=== PATIENT | female | born 1950 | race Caucasian/White ===

== ENCOUNTER 2017-08-11 14:00 | Outpatient (RCR) | payer MEDICARE, SELFPAY ==
--- NOTE | 2017-07-03 14:02 | HP.SP.AD_ITS ---
History - History Date of Eval: 07/03/17 Medical Diagnosis (from RX): memory Previous speech therapy: No Other Relevant Medical History/Diagnoses/Surgery: Pt is a 67 year old female who was referred d/t memory and cognitive changes. 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 Pt gets assistance with food and utilities as well as medical care. Pt is changing doctors from Dr. Rawls to Dr. Martell as she will come to the pt rather than the pt having to get transportation to an appt. Pt likes sewing, crafts, and find and seek with numbers. Pt has a brother who visits quite frequently and goes to [employer] at least 2x/wk for additional socialization. Pt has had previous hospital stays for hysterectomy, gall bladder, and 12th rib resection along with right shoulder surgery. Pt was seen by PT Rufino for back pain previously. Pt states having difficulty with remembering anything and can forget even during a conversation. 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 Patients Living Arrangements: Alone Patient Allergies - Allergies Allergies ciprofloxacin Allergy (Verified 06/26/13 16:32) Unknown codeine Allergy (Verified 12/13/13 13:37) Unknown hydroxyzine HCl [From Vistaril] Allergy (Verified 12/13/13 13:37) Unknown hydroxyzine pamoate [From Vistaril] Allergy (Verified 12/13/13 13:37) Unknown niacin Allergy (Verified 12/13/13 13:37) Unknown ofloxacin [From Floxin] Allergy (Verified 12/13/13 13:37) Unknown tetracycline [Tetracycline] Allergy (Verified 12/13/13 13:37) Unknown Tetracyclines Allergy (Verified 12/13/13 13:37) Unknown CLQT - CLQT CLQT Administered: Yes CLQT: Cognitive Linguistic Quick Test (CLQT) is a criterion - referenced assessment designed for adults between the ages of 18 and 89 with known or suspected neurological dysfuntions. The CLQT is to assess strength and weaknesses in five cognitive domains. Severity ratings are within normal limits , mild, moderate, severe deficits. The subtests are as follows: Date: 07/03/17 - Attention Attention: Mild - Memory Memory: WNL - Executive Functions Executive Functions: Severe - Language Language: Moderate - Visuospatial Skills Visuospatial Skills: Mild - Composite Severity Rating Composite Severity Rating: Mild - Clock Drawing Severity Rating Clock Drawing Severity Rating: Mild - CLQT Comments Description Pt was administered CLQT and demonstrated difficulty with symbol trails, generative naming, and design generation as those scores fell below the criterion scores. Pt had strengths of personal facts, symbol cancellation, confrontation naming, story retelling, and design memory as those scores were at or above the criterion. Pt would often need to be told to wait until all of the directions had been said prior to starting. During the symbol trails, pt had the most difficulty on the scored trail as pt was unable to alternate by shape and size. Memory was WNL, however, pt complains of memory issues and being unable to recall information. Memory will be a focus in order to assist with executive function skills as those skills fell within the severe range. Plan - Plan Plan: ST warranted due to executive function skills, memory, and attention. - Frequency Frequency: 1x/Week Duration: 6 Weeks - Prognosis Prognosis: Good - Goal #1-5 Goal #1: Pt will utilize compensatory strategies (internal vs external) to recall important information. Prompts: Min Accuracy: 80% # Sessions: 3/4 Goal #2: Pt will use strategies to guide executive function skills for attention , scheduling/planning/time management, and recalling details for completing functional daily activities. Prompts: Min Accuracy: 80% # Sessions: 3/4 G Codes - Type of Therapy Type of Therapy: Speech-Language Pathology - Memory Memory Current: CJ - 20-39% Memory Goal: CI - 1-19% Education - Patient has Indicated that the Following Identified Educational Needs: None The Patient has indicated that they have no educational or learning abilities that may effect their care.: Yes - Patient Instruction Patient Education: Treatment Plan, Goals Person Taught: Patient Teaching Method: Discussion Response to teaching: Verbalize understanding
--- NOTE | 2018-03-05 14:35 | HP.SP.DC ---
ST Discharge Summary - Discharged: Discharge: Juanita Winters is discharged from outpatient speech-language therapy at this time. The patient attended five sessions following her initial evaluation targeting functional memory strategies, demonstrating generalization of skills to home environment (remembering new names, remembering to bring items to therapy, etc...). Juanita did not schedule any additional sessions and therefore is discharged. Please reconsult as necessary.
== END 2017-08-11 19:00 | disposition home or self-care (01) ==
LOC: SP 14:00
PROVIDERS: Family Provider Internal Medicine; PCP Internal Medicine; Visit Provider Nurse Practitioner Adult Health
DX: R41.841 Cognitive communication deficit (principal); R41.3 Other amnesia; E11.65 Type 2 diabetes mellitus with hyperglycemia; Z71.3 Dietary counseling and surveillance
CPT/HCPCS: 92507 ×2; 92523; 97802; G9168; G9169

== ENCOUNTER 2017-10-27 10:28 | Outpatient (RCR) | payer MEDICARE, SELFPAY | END 2017-10-27 19:00 | LOC: DC 10:28 | PROVIDERS: Family Provider Nurse Practitioner Adult Health; PCP Nurse Practitioner Adult Health; Visit Provider Nurse Practitioner Adult Health | DX: E11.65 Type 2 diabetes mellitus with hyperglycemia (principal); Z71.3 Dietary counseling and surveillance | CPT/HCPCS: 97803 ==

== ENCOUNTER → 2018-03-08 12:47 | Outpatient (CLI) | payer MEDICARE, SELFPAY ==
[2018-03-08 13:41] LABS: Amphetamine Urine VISTA NEGATIVE (<1000 ng/mL); Barbiturate Urine VISTA NEGATIVE (< 200 ng/mL); Benzodiazepine Urine VISTA NEGATIVE (< 200 ng/mL); Cocaine Urine VISTA NEGATIVE (< 300 ng/mL); Ecstacy Urine VISTA NEGATIVE (< 500 ng/mL); Methadone Urine VISTA NEGATIVE (< 300 ng/mL); PCP Urine VISTA NEGATIVE (< 25 ng/mL); THC Urine VISTA NEGATIVE (< 50 ng/mL); Vista UDS pH Range 7
== END ==
PROVIDERS: Family Provider Nurse Practitioner Adult Health; PCP Nurse Practitioner Adult Health; Visit Provider Anesthesiology Pain Medicine
DX: F11.20 Opioid dependence, uncomplicated (principal)
CPT/HCPCS: 80307

== ENCOUNTER 2018-04-28 13:36 | Emergency (ER) | payer MEDICARE, SELFPAY ==
[2018-04-28 13:37] VITALS: BP 183/99; PULSE 91; RESP 18; TEMP 36.6; O2SAT 95; BMI 33.3
[2018-04-28 13:41] VITALS: O2SAT 95
--- NOTE | 2018-04-28 14:59 | RAD_ITS ---
STUDY: X-RAY - THORACIC SPINE REASON FOR EXAM: Female, 67 years old. Status post fall TECHNIQUE: 2 view(s) of the thoracic spine were obtained. COMPARISON: None. FINDINGS: Normal kyphosis of the thoracic spine. There is no substantial scoliosis. Normal thoracic vertebrae and endplates. Normal disc space heights. The soft tissue structures are unremarkable. RAD/Thoracic Spine 3 Views IMPRESSION: Normal x-ray examination of the thoracic spine. Electronically Signed: Marielena Boston MD at 16:03 EDT Tel , Service support ,
[2018-04-28] MEDS: Ondansetron ODT 4 MG Tablet PO (15:46)
[2018-04-28] MEDS: fentaNYL 100 MCG/2 ML Ampul 50 MCG IM (15:46)
--- NOTE | 2018-04-28 16:17 | ED.DCSUM_ITS ---
- ER Visit Summary Date of Service: 04/28/18 Chief Complaint: Fall History of Present Illness: The patient is a 67 F who sees Dolores Martell. She reports that 2 days ago she lost her balance and fell onto her buttocks. She then fell backwards and hit her head. She has a headache is 510 severity. She did not have a loss of consciousness. She is not on blood thinners. She reports that she has low back pain is 0 out of 10 at rest and 10 out of 10 with movement. Is not radiate into her legs. She denies any numbness, tingling, or weakness in her legs. No problem with her bowels or her bladder. No groin numbness. She also complains of bilateral hip pain. States that is 0 out of 10 at rest and 10 out of 10 with movement as well. Physical Examination: Vitals: Stable. Afebrile. Neck: No vertebral tenderness. Full ROM without difficulty. Cleared by NEXUS criteria. Back: Mild diffuse tenderness palpation over lumbar spine the paraspinous muscle chair and lumbar region bilaterally. She has a negative straight leg raise bilaterally. She has 5 out of 5 dorsiflexion, plantarflexion, extensor hallucis longus bilaterally. She has normal sensation to light touch throughout. General: A&O x 3. NAD. Cardiovascular exam: Regular rate and rhythm, no murmur, rub or gallop. Respiratory exam: Chest nontender. No crepitus. Clear to auscultation bilaterally. No wheezes or stridor. Abdominal exam: Soft, nontender, nondistended, normal bowel sounds. No pain in RUQ or LUQ specifically. No peritoneal signs. Extremity: Mild tenderness palpation over her greater trochanters bilaterally. No pain with range of motion. Test Results: LS spine x-ray show a 20-30% compression fracture of L1. Thoracic spine x-ray show degenerative changes. X-ray of her pelvis is read by the radiology is a questionable lucency in the left femoral neck. Because of the CT of the left hip was obtained and is negative. Emergency Department Course and Treatment: Patient was treated fentanyl IM and [place] p.o. She is resting comfortably and would like to go home. Treatment Plan: Patient will be discharged on [place] and Colace. Instructed follow-up her primary care physician 1 week if not improving. Return to the emergency department for any worsening symptoms. Disposition: To home in improved and stable condition. Impression: 1. L1 compression fracture. This note was generated with [employer] dictation software. It may contain incorrect words, spelling, and punctuation that were not noted in review of the chart prior to signing ED Disposition - Plan for ED Patient: Disposition: Home or Assisted Living Chief Complaint: Fall Instructions: ED Fx Comp Vertebral Prescriptions: Docusate Sodium [Colace] 100 mg PO DAILY #20 capsule Hydrocodone/Acetaminophen [[place] 5-325 Tablet] 1 - 2 each PO 4X/DAY PRN PRN 5 Days #20 tablet PRN Reason: Pain Referrals: Shelley Martell, FOOD [employer]AGE ANALYST-C [Primary Care Provider] - 1 Week if not improving
[2018-04-28 17:10] VITALS: BP 183/81; PULSE 78; O2SAT 94
--- NOTE | 2018-04-28 17:47 | ED.RN ---
CALLED REPORT TO [facility] SPOKE WITH NETTIE. REVIEWED TESTING AND NEW MEDICATIONS. DENIES QUESTIONS.
[2018-04-28 18:00] VITALS: BP 174/71; PULSE 91; RESP 18; O2SAT 96
[2018-04-28] MEDS: HYDROcodone Bitartrate/Apap 5/325 Tablet PO (18:16)
== END 2018-04-28 18:26 | disposition home or self-care (01) ==
LOC: ED 15:50
PROVIDERS: Emergency Provider Emergency Medicine; Family Provider Nurse Practitioner Adult Health; PCP Nurse Practitioner Adult Health
DX: S32.019A Unspecified fracture of first lumbar vertebra, initial encounter for closed fracture (principal); W19.XXXA Unspecified fall, initial encounter; Y93.89 Activity, other specified; Y92.89 Other specified places as the place of occurrence of the external cause; Y99.8 Other external cause status
CPT/HCPCS: 72072; 72100; 72170; 73700; 96372; 99284

== ENCOUNTER 2018-05-14 17:52 | Observation (INO) | payer MEDICARE, SELFPAY ==
[2018-05-14] VITALS (10 sets, daily range): BP systolic 150–172; BP diastolic 64–83; PULSE 93–109; RESP 18; TEMP 35.8–37.1; O2SAT 93–97; BMI 32.1
[2018-05-14] MEDS: Cefazolin 2 GM in 0.9% Normal Saline 100 ML IV (15:35)
--- NOTE | 2018-05-14 15:43 | RAD_ITS ---
Fluoroscopic guidance for kyphoplasty INDICATION: Kyphoplasty of L1 vertebral body TECHNIQUE: 6 fluoroscopic images. 116.2 seconds of fluoroscopy time. FINDINGS: Multiple fluoroscopic images demonstrate placement of bipedicular trochars with placement of vertebral augmentation balloons. Subsequent injection of radiopaque cement into the targeted vertebral body. Mild bulging anteriorly still felt to be within the anterior vertebral body. No significant extravasation. RAD/Spine 1 View Any Level IMPRESSION: Fluoroscopic guidance for kyphoplasty by referring service. Please see procedure report. Electronically Signed: Mohamud Escamilla MD at 7:57 EDT , Service support ,
[2018-05-14] MEDS: Bupivacaine Mpf 0.5% 30 ML VIAL (16:23)
[2018-05-14 18:06] LABS: Bedside Glucose 133 mg/dL (70-110)
--- NOTE | 2018-05-14 19:36 | HP.PCM_ITS ---
Problem List (1) Compression fracture of L1 lumbar vertebra Status: Chronic (2) Status post kyphoplasty Status: Acute (3) Hypothyroidism Status: Chronic (4) History of schizophrenia Status: Chronic (5) Type 2 diabetes mellitus Status: Chronic History of Present Illness Date of Admission: 05/14/18 Chief Complaint: Perioperative management of kyphoplasty The patient is a 68 year old F with history of redness mellitus type II and routine kyphoplasty of L1 compression fracture by Dr. Gupta and he asked me to admit the patient for perioperative management. Prior to that she came to ER on 04/28/2018 after she lost her balance and fell on her buttocks 2 days prior to that. I saw patient in the recovery room and she still has pain on perioperative region. She is feeling nauseated. She did not urinate but she feels urged to urinate. Denies chest pain, shortness of breath. [] Past Medical History Past Medical History (Chronic Problems): Chronic Problems Compression fracture of L1 lumbar vertebra (Chronic) Hypothyroidism (Chronic) History of schizophrenia (Chronic) Type 2 diabetes mellitus (Chronic) Allergies ciprofloxacin Allergy (Verified 05/11/18 13:58) Unknown codeine Allergy (Verified 05/11/18 13:58) Unknown hydroxyzine HCl [From Vistaril] Allergy (Verified 05/11/18 13:58) Unknown hydroxyzine pamoate [From Vistaril] Allergy (Verified 05/11/18 13:58) Unknown niacin Allergy (Verified 05/11/18 13:58) Unknown ofloxacin [From Floxin] Allergy (Verified 05/11/18 13:58) Unknown tetracycline [Tetracycline] Allergy (Verified 05/11/18 13:58) Unknown Tetracyclines Allergy (Verified 05/11/18 13:58) Unknown Home Medications: Ambulatory Orders Medication Instructions Recorded Cyanocobalamin [Vitamin B12] 1,000 mcg IM Q30D 06/26/13 Fluoxetine [Prozac] 40 mg PO DAILY 06/26/13 Levothyroxine [Synthroid] 25 mcg PO DAILY 06/26/13 Omeprazole [Prilosec] 40 mg PO DAILY 06/26/13 Paliperidone [Invega] 6 mg PO QHS 06/26/13 Trazodone HCl [Oleptro ER] 300 mg PO QHS 06/26/13 Aspirin 325 mg PO DAILY@0800 03/13/17 Dicyclomine HCl 20 mg PO 4X/DAY 03/13/17 Docusate Sodium [Colace] 100 mg PO BID 03/13/17 Wells-3 Fatty Acids/Fish Oil [Fish 1 each PO DAILY 03/13/17 Oil 1,000 mg Capsule] Pravastatin [Pravachol] 80 mg PO QHS 03/13/17 Pregabalin [Lyrica] 50 mg PO BID 03/13/17 busPIRone [Buspar] 15 mg PO TID 03/13/17 Cholecalciferol (Vitamin D3) 8,000 unit PO DAILY 05/11/18 [Vitamin D3] Fenofibrate [Tricor] 145 mg PO DAILY 05/11/18 Polyethylene Glycol 3350 [Miralax] 17 gm PO DAILY 05/11/18 traMADol [Ultram (G)] 50 mg PO BID 05/11/18 Smoking Status: Never smoker - *Family History Paternal History Items: No pertinent history Review of Systems Constitutional: Denies: Chills, Fever, Weight Change HEENT: Denies: Head Aches, Sinus Congestion, Sinus Drainage Cardiovascular: Denies: Chest Pain, Palpitations Respiratory: Denies: Cough, Shortness of breath at rest, Sputum production Gastrointestinal: Denies: Abdominal Pain, Nausea, Vomiting Genitourinary: Denies: Dysuria Musculoskeletal: Reports: Back Pain, Joint Pain, Joint stiffness, Joint swelling Skin: Denies: Rash, Wounds Neurological: Reports: Balance problems, Incoordination. Denies: Focal weakness , Numbness, Tingling Psychiatric: Denies: Anxiety, Depression, Homicidal Ideations, Suicidal Ideations Hematologic/ Lymphatic: Denies: Easy Bruising, Easy Bleeding VTE Information - Inpt Only VTE Present on Admission: No VTE Mechan Device Prophylaxis: SCD's VTE Pharm Prophylaxis ordered?: No Reason prophylaxis not ordered:: Medical Contraindication - Kyphoplasty surgery Patient Problems: Active and Suspected Problems Status post kyphoplasty (Acute) - Physical Exam General: Alert, Oriented x3, Cooperative HEENT: Atraumatic, PERRLA, EOMI, Normocephalic Neck: Supple, No JVD, Negative Carotid Bruits Lungs: Clear to auscultation, No rhonchi, No wheeze, Diminished Cardiovascular: Regular rate, Regular Rhythm, Normal S1, Normal S2, No murmurs Abdomen: Bowel Sounds Present, Soft, Non Tender, Non-Distended Extremities: No edema, Capillary Refill Less than 3 Seconds Skin: No rashes, No breakdown, Incision - Surgical dressing or back. Dressing is dry., - Musculoskeletal: No Tenderness to Palpation of Joints or Extremities, Arthritic Changes Neurological: Cranial nerves II-XII grossly intact Psych/Mental Status: Normal Affect, Appropriate Vital Signs Temp Pulse Resp BP Pulse Ox 97.7 F L 96 18 172/77 H 97 05/14/18 18:03 05/14/18 19:00 05/14/18 19:00 05/14/18 19:00 05/14/18 19:00 Oxygen Flow Rate (L/min) 3 Oxygen Delivery Method Nasal Cannula Weight: 164 lb 10.965 oz Body Mass Index (BMI) 32.1 Finger Stick Blood Glucose 133 Intake and Output for Last 24 Hours 05/12/18 05/13/18 05/14/18 23:59 23:59 23:59 Intake Total 800 / 800 Balance 800 / 800 POC Glucose 05/14/18 18:03 POC Glucose 133 H Assessment/Plan All Active Problems Status post kyphoplasty (Acute) The patient is a 68 year old F with history of redness mellitus type II and routine kyphoplasty of L1 compression fracture by Dr. Gupta and he asked me to admit the patient for perioperative management. Prior to that she came to ER on 04/28/2018 after she lost her balance and fell on her buttocks 2 days prior to that. I saw patient in the recovery room and she still has pain on perioperative region. She is feeling nauseated. She did not urinate but she feels urged to urinate. Denies chest pain, shortness of breath. 1. Recent L1 compression fracture status post kyphoplasty; with underlying osteoporosis with history of sciatica pain and neuropathy: Patient is being admitted on regular MedSurg floor. Pain control. IV fluid. She had propofol and fentanyl as an anesthetic agent. On tramadol. Symptomatic management for nausea or vomiting. Straight cath as needed for bladder emptying and bladder scan every 4 hourly for PVR. On stool softener. CBC BMP tomorrow morning 2. Type 2 diabetes mellitus: Accu-Chek before meals and at bedtime and cover with NovoLog sliding scale. 3. Chronic diastolic heart failure: Patient had 2D echo in April 2015 which shows EF 65% with stage I diastolic dysfunction. 4. Dyslipidemia, hypothyroidism and schizophrenia: Home medication reconciliation done. 5. DVT prophylaxis: On bilateral SCDs. Will hold pharmacological prophylaxis for at least 24 hours and patient might be discharged tomorrow morning. This note was generated with [employer] dictation software. Every effort was made to ensure accuracy, however computerized flight line service attendant mistakes may persist. Code Visit OBSV E&M: 10918 Initial observation care L3
[2018-05-14] MEDS: Ondansetron 4 MG/2 ML Vial IV (20:14)
[2018-05-14] MEDS: 0.9% Normal Saline 1,000 ML 75 ML IV (20:18)
[2018-05-14 21:30] LABS: Bedside Glucose 152 mg/dL (70-110)
[2018-05-14] MEDS: Pravastatin 80 MG Tablet PO (21:30)
[2018-05-14] MEDS: traMADol 50 MG Tablet PO (21:30)
[2018-05-14] MEDS: Dicyclomine 10 MG Capsule 20 MG PO (21:30)
[2018-05-14] MEDS: Pregabalin 50 MG Capsule PO (21:30)
[2018-05-14] MEDS: busPIRone 15 MG TABLET PO (21:30)
[2018-05-14] MEDS: Docusate Sodium 100 MG Capsule PO (21:30)
[2018-05-14] MEDS: proMETHazine 25 MG/ML Syringe 12.5 MG IV (21:38)
[2018-05-15 00:08] VITALS: BP 168/88; PULSE 89; RESP 17; TEMP 37.4; O2SAT 96
[2018-05-15] MEDS: Acetaminophen 325 MG Tablet 650 MG PO ×2 (02:39→08:40)
[2018-05-15 02:41] VITALS: BP 114/54; PULSE 88; RESP 18; TEMP 37.3; O2SAT 94
[2018-05-15] MEDS: busPIRone 15 MG TABLET PO ×3 (04:45→22:22)
[2018-05-15] MEDS: Levothyroxine 25 MCG TABLET PO (04:46)
[2018-05-15 06:51] LABS: Bedside Glucose 118 mg/dL (70-110)
[2018-05-15 07:32] LABS: Absolute Lymphocyte Count 1.36 X10^3/ul (0.83-4.51); Absolute Neutrophil Count 6.1 X10^3/uL (2.0-7.7); Basophil# 0.01 X10^3/uL; Basophil% 0.1 % (0-1); Eosinophil# 0.02 X10^3/uL; Eosinophils% 0.2 % (0-5); Hematocrit 32.9 % (37-47); Hemoglobin 10.8 g/dl (12.0-15.0); Lymphocyte # 1.36 X10^3/ul (4.0); Lymphocyte % 16.7 % (19-41); Mean Corp Hgb Conc 32.8 g/gl (32-36); Mean Corpuscular Hgb 30.3 pg (27.0-32.0); Mean Corpuscular Volume 92.2 fL (81-99); Mean Platelet Vol. 8.9 fl (6.2-12.0); Monocyte# 0.58 X10^3/uL; Monocyte% 7.1 % (0-10); Neutrophil # 6.14 X10^3/uL (2.7-7.7); Neutrophil % 75.8 % (47-70); Platelet Count 409 K/mm3 (150-450); RBC Distribution Width CV 12.9 % (11.6-14.6); RBC Distribution Width SD 42.1 fl (35.1-43.9); Red Blood Count 3.57 M/mm3 (4.2-5.4); White Blood Count 8.1 K/mm3 (4.4-11.0)
[2018-05-15 07:36] LABS: POSITIVE COUNT NO; POSITIVE DIFFERENTIAL NO; POSITIVE MORPHOLOGY NO
[2018-05-15 07:57] LABS: Anion Gap 9 (5-15); BUN 8 mg/dL (7-18); BUN/Creat Ratio 8.9 RATIO (10-20); Calcium,Total 8.3 mg/dL (8.5-10.1); Chloride 104 mmol/L (98-107); EST Glomerular Filtration Rate 66 mL/min (>60); Est Glom Filt Rate - Afr Amer 80 mL/min (>60); Estimated Creatinine Clearance 41.78 ml/min; Glucose 108 mg/dL (74-106); Potassium 3.9 mmol/L (3.5-5.1); Sodium Level 139 mmol/L (136-145)
[2018-05-15 08:00] VITALS: O2SAT 95
[2018-05-15 08:29] VITALS: BP 147/75; PULSE 80; RESP 18; TEMP 37.8; O2SAT 95
[2018-05-15] MEDS: Dicyclomine 10 MG Capsule 20 MG PO ×4 (08:32→22:19)
[2018-05-15] MEDS: Fenofibrate 145 MG Tablet PO (08:32)
[2018-05-15] MEDS: Polyethylene Glycol 3350 17 GM PACKET PO (08:33)
[2018-05-15] MEDS: Omega-3 Acid Ethyl Esters 1 GM Capsule PO (08:33)
[2018-05-15] MEDS: Pantoprazole Sodium 40 MG Tablet PO (08:33)
[2018-05-15] MEDS: FLUoxetine 20 MG Capsule 40 MG PO (08:33)
[2018-05-15] MEDS: Aspirin 325 MG Tablet PO (08:34)
[2018-05-15] MEDS: Docusate Sodium 100 MG Capsule PO ×2 (08:34→22:22)
[2018-05-15] MEDS: Pregabalin 50 MG Capsule PO ×2 (08:38→22:29)
[2018-05-15] MEDS: traMADol 50 MG Tablet PO ×2 (08:38→22:29)
[2018-05-15] MEDS: proMETHazine 25 MG/ML Syringe 12.5 MG IV (09:35)
[2018-05-15] MEDS: 0.9% Normal Saline 1,000 ML 75 ML IV ×2 (11:03→22:16)
[2018-05-15 11:51] LABS: Bedside Glucose 136 mg/dL (70-110)
--- NOTE | 2018-05-15 12:04 | PCM.PN.HOSP ---
Patient Problems: Active and Suspected Problems Status post kyphoplasty (Acute) Migraine (Acute) Abdominal bloating (Acute) Subjective: Headache. Back pain is worse s/p kyphoplasty. Abdominal bloating. Vitals/I&O's: Vital Signs Temp Pulse Resp BP Pulse Ox 37.8 C H 80 18 147/75 H 95 05/15/18 08:29 05/15/18 08:29 05/15/18 08:29 05/15/18 08:29 05/15/18 08:29 Oxygen Flow Rate (L/min) 3 Oxygen Delivery Method Room Air Weight: 74.7 kg Body Mass Index (BMI) 32.1 Finger Stick Blood Glucose 133 Intake and Output for Last 24 Hours 05/13/18 05/14/18 05/15/18 23:59 23:59 23:59 Intake Total 920 / 920 1346 / 1346 Output Total 350 / 350 2250 / 2250 Balance 570 / 570 -904 / -904 General: Alert, - - appears older than stated age. afebrile. HEENT: Atraumatic, Normocephalic Oral: Moist Mucosa, No Gingival or Mucosal Lesions/ Ulcerations Neck: No Nodes, Thyroid Normal Size and Texture Lungs: Clear to auscultation, Normal air movement, No rhonchi, No wheeze Cardiovascular: Regular rate, Regular Rhythm, Normal S1, Normal S2, No murmurs Abdomen: Bowel Sounds Present, Soft, Non Tender, Distended Extremities: No edema, No Calf Tenderness Skin: No rashes, No breakdown Psych/Mental Status: Normal Affect, Appropriate Laboratory Results 05/14/18 18:03: POC Glucose 133 H 05/14/18 21:25: POC Glucose 152 H 05/15/18 06:42: POC Glucose 118 H 05/15/18 07:07: WBC 8.1, RBC 3.57 L, Hgb 10.8 L, Hct 32.9 L, MCV 92.2, MCH 30.3, MCHC 32.8, RDW 12.9, RDW Differential 42.1, Plt Count 409, MPV 8.9, Immature Gran % (Auto) 0.100, Neut % (Auto) 75.8 H, Lymph % (Auto) 16.7 L, [place] % (Auto) 7.1, Eos % (Auto) 0.2, Baso % (Auto) 0.1, Absolute Neuts (auto) 6.1, Absolute Lymphs (auto) 1.36, Total Counted Not Reportable 05/15/18 07:07: Sodium 139, Potassium 3.9, Chloride 104, Carbon Dioxide 26.0, Anion Gap 9, BUN 8, Creatinine 0.90, Estim Creat Clear Calc 41.78, Est GFR (MDRD) Af Amer 80, Est GFR (MDRD) Non-Af 66, BUN/Creatinine Ratio 8.9 L, Glucose 108 H, Calcium 8.3 L 05/15/18 11:00: POC Glucose 136 H Current Medications Acetaminophen (Tylenol) 650 mg PO Q6H PRN PRN PRN Reason: Mild Pain (scale 0-3)/T>100.7 Last Admin: 05/15/18 08:40 Dose: 650 mg Al Hydroxide/Mg Hydroxide (Mylanta Ii) 30 ml PO Q6H PRN PRN PRN Reason: Gastric Burning Aspirin (Aspirin) 325 mg PO DAILY@0800 [facility] Last Admin: 05/15/18 08:34 Dose: 325 mg Bisacodyl (Dulcolax) 10 mg RECTAL DAILY PRN PRN PRN Reason: Constipation Buspirone HCl (Buspar) 15 mg PO TID [facility] Last Admin: 05/15/18 04:45 Dose: 15 mg Cholecalciferol (Vitamin D) 8,000 unit PO DAILY [facility] Last Admin: 05/15/18 08:32 Dose: 8,000 unit Cyanocobalamin (Vitamin B12) 1,000 mcg IM Q30D [facility] Dextrose (D50w Syringe) 0 gm IV X1 PRN; Protocol PRN Reason: Hypoglycemia Dicyclomine HCl (Bentyl) 20 mg PO 4X/DAY [facility] Last Admin: 05/15/18 08:32 Dose: 20 mg Docusate Sodium (Colace) 100 mg PO BID [facility] Last Admin: 05/15/18 08:34 Dose: 100 mg Fenofibrate (Tricor) 145 mg PO DAILY [facility] Last Admin: 05/15/18 08:32 Dose: 145 mg Fluoxetine HCl (Prozac) 40 mg PO DAILY [facility] Last Admin: 05/15/18 08:33 Dose: 40 mg Glucagon () 1 mg IM .X1 PRN PRN Reason: Hypoglycemia Sodium Chloride () 1,000 mls @ 75 mls/hr IV .[id number] [facility] Last Admin: 05/15/18 11:03 Dose: 75 mls/hr Insulin Human Lispro (Humalog Getpen (Bkc)) 0 unit SQ ACHS [facility] PRN Reason: Protocol Last Admin: 05/15/18 11:03 Dose: Not Given Levothyroxine Sodium (Synthroid) 25 mcg PO DAILY@0600 [facility] Last Admin: 05/15/18 04:46 Dose: 25 mcg Kpizt-0-Bjfx Ethyl Esters (Lovaza) 1 gm PO DAILY [facility] Last Admin: 05/15/18 08:33 Dose: 1 gm Ondansetron HCl (Zofran) 4 mg IV Q6H PRN PRN PRN Reason: Nausea Last Admin: 05/14/18 20:14 Dose: 4 mg Paliperidone (Invega) 6 mg PO QHS [facility] Pantoprazole Sodium (Protonix) 40 mg PO DAILY [facility] Last Admin: 05/15/18 08:33 Dose: 40 mg Polyethylene Glycol (Miralax) 17 gm PO DAILY [facility] Last Admin: 05/15/18 08:33 Dose: 17 gm Pravastatin Sodium (Pravachol) 80 mg PO QHS [facility] Last Admin: 05/14/18 21:30 Dose: 80 mg Pregabalin (Lyrica) 50 mg PO BID [facility] Last Admin: 05/15/18 08:38 Dose: 50 mg Promethazine HCl (Phenergan) 12.5 mg IV Q4H PRN PRN PRN Reason: NAUSEA/VOMITING Last Admin: 05/15/18 09:35 Dose: 12.5 mg Tramadol HCl (Ultram) 50 mg PO BID [facility] Last Admin: 05/15/18 08:38 Dose: 50 mg Trazodone HCl (Desyrel) 200 mg PO QHS [facility] Zolpidem Tartrate (Ambien (Generic)) 5 mg PO QHS PRN PRN PRN Reason: INSOMNIA Medical Necessity - Tobacco Use Smoking Status: Never smoker Assessment/Plan All Active Problems Status post kyphoplasty (Acute) Migraine (Acute) Abdominal bloating (Acute) 1. Migraine start ibuprofen and see if it helps 2. abdominal distention check KUB to eval for ileus/SBO 3. debility pt lives by herself have PT OT eval may need SNF 4. S/P Kyphoplasty states she feels worse than before procedure mgmt per Dr. Gupta 5. DVT proph: LMWH. Code Visit Inpatient E&M: 07882 Subs Hosp L2
--- NOTE | 2018-05-15 12:09 | PN_ITS ---
Patient Problems: Active and Suspected Problems Status post kyphoplasty (Acute) Migraine (Acute) Abdominal bloating (Acute) Subjective: Headache. Back pain is worse s/p kyphoplasty. Abdominal bloating. Vitals/I&O's: Vital Signs Temp Pulse Resp BP Pulse Ox 37.8 C H 80 18 147/75 H 95 05/15/18 08:29 05/15/18 08:29 05/15/18 08:29 05/15/18 08:29 05/15/18 08:29 Oxygen Flow Rate (L/min) 3 Oxygen Delivery Method Room Air Weight: 74.7 kg Body Mass Index (BMI) 32.1 Finger Stick Blood Glucose 133 Intake and Output for Last 24 Hours 05/13/18 05/14/18 05/15/18 23:59 23:59 23:59 Intake Total 920 / 920 1346 / 1346 Output Total 350 / 350 2250 / 2250 Balance 570 / 570 -904 / -904 General: Alert, - - appears older than stated age. afebrile. HEENT: Atraumatic, Normocephalic Oral: Moist Mucosa, No Gingival or Mucosal Lesions/ Ulcerations Neck: No Nodes, Thyroid Normal Size and Texture Lungs: Clear to auscultation, Normal air movement, No rhonchi, No wheeze Cardiovascular: Regular rate, Regular Rhythm, Normal S1, Normal S2, No murmurs Abdomen: Bowel Sounds Present, Soft, Non Tender, Distended Extremities: No edema, No Calf Tenderness Skin: No rashes, No breakdown Psych/Mental Status: Normal Affect, Appropriate Laboratory Results 05/14/18 18:03: POC Glucose 133 H 05/14/18 21:25: POC Glucose 152 H 05/15/18 06:42: POC Glucose 118 H 05/15/18 07:07: WBC 8.1, RBC 3.57 L, Hgb 10.8 L, Hct 32.9 L, MCV 92.2, MCH 30.3 , MCHC 32.8, RDW 12.9, RDW Differential 42.1, Plt Count 409, MPV 8.9, Immature Gran % (Auto) 0.100, Neut % (Auto) 75.8 H, Lymph % (Auto) 16.7 L, [place] % (Auto) 7.1, Eos % (Auto) 0.2, Baso % (Auto) 0.1, Absolute Neuts (auto) 6.1, Absolute Lymphs (auto) 1.36, Total Counted Not Reportable 05/15/18 07:07: Sodium 139, Potassium 3.9, Chloride 104, Carbon Dioxide 26.0, Anion Gap 9, BUN 8, Creatinine 0.90, Estim Creat Clear Calc 41.78, Est GFR (MDRD ) Af Amer 80, Est GFR (MDRD) Non-Af 66, BUN/Creatinine Ratio 8.9 L, Glucose 108 H, Calcium 8.3 L 05/15/18 11:00: POC Glucose 136 H Current Medications Acetaminophen (Tylenol) 650 mg PO Q6H PRN PRN PRN Reason: Mild Pain (scale 0-3)/T>100.7 Last Admin: 05/15/18 08:40 Dose: 650 mg Al Hydroxide/Mg Hydroxide (Mylanta Ii) 30 ml PO Q6H PRN PRN PRN Reason: Gastric Burning Aspirin (Aspirin) 325 mg PO DAILY@0800 [facility] Last Admin: 05/15/18 08:34 Dose: 325 mg Bisacodyl (Dulcolax) 10 mg RECTAL DAILY PRN PRN PRN Reason: Constipation Buspirone HCl (Buspar) 15 mg PO TID [facility] Last Admin: 05/15/18 04:45 Dose: 15 mg Cholecalciferol (Vitamin D) 8,000 unit PO DAILY [facility] Last Admin: 05/15/18 08:32 Dose: 8,000 unit Cyanocobalamin (Vitamin B12) 1,000 mcg IM Q30D [facility] Dextrose (D50w Syringe) 0 gm IV X1 PRN; Protocol PRN Reason: Hypoglycemia Dicyclomine HCl (Bentyl) 20 mg PO 4X/DAY [facility] Last Admin: 05/15/18 08:32 Dose: 20 mg Docusate Sodium (Colace) 100 mg PO BID [facility] Last Admin: 05/15/18 08:34 Dose: 100 mg Fenofibrate (Tricor) 145 mg PO DAILY [facility] Last Admin: 05/15/18 08:32 Dose: 145 mg Fluoxetine HCl (Prozac) 40 mg PO DAILY [facility] Last Admin: 05/15/18 08:33 Dose: 40 mg Glucagon () 1 mg IM .X1 PRN PRN Reason: Hypoglycemia Sodium Chloride () 1,000 mls @ 75 mls/hr IV .[id number] [facility] Last Admin: 05/15/18 11:03 Dose: 75 mls/hr Insulin Human Lispro (Humalog Getpen (Bkc)) 0 unit SQ ACHS [facility] PRN Reason: Protocol Last Admin: 05/15/18 11:03 Dose: Not Given Levothyroxine Sodium (Synthroid) 25 mcg PO DAILY@0600 [facility] Last Admin: 05/15/18 04:46 Dose: 25 mcg [id number] Ethyl Esters (Lovaza) 1 gm PO DAILY [facility] Last Admin: 05/15/18 08:33 Dose: 1 gm Ondansetron HCl (Zofran) 4 mg IV Q6H PRN PRN PRN Reason: Nausea Last Admin: 05/14/18 20:14 Dose: 4 mg Paliperidone (Invega) 6 mg PO QHS [facility] Pantoprazole Sodium (Protonix) 40 mg PO DAILY [facility] Last Admin: 05/15/18 08:33 Dose: 40 mg Polyethylene Glycol (Miralax) 17 gm PO DAILY [facility] Last Admin: 05/15/18 08:33 Dose: 17 gm Pravastatin Sodium (Pravachol) 80 mg PO QHS [facility] Last Admin: 05/14/18 21:30 Dose: 80 mg Pregabalin (Lyrica) 50 mg PO BID [facility] Last Admin: 05/15/18 08:38 Dose: 50 mg Promethazine HCl (Phenergan) 12.5 mg IV Q4H PRN PRN PRN Reason: NAUSEA/VOMITING Last Admin: 05/15/18 09:35 Dose: 12.5 mg Tramadol HCl (Ultram) 50 mg PO BID [facility] Last Admin: 05/15/18 08:38 Dose: 50 mg Trazodone HCl (Desyrel) 200 mg PO QHS [facility] Zolpidem Tartrate (Ambien (Generic)) 5 mg PO QHS PRN PRN PRN Reason: INSOMNIA Medical Necessity - Tobacco Use Smoking Status: Never smoker Assessment/Plan All Active Problems Status post kyphoplasty (Acute) Migraine (Acute) Abdominal bloating (Acute) 1. Migraine * start ibuprofen and see if it helps 2. abdominal distention * check KUB to eval for ileus/SBO 3. debility * pt lives by herself * have PT OT eval * may need SNF 4. S/P Kyphoplasty * states she feels worse than before procedure * mgmt per Dr. Gupta 5. DVT proph: LMWH. Code Visit Inpatient E&M: 02636 Subs Hosp L2
--- NOTE | 2018-05-15 12:20 | CASEMGMT ---
MP RODRIGUEZ Face to Face with patient for initial transition planning/care coordination assessment. MP RODRIGUEZ introduced self and role at [facility]. Patient lying in bed, alert and oriented. Patient willing to participate in assessment and is able to answer all questions appropriately. Care providers, pharmacy, and demographics verified. Patient lives at assisted living at [facility]. Patient wishes to discharge to SNF for additional rehab. Patient states her first choice is [facility]. MP RODRIGUEZ explained to patient that MARY will follow-up with patient regarding placement. Patient states she has no further needs or concerns at this time. MARY Castillo notified of patient's request for SNF at discharge. Disposition Plan: Patient to discharge to SNF Cecilia BROUSSARD, RN, CM
[2018-05-15] MEDS: Ibuprofen 600 MG Tablet PO ×2 (13:23→22:18)
--- NOTE | 2018-05-15 13:40 | RAD_ITS ---
STUDY: X-RAY - ABDOMEN/PELVIS REASON FOR EXAM: Female, 68 years old. Abdominal pain. TECHNIQUE: AP supine and upright views of the abdomen and pelvis on 4 films. COMPARISON: CT abdomen and pelvis January 20, 2016 FINDINGS: There is curvilinear scarring in the left lung base. Numerous fluid levels are seen within nondistended segments of gas and fluid-filled small bowel and colon. Small volume of gas and fecal material noted in the rectal vault. The pattern is nonspecific, but may reflect a mild generalized ileus. There is no demonstrated free abdominal air. The visualized liver, spleen and kidneys are grossly normal in size and morphology. Normal soft tissue structures. There are stable degenerative changes of the visualized spine as well as mild degenerative arthroses of the bilateral sacroiliac joint. The patient has undergone cement augmentation of an L1 vertebral compression fracture since lumbar spine films of April 28, 2018 RAD/Abd Decub and/or Erect(Portabl IMPRESSION: 1. Probable mild ileus without distention. No free gas. 2. Patient has undergone cement augmentation of an L1 vertebral fracture since April 28, 2018. Electronically Signed: Herbert Cárdenas MD at 14:12 EDT , Service support ,
[2018-05-15 14:09] VITALS: BP 160/72; PULSE 75; RESP 18; TEMP 37.5; O2SAT 95
[2018-05-15 15:11] LABS: Bedside Glucose 152 mg/dL (70-110)
[2018-05-15 16:45] LABS: Bedside Glucose 100 mg/dL (70-110)
--- NOTE | 2018-05-15 18:28 | CASEMGMT ---
Social Work Note SW received referral for SNF placement at discharge. SW to discuss SNF placement with pt tomorrow as admissions at SNF have left for the day. Plan: SNF pending acceptance and pre-cert Cecilia Castillo MSW, AUTOMOTIVE UPHOLSTERER
[2018-05-15 20:10] VITALS: BP 141/61; PULSE 70; RESP 16; TEMP 36.8; O2SAT 95
[2018-05-15] MEDS: Ondansetron 4 MG/2 ML Vial IV (22:16)
[2018-05-15] MEDS: traZODone 100 MG Tablet 200 MG PO (22:29)
[2018-05-15] MEDS: Pravastatin 80 MG Tablet PO (22:29)
[2018-05-15 22:45] LABS: Bedside Glucose 131 mg/dL (70-110)
[2018-05-16 02:00] VITALS: BP 135/67; PULSE 62; RESP 16; TEMP 36.4; O2SAT 94
[2018-05-16] MEDS: Ibuprofen 600 MG Tablet PO (05:59)
[2018-05-16] MEDS: busPIRone 15 MG TABLET PO ×3 (06:00→22:34)
[2018-05-16] MEDS: Levothyroxine 25 MCG TABLET PO (06:00)
[2018-05-16 06:51] LABS: Bedside Glucose 130 mg/dL (70-110)
[2018-05-16 08:00] VITALS: BP 157/70; PULSE 72; RESP 16; TEMP 36.6; O2SAT 94
[2018-05-16] MEDS: Aspirin 325 MG Tablet PO (08:30)
[2018-05-16] MEDS: 0.9% Normal Saline 1,000 ML 75 ML IV ×2 (08:31→22:32)
--- NOTE | 2018-05-16 08:45 | CASEMGMT ---
Social Work Note SW met with pt to confirm discharge plans. Per previous notes, pt [facility] choice for SNF [facility]. [facility] is not in network with pt's insurance. SW updated pt of this and informed her that the SNF in network with her insurance are [facility] and [facility]. Pt states that she julisa like a referral sent to [facility]. SW placed a call to Kalani Abdullahi, quality management, who will fax referral to [facility]. Plan: Discharge to [facility] pending acceptance and pre-cert Cecilia Castillo BOOT TURNER, PRIVATE DETECTIVE
--- NOTE | 2018-05-16 10:10 | CASEMGMT ---
Per MARY Brooks, referral needs sent to [facility]. Called and spoke with Nati in admissions, informed Nati that if she can accept patient to go ahead and start pre-cert. Referral faxed, confirmation received. Kalani Abdullahi LPN Clinical Support
[2018-05-16] MEDS: Dicyclomine 10 MG Capsule 20 MG PO ×4 (10:11→22:33)
[2018-05-16] MEDS: Docusate Sodium 100 MG Capsule PO ×2 (10:12→22:33)
[2018-05-16] MEDS: Omega-3 Acid Ethyl Esters 1 GM Capsule PO (10:12)
[2018-05-16] MEDS: Polyethylene Glycol 3350 17 GM PACKET PO (10:15)
[2018-05-16] MEDS: FLUoxetine 20 MG Capsule 40 MG PO (10:16)
[2018-05-16] MEDS: Fenofibrate 145 MG Tablet PO (10:16)
[2018-05-16] MEDS: Pantoprazole Sodium 40 MG Tablet PO (10:16)
[2018-05-16] MEDS: traMADol 50 MG Tablet PO ×2 (10:24→22:32)
[2018-05-16] MEDS: Pregabalin 50 MG Capsule PO ×2 (10:24→22:33)
[2018-05-16] MEDS: Insulin Lispro 100 UNIT/ML INSULN.PEN SQ ×2 (11:48→16:16)
[2018-05-16 11:56] LABS: Bedside Glucose 150 mg/dL (70-110)
[2018-05-16] MEDS: Ondansetron 4 MG/2 ML Vial IV (12:09)
--- NOTE | 2018-05-16 12:10 | PCM.PN.HOSP ---
Patient Problems: Active and Suspected Problems Ileus (Acute) Migraine (Acute) Status post kyphoplasty (Acute) Subjective: Still with abdominal pain. Still with back pain. Vitals/I&O's: Vital Signs Temp Pulse Resp BP Pulse Ox 36.6 C 72 16 157/70 H 94 05/16/18 08:00 05/16/18 08:00 05/16/18 08:00 05/16/18 08:00 05/16/18 08:00 Oxygen Flow Rate (L/min) 1 Oxygen Delivery Method Nasal Cannula Weight: 74.7 kg Body Mass Index (BMI) 32.1 Finger Stick Blood Glucose 133 Intake and Output for Last 24 Hours 05/14/18 05/15/18 05/16/18 23:59 23:59 23:59 Intake Total 920 / 920 1946 / 1946 974 / 974 Output Total 350 / 350 2950 / 2950 Balance 570 / 570 -1004 / -1004 974 / 974 General: Alert, Cooperative, No apparent distress HEENT: Atraumatic, Normocephalic Oral: Moist Mucosa, No Gingival or Mucosal Lesions/ Ulcerations Neck: No Nodes, Thyroid Normal Size and Texture Lungs: Clear to auscultation, Normal air movement, No rhonchi, No wheeze Cardiovascular: Regular rate, Regular Rhythm, Normal S1, Normal S2, No murmurs Abdomen: Bowel Sounds Present, Soft, Non Tender, Hypoactive Bowel Sounds, Distended Extremities: No edema, No Calf Tenderness Skin: No rashes, No breakdown Musculoskeletal: No Tenderness to Palpation of Joints or Extremities, No Muscle Wasting Psych/Mental Status: Appropriate, Flat Affect Laboratory Results 05/14/18 13:59: POC Glucose 152 H 05/15/18 16:23: POC Glucose 100 05/15/18 22:32: POC Glucose 131 H 05/16/18 06:45: POC Glucose 130 H 05/16/18 11:35: POC Glucose 150 H Current Medications Acetaminophen (Tylenol) 650 mg PO Q6H PRN PRN PRN Reason: Mild Pain (scale 0-3)/T>100.7 Last Admin: 05/15/18 08:40 Dose: 650 mg Al Hydroxide/Mg Hydroxide (Mylanta Ii) 30 ml PO Q6H PRN PRN PRN Reason: Gastric Burning Aspirin (Aspirin) 325 mg PO DAILY@0800 [facility] Last Admin: 05/16/18 08:30 Dose: 325 mg Bisacodyl (Dulcolax) 10 mg RECTAL DAILY PRN PRN PRN Reason: Constipation Buspirone HCl (Buspar) 15 mg PO TID [facility] Last Admin: 05/16/18 06:00 Dose: 15 mg Cholecalciferol (Vitamin D) 8,000 unit PO DAILY [facility] Last Admin: 05/16/18 10:16 Dose: 8,000 unit Cyanocobalamin (Vitamin B12) 1,000 mcg IM Q30D [facility] Dextrose (D50w Syringe) 0 gm IV X1 PRN; Protocol PRN Reason: Hypoglycemia Dicyclomine HCl (Bentyl) 20 mg PO 4X/DAY [facility] Last Admin: 05/16/18 10:11 Dose: 20 mg Docusate Sodium (Colace) 100 mg PO BID [facility] Last Admin: 05/16/18 10:12 Dose: 100 mg Fenofibrate (Tricor) 145 mg PO DAILY [facility] Last Admin: 05/16/18 10:16 Dose: 145 mg Fluoxetine HCl (Prozac) 40 mg PO DAILY [facility] Last Admin: 05/16/18 10:16 Dose: 40 mg Glucagon () 1 mg IM .X1 PRN PRN Reason: Hypoglycemia Sodium Chloride () 1,000 mls @ 75 mls/hr IV .[id number] [facility] Last Admin: 05/16/18 08:31 Dose: 75 mls/hr Ibuprofen (Motrin) 600 mg PO Q6H PRN PRN PRN Reason: MILD PAIN (1-3/10) Last Admin: 05/16/18 05:59 Dose: 600 mg Insulin Human Lispro (Humalog Kwikpen (Bkc)) 0 unit SQ ACHS [facility] PRN Reason: Protocol Last Admin: 05/16/18 11:48 Dose: 2 u Levothyroxine Sodium (Synthroid) 25 mcg PO DAILY@0600 [facility] Last Admin: 05/16/18 06:00 Dose: 25 mcg [id number] Ethyl Esters (Lovaza) 1 gm PO DAILY [facility] Last Admin: 05/16/18 10:12 Dose: 1 gm Ondansetron HCl (Zofran) 4 mg IV Q6H PRN PRN PRN Reason: Nausea Last Admin: 05/16/18 12:09 Dose: 4 mg Paliperidone (Invega) 6 mg PO QHS [facility] Pantoprazole Sodium (Protonix) 40 mg PO DAILY [facility] Last Admin: 05/16/18 10:16 Dose: 40 mg Polyethylene Glycol (Miralax) 17 gm PO DAILY [facility] Last Admin: 05/16/18 10:15 Dose: 17 gm Pravastatin Sodium (Pravachol) 80 mg PO QHS [facility] Last Admin: 05/15/18 22:29 Dose: 80 mg Pregabalin (Lyrica) 50 mg PO BID [facility] Last Admin: 05/16/18 10:24 Dose: 50 mg Promethazine HCl (Phenergan) 12.5 mg IV Q4H PRN PRN PRN Reason: NAUSEA/VOMITING Last Admin: 05/15/18 09:35 Dose: 12.5 mg Tramadol HCl (Ultram) 50 mg PO BID [facility] Last Admin: 05/16/18 10:24 Dose: 50 mg Trazodone HCl (Desyrel) 200 mg PO QHS [facility] Last Admin: 05/15/18 22:29 Dose: 200 mg Zolpidem Tartrate (Ambien (Generic)) 5 mg PO QHS PRN PRN PRN Reason: INSOMNIA Medical Necessity - Tobacco Use Smoking Status: Never smoker Assessment/Plan All Active Problems Ileus (Acute) Abdominal bloating (Acute) Migraine (Acute) Status post kyphoplasty (Acute) 1. Migraine improved start ibuprofen and see if it helps 2. ileus encouraged activity continue clear diet for now 3. debility pt lives by herself have PT OT eval SNF upon discharge. precert started. 4. S/P Kyphoplasty states she feels worse than before procedure DW Dr. Gupta on 05/15, and states that is common. Follow up as outpt. 5. DVT proph: LMWH. Code Visit Inpatient E&M: 87593 Subs Hosp L2
--- NOTE | 2018-05-16 12:13 | PN_ITS ---
Patient Problems: Active and Suspected Problems Ileus (Acute) Migraine (Acute) Status post kyphoplasty (Acute) Subjective: Still with abdominal pain. Still with back pain. Vitals/I&O's: Vital Signs Temp Pulse Resp BP Pulse Ox 36.6 C 72 16 157/70 H 94 05/16/18 08:00 05/16/18 08:00 05/16/18 08:00 05/16/18 08:00 05/16/18 08:00 Oxygen Flow Rate (L/min) 1 Oxygen Delivery Method Nasal Cannula Weight: 74.7 kg Body Mass Index (BMI) 32.1 Finger Stick Blood Glucose 133 Intake and Output for Last 24 Hours 05/14/18 05/15/18 05/16/18 23:59 23:59 23:59 Intake Total 920 / 920 1946 / 1946 974 / 974 Output Total 350 / 350 2950 / 2950 Balance 570 / 570 -1004 / -1004 974 / 974 General: Alert, Cooperative, No apparent distress HEENT: Atraumatic, Normocephalic Oral: Moist Mucosa, No Gingival or Mucosal Lesions/ Ulcerations Neck: No Nodes, Thyroid Normal Size and Texture Lungs: Clear to auscultation, Normal air movement, No rhonchi, No wheeze Cardiovascular: Regular rate, Regular Rhythm, Normal S1, Normal S2, No murmurs Abdomen: Bowel Sounds Present, Soft, Non Tender, Hypoactive Bowel Sounds, Distended Extremities: No edema, No Calf Tenderness Skin: No rashes, No breakdown Musculoskeletal: No Tenderness to Palpation of Joints or Extremities, No Muscle Wasting Psych/Mental Status: Appropriate, Flat Affect Laboratory Results 05/14/18 13:59: POC Glucose 152 H 05/15/18 16:23: POC Glucose 100 05/15/18 22:32: POC Glucose 131 H 05/16/18 06:45: POC Glucose 130 H 05/16/18 11:35: POC Glucose 150 H Current Medications Acetaminophen (Tylenol) 650 mg PO Q6H PRN PRN PRN Reason: Mild Pain (scale 0-3)/T>100.7 Last Admin: 05/15/18 08:40 Dose: 650 mg Al Hydroxide/Mg Hydroxide (Mylanta Ii) 30 ml PO Q6H PRN PRN PRN Reason: Gastric Burning Aspirin (Aspirin) 325 mg PO DAILY@0800 [facility] Last Admin: 05/16/18 08:30 Dose: 325 mg Bisacodyl (Dulcolax) 10 mg RECTAL DAILY PRN PRN PRN Reason: Constipation Buspirone HCl (Buspar) 15 mg PO TID [facility] Last Admin: 05/16/18 06:00 Dose: 15 mg Cholecalciferol (Vitamin D) 8,000 unit PO DAILY [facility] Last Admin: 05/16/18 10:16 Dose: 8,000 unit Cyanocobalamin (Vitamin B12) 1,000 mcg IM Q30D [facility] Dextrose (D50w Syringe) 0 gm IV X1 PRN; Protocol PRN Reason: Hypoglycemia Dicyclomine HCl (Bentyl) 20 mg PO 4X/DAY [facility] Last Admin: 05/16/18 10:11 Dose: 20 mg Docusate Sodium (Colace) 100 mg PO BID [facility] Last Admin: 05/16/18 10:12 Dose: 100 mg Fenofibrate (Tricor) 145 mg PO DAILY [facility] Last Admin: 05/16/18 10:16 Dose: 145 mg Fluoxetine HCl (Prozac) 40 mg PO DAILY [facility] Last Admin: 05/16/18 10:16 Dose: 40 mg Glucagon () 1 mg IM .X1 PRN PRN Reason: Hypoglycemia Sodium Chloride () 1,000 mls @ 75 mls/hr IV .[id number] [facility] Last Admin: 05/16/18 08:31 Dose: 75 mls/hr Ibuprofen (Motrin) 600 mg PO Q6H PRN PRN PRN Reason: MILD PAIN (1-3/10) Last Admin: 05/16/18 05:59 Dose: 600 mg Insulin Human Lispro (Humalog Kwikpen (Bkc)) 0 unit SQ ACHS [facility] PRN Reason: Protocol Last Admin: 05/16/18 11:48 Dose: 2 u Levothyroxine Sodium (Synthroid) 25 mcg PO DAILY@0600 [facility] Last Admin: 05/16/18 06:00 Dose: 25 mcg [id number] Ethyl Esters (Lovaza) 1 gm PO DAILY [facility] Last Admin: 05/16/18 10:12 Dose: 1 gm Ondansetron HCl (Zofran) 4 mg IV Q6H PRN PRN PRN Reason: Nausea Last Admin: 05/16/18 12:09 Dose: 4 mg Paliperidone (Invega) 6 mg PO QHS [facility] Pantoprazole Sodium (Protonix) 40 mg PO DAILY [facility] Last Admin: 05/16/18 10:16 Dose: 40 mg Polyethylene Glycol (Miralax) 17 gm PO DAILY [facility] Last Admin: 05/16/18 10:15 Dose: 17 gm Pravastatin Sodium (Pravachol) 80 mg PO QHS [facility] Last Admin: 05/15/18 22:29 Dose: 80 mg Pregabalin (Lyrica) 50 mg PO BID [facility] Last Admin: 05/16/18 10:24 Dose: 50 mg Promethazine HCl (Phenergan) 12.5 mg IV Q4H PRN PRN PRN Reason: NAUSEA/VOMITING Last Admin: 05/15/18 09:35 Dose: 12.5 mg Tramadol HCl (Ultram) 50 mg PO BID [facility] Last Admin: 05/16/18 10:24 Dose: 50 mg Trazodone HCl (Desyrel) 200 mg PO QHS [facility] Last Admin: 05/15/18 22:29 Dose: 200 mg Zolpidem Tartrate (Ambien (Generic)) 5 mg PO QHS PRN PRN PRN Reason: INSOMNIA Medical Necessity - Tobacco Use Smoking Status: Never smoker Assessment/Plan All Active Problems Ileus (Acute) Abdominal bloating (Acute) Migraine (Acute) Status post kyphoplasty (Acute) 1. Migraine * improved * start ibuprofen and see if it helps 2. ileus * encouraged activity * continue clear diet for now 3. debility * pt lives by herself * have PT OT eval * SNF upon discharge. * precert started. 4. S/P Kyphoplasty * states she feels worse than before procedure * DW Dr. Gupta on 05/15, and states that is common. Follow up as outpt. 5. DVT proph: LMWH. Code Visit Inpatient E&M: 18027 Subs Hosp L2
[2018-05-16 13:41] VITALS: BP 133/59; PULSE 64; RESP 16; TEMP 37.1; O2SAT 96
[2018-05-16] MEDS: Metoclopramide 10 MG/2 ML Vial 5 MG IV ×2 (13:47→22:34)
--- NOTE | 2018-05-16 15:20 | CASEMGMT ---
Social Work Note SW received message from Nati at [facility] stating they accepted pt and submitted for pre-cert. Plan: [facility] pending pre-cert Cecilia Castillo MSW, CHOCOLATE DIPPER
[2018-05-16 16:15] LABS: Bedside Glucose 178 mg/dL (70-110)
[2018-05-16 22:15] VITALS: BP 142/66; PULSE 69; RESP 16; TEMP 37.1; O2SAT 96
[2018-05-16] MEDS: traZODone 100 MG Tablet 200 MG PO (22:33)
[2018-05-16] MEDS: Pravastatin 80 MG Tablet PO (22:33)
[2018-05-16 23:05] LABS: Bedside Glucose 132 mg/dL (70-110)
[2018-05-17] MEDS: Ibuprofen 600 MG Tablet PO ×2 (02:19→15:07)
[2018-05-17 04:25] VITALS: BP 144/70; PULSE 67; RESP 16; TEMP 36.6; O2SAT 95
[2018-05-17] MEDS: busPIRone 15 MG TABLET PO ×2 (05:55→15:07)
[2018-05-17] MEDS: Levothyroxine 25 MCG TABLET PO (05:55)
[2018-05-17 06:56] LABS: Bedside Glucose 103 mg/dL (70-110)
[2018-05-17] MEDS: Pantoprazole Sodium 40 MG Tablet PO (08:58)
[2018-05-17] MEDS: Polyethylene Glycol 3350 17 GM PACKET PO (08:58)
[2018-05-17] MEDS: Acetaminophen 325 MG Tablet 650 MG PO (08:58)
[2018-05-17] MEDS: Pregabalin 50 MG Capsule PO (08:58)
[2018-05-17] MEDS: FLUoxetine 20 MG Capsule 40 MG PO (08:58)
[2018-05-17] MEDS: traMADol 50 MG Tablet PO (08:58)
[2018-05-17] MEDS: Dicyclomine 10 MG Capsule 20 MG PO ×2 (08:59→15:07)
[2018-05-17] MEDS: Fenofibrate 145 MG Tablet PO (08:59)
[2018-05-17] MEDS: Docusate Sodium 100 MG Capsule PO (09:00)
[2018-05-17] MEDS: Aspirin 325 MG Tablet PO (09:00)
[2018-05-17] MEDS: Omega-3 Acid Ethyl Esters 1 GM Capsule PO (09:00)
--- NOTE | 2018-05-17 09:24 | CASEMGMT ---
Addendum entered by Cecilia Castillo 05/17/18 12:38: SW updated pt on acceptance to [facility] and still need pre-cert from insurance. Pt states understanding. Original Note: Social Work Note MARY faxed updated clinicals to Nati at [facility]. Plan: Discharge to [facility] pending pre-cert Cecilia Castillo AN EMPLOYEE SPONSOR OR ADVOCATE AND, PHYSICAL TRAINER
[2018-05-17 10:20] VITALS: BP 131/62; PULSE 65; RESP 18; TEMP 37.4; O2SAT 96
--- NOTE | 2018-05-17 11:38 | PCM.PN.HOSP ---
Patient Problems: Active and Suspected Problems Ileus (Acute) Migraine (Acute) Status post kyphoplasty (Acute) Subjective: Tolerated clears. Decreased abdominal pain. Still with back pain. + Flatus. Vitals/I&O's: Vital Signs Temp Pulse Resp BP Pulse Ox 37.4 C H 65 18 131/62 H 96 05/17/18 10:20 05/17/18 10:20 05/17/18 10:20 05/17/18 10:20 05/17/18 10:20 Oxygen Flow Rate (L/min) 1 Oxygen Delivery Method Room Air Weight: 74.7 kg Body Mass Index (BMI) 32.1 Finger Stick Blood Glucose 133 Intake and Output for Last 24 Hours 05/15/18 05/16/18 05/17/18 23:59 23:59 23:59 Intake Total 1946 / 1946 974 / 974 2715 / 2715 Output Total 2950 / 2950 Balance -1004 / -1004 974 / 974 2715 / 2715 General: Alert, No apparent distress HEENT: Atraumatic, Normocephalic Oral: Moist Mucosa, No Gingival or Mucosal Lesions/ Ulcerations Neck: No Nodes, Thyroid Normal Size and Texture Lungs: Clear to auscultation, Normal air movement, No rhonchi, No wheeze Cardiovascular: Regular rate, Regular Rhythm, Normal S1, Normal S2, No murmurs Abdomen: Bowel Sounds Present, Soft, Non Tender, Non-Distended, No Hepato-splenomegaly Extremities: No edema, No Calf Tenderness Skin: No rashes, No breakdown Musculoskeletal: No Tenderness to Palpation of Joints or Extremities, No Muscle Wasting Neurological: Cranial nerves II-XII grossly intact, Deep Tendon Reflexes 2+/4 and Symmetrical Psych/Mental Status: Normal Affect, Appropriate Laboratory Results 05/16/18 11:35: POC Glucose 150 H 05/16/18 15:53: POC Glucose 178 H 05/16/18 22:28: POC Glucose 132 H 05/17/18 06:46: POC Glucose 103 Current Medications Acetaminophen (Tylenol) 650 mg PO Q6H PRN PRN PRN Reason: Mild Pain (scale 0-3)/T>100.7 Last Admin: 05/17/18 08:58 Dose: 650 mg Al Hydroxide/Mg Hydroxide (Mylanta Ii) 30 ml PO Q6H PRN PRN PRN Reason: Gastric Burning Aspirin (Aspirin) 325 mg PO DAILY@0800 [facility] Last Admin: 05/17/18 09:00 Dose: 325 mg Bisacodyl (Dulcolax) 10 mg RECTAL DAILY PRN PRN PRN Reason: Constipation Buspirone HCl (Buspar) 15 mg PO TID [facility] Last Admin: 05/17/18 05:55 Dose: 15 mg Cholecalciferol (Vitamin D) 8,000 unit PO DAILY [facility] Last Admin: 05/17/18 08:59 Dose: 8,000 unit Cyanocobalamin (Vitamin B12) 1,000 mcg IM Q30D [facility] Dextrose (D50w Syringe) 0 gm IV X1 PRN; Protocol PRN Reason: Hypoglycemia Dicyclomine HCl (Bentyl) 20 mg PO 4X/DAY [facility] Last Admin: 05/17/18 08:59 Dose: 20 mg Docusate Sodium (Colace) 100 mg PO BID [facility] Last Admin: 05/17/18 09:00 Dose: 100 mg Fenofibrate (Tricor) 145 mg PO DAILY [facility] Last Admin: 05/17/18 08:59 Dose: 145 mg Fluoxetine HCl (Prozac) 40 mg PO DAILY [facility] Last Admin: 05/17/18 08:58 Dose: 40 mg Glucagon () 1 mg IM .X1 PRN PRN Reason: Hypoglycemia Ibuprofen (Motrin) 600 mg PO Q6H PRN PRN PRN Reason: MILD PAIN (1-3/10) Last Admin: 05/17/18 02:19 Dose: 600 mg Insulin Human Lispro (Humalog Kwikpen (Bkc)) 0 unit SQ ACHS [facility] PRN Reason: Protocol Last Admin: 05/17/18 06:55 Dose: Not Given Levothyroxine Sodium (Synthroid) 25 mcg PO DAILY@0600 [facility] Last Admin: 05/17/18 05:55 Dose: 25 mcg Zohms-4-Focv Ethyl Esters (Lovaza) 1 gm PO DAILY [facility] Last Admin: 05/17/18 09:00 Dose: 1 gm Ondansetron HCl (Zofran) 4 mg IV Q6H PRN PRN PRN Reason: Nausea Last Admin: 05/16/18 12:09 Dose: 4 mg Paliperidone (Invega) 6 mg PO QHS [facility] Pantoprazole Sodium (Protonix) 40 mg PO DAILY [facility] Last Admin: 05/17/18 08:58 Dose: 40 mg Polyethylene Glycol (Miralax) 17 gm PO DAILY [facility] Last Admin: 05/17/18 08:58 Dose: 17 gm Pravastatin Sodium (Pravachol) 80 mg PO QHS [facility] Last Admin: 05/16/18 22:33 Dose: 80 mg Pregabalin (Lyrica) 50 mg PO BID [facility] Last Admin: 05/17/18 08:58 Dose: 50 mg Promethazine HCl (Phenergan) 12.5 mg IV Q4H PRN PRN PRN Reason: NAUSEA/VOMITING Last Admin: 05/15/18 09:35 Dose: 12.5 mg Sodium Chloride () 5 - 30 ml IV UD PRN PRN Reason: SALINE FLUSH Sodium Chloride () 5 - 30 ml IV UD PRN PRN Reason: SALINE FLUSH Tramadol HCl (Ultram) 50 mg PO BID [facility] Last Admin: 05/17/18 08:58 Dose: 50 mg Trazodone HCl (Desyrel) 200 mg PO QHS [facility] Last Admin: 05/16/18 22:33 Dose: 200 mg Zolpidem Tartrate (Ambien (Generic)) 5 mg PO QHS PRN PRN PRN Reason: INSOMNIA Medical Necessity - Tobacco Use Smoking Status: Never smoker Assessment/Plan All Active Problems Ileus (Acute) Abdominal bloating (Acute) Migraine (Acute) Status post kyphoplasty (Acute) 1. Migraine improved start ibuprofen and see if it helps 2. ileus encouraged activity regular diet 3. debility pt lives by herself have PT OT eval SNF upon discharge. precert started. 4. S/P Kyphoplasty states she feels worse than before procedure DW Dr. Gupta on 05/15, and states that is common. Follow up as outpt. 5. DVT proph: LMWH. Code Visit Inpatient E&M: 47767 Subs Hosp L2
--- NOTE | 2018-05-17 11:42 | PN_ITS ---
Patient Problems: Active and Suspected Problems Ileus (Acute) Migraine (Acute) Status post kyphoplasty (Acute) Subjective: Tolerated clears. Decreased abdominal pain. Still with back pain. + Flatus. Vitals/I&O's: Vital Signs Temp Pulse Resp BP Pulse Ox 37.4 C H 65 18 131/62 H 96 05/17/18 10:20 05/17/18 10:20 05/17/18 10:20 05/17/18 10:20 05/17/18 10:20 Oxygen Flow Rate (L/min) 1 Oxygen Delivery Method Room Air Weight: 74.7 kg Body Mass Index (BMI) 32.1 Finger Stick Blood Glucose 133 Intake and Output for Last 24 Hours 05/15/18 05/16/18 05/17/18 23:59 23:59 23:59 Intake Total 1946 / 1946 974 / 974 2715 / 2715 Output Total 2950 / 2950 Balance -1004 / -1004 974 / 974 2715 / 2715 General: Alert, No apparent distress HEENT: Atraumatic, Normocephalic Oral: Moist Mucosa, No Gingival or Mucosal Lesions/ Ulcerations Neck: No Nodes, Thyroid Normal Size and Texture Lungs: Clear to auscultation, Normal air movement, No rhonchi, No wheeze Cardiovascular: Regular rate, Regular Rhythm, Normal S1, Normal S2, No murmurs Abdomen: Bowel Sounds Present, Soft, Non Tender, Non-Distended, No Hepato- splenomegaly Extremities: No edema, No Calf Tenderness Skin: No rashes, No breakdown Musculoskeletal: No Tenderness to Palpation of Joints or Extremities, No Muscle Wasting Neurological: Cranial nerves II-XII grossly intact, Deep Tendon Reflexes 2+/4 and Symmetrical Psych/Mental Status: Normal Affect, Appropriate Laboratory Results 05/16/18 11:35: POC Glucose 150 H 05/16/18 15:53: POC Glucose 178 H 05/16/18 22:28: POC Glucose 132 H 05/17/18 06:46: POC Glucose 103 Current Medications Acetaminophen (Tylenol) 650 mg PO Q6H PRN PRN PRN Reason: Mild Pain (scale 0-3)/T>100.7 Last Admin: 05/17/18 08:58 Dose: 650 mg Al Hydroxide/Mg Hydroxide (Mylanta Ii) 30 ml PO Q6H PRN PRN PRN Reason: Gastric Burning Aspirin (Aspirin) 325 mg PO DAILY@0800 [facility] Last Admin: 05/17/18 09:00 Dose: 325 mg Bisacodyl (Dulcolax) 10 mg RECTAL DAILY PRN PRN PRN Reason: Constipation Buspirone HCl (Buspar) 15 mg PO TID [facility] Last Admin: 05/17/18 05:55 Dose: 15 mg Cholecalciferol (Vitamin D) 8,000 unit PO DAILY [facility] Last Admin: 05/17/18 08:59 Dose: 8,000 unit Cyanocobalamin (Vitamin B12) 1,000 mcg IM Q30D [facility] Dextrose (D50w Syringe) 0 gm IV X1 PRN; Protocol PRN Reason: Hypoglycemia Dicyclomine HCl (Bentyl) 20 mg PO 4X/DAY [facility] Last Admin: 05/17/18 08:59 Dose: 20 mg Docusate Sodium (Colace) 100 mg PO BID [facility] Last Admin: 05/17/18 09:00 Dose: 100 mg Fenofibrate (Tricor) 145 mg PO DAILY [facility] Last Admin: 05/17/18 08:59 Dose: 145 mg Fluoxetine HCl (Prozac) 40 mg PO DAILY [facility] Last Admin: 05/17/18 08:58 Dose: 40 mg Glucagon () 1 mg IM .X1 PRN PRN Reason: Hypoglycemia Ibuprofen (Motrin) 600 mg PO Q6H PRN PRN PRN Reason: MILD PAIN (1-3/10) Last Admin: 05/17/18 02:19 Dose: 600 mg Insulin Human Lispro (Humalog Kwikpen (Bkc)) 0 unit SQ ACHS [facility] PRN Reason: Protocol Last Admin: 05/17/18 06:55 Dose: Not Given Levothyroxine Sodium (Synthroid) 25 mcg PO DAILY@0600 [facility] Last Admin: 05/17/18 05:55 Dose: 25 mcg [id number] Ethyl Esters (Lovaza) 1 gm PO DAILY [facility] Last Admin: 05/17/18 09:00 Dose: 1 gm Ondansetron HCl (Zofran) 4 mg IV Q6H PRN PRN PRN Reason: Nausea Last Admin: 05/16/18 12:09 Dose: 4 mg Paliperidone (Invega) 6 mg PO QHS [facility] Pantoprazole Sodium (Protonix) 40 mg PO DAILY [facility] Last Admin: 05/17/18 08:58 Dose: 40 mg Polyethylene Glycol (Miralax) 17 gm PO DAILY [facility] Last Admin: 05/17/18 08:58 Dose: 17 gm Pravastatin Sodium (Pravachol) 80 mg PO QHS [facility] Last Admin: 05/16/18 22:33 Dose: 80 mg Pregabalin (Lyrica) 50 mg PO BID [facility] Last Admin: 05/17/18 08:58 Dose: 50 mg Promethazine HCl (Phenergan) 12.5 mg IV Q4H PRN PRN PRN Reason: NAUSEA/VOMITING Last Admin: 05/15/18 09:35 Dose: 12.5 mg Sodium Chloride () 5 - 30 ml IV UD PRN PRN Reason: SALINE FLUSH Sodium Chloride () 5 - 30 ml IV UD PRN PRN Reason: SALINE FLUSH Tramadol HCl (Ultram) 50 mg PO BID [facility] Last Admin: 05/17/18 08:58 Dose: 50 mg Trazodone HCl (Desyrel) 200 mg PO QHS [facility] Last Admin: 05/16/18 22:33 Dose: 200 mg Zolpidem Tartrate (Ambien (Generic)) 5 mg PO QHS PRN PRN PRN Reason: INSOMNIA Medical Necessity - Tobacco Use Smoking Status: Never smoker Assessment/Plan All Active Problems Ileus (Acute) Abdominal bloating (Acute) Migraine (Acute) Status post kyphoplasty (Acute) 1. Migraine * improved * start ibuprofen and see if it helps 2. ileus * encouraged activity * regular diet 3. debility * pt lives by herself * have PT OT eval * SNF upon discharge. * precert started. 4. S/P Kyphoplasty * states she feels worse than before procedure * DW Dr. Gupta on 05/15, and states that is common. Follow up as outpt. 5. DVT proph: LMWH. Code Visit Inpatient E&M: 72765 Subs Hosp L2
--- NOTE | 2018-05-17 11:48 | PCM.TXEXTCAR ---
- Diet 05/17/18 09:01 Carb [Diet: Carbohydrate Controlled] Is pt able to select menu?: Yes - Routine Orders/Code Status Routine Lab Work: CBC, BMP Code Status: Full Code - Wound(s) MID BACK Wound Type: Surgical Incision Dressing Change: OPSITE WITH TELFA - Therapies Physical Therapy: Eval and Treat Occupational Therapy: Eval and Treat - Allergies/Procedures Done in Hospital Allergies/Adverse Reactions: Allergies ciprofloxacin Allergy (Verified 05/11/18 13:58) Unknown codeine Allergy (Verified 05/11/18 13:58) Unknown hydroxyzine HCl [From Vistaril] Allergy (Verified 05/11/18 13:58) Unknown hydroxyzine pamoate [From Vistaril] Allergy (Verified 05/11/18 13:58) Unknown niacin Allergy (Verified 05/11/18 13:58) Unknown ofloxacin [From Floxin] Allergy (Verified 05/11/18 13:58) Unknown tetracycline [Tetracycline] Allergy (Verified 05/11/18 13:58) Unknown Tetracyclines Allergy (Verified 05/11/18 13:58) Unknown - Type of Care/Length of Stay Estimated LOS: Convalescent Care Less Than 30 days Type of Care Needed: Skilled Rehab Potential: Fair Prognosis: Fair - Additional Orders/Day of Discharge Day of Discharge: 05/17/18 - Follow Up Care Primary Care Physician: Shelley Martell NP-C [Primary Care Provider] - Within 2 Weeks Please Follow Up With: Jenny Gupta MD When: 1-2 weeks
--- NOTE | 2018-05-17 11:50 | PCM.DC.SUM ---
Discharge Date and Diagnosis - Problem List Patient Problems: Active and Suspected Problems Ileus (Acute) Migraine (Acute) Status post kyphoplasty (Acute) Date of Admission: 05/14/18 Date of Discharge: 05/17/18 - Primary Discharge Diagnosis Active and Suspected Problems Ileus (Acute) Migraine (Acute) Status post kyphoplasty (Acute) - Secondary Discharge Diagnosis Chronic Problems Compression fracture of L1 lumbar vertebra (Chronic) Hypothyroidism (Chronic) History of schizophrenia (Chronic) Type 2 diabetes mellitus (Chronic) Hospital Course and Treatment Imaging Results: Clinical Impression(s) from Imaging Studies Spine X-Ray 05/14/18 15:43 IMPRESSION: Fluoroscopic guidance for kyphoplasty by referring service. Please see procedure report. Electronically Signed: Mohamud Escamilla MD at 7:57 EDT , Service support , Abdomen X-Ray 05/15/18 13:40 IMPRESSION: 1. Probable mild ileus without distention. No free gas. 2. Patient has undergone cement augmentation of an L1 vertebral fracture since April 28, 2018. Electronically Signed: Herbert Cárdenas MD at 14:12 EDT , Service support , Operations: None Procedures: None Summary of Care Provided: The patient is a 68 year old F presents with nausea after kyphoplasty. 1. Migraine improved start ibuprofen and see if it helps 2. ileus improved encouraged activity regular diet cannot determine if direct correlation with kyphoplasty or not. 3. debility pt lives by herself have PT OT eval SNF upon discharge. precert started. 4. S/P Kyphoplasty states she feels worse than before procedure DW Dr. Gupta on 05/15, and states that is common. Follow up as outpt.[] Discharge Diet: No Restrictions Discharge Activity: Return to Normal Activity Home Medications: Medications to take at Discharge Cyanocobalamin [Vitamin B12] 1,000 mcg IM Q30D 06/26/13 Fluoxetine [Prozac] 40 mg PO DAILY 06/26/13 Levothyroxine [Synthroid] 25 mcg PO DAILY 06/26/13 Omeprazole [Prilosec] 40 mg PO DAILY 06/26/13 Paliperidone [Invega] 6 mg PO QHS 06/26/13 Trazodone HCl [Oleptro ER] 300 mg PO QHS 06/26/13 Aspirin 325 mg PO DAILY@0800 03/13/17 Dicyclomine HCl 20 mg PO 4X/DAY 03/13/17 Docusate Sodium [Colace] 100 mg PO BID 03/13/17 [place]-3 Fatty Acids/Fish Oil [Fish Oil 1,000 mg Capsule] 1 each PO DAILY 03/13/17 Pravastatin [Pravachol] 80 mg PO QHS 03/13/17 Pregabalin [Lyrica] 50 mg PO BID 03/13/17 busPIRone [Buspar] 15 mg PO TID 03/13/17 Cholecalciferol (Vitamin D3) [Vitamin D3] 8,000 unit PO DAILY 05/11/18 Fenofibrate [Tricor] 145 mg PO DAILY 05/11/18 Polyethylene Glycol 3350 [Miralax] 17 gm PO DAILY 05/11/18 Acetaminophen [Tylenol Tablet] 650 mg PO Q6H PRN PRN tablet 05/17/18 traMADol [Ultram] 50 mg PO BID PRN 3 Days #6 tab 05/17/18 Following Prescrptions Were Given to Patient: traMADol [Ultram] 50 mg PO BID PRN 3 Days #6 tab PRN Reason: Pain Primary Care Physician: Shelley Martell QUILL MACHINE OPERATOR-C [Primary Care Provider] - Within 2 Weeks Please Follow Up With: Jenny Gupta MD When: 1-2 weeks Disposition: Correction facility Minutes spent on discharge:: 32 Patient Condition:: Fair Medical Necessity - Tobacco Use Smoking Status: Never smoker Meaningful Use Info Meaningful Use Diagnoses (Choose all that apply): None applicable Code Visit Inpatient E&M: 90530 Disch Hosp
--- NOTE | 2018-05-17 11:53 | DS.PCM_ITS ---
Discharge Date and Diagnosis - Problem List Patient Problems: Active and Suspected Problems Ileus (Acute) Migraine (Acute) Status post kyphoplasty (Acute) Date of Admission: 05/14/18 Date of Discharge: 05/17/18 - Primary Discharge Diagnosis Active and Suspected Problems Ileus (Acute) Migraine (Acute) Status post kyphoplasty (Acute) - Secondary Discharge Diagnosis Chronic Problems Compression fracture of L1 lumbar vertebra (Chronic) Hypothyroidism (Chronic) History of schizophrenia (Chronic) Type 2 diabetes mellitus (Chronic) Hospital Course and Treatment Imaging Results: Clinical Impression(s) from Imaging Studies Spine X-Ray 05/14/18 15:43 IMPRESSION: Fluoroscopic guidance for kyphoplasty by referring service. Please see procedure report. Electronically Signed: Mohamud Escamilla MD at 7:57 EDT , Service support , Abdomen X-Ray 05/15/18 13:40 IMPRESSION: 1. Probable mild ileus without distention. No free gas. 2. Patient has undergone cement augmentation of an L1 vertebral fracture since April 28, 2018. Electronically Signed: Herbert Cárdenas MD at 14:12 EDT , Service support , Operations: None Procedures: None Summary of Care Provided: The patient is a 68 year old F presents with nausea after kyphoplasty. 1. Migraine * improved * start ibuprofen and see if it helps 2. ileus * improved * encouraged activity * regular diet * cannot determine if direct correlation with kyphoplasty or not. 3. debility * pt lives by herself * have PT OT eval * SNF upon discharge. * precert started. 4. S/P Kyphoplasty * states she feels worse than before procedure * DW Dr. Gupta on 05/15, and states that is common. Follow up as outpt.[] Discharge Diet: No Restrictions Discharge Activity: Return to Normal Activity Home Medications: Medications to take at Discharge Cyanocobalamin [Vitamin B12] 1,000 mcg IM Q30D 06/26/13 Fluoxetine [Prozac] 40 mg PO DAILY 06/26/13 Levothyroxine [Synthroid] 25 mcg PO DAILY 06/26/13 Omeprazole [Prilosec] 40 mg PO DAILY 06/26/13 Paliperidone [Invega] 6 mg PO QHS 06/26/13 Trazodone HCl [Oleptro ER] 300 mg PO QHS 06/26/13 Aspirin 325 mg PO DAILY@0800 03/13/17 Dicyclomine HCl 20 mg PO 4X/DAY 03/13/17 Docusate Sodium [Colace] 100 mg PO BID 03/13/17 [place]-3 Fatty Acids/Fish Oil [Fish Oil 1,000 mg Capsule] 1 each PO DAILY Pravastatin [Pravachol] 80 mg PO QHS 03/13/17 Pregabalin [Lyrica] 50 mg PO BID 03/13/17 busPIRone [Buspar] 15 mg PO TID 03/13/17 Cholecalciferol (Vitamin D3) [Vitamin D3] 8,000 unit PO DAILY 05/11/18 Fenofibrate [Tricor] 145 mg PO DAILY 05/11/18 Polyethylene Glycol 3350 [Miralax] 17 gm PO DAILY 05/11/18 Acetaminophen [Tylenol Tablet] 650 mg PO Q6H PRN PRN tablet 05/17/18 traMADol [Ultram] 50 mg PO BID PRN 3 Days #6 tab 05/17/18 Following Prescrptions Were Given to Patient: traMADol [Ultram] 50 mg PO BID PRN 3 Days #6 tab PRN Reason: Pain Primary Care Physician: Shelley Martell, ENGINE ROOM OPERATOR-C [Primary Care Provider] - Within 2 Weeks Please Follow Up With: Jenny Gupta MD When: 1-2 weeks Disposition: Senior Living facility Minutes spent on discharge:: 32 Patient Condition:: Fair Medical Necessity - Tobacco Use Smoking Status: Never smoker Meaningful Use Info Meaningful Use Diagnoses (Choose all that apply): None applicable Code Visit Inpatient E&M: 25235 Disch Hosp
[2018-05-17 12:01] LABS: Bedside Glucose 106 mg/dL (70-110)
[2018-05-17 14:55] VITALS: BP 153/69; PULSE 76; RESP 18; TEMP 37.6; O2SAT 99
--- NOTE | 2018-05-17 15:00 | CASEMGMT ---
Social Work Note SW received call from Padmaja at [facility] stating pre-cert has been obtained and pt is able to discharge to SNF today. SW updated pt of this. Pt states that she would like transportation set up via cot. MARY faxed completed discharge paperwork to Padmaja at [facility] including transfer to extended care facility, signed medication list and any scripts. Originals in SNF folder and copy on pt's chart. MARY set up transportation through [facility] via cot for 4:30pm. Transportation form on SNF folder and copy on pt's chart. MARY updated RN Maria C, pt and Padmaja at [facility] on transportation time. Pt states that she would like this worker to call her daughter Mary Jo to update her on discharge. SW placed a call to pt's daughter Mary Jo and updated her on discharge. Mary Jo states understanding. SW completed PAS/RR in HENS. Original in SNF folder and copy on pt's chart. Plan: Pt to discharge to [facility] via cot with [facility] transporting at 4:30pm Cecilia Castillo MSW, PROGRAMMING SPECIALIST
== END 2018-05-17 17:19 | disposition skilled nursing facility (03) ==
LOC: MS3 18:48
PROVIDERS: Internal Medicine; Admitting Provider Anesthesiology Pain Medicine; Family Provider Nurse Practitioner Adult Health; PCP Nurse Practitioner Adult Health; Referring Provider Anesthesiology Pain Medicine
PROC: (CPT 22514; principal; 2018-05-14 14:45)
DX: M80.08XA Age-related osteoporosis with current pathological fracture, vertebra(e), initial encounter for fracture (principal); K56.7 Ileus, unspecified; G43.909 Migraine, unspecified, not intractable, without status migrainosus; E03.9 Hypothyroidism, unspecified; E11.9 Type 2 diabetes mellitus without complications; Z79.899 Other long term (current) drug therapy; Z79.82 Long term (current) use of aspirin; F20.9 Schizophrenia, unspecified; I50.32 Chronic diastolic (congestive) heart failure; E78.5 Hyperlipidemia, unspecified; Z91.81 History of falling
CPT/HCPCS: 22514; 36415; 72020; 74019; 76000; 80048; 82962; 85025; 96361; 96374; 96375; 96376; 97116; 97162; 97166; 97530; 97535; 99218; J7030; J7120; G0378; G0379; J2405; J3490

== ENCOUNTER → 2018-05-18 04:00 | Outpatient (REF) | payer MEDICARE, SELFPAY ==
[2018-05-18 08:46] LABS: Hematocrit 36.2 % (37-47); Hemoglobin 11.8 g/dl (12.0-15.0); Mean Corp Hgb Conc 32.6 g/gl (32-36); Mean Corpuscular Hgb 29.9 pg (27.0-32.0); Mean Corpuscular Volume 91.9 fL (81-99); Mean Platelet Vol. 9.5 fl (6.2-12.0); Platelet Count 483 K/mm3 (150-450); RBC Distribution Width CV 12.7 % (11.6-14.6); RBC Distribution Width SD 41.9 fl (35.1-43.9); Red Blood Count 3.94 M/mm3 (4.2-5.4); White Blood Count 7.1 K/mm3 (4.4-11.0)
[2018-05-18 08:48] LABS: Scan Indicated on CBC? Y/N NO
[2018-05-18 09:02] LABS: Anion Gap 9 (5-15); BUN 11 mg/dL (7-18); BUN/Creat Ratio 11.7 RATIO (10-20); Calcium,Total 9.4 mg/dL (8.5-10.1); Chloride 105 mmol/L (98-107); Creatinine, Serum 0.94 mg/dL (0.55-1.02); EST Glomerular Filtration Rate 63 mL/min (>60); Est Glom Filt Rate - Afr Amer 76 mL/min (>60); Glucose 117 mg/dL (74-106); Potassium 3.8 mmol/L (3.5-5.1); Sodium Level 142 mmol/L (136-145)
== END ==
LOC: OLS.AVEB 04:00
PROVIDERS: Visit Provider Family Medicine
DX: I10 Essential (primary) hypertension (principal)
CPT/HCPCS: 36415; 80048; 85027

== ENCOUNTER → 2018-06-04 04:00 | Outpatient (REF) | payer MEDICARE, SELFPAY ==
[2018-06-04 06:25] LABS: Absolute Lymphocyte Count 1.97 X10^3/ul (0.83-4.51); Absolute Neutrophil Count 3.9 X10^3/uL (2.0-7.7); Basophil# 0.04 X10^3/uL; Basophil% 0.6 % (0-1); Eosinophil# 0.13 X10^3/uL; Hematocrit 34.5 % (37-47); Hemoglobin 11.2 g/dl (12.0-15.0); Lymphocyte # 1.97 X10^3/ul (4.0); Lymphocyte % 29.8 % (19-41); Mean Corp Hgb Conc 32.5 g/gl (32-36); Mean Corpuscular Hgb 30.4 pg (27.0-32.0); Mean Corpuscular Volume 93.8 fL (81-99); Mean Platelet Vol. 9.9 fl (6.2-12.0); Monocyte# 0.55 X10^3/uL; Monocyte% 8.3 % (0-10); Platelet Count 390 K/mm3 (150-450); RBC Distribution Width CV 13.1 % (11.6-14.6); RBC Distribution Width SD 43.6 fl (35.1-43.9); Red Blood Count 3.68 M/mm3 (4.2-5.4); White Blood Count 6.6 K/mm3 (4.4-11.0)
[2018-06-04 06:39] LABS: POSITIVE COUNT NO; POSITIVE DIFFERENTIAL NO; POSITIVE MORPHOLOGY NO
== END ==
LOC: OLS.AVEC 04:00
PROVIDERS: Visit Provider Family Medicine
DX: I50.9 Heart failure, unspecified (principal); E11.9 Type 2 diabetes mellitus without complications
CPT/HCPCS: 36415; 85025

== ENCOUNTER → 2018-06-11 04:00 | Outpatient (REF) | payer MEDICARE, SELFPAY ==
[2018-06-11 09:09] LABS: Anion Gap 7 (5-15); BUN 9 mg/dL (7-18); BUN/Creat Ratio 8.7 RATIO (10-20); Calcium,Total 9.2 mg/dL (8.5-10.1); Chloride 107 mmol/L (98-107); Creatinine, Serum 1.04 mg/dL (0.55-1.02); EST Glomerular Filtration Rate 56 mL/min (>60); Est Glom Filt Rate - Afr Amer 67 mL/min (>60); Glucose 132 mg/dL (74-106); Sodium Level 143 mmol/L (136-145)
== END ==
LOC: OLS.AVEC 04:00
PROVIDERS: Visit Provider Family Medicine
DX: E11.9 Type 2 diabetes mellitus without complications (principal)
CPT/HCPCS: 36415; 80048

== ENCOUNTER → 2018-06-18 05:00 | Outpatient (REF) | payer MEDICARE, SELFPAY ==
[2018-06-18 07:48] LABS: Hematocrit 36.5 % (37-47); Hemoglobin 11.7 g/dl (12.0-15.0); Mean Corp Hgb Conc 32.1 g/gl (32-36); Mean Corpuscular Hgb 30.5 pg (27.0-32.0); Mean Corpuscular Volume 95.3 fL (81-99); Mean Platelet Vol. 10.4 fl (6.2-12.0); Platelet Count 358 K/mm3 (150-450); RBC Distribution Width SD 43.6 fl (35.1-43.9); Red Blood Count 3.83 M/mm3 (4.2-5.4); White Blood Count 6.8 K/mm3 (4.4-11.0)
[2018-06-18 08:06] LABS: Scan Indicated on CBC? Y/N NO
== END ==
LOC: OLS.AVEC 05:00
PROVIDERS: Visit Provider Family Medicine
DX: E78.5 Hyperlipidemia, unspecified (principal)
CPT/HCPCS: 36415; 85027

== ENCOUNTER → 2018-07-02 04:00 | Outpatient (REF) | payer MEDICARE, SELFPAY ==
[2018-07-02 08:05] LABS: Hematocrit 36.2 % (37-47); Hemoglobin 11.6 g/dl (12.0-15.0); Mean Corpuscular Hgb 30.2 pg (27.0-32.0); Mean Corpuscular Volume 94.3 fL (81-99); Mean Platelet Vol. 10.1 fl (6.2-12.0); Platelet Count 400 K/mm3 (150-450); RBC Distribution Width CV 12.8 % (11.6-14.6); Red Blood Count 3.84 M/mm3 (4.2-5.4)
[2018-07-02 08:08] LABS: Scan Indicated on CBC? Y/N NO
[2018-07-02 08:29] LABS: Anion Gap 7 (5-15); BUN 8 mg/dL (7-18); Calcium,Total 8.8 mg/dL (8.5-10.1); Chloride 106 mmol/L (98-107); Creatinine, Serum 0.89 mg/dL (0.55-1.02); EST Glomerular Filtration Rate 66 mL/min (>60); Est Glom Filt Rate - Afr Amer 80 mL/min (>60); Glucose 138 mg/dL (74-106); Potassium 4.2 mmol/L (3.5-5.1); Sodium Level 141 mmol/L (136-145); Thyroid Stim Hormone (TSH) 3.19 uIU/mL (0.358-3.74)
[2018-07-02 10:17] LABS: Hemoglobin A1c 6.5 % (4.2-6.3)
== END ==
LOC: OLS.AVEC 04:00
PROVIDERS: Visit Provider Family Medicine
DX: E11.9 Type 2 diabetes mellitus without complications (principal); E78.5 Hyperlipidemia, unspecified
CPT/HCPCS: 36415; 80048; 83036; 84443; 85027

== ENCOUNTER → 2018-11-07 16:17 | Outpatient (CLI) | payer MEDICARE, SELFPAY ==
[2018-05-14 19:54] VITALS: BMI 32.1
[2018-11-07 18:23] LABS: Amphetamine Urine VISTA NEGATIVE (<1000 ng/mL); Barbiturate Urine VISTA NEGATIVE (< 200 ng/mL); Benzodiazepine Urine VISTA NEGATIVE (< 200 ng/mL); Cocaine Urine VISTA NEGATIVE (< 300 ng/mL); Ecstacy Urine VISTA NEGATIVE (< 500 ng/mL); Methadone Urine VISTA NEGATIVE (< 300 ng/mL); PCP Urine VISTA NEGATIVE (< 25 ng/mL); THC Urine VISTA NEGATIVE (< 50 ng/mL); Vista UDS pH Range 6
== END ==
PROVIDERS: Family Provider Nurse Practitioner Adult Health; PCP Nurse Practitioner Adult Health; Referring Provider Anesthesiology Pain Medicine; Visit Provider Anesthesiology Pain Medicine
DX: F11.20 Opioid dependence, uncomplicated (principal)
CPT/HCPCS: 80307

== ENCOUNTER → 2019-01-09 | Outpatient (CLI) | payer MEDICARE, SELFPAY ==
--- NOTE | 2019-01-09 14:10 | RAD_ITS ---
STUDY: X-RAY - PELVIS AND BILATERAL HIPS REASON FOR EXAM: Female, 68 years old. Pain. TECHNIQUE: AP view of the pelvis.? 2 views of the right hip, and 2 views of the left hip were obtained. COMPARISON: April 28, 2018 FINDINGS: There is a non-specific bowel gas pattern. Normal visualized soft tissue structures. There are degenerative changes of the sacroiliac joints. Normal bilateral superior and inferior pubic rami. Normal pubic symphysis. Normal bilateral ischial tuberosities. There are degenerative changes of the hips characterized by joint space narrowing and subchondral sclerosis. RAD/Hips B/L min 2 views w/ Pelvis IMPRESSION: Degenerative changes. Electronically Signed: Alayna Teran MD at 16:49 EDT Tel , Service support ,
== END | disposition home or self-care (01) ==
PROVIDERS: Family Provider Nurse Practitioner Adult Health; PCP Nurse Practitioner Adult Health; Referring Provider Anesthesiology Pain Medicine; Visit Provider Anesthesiology Pain Medicine
DX: M25.551 Pain in right hip (principal); M25.552 Pain in left hip
CPT/HCPCS: 73521

== ENCOUNTER 2019-04-05 22:42 | Emergency (ER) | payer MEDICARE, SELFPAY ==
[2019-04-05 22:43] VITALS: BP 160/78; PULSE 78; RESP 19; TEMP 37.1; O2SAT 98; BMI 32.5
[2019-04-05 23:21] VITALS: O2SAT 98
--- NOTE | 2019-04-05 23:21 | EKG12_ITS ---
Test Reason : CP Blood Pressure : / mmHG Vent. Rate : 073 BPM Atrial Rate : 073 BPM P-R Int : 180 ms QRS Dur : 076 ms QT Int : 420 ms P-R-T Axes : 031 001 050 degrees QTc Int : 462 ms Sinus rhythm with Premature atrial complexes Minimal voltage criteria for LVH, may be normal variant Borderline ECG Confirmed by BISI DON, BARBARA ([id number]), dictionary editor VERONIQUE NEWMAN ([id number] on 04/08/2019 1:44:45 PM Referred By: BB Confirmed By:BARBARA MATHEWS MD
--- NOTE | 2019-04-05 23:25 | ED.DCSUM_ITS ---
History of Present Illness Chief Complaint: Chest Pain Informant: Patient, EMS Onset: Today Activity at onset: Rest Timing: Continuous Quality: Pain Location: Right Chest - w/ radiation into right neck Current Severity: Mild Maximum Severity: Moderate Relieved By: Nothing Associated Symptoms: Nausea, Cough. Negative for: Vomiting, Diaphoresis, Dyspnea, Fever, Lightheadedness, Palpitations Narrative: Patient has had discomfort all the evening, started after her shower. She is in assisted living. She was given a nitroglycerin from EMS and she states her pain is improved and almost completely gone. No known history of heart disease although she was diagnosed with mitral valve prolapse in the past. She takes aspirin every day, a full one in the mornings, which she did have this morning, she states she cannot chew aspirin. Prior Similar Symptoms: No CVD Risk Factors: Diabetes - Past Medical History (1) Mitral valve prolapse Status: Chronic (2) Depression Status: Chronic (3) History of schizophrenia Status: Chronic (4) Hypothyroidism Status: Chronic (5) Type 2 diabetes mellitus Status: Chronic Past Medical History - Allergies and Home Meds Allergies/Adverse Reactions: Allergies ciprofloxacin Allergy (Verified 05/11/18 13:58) Unknown codeine Allergy (Verified 05/11/18 13:58) Unknown hydroxyzine HCl [From Vistaril] Allergy (Verified 05/11/18 13:58) Unknown hydroxyzine pamoate [From Vistaril] Allergy (Verified 05/11/18 13:58) Unknown niacin Allergy (Verified 05/11/18 13:58) Unknown ofloxacin [From Floxin] Allergy (Verified 05/11/18 13:58) Unknown tetracycline [Tetracycline] Allergy (Verified 05/11/18 13:58) Unknown Tetracyclines Allergy (Verified 05/11/18 13:58) Unknown Primary Care Physician: Shelley Martell, [employer] [Primary Care Provider] - Lives: - - Assisted living Smoking Status: Never smoker - Family History Paternal Family History: Reports: No pertinent history Review of Systems General: Denies: Chills, Fever, Sweats Eyes: Denies: Visual changes - bilaterally, Diplopia ENT: Denies: Rhinorrhea, Sore throat Cardiovascular: Reports: Chest pain. Denies: Palpitations Respiratory: Reports: Cough - X3 or 4 days. Denies: Dyspnea, Sputum, Dyspnea on exertion Gastrointestinal: Reports: Nausea, Vomiting - 3 or 4 days ago states she vomited 5-6 times but not since. Denies: Abdominal pain, Diarrhea, Melena, Hematochezia Genitourinary: Denies: Dysuria, Hematuria, Frequency Musculoskeletal: Reports: Neck pain - Right neck pain with chest discomfort, better now. Denies: Back pain, Swelling, Extremity Pain Skin: Denies: Rash, Wounds Neurological: Denies: Headache, Weakness, Numbness Physical Exam Vital Signs/Narrative: Vital Signs Temp Pulse Resp BP Pulse Ox 04/05/19 22:43 98.7 F 78 19 H 160/78 H 98 Inital Vital Signs reviewed: Yes General: Well nourished, Well developed, No Acute Distress Head: Normocephalic, Atraumatic Eyes: Perrl, EOMI ENT: Moist mucous membranes, No rhinorrhea Neck: Supple, Nontender, No JVD Cardiovascular: Regular rate, Regular rhythm, No murmurs Respiratory: No distress, CTA bilaterally, Chest nontender Abdomen: Soft, Nondistended, Normal bowel sounds, Tender - Epigastrium and left upper quadrant, mild-moderate. Negative for: Guarding, Rebound tenderness, Pulsatile mass Back: Nontender, Normal Inspection Extremities: Nontender, Edema - 1+ bilateral lower extremity pretibial to mid shins, symmetric. Negative for: Calf Tenderness Skin: Normal color, No rash, No Trauma Neurological: Alert, Oriented x3, Cranial nerves II-XII grossly intact, Normal Strength, Normal Sensation Psychological: Normal affect, Normal Mood Diagnostic/Tx/Re-eval Impressions Chest X-Ray 04/05/19 23:26 IMPRESSION: No acute cardiopulmonary disease or interval change when compared to the prior study. Electronically Signed: Juan Roper DO at 23:44 EDT Tel [phone], Service support , 04/05/19 23:26 Chest 1 View (Portable) [RAD] Stat Laboratory Tests 04/06/19 04/05/19 04/05/19 Range/Units 03:15 00:15 00:15 WBC 7.0 (4.4-11.0) K/mm3 RBC 3.56 L (4.2-5.4) M/mm3 Hgb 10.9 L (12.0-15.0) g/dL Hct 32.9 L (37-47) % MCV 92.4 (81-99) fL MCH 30.6 (27.0-32.0) pg MCHC 33.1 (32-36) g/dL RDW Std Deviation 42.4 (35.1-43.9) fl RDW Coeff of Randall 12.4 (11.6-14.6) % Plt Count 334 (150-450) K/mm3 MPV 9.1 (6.2-12.0) fl Immature Gran % (Auto) 0.600 (0.0-0.9) % Neut % (Auto) 62.7 (47-70) % Lymph % (Auto) 26.2 (19-41) % Allen % (Auto) 7.7 (0-10) % Eos % (Auto) 2.1 (0-5) % Baso % (Auto) 0.7 (0-1) % Absolute Neuts (auto) 4.4 (2.0-7.7) X10^3/uL Absolute Lymphs (auto) 1.84 (0.83-4.51) X10^3/uL Nucleated RBC % 0 (0-5) % Sodium 132 L (136-145) mmol/L Potassium 3.8 (3.5-5.1) mmol/L Chloride 106 (98-107) mmol/L Carbon Dioxide 20.0 L (21.0-32.0) mmol/L Anion Gap 6 (5-15) BUN 12 (7-18) mg/dL Creatinine 0.97 (0.55-1.02) mg/dL Estim Creat Clear Calc 38.76 ml/min Est GFR (MDRD) Af Amer 73 (>60) mL/min Est GFR (MDRD) Non-Af 60 (>60) mL/min BUN/Creatinine Ratio 12.4 (10-20) RATIO Glucose 113 H (74-106) mg/dL Calcium 8.7 (8.5-10.1) mg/dL Troponin I < 0.015 < 0.015 (<0.045) ng/mL - Rhythm Strip Rhythm Strip: Sinus Rhythm Rate: 73 Ectopy: None - EKG Initial EKG Interpretation: Sinus Rhythm, No Acute Injury Pattern, - - borderline LVH; otherwise nml EKG Prior: Unchanged PRINCE Risk: Age >/= 65, ASA within 7 days Score: 2 - Medical Decision Making HEART score 0/0/2/1/0 = 3. Initial enzymes negative, 3-hour delta performed, which was also negative. The rest of her work-up is unremarkable. She had no recurrence of her chest discomfort. I do not think she has acute coronary syndrome. Discharged home and encouraged to return for recurrent/worsening symptoms. ED Disposition - Plan for ED Patient: Disposition: Home or Assisted Living Diagnosis: Chest pain, unspecified Instructions: CHEST PAIN, Uncertain Cause Referrals: Shelley Martell, [employer] [Primary Care Provider] - 3-5 Days
--- NOTE | 2019-04-05 23:26 | RAD_ITS ---
STUDY: X-RAY CHEST REASON FOR EXAM: Female, 68 years old. Chest pain beginning this afternoon. TECHNIQUE: Single AP portable view of the chest. COMPARISON: May 23, 2015. FINDINGS: L The lungs are well expanded. There is no focal mass or infiltrate. There is no demonstrated pleural abnormality. Normal size heart. Normal mediastinum and jack. Normal visualized pulmonary arteries. Normal visualized aortic arch and descending thoracic aorta. No visualized osseous changes. There is no demonstrated abnormality of the visualized soft tissue structures of the upper abdomen. RAD/Chest 1 View (Portable) IMPRESSION: No acute cardiopulmonary disease or interval change when compared to the prior study. Electronically Signed: Juan Roper DO at 23:44 EDT Tel [phone], Service support ,
[2019-04-05] MEDS: proMETHazine 25 MG/ML Syringe 6.25 MG IV (23:30)
[2019-04-05 23:34] VITALS: BP 162/69; PULSE 71
[2019-04-05] MEDS: Nitroglycerin Oint 1 INCH PACKET TRANSDERM. (23:34)
[2019-04-06] VITALS: BP 161/75; PULSE 73; RESP 14; O2SAT 98
[2019-04-06] MEDS: 0.9% Normal Saline 1,000 ML 150 ML IV (00:02)
[2019-04-06 00:30] LABS: Absolute Lymphocyte Count 1.84 X10^3/uL (0.83-4.51); Absolute Neutrophil Count 4.4 X10^3/uL (2.0-7.7); Basophil# 0.05 X10^3/uL; Basophil% 0.7 % (0-1); Eosinophil# 0.15 X10^3/uL; Eosinophils% 2.1 % (0-5); Hematocrit 32.9 % (37-47); Hemoglobin 10.9 g/dL (12.0-15.0); Lymphocyte # 1.84 X10^3/ul (4.0); Lymphocyte % 26.2 % (19-41); Mean Corp Hgb Conc 33.1 g/dL (32-36); Mean Corpuscular Hgb 30.6 pg (27.0-32.0); Mean Corpuscular Volume 92.4 fL (81-99); Mean Platelet Vol. 9.1 fl (6.2-12.0); Monocyte# 0.54 X10^3/uL; Monocyte% 7.7 % (0-10); NRBC Flagged by Analyzer 0 % (0-5); Neutrophil # 4.39 X10^3/uL (2.7-7.7); Neutrophil % 62.7 % (47-70); Platelet Count 334 K/mm3 (150-450); RBC Distribution Width CV 12.4 % (11.6-14.6); RBC Distribution Width SD 42.4 fl (35.1-43.9); Red Blood Count 3.56 M/mm3 (4.2-5.4)
[2019-04-06 00:45] LABS: Anion Gap 6 (5-15); BUN 12 mg/dL (7-18); BUN/Creat Ratio 12.4 RATIO (10-20); Calcium,Total 8.7 mg/dL (8.5-10.1); Chloride 106 mmol/L (98-107); Creatinine, Serum 0.97 mg/dL (0.55-1.02); EST Glomerular Filtration Rate 60 mL/min (>60); Est Glom Filt Rate - Afr Amer 73 mL/min (>60); Estimated Creatinine Clearance 38.76 ml/min; Glucose 113 mg/dL (74-106); Potassium 3.8 mmol/L (3.5-5.1); Sodium Level 132 mmol/L (136-145)
[2019-04-06 01:00] VITALS: BP 162/75; PULSE 66; RESP 13; O2SAT 97
[2019-04-06 02:00] VITALS: BP 125/62; PULSE 61; RESP 13; O2SAT 98
[2019-04-06 03:00] VITALS: BP 130/72; PULSE 65; RESP 14; O2SAT 97
[2019-04-06 04:00] VITALS: BP 170/87; PULSE 104; RESP 16; O2SAT 97
[2019-04-06 05:02] VITALS: BP 198/89; PULSE 92; RESP 22; O2SAT 95
== END 2019-04-06 05:04 | disposition home or self-care (01) ==
PROVIDERS: Emergency Provider Emergency Medicine; Family Provider Nurse Practitioner Adult Health; PCP Nurse Practitioner Adult Health
DX: R07.9 Chest pain, unspecified (principal); M54.2 Cervicalgia; R60.0 Localized edema; I34.1 Nonrheumatic mitral (valve) prolapse; F32.9 Major depressive disorder, single episode, unspecified; F20.9 Schizophrenia, unspecified; E03.9 Hypothyroidism, unspecified; E11.9 Type 2 diabetes mellitus without complications; Z79.82 Long term (current) use of aspirin; Z79.899 Other long term (current) drug therapy
CPT/HCPCS: 36415; 71045; 80048; 84484; 85025; 93005; 96361; 96374; 99285; J7030; A4216

== ENCOUNTER → 2019-05-08 | Outpatient (CLI) | payer MEDICARE, SELFPAY ==
[2019-05-08 11:57] LABS: Amphetamine Urine VISTA NEGATIVE (<1000 ng/mL); Barbiturate Urine VISTA NEGATIVE (< 200 ng/mL); Benzodiazepine Urine VISTA NEGATIVE (< 200 ng/mL); Cocaine Urine VISTA NEGATIVE (< 300 ng/mL); Ecstacy Urine VISTA POSITIVE (< 500 ng/mL); Methadone Urine VISTA NEGATIVE (< 300 ng/mL); PCP Urine VISTA NEGATIVE (< 25 ng/mL); THC Urine VISTA NEGATIVE (< 50 ng/mL); Vista UDS pH Range 6
== END | disposition home or self-care (01) ==
LOC: LAB 10:38
PROVIDERS: Family Provider Nurse Practitioner Adult Health; PCP Nurse Practitioner Adult Health; Referring Provider Anesthesiology Pain Medicine; Visit Provider Anesthesiology Pain Medicine
DX: F11.20 Opioid dependence, uncomplicated (principal)
CPT/HCPCS: 80307

== ENCOUNTER → 2020-05-07 11:53 | Outpatient (CLI) | payer MEDICARE, MEDICAID, SELFPAY ==
[2020-05-07 13:19] LABS: Amphetamine Urine VISTA NEGATIVE (<1000 ng/mL); Barbiturate Urine VISTA NEGATIVE (< 200 ng/mL); Benzodiazepine Urine VISTA NEGATIVE (< 200 ng/mL); Cocaine Urine VISTA NEGATIVE (< 300 ng/mL); Ecstacy Urine VISTA POSITIVE (< 500 ng/mL); Methadone Urine VISTA NEGATIVE (< 300 ng/mL); PCP Urine VISTA NEGATIVE (< 25 ng/mL); THC Urine VISTA NEGATIVE (< 50 ng/mL); Vista UDS pH Range 6
== END ==
PROVIDERS: PCP Nurse Practitioner Adult Health; Referring Provider Anesthesiology Pain Medicine; Visit Provider Anesthesiology Pain Medicine
DX: F11.20 Opioid dependence, uncomplicated (principal)
CPT/HCPCS: 80307

== ENCOUNTER → 2020-06-04 11:39 | Outpatient (CLI) | payer MEDICARE, MEDICAID, SELFPAY ==
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
== END ==
PROVIDERS: PCP Nurse Practitioner Adult Health; Referring Provider Anesthesiology Pain Medicine; Visit Provider Anesthesiology Pain Medicine
DX: M54.5 Low back pain (principal)
CPT/HCPCS: 72100

== ENCOUNTER 2020-06-05 08:53 | Observation (INO) | payer MEDICARE, MEDICAID, SELFPAY ==
[2020-06-05] VITALS (7 sets, daily range): BP systolic 113–155; BP diastolic 44–74; PULSE 60–76; RESP 16–26; TEMP 36.1–37.3; O2SAT 92–99; BMI 31.1; BMI 28.3
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
[2020-06-05] MEDS: Morphine 4 MG/ML Syringe IV ×2 (09:31→09:46)
[2020-06-05] MEDS: Ondansetron 4 MG/2 ML Vial IV (09:31)
--- NOTE | 2020-06-05 09:32 | ED.DCSUM_ITS ---
- ER Visit Summary Date of Service: 06/05/20 Chief Complaint: Back and hip pain History of Present Illness: The patient is a 70 F who sees Dolores Martell and Dr. Gupta. She reports that 5 days ago she stepped on her cat and lost her balance. She fell and injured her lower back and right hip. She reports that she has back pain is 10 on 10 severity and hip pain is 10 on 10 severity when she walks. No blow to the head or loss of consciousness. She is not on anticoagulants. She denies any neck, shoulder, wrist pain. Patient had LS-spine x-rays yesterday that showed an L4 compression fracture. Physical Examination: Vitals: Stable. Afebrile. Neck: No vertebral tenderness. Full ROM without difficulty. Cleared by NEXUS criteria. Back: Moderate tenderness palpation is diffuse over the lumbar spine. No point tenderness. General: A&O x 3. NAD. Cardiovascular exam: Regular rate and rhythm, no murmur, rub or gallop. Respiratory exam: Chest nontender. No crepitus. Clear to auscultation bilaterally. No wheezes or stridor. Abdominal exam: Soft, nontender, nondistended, normal bowel sounds. No pain in RUQ or LUQ specifically. No peritoneal signs. Extremity: Moderate tenderness palpation over the right greater trochanter. She has no pain with internal or external rotation of her hip. She is neuro vas intact distal this. Test Results: I reviewed the x-ray from yesterday. She has a mild L4 compression fracture that is not an area that would be amenable to kyphoplasty. She does have an old L1 kyphoplasty. CBC shows a hematocrit of 36.8, 7 neutrophils 71. Chem-7 shows a chloride of 108 and glucose 119. Clinical Impression(s) from Imaging Studies Hip/Pelvis X-Ray 06/05/20 09:14 IMPRESSION: Question mild degenerative changes sacroiliac joints. The pelvis appears otherwise unremarkable. Electronically Signed: Juan Roper DO at 10:13 EDT Tel [phone], Service support , Emergency Department Course and Treatment: Patient had an IV placed. She is given morphine and Zofran IV. She lives by herself. She is already on extended release oxycodone. Case management was consulted for discharge planning. Patient is unable to get out of bed to use to even attempt to ambulate. Treatment Plan: Patient was discussed with the hospitalist. She will be admitted for further evaluation and treatment. Disposition: Admitted in improved condition. Impression: 1. Fall. 2. L4 compression fracture. 3. Right hip pain. 4. Inability to ambulate. This note was generated with [employer] dictation software. It may contain incorrect words, spelling, and punctuation that were not noted in review of the chart prior to signing ED Disposition - Plan for ED Patient: Disposition: Acute Care [facility]
[2020-06-05 09:47] LABS: Absolute Lymphocyte Count 1.26 X10^3/uL (0.83-4.51); Absolute Neutrophil Count 4.7 X10^3/uL (2.0-7.7); Basophil# 0.07 X10^3/uL; Basophil% 1.1 % (0-1); Eosinophil# 0.17 X10^3/uL; Eosinophils% 2.6 % (0-5); Hematocrit 36.8 % (37-47); Lymphocyte # 1.26 X10^3/ul (4.0); Mean Corp Hgb Conc 32.6 g/dL (32-36); Mean Corpuscular Hgb 29.5 pg (27.0-32.0); Mean Corpuscular Volume 90.4 fL (81-99); Mean Platelet Vol. 9.1 fl (6.2-12.0); Monocyte# 0.39 X10^3/uL; Monocyte% 5.9 % (0-10); NRBC Flagged by Analyzer 0 % (0-5); Neutrophil # 4.72 X10^3/uL (2.7-7.7); Neutrophil % 70.9 % (47-70); Platelet Count 413 K/mm3 (150-450); RBC Distribution Width CV 12.5 % (11.6-14.6); RBC Distribution Width SD 41.8 fl (35.1-43.9); Red Blood Count 4.07 M/mm3 (4.2-5.4); White Blood Count 6.6 K/mm3 (4.4-11.0)
[2020-06-05 10:09] LABS: Anion Gap 6 (5-15); BUN 17 mg/dL (7-18); BUN/Creat Ratio 18.7 RATIO (10-20); Calcium,Total 8.9 mg/dL (8.5-10.1); Chloride 108 mmol/L (98-107); Creatinine, Serum 0.91 mg/dL (0.55-1.02); EST Glomerular Filtration Rate 65 mL/min (>60); Est Glom Filt Rate - Afr Amer 78 mL/min (>60); Estimated Creatinine Clearance 40.14 ml/min; Glucose 119 mg/dL (74-106); Potassium 4.1 mmol/L (3.5-5.1); Sodium Level 136 mmol/L (136-145)
--- NOTE | 2020-06-05 11:18 | CM.ED ---
Social Work Consult: Discharge Planning Informant: Dr. Deras Arrival Mode: EMS. Chief Complaint: Patient reports to have fallen on Monday after stepping on patient cat and to have been laying in bed for the pat three days. Marital/Social History: Living Situation: Assisted Living at [facility]. Support/Resources: Waiver for assisted living. Josselyn Nolan ([phone]) is shelter case manager. PCP: Shelley Martell NP Advanced Care Planning: Mary Jo Moralez (daughter) is Health Care Power of Lease Broker. Patient declining to have Mary Jo contacted. Patient is currently acting as own person. Advanced directives are on chart. Education/Employment: Retired. Denies any issues with comprehension or understanding. Assessment: Met with patient in room. Introduced self and social work administrator role. Patient agreeable to speak with this social work administrator. Patient admits to believe that patient is unable to continue to care for self at current level of functioning. Patient states to have not been out of bed for the past three days. Patient is interested in prison placement at the [facility] as I liked it there last time. Patient was at the [facility] in 2018 per chart review. Collaborating with Dr. Deras. Plan to admit due to debility for prison placement as a pre-cert will need to be obtained through insurance. PLAN: Admit to acute care setting. Tara KELLER, ERIKA
--- NOTE | 2020-06-05 11:27 | HP.PCM_ITS ---
Problem List (1) Compression fractures L4 lumbar vertebra Status: Acute (2) Fall Status: Acute (3) Abdominal bloating Status: Inactive (4) Ileus Status: Inactive (5) Migraine Status: Chronic (6) Status post kyphoplasty Status: Chronic (7) Compression fracture of L1 lumbar vertebra Status: Chronic (8) Depression Status: Chronic (9) History of schizophrenia Status: Chronic (10) Hypothyroidism Status: Chronic (11) Mitral valve prolapse Status: Chronic (12) Type 2 diabetes mellitus Status: Chronic History of Present Illness Date of Admission: 06/05/20 Chief Complaint: Fall about 4 days ago and then back pain The patient is a 70 year old F with history of chronic lumbar degenerative disease and L1 kyphoplasty after compression fracture came to ED from assisted living after she fell down on 06/01/2020. She tripped on on her cat and lost balance and fell down. She saw Dr. Gupta yesterday and was given oxycodone but he still did not get pain relief therefore came to ER. She had x-ray of lumbar spine by Dr. Gupta yesterday and report is in the chart. It is reported as new mild compression fracture of L4. Old L1 fracture with bone cement. Multilevel disc degenerative disease and lumbar spinal stenosis. Multiple endplate lumbar spondylosis. She also complains of pain over right hip for which x-ray was done in the ER which shows mild degenerative changes at sacroiliac joint otherwise unremarkable. She is not able to turn around or sit upright on the bed. Pain is 10/10 mainly at lumbar spine, exacerbated by any movement. She was given morphine 4 mg IV x2 doses along with Zofran. She is further admitted for pain control. Clinical Impression(s) from Imaging Studies Hip/Pelvis X-Ray 06/05/20 09:14 IMPRESSION: Question mild degenerative changes sacroiliac joints. The pelvis appears otherwise unremarkable. Past Medical History Past Medical History (Chronic Problems): Chronic Problems Mitral valve prolapse (Chronic) Depression (Chronic) Migraine (Chronic) Compression fracture of L1 lumbar vertebra (Chronic) Status post kyphoplasty (Chronic) Hypothyroidism (Chronic) History of schizophrenia (Chronic) Type 2 diabetes mellitus (Chronic) Allergies ciprofloxacin Allergy (Verified 06/05/20 09:33) Unknown codeine Allergy (Verified 06/05/20 09:33) Unknown hydroxyzine HCl [From Vistaril] Allergy (Verified 06/05/20 09:33) Unknown hydroxyzine pamoate [From Vistaril] Allergy (Verified 06/05/20 09:33) Unknown niacin Allergy (Verified 06/05/20 09:33) Unknown ofloxacin [From Floxin] Allergy (Verified 06/05/20 09:33) Unknown tetracycline [Tetracycline] Allergy (Verified 06/05/20 09:33) Unknown Tetracyclines Allergy (Verified 06/05/20 09:33) Unknown Home Medications: Ambulatory Orders Medication Instructions Recorded Cyanocobalamin [Vitamin B12] 1,000 mcg PO DAILY 06/26/13 Fluoxetine [Prozac] 40 mg PO DAILY 06/26/13 Levothyroxine [Synthroid] 25 mcg PO DAILY 06/26/13 Omeprazole [Prilosec] 40 mg PO DAILY 06/26/13 Trazodone HCl [Oleptro ER] 300 mg PO QHS 06/26/13 Aspirin 325 mg PO DAILY@0800 03/13/17 Dicyclomine HCl 20 mg PO 4X/DAY 03/13/17 Docusate Sodium [Colace] 100 mg PO BID 03/13/17 [place] [facility]-3 Fatty Acids/Fish Oil [Fish 1 each PO DAILY 03/13/17 Oil 1,000 mg Capsule] Pravastatin [Pravachol] 80 mg PO QHS 03/13/17 Pregabalin [Lyrica] 50 mg PO BID 03/13/17 busPIRone [Buspar] 15 mg PO TID 03/13/17 Cholecalciferol (Vitamin D3) 5,000 unit PO DAILY 05/11/18 [Vitamin D3] Fenofibrate [Tricor] 160 mg PO DAILY 05/11/18 Polyethylene Glycol 3350 [Miralax] 17 gm PO DAILY 05/11/18 Acetaminophen [Tylenol Tablet] 650 mg PO Q6H PRN PRN tablet 05/17/18 Cholecalciferol (VIT D3) [Vitamin 3,000 unit PO DAILY 04/06/19 D] Hydrocodone Bitart/Apap 5-325 1 tab PO Q4H PRN PRN 04/06/19 [Gardiner 5MG-325MG] Lamotrigine [Lamictal] 150 mg PO BID 06/05/20 Oxycodone Myristate [Xtampza ER] 9 mg PO DAILY 06/05/20 Paliperidone [Invega] 6 mg PO DAILY 06/05/20 Smoking Status: Never smoker Tobacco Use: Non-smoker Alcohol: None Drugs: None - *Family History Paternal History Items: No pertinent history Review of Systems Constitutional: Denies: Chills, Fever, Weight Change HEENT: Denies: Head Aches, Sinus Congestion, Sinus Drainage Cardiovascular: Denies: Chest Pain, Palpitations Respiratory: Denies: Cough, Hemoptysis, Pleuritic Pain, Shortness of Breath, Shortness of breath at rest, Sputum production Gastrointestinal: Denies: Abdominal Pain, Nausea, Vomiting Genitourinary: Denies: Dysuria, Hematuria, Incontinence Musculoskeletal: Reports: Back Pain, Joint Pain, Joint stiffness, Joint Tenderness Skin: Denies: Rash, Wounds Neurological: Reports: Balance problems. Denies: Focal weakness, Numbness, Tingling Psychiatric: Denies: Anxiety, Depression, Homicidal Ideations, Suicidal Ideations Hematologic/ Lymphatic: Denies: Easy Bruising, Easy Bleeding VTE Information - Inpt Only VTE Present on Admission: No VTE Mechan Device Prophylaxis: None VTE Pharm Prophylaxis ordered?: Yes Patient Problems: Active and Suspected Problems Compression fractures L4 lumbar vertebra (Acute) Fall (Acute) Objective: Physical exam General: Alert, Oriented x3, Cooperative HEENT: Atraumatic, PERRLA, EOMI, Normocephalic Oral: No Gingival or Mucosal Lesions/ Ulcerations Neck: Supple, No JVD, Negative Carotid Bruits Lungs: Air entry diminished in bilateral lung bases. No crepitation/rhonchi Cardiovascular: Regular rate, Regular Rhythm, Normal S1, Normal S2, No murmurs Abdomen: Bowel Sounds Present, Soft, Non Tender, Non-Distended : No renal angle tenderness. No suprapubic tenderness. Extremities: No edema, Capillary Refill Less than 3 Seconds Back: Patient could not roll over or sit up for exam. There is tenderness over L3-L4, lower lumbar spine on finger palpation Skin: No rashes, No breakdown Musculoskeletal: Tenderness over right pelvic bone. Generalized arthritis/DJD Neurological: Cranial nerves II-XII grossly intact, Deep Tendon Reflexes 2+/4 and Symmetrical, Neuro grossly intact, muscle strength 4+/5 at major joints lower extremities Psych/Mental Status: Normal Affect, Appropriate. - Physical Exam Vitals/I&O's: Vital Signs Temp Pulse Resp BP Pulse Ox 99.1 F 76 18 155/74 H 96 06/05/20 08:54 06/05/20 11:05 06/05/20 11:05 06/05/20 11:05 06/05/20 11:05 Oxygen Delivery Method Room Air Weight: 159 lb 9.835 oz Body Mass Index (BMI) 31.1 Finger Stick Blood Glucose 133 Laboratory Results 06/05/20 06:40: WBC 6.6, RBC 4.07 L, Hgb 12.0, Hct 36.8 L, MCV 90.4, MCH 29.5, MCHC 32.6, RDW Std Deviation 41.8, RDW Coeff of Randall 12.5, Plt Count 413, MPV 9.1, Immature Gran % (Auto) 0.500, Neut % (Auto) 70.9 H, Lymph % (Auto) 19.0, [place] % (Auto) 5.9, Eos % (Auto) 2.6, Baso % (Auto) 1.1 H, Absolute Neuts (auto) 4.7, Absolute Lymphs (auto) 1.26, Nucleated RBC % 0 06/05/20 06:40: Sodium 136, Potassium 4.1, Chloride 108 H, Carbon Dioxide 22.0, Anion Gap 6, BUN 17, Creatinine 0.91, Estim Creat Clear Calc 40.14, Est GFR (MDRD) Af Amer 78, Est GFR (MDRD) Non-Af 65, BUN/Creatinine Ratio 18.7, Glucose 119 H, Calcium 8.9 Assessment/Plan All Active Problems Compression fractures L4 lumbar vertebra (Acute) Fall (Acute) The patient is a 70 year old F with history of chronic lumbar degenerative disease and L1 kyphoplasty is being admitted after recent fall 4 days ago complicating into L4 compression fracture with intractable back pain. 1. Acute compression fracture of L4 with old L1 fracture status post kyphoplasty and multilevel lumbar spine degenerative changes with spinal stenosis and lumbar endplate spondylosis: Patient is being admitted on MedSurg floor. Pain control. IV fluid normal saline. PT and OT. Patient lives in assisted living center at [facility]. restaurant culinary manager consult 2. Diabetes mellitus type 2: Accu-Cheks before meals and at bedtime and cover with meal sliding scale. 3. Schizophrenia, chronic migraine headache, mild D-dimers dementia: Continue home medication 4. Hypertension, mitral valve prolapse: Blood pressure is controlled 5. History of multiple recurrent fall and diffuse degenerative joint disease of the spine and hips and knee joints: VTE prophylaxis: Lovenox 40 mg subcu daily. Discontinue if platelet count drops less than 50,000 or hemoglobin less than 8 g% Living will/advanced directive/end of life care: Patient has has advanced directive and living will. Her power of deputy prosecuting attorney for health is her daughter Mary Jo Moralez. After discussion of procedures involved with full code, DNR CC arrest and DNR CC, the patient opted for DNR-CC Arrest no intubation Patient does not want artificial life support including intubation, tube feed, ventilator and/chest compression, central venous catheter, vasopressor and DC shock if needed Total time spent in [id number] encounter in discussion of advanced directive 16 minutes. Clinical Impression(s) from Imaging Studies Hip/Pelvis X-Ray 06/05/20 09:14 IMPRESSION: Question mild degenerative changes sacroiliac joints. The pelvis appears otherwise unremarkable. OBSV E&M: 75542 Initial observation care L3 Procedures: 76639 Advncd Care Plan 30 Min
--- NOTE | 2020-06-05 11:29 | NURSING ---
MED SURG BACK/HIP PAIN, INABILITY TO AMBULATE ELI
[2020-06-05 13:17] LABS: Magnesium 2.1 mg/dL (1.6-2.6)
[2020-06-05] MEDS: 0.9% Normal Saline 1,000 ML 75 ML IV (13:25)
[2020-06-05 13:41] LABS: Bedside Glucose 101 mg/dL (70-110)
[2020-06-05] MEDS: Enoxaparin 40 MG/0.4 ML Syringe SC (14:38)
[2020-06-05] MEDS: busPIRone 15 MG TABLET PO ×2 (15:38→21:24)
[2020-06-05 16:50] LABS: Bedside Glucose 181 mg/dL (70-110)
[2020-06-05] MEDS: Insulin Lispro 100 UNIT/ML INSULN.PEN SC (16:50)
[2020-06-05] MEDS: oxyCODONE 5 MG Tablet PO (18:01)
[2020-06-05] MEDS: Acetaminophen 325 MG Tablet 650 MG PO (19:44)
[2020-06-05] MEDS: traZODone 100 MG Tablet 150 MG PO (21:26)
[2020-06-05] MEDS: lamoTRIgine 150 MG Tablet PO (21:27)
[2020-06-05] MEDS: Pravastatin 80 MG Tablet PO (21:28)
[2020-06-05] MEDS: Pregabalin 50 MG Capsule PO (21:33)
[2020-06-05] MEDS: Morphine 2 MG/ML Syringe IV (21:33)
[2020-06-05 21:41] LABS: Bedside Glucose 141 mg/dL (70-110)
[2020-06-06 02:37] VITALS: BP 129/52; PULSE 78; RESP 16; TEMP 36.8; O2SAT 95
[2020-06-06] MEDS: Morphine 2 MG/ML Syringe IV (02:53)
[2020-06-06] MEDS: busPIRone 15 MG TABLET PO ×3 (06:31→21:25)
[2020-06-06] MEDS: Levothyroxine 25 MCG TABLET PO (06:31)
[2020-06-06] MEDS: oxyCODONE 5 MG Tablet PO (06:32)
[2020-06-06 06:46] LABS: Bedside Glucose 134 mg/dL (70-110)
[2020-06-06 07:18] VITALS: O2SAT 93
[2020-06-06] MEDS: Ondansetron 4 MG/2 ML Vial IV (07:33)
[2020-06-06 08:04] LABS: T4 Free Direct 1.01 ng/dL (0.76-1.46); Thyroid Stim Hormone (TSH) 2.62 uIU/mL (0.358-3.74)
[2020-06-06] MEDS: 0.9% Saline Lock 10 ML Syringe IV (08:32)
[2020-06-06] MEDS: proCHLORPERazine 10 MG/2 ML Vial 5 MG IV (08:32)
[2020-06-06 08:45] VITALS: BP 142/65; PULSE 72; RESP 18; TEMP 36.8; O2SAT 98
[2020-06-06] MEDS: Aspirin 325 MG Tablet PO (09:34)
[2020-06-06] MEDS: Pantoprazole Sodium 40 MG Tablet PO (09:35)
[2020-06-06] MEDS: lamoTRIgine 150 MG Tablet PO ×2 (09:35→21:25)
[2020-06-06] MEDS: Polyethylene Glycol 3350 17 GM PACKET PO (09:35)
[2020-06-06] MEDS: FLUoxetine 20 MG Capsule 40 MG PO (09:35)
[2020-06-06] MEDS: Enoxaparin 40 MG/0.4 ML Syringe SC (09:36)
[2020-06-06] MEDS: Fenofibrate 145 MG Tablet PO (09:36)
[2020-06-06] MEDS: traZODone 100 MG Tablet 150 MG PO ×2 (09:36→21:24)
[2020-06-06] MEDS: Pregabalin 50 MG Capsule PO ×2 (09:40→21:25)
[2020-06-06] MEDS: oxyCODONE CR 15 MG Tablet PO (09:40)
[2020-06-06] MEDS: Senna/Docusate Sodium 1 Tablet 2 TABLET PO ×2 (09:41→21:28)
--- NOTE | 2020-06-06 10:52 | PCM.PN.HOSP ---
Patient Problems: Active and Suspected Problems Compression fractures L4 lumbar vertebra (Acute) Fall (Acute) Reason for Visit: Follow-up for severe back pain Objective: Heart rate and blood pressure are controlled. Patient is having severe back pain. She said in the past fentanyl relieved her back pain. Sitting on the KAVITHA-chair Physical exam General: Alert, Oriented x3, Cooperative HEENT: Atraumatic, PERRLA, EOMI, Normocephalic Oral: No Gingival or Mucosal Lesions/ Ulcerations Neck: Supple, No JVD, Negative Carotid Bruits Lungs: Air entry diminished in bilateral lung bases. No crepitation/rhonchi Cardiovascular: Regular rate, Regular Rhythm, Normal S1, Normal S2, No murmurs Abdomen: Bowel Sounds Present, Soft, Non Tender, Non-Distended : No renal angle tenderness. No suprapubic tenderness. Extremities: No edema, Capillary Refill Less than 3 Seconds Back: There is tenderness over L3-L4, lower lumbar spine, superficial tenderness Skin: No rashes, No breakdown Musculoskeletal: Tenderness over right pelvic bone. Generalized arthritis/DJD Neurological: Cranial nerves II-XII grossly intact, Deep Tendon Reflexes 2+/4 and Symmetrical, Neuro grossly intact, muscle strength 4+/5 at major joints lower extremities Psych/Mental Status: Normal Affect, Appropriate. Vitals/I&O's: Vital Signs Temp Pulse Resp BP Pulse Ox 98.2 F 72 18 142/65 H 98 06/06/20 08:45 06/06/20 08:45 06/06/20 08:45 06/06/20 08:45 06/06/20 08:45 Oxygen Delivery Method Room Air Weight: 145 lb Body Mass Index (BMI) 28.3 Finger Stick Blood Glucose 133 Intake and Output for Last 24 Hours 06/04/20 06/05/20 06/06/20 23:59 23:59 23:59 Intake Total 600 / 600 1999 / 1999 Output Total 925 / 925 Balance 600 / 600 1075 / 1075 Laboratory Results 06/05/20 06:40: Magnesium 2.1 06/05/20 13:23: POC Glucose 101 06/05/20 16:46: POC Glucose 181 H 06/05/20 21:30: POC Glucose 141 H 06/06/20 06:36: POC Glucose 134 H 06/06/20 06:42: TSH 2.62, Free T4 1.01 Current Medications Acetaminophen (Tylenol) 650 mg PO Q6H PRN PRN PRN Reason: Pain Score 1-10/Temp > 100.7 F Last Admin: 06/05/20 19:44 Dose: 650 mg Documented by: Al Hydroxide/Mg Hydroxide (Mylanta Ii) 30 ml PO Q6H PRN PRN PRN Reason: Gastric Burning Albuterol Sulfate (Ventolin Aerosols) 2.5 mg INHALATION Q2H PRN PRN PRN Reason: Shortness of Breath/Wheezing Aspirin (Aspirin) 325 mg PO DAILY@0800 [facility] Last Admin: 06/06/20 09:34 Dose: 325 mg Documented by: Bisacodyl (Dulcolax) 10 mg RECTAL DAILY PRN PRN Reason: severe constipation Buspirone HCl (Buspar) 15 mg PO TID [facility] Last Admin: 06/06/20 06:31 Dose: 15 mg Documented by: Cholecalciferol (Vitamin D (25mcg)) 5,000 unit PO DAILY [facility] Last Admin: 06/06/20 09:35 Dose: 5,000 unit Documented by: Dextrose (D50w Syringe) 0 gm IV X1 PRN; Protocol PRN Reason: Hypoglycemia Dicyclomine HCl (Bentyl) 20 mg PO 4X/DAY PRN PRN Reason: Spasmodic pain Enoxaparin Sodium (Lovenox) 40 mg SC DAILY [facility] Last Admin: 06/06/20 09:36 Dose: 40 mg Documented by: Fenofibrate (Tricor) 145 mg PO DAILYCM [facility] Last Admin: 06/06/20 09:36 Dose: 145 mg Documented by: Fentanyl (Duragesic Patch) 12 mcg TRANSDERM. Q3D [facility] Last Admin: 06/06/20 09:41 Dose: 12 mcg Documented by: Fluoxetine HCl (Prozac) 40 mg PO DAILY [facility] Last Admin: 06/06/20 09:35 Dose: 40 mg Documented by: Glucagon () 1 mg IM .X1 PRN PRN Reason: Hypoglycemia Sodium Chloride () 250 mls @ 15 mls/hr IV .[id number] PRN PRN Reason: Saline Flush Sodium Chloride () 250 mls @ 15 mls/hr IV .[id number] PRN PRN Reason: Additional IVPB Infusion Insulin Human Lispro (Humalog Kwikpen (Bkc)) 0 unit SC ACHS [facility]; Protocol Last Admin: 06/06/20 06:42 Dose: Not Given Documented by: Lamotrigine (Lamictal) 150 mg PO BID [facility] Last Admin: 06/06/20 09:35 Dose: 150 mg Documented by: Levothyroxine Sodium (Synthroid) 25 mcg PO DAILY@0600 [facility] Last Admin: 06/06/20 06:31 Dose: 25 mcg Documented by: Morphine Sulfate () 2 mg IV Q3H PRN PRN PRN Reason: Pain Score 6-10 Last Admin: 06/06/20 02:53 Dose: 2 mg Documented by: Nitroglycerin (Nitrostat) 0.4 mg SUBLINGUAL Q5M PRN PRN Reason: CARDIAC/CHEST PAIN Ondansetron HCl (Zofran) 4 mg IV Q8H PRN PRN PRN Reason: NAUSEA/VOMITING Last Admin: 06/06/20 07:33 Dose: 4 mg Documented by: Oxycodone HCl (Oxyir) 10 mg PO Q4H PRN PRN PRN Reason: Pain Score 4-10 Pantoprazole Sodium (Protonix) 40 mg PO DAILY [facility] Last Admin: 06/06/20 09:35 Dose: 40 mg Documented by: Polyethylene Glycol (Miralax) 17 gm PO DAILY [facility] Last Admin: 06/06/20 09:35 Dose: 17 gm Documented by: Pravastatin Sodium (Pravachol) 80 mg PO QHS [facility] Last Admin: 06/05/20 21:28 Dose: 80 mg Documented by: Pregabalin (Lyrica) 50 mg PO BID [facility] Last Admin: 06/06/20 09:40 Dose: 50 mg Documented by: Prochlorperazine Edisylate (Compazine Iv) 5 mg IV Q4H PRN PRN PRN Reason: Breakthrough nausea/vomiting Last Admin: 06/06/20 08:32 Dose: 5 mg Documented by: Psyllium Hydrophilic Mucilloid (Metamucil) 1 packet PO BID PRN PRN Reason: mild constipation Senna/Docusate Sodium (Senokot-S, Sapphire-Colace) 2 tablet PO BID [facility] Last Admin: 06/06/20 09:41 Dose: 2 tablet Documented by: Sodium Chloride () 10 - 40 ml IV UD PRN PRN Reason: SALINE FLUSH Last Admin: 06/06/20 08:32 Dose: 10 ml Documented by: Trazodone HCl (Desyrel) 150 mg PO BID [facility] Last Admin: 06/06/20 09:36 Dose: 150 mg Documented by: STROKE Vital Signs/Narrative: Vital Signs Temp Pulse Resp BP Pulse Ox 06/06/20 08:45 98.2 F 72 18 142/65 H 98 06/06/20 07:18 93 Medical Necessity - Tobacco Use Smoking Status: Never smoker Tobacco Use: Non-smoker Assessment/Plan All Active Problems Compression fractures L4 lumbar vertebra (Acute) Fall (Acute) The patient is a 70 year old F with history of chronic lumbar degenerative disease and L1 kyphoplasty is being admitted after recent fall 4 days ago complicating into L4 compression fracture with intractable back pain. 1. Acute compression fracture of L4 with old L1 fracture status post kyphoplasty and multilevel lumbar spine degenerative changes with spinal stenosis and lumbar endplate spondylosis: [facility] Pain control. IV fluid normal saline. PT and OT. Patient lives in assisted living center at [facility]. cooperative manager consult 06/06: Oxycodone dose increased to 10 mg q. 4 hourly as needed for moderate to severe pain on fentanyl 12 mcg transdermal patch. Continue PT and OT 2. Diabetes mellitus type 2: Accu-Cheks before meals and at bedtime and cover with meal sliding scale. 3. Schizophrenia, chronic migraine headache, mild D-dimers dementia: Continue home medication 4. Hypertension, mitral valve prolapse: Blood pressure is controlled 5. History of multiple recurrent fall and diffuse degenerative joint disease of the spine and hips and knee joints: VTE prophylaxis: Lovenox 40 mg subcu daily. Discontinue if platelet count drops less than 50,000 or hemoglobin less than 8 g% Living will/advanced directive/end of life care: Patient has has advanced directive and living will. Her power of employment law attorney for health is her daughter Mary Jo Moralez. After discussion of procedures involved with full code, DNR CC arrest and DNR CC, the patient opted for DNR-CC Arrest no intubation Patient does not want artificial life support including intubation, tube feed, ventilator and/chest compression, central venous catheter, vasopressor and DC shock if needed Total time spent in [id number] encounter in discussion of advanced directive 16 minutes. Clinical Impression(s) from Imaging Studies Hip/Pelvis X-Ray 06/05/20 09:14 IMPRESSION: Question mild degenerative changes sacroiliac joints. The pelvis appears otherwise unremarkable. Inpatient E&M: 33966 Subs Hosp L2
[2020-06-06] MEDS: Insulin Lispro 100 UNIT/ML INSULN.PEN SC (11:41)
[2020-06-06 11:51] LABS: Bedside Glucose 156 mg/dL (70-110)
[2020-06-06] MEDS: oxyCODONE 5 MG Tablet 10 MG PO ×2 (14:28→21:26)
[2020-06-06 14:31] VITALS: BP 136/56; PULSE 72; RESP 18; TEMP 36.5; O2SAT 93
[2020-06-06 16:31] LABS: Bedside Glucose 144 mg/dL (70-110)
[2020-06-06 21:03] VITALS: BP 144/66; PULSE 65; RESP 14; TEMP 36.8; O2SAT 92
[2020-06-06] MEDS: Acetaminophen 325 MG Tablet 650 MG PO (21:25)
[2020-06-06] MEDS: Pravastatin 80 MG Tablet PO (21:25)
[2020-06-06 21:35] LABS: Bedside Glucose 132 mg/dL (70-110)
[2020-06-07 02:58] VITALS: BP 109/68; PULSE 60; RESP 14; TEMP 36.4; O2SAT 95
[2020-06-07] MEDS: Levothyroxine 25 MCG TABLET PO (06:33)
[2020-06-07] MEDS: 0.9% Saline Lock 10 ML Syringe IV ×4 (06:33→21:40)
[2020-06-07] MEDS: busPIRone 15 MG TABLET PO ×3 (06:33→21:33)
[2020-06-07 06:50] LABS: Bedside Glucose 128 mg/dL (70-110)
[2020-06-07 07:17] VITALS: O2SAT 95
[2020-06-07 07:28] VITALS: BP 144/45; PULSE 71; RESP 16; TEMP 36.7; O2SAT 92
[2020-06-07] MEDS: oxyCODONE 5 MG Tablet 10 MG PO ×3 (07:38→18:47)
[2020-06-07] MEDS: proCHLORPERazine 10 MG/2 ML Vial 5 MG IV (08:19)
[2020-06-07] MEDS: Fenofibrate 145 MG Tablet PO (10:12)
[2020-06-07] MEDS: Aspirin 325 MG Tablet PO (10:12)
[2020-06-07] MEDS: Enoxaparin 40 MG/0.4 ML Syringe SC (10:13)
[2020-06-07] MEDS: traZODone 100 MG Tablet 150 MG PO ×2 (10:13→21:32)
[2020-06-07] MEDS: lamoTRIgine 150 MG Tablet PO ×2 (10:13→21:33)
[2020-06-07] MEDS: Pantoprazole Sodium 40 MG Tablet PO (10:14)
[2020-06-07] MEDS: Polyethylene Glycol 3350 17 GM PACKET PO (10:14)
[2020-06-07] MEDS: FLUoxetine 20 MG Capsule 40 MG PO (10:14)
[2020-06-07] MEDS: Pregabalin 50 MG Capsule PO ×2 (10:19→21:33)
[2020-06-07] MEDS: Senna/Docusate Sodium 1 Tablet 2 TABLET PO ×2 (10:19→21:33)
[2020-06-07 11:40] LABS: Bedside Glucose 186 mg/dL (70-110)
[2020-06-07] MEDS: Acetaminophen 325 MG Tablet 650 MG PO (12:34)
[2020-06-07] MEDS: Insulin Lispro 100 UNIT/ML INSULN.PEN SC (12:35)
--- NOTE | 2020-06-07 12:36 | PCM.PN.HOSP ---
Patient Problems: Active and Suspected Problems Compression fractures L4 lumbar vertebra (Acute) Fall (Acute) Reason for Visit: Follow-up for back pain. Objective: Patient states he feels 20% better. He still has severe back pain. Not able to stand up or walk. Physical exam General: Alert, Oriented x3, Cooperative HEENT: Atraumatic, PERRLA, EOMI, Normocephalic Oral: No Gingival or Mucosal Lesions/ Ulcerations Neck: Supple, No JVD, Negative Carotid Bruits Lungs: Air entry diminished in bilateral lung bases. No crepitation/rhonchi Cardiovascular: Regular rate, Regular Rhythm, Normal S1, Normal S2, No murmurs Abdomen: Bowel Sounds Present, Soft, Non Tender, Non-Distended : No renal angle tenderness. No suprapubic tenderness. Extremities: No edema, Capillary Refill Less than 3 Seconds Back: There is tenderness over L3-L4, lower lumbar spine, tenderness only with small spine rotation or movement. Skin: No rashes, No breakdown Musculoskeletal: Tenderness over right pelvic bone. Generalized arthritis/DJD Neurological: Cranial nerves II-XII grossly intact, Deep Tendon Reflexes 2+/4 and Symmetrical, Neuro grossly intact, muscle strength 4+/5 at major joints lower extremities Psych/Mental Status: Normal Affect, Appropriate. Vitals/I&O's: Vital Signs Temp Pulse Resp BP Pulse Ox 98.1 F 71 16 144/45 H 92 06/07/20 07:28 06/07/20 07:28 06/07/20 07:28 06/07/20 07:28 06/07/20 07:28 Oxygen Delivery Method Room Air Weight: 145 lb Body Mass Index (BMI) 28.3 Finger Stick Blood Glucose 133 Intake and Output for Last 24 Hours 06/05/20 06/06/20 06/07/20 23:59 23:59 23:59 Intake Total 600 / 600 3280 / 3430 150 / 150 Output Total 1925 / 2525 950 / 950 Balance 600 / 600 1355 / 905 -800 / -800 Laboratory Results 06/06/20 16:25: POC Glucose 144 H 06/06/20 21:22: POC Glucose 132 H 06/07/20 06:37: POC Glucose 128 H 06/07/20 11:34: POC Glucose 186 H Current Medications Acetaminophen (Tylenol) 650 mg PO Q6H PRN PRN PRN Reason: Pain Score 1-10/Temp > 100.7 F Last Admin: 06/07/20 12:34 Dose: 650 mg Documented by: Al Hydroxide/Mg Hydroxide (Mylanta Ii) 30 ml PO Q6H PRN PRN PRN Reason: Gastric Burning Albuterol Sulfate (Ventolin Aerosols) 2.5 mg INHALATION Q2H PRN PRN PRN Reason: Shortness of Breath/Wheezing Aspirin (Aspirin) 325 mg PO DAILY@0800 [facility] Last Admin: 06/07/20 10:12 Dose: 325 mg Documented by: Bisacodyl (Dulcolax) 10 mg RECTAL DAILY PRN PRN Reason: severe constipation Buspirone HCl (Buspar) 15 mg PO TID [facility] Last Admin: 06/07/20 06:33 Dose: 15 mg Documented by: Cholecalciferol (Vitamin D (25mcg)) 5,000 unit PO DAILY [facility] Last Admin: 06/07/20 10:15 Dose: 5,000 unit Documented by: Dextrose (D50w Syringe) 0 gm IV X1 PRN; Protocol PRN Reason: Hypoglycemia Dicyclomine HCl (Bentyl) 20 mg PO 4X/DAY PRN PRN Reason: Spasmodic pain Enoxaparin Sodium (Lovenox) 40 mg SC DAILY [facility] Last Admin: 06/07/20 10:13 Dose: 40 mg Documented by: Fenofibrate (Tricor) 145 mg PO DAILYCM [facility] Last Admin: 06/07/20 10:12 Dose: 145 mg Documented by: Fentanyl (Duragesic Patch) 12 mcg TRANSDERM. Q3D [facility] Last Admin: 06/06/20 09:41 Dose: 12 mcg Documented by: Fluoxetine HCl (Prozac) 40 mg PO DAILY [facility] Last Admin: 06/07/20 10:14 Dose: 40 mg Documented by: Glucagon () 1 mg IM .X1 PRN PRN Reason: Hypoglycemia Sodium Chloride () 250 mls @ 15 mls/hr IV .[id number] PRN PRN Reason: Saline Flush Sodium Chloride () 250 mls @ 15 mls/hr IV .[id number] PRN PRN Reason: Additional IVPB Infusion Insulin Human Lispro (Humalog Kwikpen (Bkc)) 0 unit SC ACHS [facility]; Protocol Last Admin: 06/07/20 12:35 Dose: 2 units Documented by: Lamotrigine (Lamictal) 150 mg PO BID [facility] Last Admin: 06/07/20 10:13 Dose: 150 mg Documented by: Levothyroxine Sodium (Synthroid) 25 mcg PO DAILY@0600 [facility] Last Admin: 06/07/20 06:33 Dose: 25 mcg Documented by: Morphine Sulfate () 2 mg IV Q3H PRN PRN PRN Reason: Pain Score 6-10 Last Admin: 06/06/20 02:53 Dose: 2 mg Documented by: Nitroglycerin (Nitrostat) 0.4 mg SUBLINGUAL Q5M PRN PRN Reason: CARDIAC/CHEST PAIN Ondansetron HCl (Zofran) 4 mg IV Q8H PRN PRN PRN Reason: NAUSEA/VOMITING Last Admin: 06/06/20 07:33 Dose: 4 mg Documented by: Oxycodone HCl (Oxyir) 10 mg PO Q4H PRN PRN PRN Reason: Pain Score 4-10 Last Admin: 06/07/20 12:34 Dose: 10 mg Documented by: Pantoprazole Sodium (Protonix) 40 mg PO DAILY [facility] Last Admin: 06/07/20 10:14 Dose: 40 mg Documented by: Polyethylene Glycol (Miralax) 17 gm PO DAILY [facility] Last Admin: 06/07/20 10:14 Dose: 17 gm Documented by: Pravastatin Sodium (Pravachol) 80 mg PO QHS [facility] Last Admin: 06/06/20 21:25 Dose: 80 mg Documented by: Pregabalin (Lyrica) 50 mg PO BID [facility] Last Admin: 06/07/20 10:19 Dose: 50 mg Documented by: Prochlorperazine Edisylate (Compazine Iv) 5 mg IV Q4H PRN PRN PRN Reason: Breakthrough nausea/vomiting Last Admin: 06/07/20 08:19 Dose: 5 mg Documented by: Psyllium Hydrophilic Mucilloid (Metamucil) 1 packet PO BID PRN PRN Reason: mild constipation Senna/Docusate Sodium (Senokot-S, Sapphire-Colace) 2 tablet PO BID [facility] Last Admin: 06/07/20 10:19 Dose: 2 tablet Documented by: Sodium Chloride () 10 - 40 ml IV UD PRN PRN Reason: SALINE FLUSH Last Admin: 06/07/20 08:16 Dose: 10 ml Documented by: Trazodone HCl (Desyrel) 150 mg PO BID [facility] Last Admin: 06/07/20 10:13 Dose: 150 mg Documented by: Medical Necessity - Tobacco Use Smoking Status: Never smoker Tobacco Use: Non-smoker Assessment/Plan All Active Problems Compression fractures L4 lumbar vertebra (Acute) Fall (Acute) The patient is a 70 year old F with history of chronic lumbar degenerative disease and L1 kyphoplasty is being admitted after recent fall 4 days ago complicating into L4 compression fracture with intractable back pain. 1. Acute compression fracture of L4 with old L1 fracture status post kyphoplasty and multilevel lumbar spine degenerative changes with spinal stenosis and lumbar endplate spondylosis: Patient is being admitted on [facility] floor. Pain control. IV fluid normal saline. PT and OT. Patient lives in assisted [facility]. inventory manager consult 06/06: Oxycodone dose increased to 10 mg q. 4 hourly as needed for moderate to severe pain on fentanyl 12 mcg transdermal patch. Continue PT and OT 06/07: Fentanyl dose increased to 25 mcg transdermal patch. Had little bowel movement yesterday. Stool softener dose increased along with Dulcolax suppository. Dr. Gupta will see tomorrow a.m. 2. Diabetes mellitus type 2: Accu-Cheks before meals and at bedtime and cover with meal sliding scale. 3. Schizophrenia, chronic migraine headache, mild D-dimers dementia: Continue home medication 4. Hypertension, mitral valve prolapse: Blood pressure is controlled 5. History of multiple recurrent fall and diffuse degenerative joint disease of the spine and hips and knee joints: VTE prophylaxis: Lovenox 40 mg subcu daily. Discontinue if platelet count drops less than 50,000 or hemoglobin less than 8 g% Living will/advanced directive/end of life care: Patient has has advanced directive and living will. Her power of criminal defense attorney for health is her daughter Mary Jo Moralez. After discussion of procedures involved with full code, DNR CC arrest and DNR CC, the patient opted for DNR-CC Arrest no intubation Patient does not want artificial life support including intubation, tube feed, ventilator and/chest compression, central venous catheter, vasopressor and DC shock if needed Total time spent in [id number] encounter in discussion of advanced directive 16 minutes. Clinical Impression(s) from Imaging Studies Hip/Pelvis X-Ray 06/05/20 09:14 IMPRESSION: Question mild degenerative changes sacroiliac joints. The pelvis appears otherwise unremarkable. Inpatient E&M: [id number] Subs Hosp L2
[2020-06-07] MEDS: fentaNYL 25 MCG Patch TRANSDERM. (13:25)
[2020-06-07] MEDS: Bisacodyl 10 MG Suppository RECTAL (13:25)
[2020-06-07 13:30] VITALS: BP 143/51; PULSE 61; RESP 18; TEMP 37.3; O2SAT 94
[2020-06-07] MEDS: Psyllium 1 PACKET PO (13:36)
[2020-06-07] MEDS: Morphine 2 MG/ML Syringe IV ×2 (15:58→21:40)
[2020-06-07 16:11] LABS: Bedside Glucose 131 mg/dL (70-110)
[2020-06-07 19:45] VITALS: BP 133/48; PULSE 70; RESP 16; TEMP 36.8; O2SAT 94
[2020-06-07] MEDS: Pravastatin 80 MG Tablet PO (21:33)
[2020-06-07 21:40] LABS: Bedside Glucose 133 mg/dL (70-110)
[2020-06-08 01:46] VITALS: BP 113/57; PULSE 72; RESP 16; TEMP 36.9; O2SAT 97
[2020-06-08] MEDS: busPIRone 15 MG TABLET PO ×3 (05:20→21:24)
[2020-06-08] MEDS: Levothyroxine 25 MCG TABLET PO (05:20)
[2020-06-08] MEDS: oxyCODONE 5 MG Tablet 10 MG PO ×3 (05:20→21:20)
[2020-06-08 06:10] LABS: Absolute Lymphocyte Count 1.86 X10^3/uL (0.83-4.51); Absolute Neutrophil Count 3.9 X10^3/uL (2.0-7.7); Basophil# 0.08 X10^3/uL; Basophil% 1.2 % (0-1); Eosinophil# 0.33 X10^3/uL; Eosinophils% 4.9 % (0-5); Hemoglobin 11.8 g/dL (12.0-15.0); Lymphocyte # 1.86 X10^3/ul (4.0); Lymphocyte % 27.7 % (19-41); Mean Corp Hgb Conc 31.1 g/dL (32-36); Mean Corpuscular Hgb 29.1 pg (27.0-32.0); Mean Corpuscular Volume 93.6 fL (81-99); Mean Platelet Vol. 9.3 fl (6.2-12.0); Monocyte# 0.55 X10^3/uL; Monocyte% 8.2 % (0-10); NRBC Flagged by Analyzer 0 % (0-5); Neutrophil # 3.86 X10^3/uL (2.7-7.7); Neutrophil % 57.6 % (47-70); Platelet Count 418 K/mm3 (150-450); RBC Distribution Width SD 44.7 fl (35.1-43.9); Red Blood Count 4.06 M/mm3 (4.2-5.4); White Blood Count 6.7 K/mm3 (4.4-11.0)
[2020-06-08 06:35] LABS: Anion Gap 4 (5-15); BUN 13 mg/dL (7-18); BUN/Creat Ratio 13.3 RATIO (10-20); Calcium,Total 9.1 mg/dL (8.5-10.1); Chloride 111 mmol/L (98-107); Creatinine, Serum 0.98 mg/dL (0.55-1.02); EST Glomerular Filtration Rate 59 mL/min (>60); Est Glom Filt Rate - Afr Amer 72 mL/min (>60); Estimated Creatinine Clearance 37.27 ml/min; Glucose 126 mg/dL (74-106); Potassium 4.4 mmol/L (3.5-5.1); Sodium Level 142 mmol/L (136-145)
[2020-06-08 06:36] LABS: Bedside Glucose 149 mg/dL (70-110)
[2020-06-08 08:00] VITALS: BP 130/59; PULSE 72; RESP 18; TEMP 37.1; O2SAT 95
[2020-06-08] MEDS: Aspirin 325 MG Tablet PO (10:14)
[2020-06-08] MEDS: Fenofibrate 145 MG Tablet PO (10:14)
[2020-06-08] MEDS: FLUoxetine 20 MG Capsule 40 MG PO (10:14)
[2020-06-08] MEDS: Pantoprazole Sodium 40 MG Tablet PO (10:15)
[2020-06-08] MEDS: Polyethylene Glycol 3350 17 GM PACKET PO (10:15)
[2020-06-08] MEDS: Enoxaparin 40 MG/0.4 ML Syringe SC (10:15)
[2020-06-08] MEDS: lamoTRIgine 150 MG Tablet PO ×2 (10:16→21:26)
[2020-06-08] MEDS: traZODone 100 MG Tablet 150 MG PO ×2 (10:16→21:23)
[2020-06-08] MEDS: Pregabalin 50 MG Capsule PO ×2 (10:29→21:29)
[2020-06-08] MEDS: Senna/Docusate Sodium 1 Tablet 2 TABLET PO (10:32)
--- NOTE | 2020-06-08 11:27 | CASEMGMT ---
Addendum entered by Cecilia Castillo 06/08/20 13:20: SW received message from Nati at [facility] stating they are able to accept pt and will submit for pre-cert. SW updated pt. Plan: [facility] pending pre-cert Addendum entered by Cecilia Castillo 06/08/20 11:30: SW also placed a call to pt's CM Josselyn Nolan and left message updating her on pt's admission. Original Note: Social Work Note SW reviewed notes, pt is from [facility] would like to admit to [facility] for therapy. MARY placed a call to Nati at [facility] and provided referral. SW faxed referral. Plan: [facility] pending acceptance and pre-cert Cecilia Castillo DAYTIME BABYSITTER, COUNTER HELPER
[2020-06-08 11:35] VITALS: O2SAT 95
[2020-06-08] MEDS: Insulin Lispro 100 UNIT/ML INSULN.PEN SC ×2 (11:41→21:25)
[2020-06-08 11:51] LABS: Bedside Glucose 171 mg/dL (70-110)
--- NOTE | 2020-06-08 12:20 | CASEMGMT ---
MP RODRIGUEZ in to discuss CEE form with patient. RN MICHAEL explained CEE form to patient, patient voiced understanding. Patient signed CEE form. Original filed in chart, patient provided with copy of signed CEE form. Patient had no further questions or concerns at this time.
[2020-06-08 14:00] VITALS: BP 126/58; PULSE 71; RESP 16; TEMP 36.7; O2SAT 95
[2020-06-08] MEDS: Psyllium 1 PACKET PO (14:45)
--- NOTE | 2020-06-08 16:49 | PCM.PN.HOSP ---
Patient Problems: Active and Suspected Problems Compression fractures L4 lumbar vertebra (Acute) Fall (Acute) Reason for Visit: Follow-up for back pain Objective: Patient is still on severe back pain although feels little better 8/10 intensity. Patient not able to ambulate. Plan for SNF. Physical exam General: Alert, Oriented x3, Cooperative HEENT: Atraumatic, PERRLA, EOMI, Normocephalic Oral: No Gingival or Mucosal Lesions/ Ulcerations Neck: Supple, No JVD, Negative Carotid Bruits Lungs: Air entry diminished in bilateral lung bases. No crepitation/rhonchi Cardiovascular: Regular rate, Regular Rhythm, Normal S1, Normal S2, No murmurs Abdomen: Bowel Sounds Present, Soft, Non Tender, Non-Distended : No renal angle tenderness. No suprapubic tenderness. Extremities: No edema, Capillary Refill Less than 3 Seconds Skin: No rashes, No breakdown Musculoskeletal: No Tenderness to Palpation of Joints or Extremities Spine: Tenderness present over lumbar spine. Any passive movement is tender. Neurological: Cranial nerves II-XII grossly intact, Deep Tendon Reflexes 2+/4 and Symmetrical, Neuro grossly intact Psych/Mental Status: Normal Affect, Appropriate. Vitals/I&O's: Vital Signs Temp Pulse Resp BP Pulse Ox 98.1 F 71 16 126/58 H 95 06/08/20 14:00 06/08/20 14:00 06/08/20 14:00 06/08/20 14:00 06/08/20 14:00 Oxygen Delivery Method Room Air Weight: 145 lb Body Mass Index (BMI) 28.3 Finger Stick Blood Glucose 133 Intake and Output for Last 24 Hours 06/06/20 06/07/20 06/08/20 23:59 23:59 23:59 Intake Total 3280 / 3430 1030 / 1030 Output Total 1925 / 2525 1800 / 1800 600 / 600 Balance 1355 / 905 -770 / -770 -600 / -600 Laboratory Results 06/07/20 21:31: POC Glucose 133 H 06/08/20 05:40: WBC 6.7, RBC 4.06 L, Hgb 11.8 L, Hct 38.0, MCV 93.6, MCH 29.1, MCHC 31.1 L, RDW Std Deviation 44.7 H, RDW Coeff of Randall 13.0, Plt Count 418, MPV 9.3, Immature Gran % (Auto) 0.400, Neut % (Auto) 57.6, Lymph % (Auto) 27.7, [place] % (Auto) 8.2, Eos % (Auto) 4.9, Baso % (Auto) 1.2 H, Absolute Neuts (auto) 3.9, Absolute Lymphs (auto) 1.86, Nucleated RBC % 0 06/08/20 05:40: Sodium 142, Potassium 4.4, Chloride 111 H, Carbon Dioxide 27.0, Anion Gap 4 L, BUN 13, Creatinine 0.98, Estim Creat Clear Calc 37.27, Est GFR (MDRD) Af Amer 72, Est GFR (MDRD) Non-Af 59 L, BUN/Creatinine Ratio 13.3, Glucose 126 H, Calcium 9.1 06/08/20 06:31: POC Glucose 149 H 06/08/20 11:25: COVID-19 (BOBBI) Not Detected 06/08/20 11:39: POC Glucose 171 H Current Medications Acetaminophen (Tylenol) 650 mg PO Q6H PRN PRN PRN Reason: Pain Score 1-10/Temp > 100.7 F Last Admin: 06/07/20 12:34 Dose: 650 mg Documented by: Al Hydroxide/Mg Hydroxide (Mylanta Ii) 30 ml PO Q6H PRN PRN PRN Reason: Gastric Burning Albuterol Sulfate (Ventolin Aerosols) 2.5 mg INHALATION Q2H PRN PRN PRN Reason: Shortness of Breath/Wheezing Aspirin (Aspirin) 325 mg PO DAILY@0800 [facility] Last Admin: 06/08/20 10:14 Dose: 325 mg Documented by: Bisacodyl (Dulcolax) 10 mg RECTAL DAILY [facility] Stop: 06/09/20 10:01 Last Admin: 06/08/20 10:46 Dose: Not Given Documented by: Buspirone HCl (Buspar) 15 mg PO TID [facility] Last Admin: 06/08/20 14:45 Dose: 15 mg Documented by: Cholecalciferol (Vitamin D (25mcg)) 5,000 unit PO DAILY [facility] Last Admin: 06/08/20 10:17 Dose: 5,000 unit Documented by: Dextrose (D50w Syringe) 0 gm IV X1 PRN; Protocol PRN Reason: Hypoglycemia Dicyclomine HCl (Bentyl) 20 mg PO 4X/DAY PRN PRN Reason: Spasmodic pain Enoxaparin Sodium (Lovenox) 40 mg SC DAILY [facility] Last Admin: 06/08/20 10:15 Dose: 40 mg Documented by: [facility] ([facility]) [facility] Last Admin: 06/08/20 10:14 Dose: 145 mg Documented by: Fentanyl (Duragesic Patch) 25 mcg TRANSDERM. Q72H [facility] Last Admin: 06/07/20 13:25 Dose: 25 mcg Documented by: Fluoxetine HCl (Prozac) 40 mg PO DAILY [facility] Last Admin: 06/08/20 10:14 Dose: 40 mg Documented by: Glucagon () 1 mg IM .X1 PRN PRN Reason: Hypoglycemia Sodium Chloride () 250 mls @ 15 mls/hr IV .[id number] PRN PRN Reason: Saline Flush Sodium Chloride () 250 mls @ 15 mls/hr IV .[id number] PRN PRN Reason: Additional IVPB Infusion Insulin Human Lispro (Humalog Kwikpen (Bkc)) 0 unit SC [facility]; Protocol Last Admin: 06/08/20 11:41 Dose: 2 units Documented by: Lamotrigine (Lamictal) 150 mg PO BID [facility] Last Admin: 06/08/20 10:16 Dose: 150 mg Documented by: Levothyroxine Sodium (Synthroid) 25 mcg PO DAILY@0600 [facility] Last Admin: 06/08/20 05:20 Dose: 25 mcg Documented by: Morphine Sulfate () 2 mg IV Q3H PRN PRN PRN Reason: Pain Score 6-10 Last Admin: 06/07/20 21:40 Dose: 2 mg Documented by: Nitroglycerin (Nitrostat) 0.4 mg SUBLINGUAL Q5M PRN PRN Reason: CARDIAC/CHEST PAIN Ondansetron HCl (Zofran) 4 mg IV Q8H PRN PRN PRN Reason: NAUSEA/VOMITING Last Admin: 06/06/20 07:33 Dose: 4 mg Documented by: Oxycodone HCl (Oxyir) 10 mg PO Q4H PRN PRN PRN Reason: Pain Score 4-10 Last Admin: 06/08/20 10:29 Dose: 10 mg Documented by: Pantoprazole Sodium (Protonix) 40 mg PO DAILY [facility] Last Admin: 06/08/20 10:15 Dose: 40 mg Documented by: Polyethylene Glycol (Miralax) 17 gm PO DAILY [facility] Last Admin: 06/08/20 10:15 Dose: 17 gm Documented by: Pravastatin Sodium (Pravachol) 80 mg PO QHS [facility] Last Admin: 06/07/20 21:33 Dose: 80 mg Documented by: Pregabalin (Lyrica) 50 mg PO BID [facility] Last Admin: 06/08/20 10:29 Dose: 50 mg Documented by: Prochlorperazine Edisylate (Compazine Iv) 5 mg IV Q4H PRN PRN PRN Reason: Breakthrough nausea/vomiting Last Admin: 06/07/20 08:19 Dose: 5 mg Documented by: Psyllium Hydrophilic Mucilloid (Metamucil) 1 packet PO TID [facility] Last Admin: 06/08/20 14:45 Dose: 1 packet Documented by: Senna/Docusate Sodium (Senokot-S, Sapphire-Colace) 2 tablet PO BID [facility] Last Admin: 06/08/20 10:32 Dose: 2 tablet Documented by: Sodium Chloride () 10 - 40 ml IV UD PRN PRN Reason: SALINE FLUSH Last Admin: 06/07/20 21:40 Dose: 10 ml Documented by: Trazodone HCl (Desyrel) 150 mg PO BID [facility] Last Admin: 06/08/20 10:16 Dose: 150 mg Documented by: STROKE Vital Signs/Narrative: Vital Signs Temp Pulse Resp BP Pulse Ox 06/08/20 14:00 98.1 F 71 16 126/58 H 95 Medical Necessity - Tobacco Use Smoking Status: Never smoker Tobacco Use: Non-smoker Assessment/Plan All Active Problems Compression fractures L4 lumbar vertebra (Acute) Fall (Acute) The patient is a 70 year old F with history of chronic lumbar degenerative disease and L1 kyphoplasty is being admitted after recent fall 4 days ago complicating into L4 compression fracture with intractable back pain. 1. Acute compression fracture of L4 with old L1 fracture status post kyphoplasty and multilevel lumbar spine degenerative changes with spinal stenosis and lumbar endplate spondylosis: Patient is being admitted on MedSurg floor. Pain control. IV fluid normal saline. PT and OT. Patient lives in assisted living center at [facility]. online education manager consult 06/06: Oxycodone dose increased to 10 mg q. 4 hourly as needed for moderate to severe pain on fentanyl 12 mcg transdermal patch. Continue PT and OT 06/07: Fentanyl dose increased to 25 mcg transdermal patch. Had little bowel movement yesterday. Stool softener dose increased along with Dulcolax suppository. Dr. Gupta will see tomorrow a.m. 06/08: Continue pain regimen. SNF placement. 2. Diabetes mellitus type 2: Accu-Cheks before meals and at bedtime and cover with meal sliding scale. 3. Schizophrenia, chronic migraine headache, mild D-dimers dementia: Continue home medication 4. Hypertension, mitral valve prolapse: Blood pressure is controlled 5. History of multiple recurrent fall and diffuse degenerative joint disease of the spine and hips and knee joints: VTE prophylaxis: Lovenox 40 mg subcu daily. Discontinue if platelet count drops less than 50,000 or hemoglobin less than 8 g% Living will/advanced directive/end of life care: Patient has has advanced directive and living will. Her power of environmental attorney for health is her daughter Mary Jo Moralez. After discussion of procedures involved with full code, DNR CC arrest and DNR CC, the patient opted for DNR-CC Arrest no intubation Patient does not want artificial life support including intubation, tube feed, ventilator and/chest compression, central venous catheter, vasopressor and DC shock if needed Total time spent in [id number] encounter in discussion of advanced directive 16 minutes. Clinical Impression(s) from Imaging Studies Hip/Pelvis X-Ray 06/05/20 09:14 IMPRESSION: Question mild degenerative changes sacroiliac joints. The pelvis appears otherwise unremarkable. Inpatient E&M: [id number] Subs Hosp L2
[2020-06-08 17:45] LABS: Bedside Glucose 126 mg/dL (70-110)
[2020-06-08 20:00] VITALS: BP 139/58; PULSE 65; RESP 16; TEMP 37.2; O2SAT 94
[2020-06-08] MEDS: Acetaminophen 325 MG Tablet 650 MG PO (21:20)
[2020-06-08] MEDS: Pravastatin 80 MG Tablet PO (21:25)
[2020-06-08 21:41] LABS: Bedside Glucose 231 mg/dL (70-110)
[2020-06-09] VITALS (8 sets, daily range): BP systolic 111–151; BP diastolic 47–67; PULSE 62–75; RESP 16; TEMP 36.4–37.2; O2SAT 94–97
[2020-06-09] MEDS: oxyCODONE 5 MG Tablet 10 MG PO (05:13)
--- NOTE | 2020-06-09 06:00 | EKG12_ITS ---
Test Reason : PRE-OP Blood Pressure : / mmHG Vent. Rate : 068 BPM Atrial Rate : 068 BPM P-R Int : 174 ms QRS Dur : 078 ms QT Int : 422 ms P-R-T Axes : 069 003 052 degrees QTc Int : 448 ms Normal sinus rhythm Normal ECG When compared with ECG of 05-APR-2019 22:55, Premature atrial complexes are no longer Present Confirmed by SHAUNNA DON, CARMEN ([id number]), pantry chef LINDA WATT ([id number]) on 06/15/2020 8:59:57 A M Referred By: ELI Confirmed By:BARRERA MAZA MD
[2020-06-09 07:42] LABS: Bedside Glucose 164 mg/dL (70-110)
[2020-06-09 07:53] LABS: Absolute Lymphocyte Count 1.46 X10^3/uL (0.83-4.51); Absolute Neutrophil Count 7.4 X10^3/uL (2.0-7.7); Basophil# 0.06 X10^3/uL; Basophil% 0.6 % (0-1); Eosinophils% 3.1 % (0-5); Hematocrit 39.2 % (37-47); Hemoglobin 12.6 g/dL (12.0-15.0); Lymphocyte # 1.46 X10^3/ul (4.0); Lymphocyte % 14.9 % (19-41); Mean Corp Hgb Conc 32.1 g/dL (32-36); Mean Corpuscular Hgb 29.6 pg (27.0-32.0); Mean Corpuscular Volume 92.2 fL (81-99); Mean Platelet Vol. 9.2 fl (6.2-12.0); Monocyte# 0.53 X10^3/uL; Monocyte% 5.4 % (0-10); NRBC Flagged by Analyzer 0 % (0-5); Neutrophil # 7.39 X10^3/uL (2.7-7.7); Neutrophil % 75.6 % (47-70); Platelet Count 419 K/mm3 (150-450); RBC Distribution Width CV 13.1 % (11.6-14.6); RBC Distribution Width SD 44.4 fl (35.1-43.9); Red Blood Count 4.25 M/mm3 (4.2-5.4); White Blood Count 9.8 K/mm3 (4.4-11.0)
[2020-06-09 07:55] LABS: Anion Gap 3 (5-15); BUN 13 mg/dL (7-18); BUN/Creat Ratio 13.6 RATIO (10-20); Calcium,Total 9.1 mg/dL (8.5-10.1); Chloride 110 mmol/L (98-107); Creatinine, Serum 0.96 mg/dL (0.55-1.02); EST Glomerular Filtration Rate 61 mL/min (>60); Est Glom Filt Rate - Afr Amer 74 mL/min (>60); Estimated Creatinine Clearance 38.05 ml/min; Glucose 139 mg/dL (74-106); Potassium 4.6 mmol/L (3.5-5.1); Sodium Level 133 mmol/L (136-145)
[2020-06-09 08:24] LABS: Hemoglobin A1c 6.2 % (3.8-5.6)
[2020-06-09] MEDS: 0.9% Saline Lock 10 ML Syringe IV (09:44)
[2020-06-09] MEDS: Morphine 2 MG/ML Syringe IV (09:44)
--- NOTE | 2020-06-09 09:50 | PN_ITS ---
Patient Problems: Active and Suspected Problems Compression fractures L4 lumbar vertebra (Acute) Fall (Acute) Reason for Visit: Follow-up for severe pain Objective: Patient seen by Dr. Gupta. Scheduled for lumbar spinal analgesia. Currently n.p.o. Rate and blood pressure control. Pain control is better. Physical exam General: Alert, Oriented x3, Cooperative HEENT: Atraumatic, PERRLA, EOMI, Normocephalic Oral: No Gingival or Mucosal Lesions/ Ulcerations. Dry oral mucosa Neck: Supple, No JVD, Negative Carotid Bruits Lungs: Air entry diminished in bilateral lung bases. No crepitation/rhonchi Cardiovascular: Regular rate, Regular Rhythm, Normal S1, Normal S2, No murmurs Abdomen: Bowel Sounds Present, Soft, Non Tender, Non-Distended : No renal angle tenderness. No suprapubic tenderness. Extremities: No edema, Capillary Refill Less than 3 Seconds Skin: No rashes, No breakdown Musculoskeletal: No Tenderness to Palpation of Joints or Extremities Spine: Tenderness present over lumbar spine. Sitting upright in the chair. Neurological: Cranial nerves II-XII grossly intact, Deep Tendon Reflexes 2+/4 and Symmetrical, Neuro grossly intact Psych/Mental Status: Normal Affect, Appropriate. Vitals/I&O's: Vital Signs Temp Pulse Resp BP Pulse Ox 98.5 F 75 16 149/58 H 95 06/09/20 08:00 06/09/20 08:00 06/09/20 08:00 06/09/20 08:00 06/09/20 08:00 Oxygen Delivery Method Room Air Weight: 145 lb Body Mass Index (BMI) 28.3 Finger Stick Blood Glucose 133 Intake and Output for Last 24 Hours 06/07/20 06/08/20 06/09/20 23:59 23:59 23:59 Intake Total 1030 / 1030 300 / 300 Output Total 1800 / 1800 600 / 600 200 / 200 Balance -770 / -770 -600 / -300 100 / 100 Laboratory Results 06/08/20 11:25: COVID-19 (BOBBI) Not Detected 06/08/20 11:39: POC Glucose 171 H 06/08/20 17:39: POC Glucose 126 H 06/08/20 21:19: POC Glucose 231 H 06/09/20 06:19: POC Glucose 164 H 06/09/20 06:36: Sodium 133 L, Potassium 4.6, Chloride 110 H, Carbon Dioxide 20.0 L, Anion Gap 3 L, BUN 13, Creatinine 0.96, Estim Creat Clear Calc 38.05, Est GFR (MDRD) Af Amer 74, Est GFR (MDRD) Non-Af 61, BUN/Creatinine Ratio 13.6, Glucose 139 H, Calcium 9.1 06/09/20 07:40: WBC 9.8, RBC 4.25, Hgb 12.6, Hct 39.2, MCV 92.2, MCH 29.6, MCHC 32.1, RDW Std Deviation 44.4 H, RDW Coeff of Randall 13.1, Plt Count 419, MPV 9.2, Immature Gran % (Auto) 0.400, Neut % (Auto) 75.6 H, Lymph % (Auto) 14.9 L, [place] % (Auto) 5.4, Eos % (Auto) 3.1, Baso % (Auto) 0.6, Absolute Neuts (auto) 7.4, Absolute Lymphs (auto) 1.46, Nucleated RBC % 0 06/09/20 07:40: Hemoglobin A1c 6.2 H Current Medications Acetaminophen (Tylenol) 650 mg PO Q6H PRN PRN PRN Reason: Pain Score 1-10/Temp > 100.7 F Last Admin: 06/08/20 21:20 Dose: 650 mg Documented by: Al Hydroxide/Mg Hydroxide (Mylanta Ii) 30 ml PO Q6H PRN PRN PRN Reason: Gastric Burning Albuterol Sulfate (Ventolin Aerosols) 2.5 mg INHALATION Q2H PRN PRN PRN Reason: Shortness of Breath/Wheezing Aspirin (Aspirin) 325 mg PO DAILY@0800 [facility] Last Admin: 06/08/20 10:14 Dose: 325 mg Documented by: Bisacodyl (Dulcolax) 10 mg RECTAL DAILY [facility] Stop: 06/09/20 10:01 Last Admin: 06/08/20 10:46 Dose: Not Given Documented by: Buspirone HCl (Buspar) 15 mg PO TID [facility] Last Admin: 06/09/20 06:22 Dose: Not Given Documented by: Cholecalciferol (Vitamin D (25mcg)) 5,000 unit PO DAILY [facility] Last Admin: 06/08/20 10:17 Dose: 5,000 unit Documented by: Dextrose (D50w Syringe) 0 gm IV X1 PRN; Protocol PRN Reason: Hypoglycemia Dicyclomine HCl (Bentyl) 20 mg PO 4X/DAY PRN PRN Reason: Spasmodic pain Enoxaparin Sodium (Lovenox) 40 mg SC DAILY [facility] Last Admin: 06/08/20 10:15 Dose: 40 mg Documented by: Fenofibrate (Tricor) 145 mg PO DAILYCM [facility] Last Admin: 06/08/20 10:14 Dose: 145 mg Documented by: Fentanyl (Duragesic Patch) 25 mcg TRANSDERM. Q72H [facility] Last Admin: 06/07/20 13:25 Dose: 25 mcg Documented by: Fluoxetine HCl (Prozac) 40 mg PO DAILY [facility] Last Admin: 06/08/20 10:14 Dose: 40 mg Documented by: Glucagon () 1 mg IM .X1 PRN PRN Reason: Hypoglycemia Sodium Chloride () 250 mls @ 15 mls/hr IV .[id number] PRN PRN Reason: Saline Flush Sodium Chloride () 250 mls @ 15 mls/hr IV .[id number] PRN PRN Reason: Additional IVPB Infusion Insulin Human Lispro (Humalog Kwikpen (Bkc)) 0 unit SC ACHS [facility]; Protocol Last Admin: 06/09/20 06:22 Dose: Not Given Documented by: Lamotrigine (Lamictal) 150 mg PO BID [facility] Last Admin: 06/08/20 21:26 Dose: 150 mg Documented by: Levothyroxine Sodium (Synthroid) 25 mcg PO DAILY@0600 [facility] Last Admin: 06/09/20 06:22 Dose: Not Given Documented by: Morphine Sulfate () 2 mg IV Q3H PRN PRN PRN Reason: Pain Score 6-10 Last Admin: 06/09/20 09:44 Dose: 2 mg Documented by: Nitroglycerin (Nitrostat) 0.4 mg SUBLINGUAL Q5M PRN PRN Reason: CARDIAC/CHEST PAIN Ondansetron HCl (Zofran) 4 mg IV Q8H PRN PRN PRN Reason: NAUSEA/VOMITING Last Admin: 06/06/20 07:33 Dose: 4 mg Documented by: Oxycodone HCl (Oxyir) 10 mg PO Q4H PRN PRN PRN Reason: Pain Score 4-10 Last Admin: 06/09/20 05:13 Dose: 10 mg Documented by: Pantoprazole Sodium (Protonix) 40 mg PO DAILY [facility] Last Admin: 06/08/20 10:15 Dose: 40 mg Documented by: Polyethylene Glycol (Miralax) 17 gm PO DAILY [facility] Last Admin: 06/08/20 10:15 Dose: 17 gm Documented by: Pravastatin Sodium (Pravachol) 80 mg PO QHS [facility] Last Admin: 06/08/20 21:25 Dose: 80 mg Documented by: Pregabalin (Lyrica) 50 mg PO BID [facility] Last Admin: 06/08/20 21:29 Dose: 50 mg Documented by: Prochlorperazine Edisylate (Compazine Iv) 5 mg IV Q4H PRN PRN PRN Reason: Breakthrough nausea/vomiting Last Admin: 06/07/20 08:19 Dose: 5 mg Documented by: Psyllium Hydrophilic Mucilloid (Metamucil) 1 packet PO TID [facility] Last Admin: 06/09/20 06:22 Dose: Not Given Documented by: Senna/Docusate Sodium (Senokot-S, Sapphire-Colace) 2 tablet PO BID [facility] Last Admin: 06/08/20 21:26 Dose: Not Given Documented by: Sodium Chloride () 10 - 40 ml IV UD PRN PRN Reason: SALINE FLUSH Last Admin: 06/09/20 09:44 Dose: 10 ml Documented by: Trazodone HCl (Desyrel) 150 mg PO BID [facility] Last Admin: 06/08/20 21:23 Dose: 150 mg Documented by: STROKE Vital Signs/Narrative: Vital Signs Temp Pulse Resp BP Pulse Ox 06/09/20 08:00 98.5 F 75 16 149/58 H 95 Medical Necessity - Tobacco Use Smoking Status: Never smoker Tobacco Use: Non-smoker Assessment/Plan All Active Problems Compression fractures L4 lumbar vertebra (Acute) Fall (Acute) The patient is a 70 year old F with history of chronic lumbar degenerative disease and L1 kyphoplasty is being admitted after recent fall 4 days ago compli cating into L4 compression fracture with intractable back pain. 1. Acute compression fracture of L4 with old L1 fracture status post kyphoplasty and multilevel lumbar spine degenerative changes with spinal stenosis and lumbar endplate spondylosis: Patient is being admitted on [facility] floor. Pain control. IV fluid normal saline. PT and OT. Patient lives in assisted living center at [facility]. manager ct consult 06/06: Oxycodone dose increased to 10 mg q. 4 hourly as needed for moderate to severe pain on fentanyl 12 mcg transdermal patch. Continue PT and OT 06/07: Fentanyl dose increased to 25 mcg transdermal patch. Had little bowel movement yesterday. Stool softener dose increased along with Dulcolax suppository. Dr. Gupta will see tomorrow a.m. 06/08: Continue pain regimen. 06/09: Patient is going for epidural analgesia by Dr. Gupta today. SNF placement. Labs reviewed. On IV fluid D5 half NS as patient is n.p.o. 2. Diabetes mellitus type 2: Accu-Cheks before meals and at bedtime and cover with meal sliding scale. 3. Schizophrenia, chronic migraine headache, mild D-dimers dementia: Continue home medication 4. Hypertension, mitral valve prolapse: Blood pressure is controlled 5. History of multiple recurrent fall and diffuse degenerative joint disease of the spine and hips and knee joints: VTE prophylaxis: Lovenox 40 mg subcu daily. Discontinue if platelet count drops less than 50,000 or hemoglobin less than 8 g% Signout : Pre-CERT pending. Anticipate discharge tomorrow to SNF. Living will/advanced directive/end of life care: Patient has has advanced directive and living will. Her power of criminal attorney for health is her daughter Mary Jo Moralez. After discussion of procedures involved with full code, DNR CC arrest and DNR CC, the patient opted for DNR-CC Arrest no intubation Patient does not want artificial life support including intubation, tube feed, ventilator and/chest compression, central venous catheter, vasopressor and DC shock if needed Total time spent in [id number] encounter in discussion of advanced directive 16 minutes. Clinical Impression(s) from Imaging Studies Hip/Pelvis X-Ray 06/05/20 09:14 IMPRESSION: Question mild degenerative changes sacroiliac joints. The pelvis appears otherwise unremarkable. Inpatient E&M: [id number] Subs Hosp L2
[2020-06-09 11:30] LABS: Bedside Glucose 106 mg/dL (70-110)
--- NOTE | 2020-06-09 13:12 | RAD_ITS ---
STUDY: X-RAY - LUMBAR SPINE REASON FOR EXAM: Female, 70 years old. lumbar epidural L4-5 TECHNIQUE: Single intraoperative view(s) of the lumbar spine were obtained. COMPARISON: None FINDINGS: Single limited C-arm film was performed as the patient has undergone a epidural injection at L4-5. No plain film complications noted. RAD/Spine 1 View Any Level IMPRESSION: L4-5 epidural injection. Electronically Signed: Herbert Mendez MD at 16:27 EDT , Service support ,
[2020-06-09] MEDS: Triamcinolone Acetonide 40 MG/ML Vial (13:32)
--- NOTE | 2020-06-09 13:55 | CASEMGMT ---
Addendum entered by Cecilia Castillo 06/09/20 15:51: MARY faxed updated clinicals to [facility] including negative COVID test and COVID screening tool. Original Note: Social Work Note MARY placed a call to Nati at [facility]. Nati states pre-cert is still pending. Plan: [facility] pending pre-cert Cecilia Castillo AGILE BUSINESS ANALYST, UNDERCOVER OPERATOR
[2020-06-09] MEDS: Aspirin 325 MG Tablet PO (14:51)
[2020-06-09] MEDS: lamoTRIgine 150 MG Tablet PO ×2 (14:51→21:30)
[2020-06-09] MEDS: FLUoxetine 20 MG Capsule 40 MG PO (14:53)
[2020-06-09] MEDS: busPIRone 15 MG TABLET PO ×2 (14:53→21:28)
[2020-06-09] MEDS: Pantoprazole Sodium 40 MG Tablet PO (14:53)
[2020-06-09] MEDS: Fenofibrate 145 MG Tablet PO (14:54)
[2020-06-09] MEDS: traZODone 100 MG Tablet 150 MG PO ×2 (14:55→21:28)
[2020-06-09] MEDS: Polyethylene Glycol 3350 17 GM PACKET PO (14:56)
[2020-06-09] MEDS: Psyllium 1 PACKET PO (14:56)
[2020-06-09] MEDS: Pregabalin 50 MG Capsule PO ×2 (15:03→21:28)
[2020-06-09] MEDS: Senna/Docusate Sodium 1 Tablet 2 TABLET PO (15:03)
[2020-06-09 15:21] LABS: Bedside Glucose 124 mg/dL (70-110)
[2020-06-09] MEDS: Pravastatin 80 MG Tablet PO (21:29)
[2020-06-09] MEDS: Insulin Lispro 100 UNIT/ML INSULN.PEN SC (21:36)
[2020-06-09 21:45] LABS: Bedside Glucose 261 mg/dL (70-110)
[2020-06-10 02:00] VITALS: BP 137/62; PULSE 73; RESP 16; TEMP 36.8; O2SAT 94
[2020-06-10] MEDS: busPIRone 15 MG TABLET PO ×3 (06:16→21:36)
[2020-06-10] MEDS: Levothyroxine 25 MCG TABLET PO (06:17)
[2020-06-10] MEDS: Insulin Lispro 100 UNIT/ML INSULN.PEN SC ×4 (06:27→21:37)
[2020-06-10 06:45] LABS: Bedside Glucose 181 mg/dL (70-110)
[2020-06-10] MEDS: Aspirin 325 MG Tablet PO (09:28)
[2020-06-10] MEDS: Fenofibrate 145 MG Tablet PO (09:29)
[2020-06-10] MEDS: traZODone 100 MG Tablet 150 MG PO ×2 (09:29→21:36)
[2020-06-10] MEDS: FLUoxetine 20 MG Capsule 40 MG PO (09:29)
[2020-06-10] MEDS: Enoxaparin 40 MG/0.4 ML Syringe SC (09:30)
[2020-06-10] MEDS: Polyethylene Glycol 3350 17 GM PACKET PO (09:31)
[2020-06-10] MEDS: lamoTRIgine 150 MG Tablet PO ×2 (09:31→21:35)
[2020-06-10] MEDS: Pantoprazole Sodium 40 MG Tablet PO (09:31)
[2020-06-10] MEDS: Senna/Docusate Sodium 1 Tablet 2 TABLET PO ×2 (09:34→21:42)
[2020-06-10] MEDS: Pregabalin 50 MG Capsule PO ×2 (09:34→21:35)
[2020-06-10 09:40] VITALS: BP 146/56; PULSE 69; RESP 18; TEMP 36.5; O2SAT 96
[2020-06-10] MEDS: oxyCODONE 5 MG Tablet 10 MG PO ×3 (09:45→21:42)
[2020-06-10 12:17] LABS: Bedside Glucose 221 mg/dL (70-110)
[2020-06-10] MEDS: fentaNYL 25 MCG Patch TRANSDERM. (14:14)
--- NOTE | 2020-06-10 15:14 | CASEMGMT ---
Social Work Note SW placed a call to Nati at [facility] regarding pre-cert. Nati states pre-cert is still pending. Nati states she spoke with [facility] and they are going to camelia pt's pre-cert request as urgent and will get back to Nati within 24-48 hours. Cecilia Castillo DEVULCANIZER HEAD, YEAST PUSHER
[2020-06-10 16:30] LABS: Bedside Glucose 195 mg/dL (70-110)
--- NOTE | 2020-06-10 16:30 | PN_ITS ---
Patient Problems: Active and Suspected Problems Compression fractures L4 lumbar vertebra (Acute) Fall (Acute) Subjective: Patient was seen and examined today, she is up walking with a walker at the time of my examination. We are currently awaiting insurance approval for placement for short-term skilled rehab. - Physical Exam Vitals/I&O's: Vital Signs Temp Pulse Resp BP Pulse Ox 98.1 F 72 16 125/89 H 95 06/10/20 14:15 06/10/20 14:15 06/10/20 14:15 06/10/20 14:15 06/10/20 14:15 Oxygen Delivery Method Room Air Weight: 65.771 kg Body Mass Index (BMI) 28.3 Finger Stick Blood Glucose 133 Intake and Output for Last 24 Hours 06/08/20 06/09/20 06/10/20 23:59 23:59 23:59 Intake Total 600 / 600 600 / 600 Output Total 600 / 600 600 / 600 950 / 950 Balance -600 / -300 0 / 0 -350 / -350 General: Alert, Oriented x3, Cooperative, No apparent distress, Well developed HEENT: Atraumatic, PERRLA, EOMI, Normocephalic Oral: Moist Mucosa Neck: Supple, No JVD, Negative Carotid Bruits, Trachea Midline, Thyroid Normal Size and Texture Lungs: Clear to auscultation, Normal air movement, No rhonchi, No wheeze Cardiovascular: Regular rate, Regular Rhythm, Normal S1, Normal S2, No murmurs, PMI Normal, No rub noted Abdomen: Bowel Sounds Present, Soft, Non Tender, Non-Distended, No hernias noted Extremities: No clubbing, No cyanosis, No edema, Capillary Refill Less than 3 Seconds Skin: No rashes, No breakdown Musculoskeletal: No Tenderness to Palpation of Joints or Extremities Neurological: Cranial nerves II-XII grossly intact, Neuro grossly intact, Sensory exam intact to light touch and pain Psych/Mental Status: Normal Affect, Appropriate, Alert and oriented to time, place, person, mood and affect Laboratory Results 06/09/20 21:35: POC Glucose 261 H 06/10/20 06:26: POC Glucose 181 H 06/10/20 12:08: POC Glucose 221 H 06/10/20 16:26: POC Glucose Pending Current Medications Acetaminophen (Tylenol) 650 mg PO Q6H PRN PRN PRN Reason: Pain Score 1-10/Temp > 100.7 F Last Admin: 06/08/20 21:20 Dose: 650 mg Documented by: Al Hydroxide/Mg Hydroxide (Mylanta Ii) 30 ml PO Q6H PRN PRN PRN Reason: Gastric Burning Albuterol Sulfate (Ventolin Aerosols) 2.5 mg INHALATION Q2H PRN PRN PRN Reason: Shortness of Breath/Wheezing Aspirin (Aspirin) 325 mg PO DAILY@0800 [facility] Last Admin: 06/10/20 09:28 Dose: 325 mg Documented by: Buspirone HCl (Buspar) 15 mg PO TID [facility] Last Admin: 06/10/20 14:14 Dose: 15 mg Documented by: Cholecalciferol (Vitamin D (25mcg)) 5,000 unit PO DAILY [facility] Last Admin: 06/10/20 09:29 Dose: 5,000 unit Documented by: Dextrose (D50w Syringe) 0 gm IV X1 PRN; Protocol PRN Reason: Hypoglycemia Dicyclomine HCl (Bentyl) 20 mg PO 4X/DAY PRN PRN Reason: Spasmodic pain Enoxaparin Sodium (Enoxaparin 40 Mg/0.4 Ml Syringe) 40 mg SC DAILY [facility] Last Admin: 06/10/20 09:30 Dose: 40 mg Documented by: [facility] ([facility]) [facility] Last Admin: 06/10/20 09:29 Dose: 145 mg Documented by: Fentanyl (Duragesic Patch) 25 mcg TRANSDERM. Q72H [facility] Last Admin: 06/10/20 14:14 Dose: 25 mcg Documented by: Fluoxetine HCl (Prozac) 40 mg PO DAILY [facility] Last Admin: 06/10/20 09:29 Dose: 40 mg Documented by: Glucagon () 1 mg IM .X1 PRN PRN Reason: Hypoglycemia Sodium Chloride () 250 mls @ 15 mls/hr IV .[id number] PRN PRN Reason: Saline Flush Sodium Chloride () 250 mls @ 15 mls/hr IV .[id number] PRN PRN Reason: Additional IVPB Infusion Insulin Human Lispro (Humalog Kwikpen (Bkc)) 0 unit SC ACHS [facility]; Protocol Last Admin: 06/10/20 16:27 Dose: 2 units Documented by: Lamotrigine (Lamictal) 150 mg PO BID [facility] Last Admin: 06/10/20 09:31 Dose: 150 mg Documented by: Levothyroxine Sodium (Synthroid) 25 mcg PO DAILY@0600 [facility] Last Admin: 06/10/20 06:17 Dose: 25 mcg Documented by: Morphine Sulfate () 2 mg IV Q3H PRN PRN PRN Reason: Pain Score 6-10 Last Admin: 06/09/20 09:44 Dose: 2 mg Documented by: Nitroglycerin (Nitrostat) 0.4 mg SUBLINGUAL Q5M PRN PRN Reason: CARDIAC/CHEST PAIN Ondansetron HCl (Zofran) 4 mg IV Q8H PRN PRN PRN Reason: NAUSEA/VOMITING Last Admin: 06/06/20 07:33 Dose: 4 mg Documented by: Oxycodone HCl (Oxyir) 10 mg PO Q4H PRN PRN PRN Reason: Pain Score 4-10 Last Admin: 06/10/20 14:23 Dose: 10 mg Documented by: Pantoprazole Sodium (Protonix) 40 mg PO DAILY [facility] Last Admin: 06/10/20 09:31 Dose: 40 mg Documented by: Polyethylene Glycol (Miralax) 17 gm PO DAILY [facility] Last Admin: 06/10/20 09:31 Dose: 17 gm Documented by: Pravastatin Sodium (Pravachol) 80 mg PO QHS [facility] Last Admin: 06/09/20 21:29 Dose: 80 mg Documented by: Pregabalin (Lyrica) 50 mg PO BID [facility] Last Admin: 06/10/20 09:34 Dose: 50 mg Documented by: Prochlorperazine Edisylate (Compazine Iv) 5 mg IV Q4H PRN PRN PRN Reason: Breakthrough nausea/vomiting Last Admin: 06/07/20 08:19 Dose: 5 mg Documented by: Psyllium Hydrophilic Mucilloid (Metamucil) 1 packet PO TID [facility] Last Admin: 06/10/20 14:18 Dose: Not Given Documented by: Senna/Docusate Sodium (Senokot-S, Sapphire-Colace) 2 tablet PO BID [facility] Last Admin: 06/10/20 09:34 Dose: 2 tablet Documented by: Sodium Chloride () 10 - 40 ml IV UD PRN PRN Reason: SALINE FLUSH Last Admin: 10/13/20 09:44 Dose: 10 ml Documented by: Trazodone HCl (Desyrel) 150 mg PO BID [facility] Last Admin: 06/10/20 09:29 Dose: 150 mg Documented by: Medical Necessity - Tobacco Use Smoking Status: Never smoker Tobacco Use: Non-smoker Assessment/Plan All Active Problems Compression fractures L4 lumbar vertebra (Acute) Fall (Acute) #1 acute compression fracture of L4 secondary to osteoporosis-continue pain medication, continue PT and OT, await approval for placement in a fpc facility #2 type 2 diabetes continue present medications #3 schizophrenia #4 essential hypertension #5 degenerative joint disease of the lumbar spine Inpatient E&M: 54024 Subs Hosp L2
[2020-06-10 21:15] VITALS: BP 141/66; PULSE 94; RESP 18; TEMP 37.3; O2SAT 96
[2020-06-10] MEDS: Pravastatin 80 MG Tablet PO (21:35)
[2020-06-10] MEDS: Psyllium 1 PACKET PO (21:37)
[2020-06-10 22:00] LABS: Bedside Glucose 182 mg/dL (70-110)
[2020-06-11 03:15] VITALS: BP 144/59; PULSE 64; RESP 16; TEMP 36.9; O2SAT 95
[2020-06-11] MEDS: Levothyroxine 25 MCG TABLET PO (06:41)
[2020-06-11] MEDS: busPIRone 15 MG TABLET PO ×3 (06:41→21:03)
[2020-06-11] MEDS: Insulin Lispro 100 UNIT/ML INSULN.PEN SC ×4 (06:43→21:03)
[2020-06-11 07:00] LABS: Bedside Glucose 175 mg/dL (70-110)
[2020-06-11 09:15] VITALS: BP 138/60; PULSE 66; RESP 16; TEMP 36.7; O2SAT 96
--- NOTE | 2020-06-11 09:54 | CASEMGMT ---
Addendum entered by Cecilia Castillo 06/11/20 16:53: MARY received call from Nati at [facility] stating she called [employer] and pt's case is in review. Nati states she will call [employer] first thing tomorrow morning. MARY updated pt that pre-cert is still pending. Original Note: Social Work Note MARY received call from Nati at [facility] stating she spoke with [facility] this morning and was updated that for [facility], [facility]. Nati states she will get the pre-cert submitted to [facility] this morning. MARY faxed updated clinicals to [facility]. Plan: [facility] pending pre-cert Cecilia Castillo COMMERCIAL REAL ESTATE SALES MANAGER, CRYOGENIC TRANSPORT DRIVER
[2020-06-11] MEDS: traZODone 100 MG Tablet 150 MG PO ×2 (10:37→21:03)
[2020-06-11] MEDS: Aspirin 325 MG Tablet PO (10:37)
[2020-06-11] MEDS: lamoTRIgine 150 MG Tablet PO ×2 (10:38→21:02)
[2020-06-11] MEDS: Fenofibrate 145 MG Tablet PO (10:38)
[2020-06-11] MEDS: FLUoxetine 20 MG Capsule 40 MG PO (10:38)
[2020-06-11] MEDS: Enoxaparin 40 MG/0.4 ML Syringe SC (10:40)
[2020-06-11] MEDS: Pantoprazole Sodium 40 MG Tablet PO (10:41)
[2020-06-11] MEDS: Polyethylene Glycol 3350 17 GM PACKET PO (10:41)
[2020-06-11] MEDS: Senna/Docusate Sodium 1 Tablet 2 TABLET PO ×2 (10:48→21:03)
[2020-06-11] MEDS: Pregabalin 50 MG Capsule PO ×2 (10:49→21:03)
[2020-06-11] MEDS: oxyCODONE 5 MG Tablet 10 MG PO ×2 (10:49→21:03)
[2020-06-11 11:55] LABS: Bedside Glucose 159 mg/dL (70-110)
[2020-06-11] MEDS: Psyllium 1 PACKET PO (15:00)
[2020-06-11 15:15] VITALS: BP 128/80; PULSE 74; RESP 16; TEMP 36.6; O2SAT 96
--- NOTE | 2020-06-11 17:14 | PN_ITS ---
Patient Problems: Active and Suspected Problems Compression fractures L4 lumbar vertebra (Acute) Fall (Acute) Subjective: Patient was seen and examined today, she is up walking with an assist of 1 with a walker, nursing reports the patient has been frequently voiding throughout the day, they think it may be a behavioral problem more than anything medical. Patient has no complaints of any severe back pain to this examiner today. - Physical Exam Vitals/I&O's: Vital Signs Temp Pulse Resp BP Pulse Ox 97.9 F 74 16 128/80 H 96 06/11/20 15:15 06/11/20 15:15 06/11/20 15:15 06/11/20 15:15 06/11/20 15:15 Oxygen Delivery Method Room Air Weight: 65.771 kg Body Mass Index (BMI) 28.3 Finger Stick Blood Glucose 133 Intake and Output for Last 24 Hours 06/09/20 06/10/20 06/11/20 23:59 23:59 23:59 Intake Total 600 / 600 1100 / 1100 100 / 100 Output Total 600 / 600 1350 / 2150 1999 / 1999 Balance 0 / 0 -250 / -1050 -1900 / -1900 General: Alert, Oriented x3, Cooperative, No apparent distress, Well developed HEENT: Atraumatic, PERRLA, EOMI, Normocephalic Oral: Moist Mucosa Neck: Supple, No JVD, Trachea Midline, Thyroid Normal Size and Texture Lungs: Clear to auscultation, Normal air movement, No rhonchi, No wheeze Cardiovascular: Regular rate, Regular Rhythm, Normal S1, Normal S2, No murmurs Abdomen: Bowel Sounds Present, Soft, Non Tender, Non-Distended Extremities: No edema, Capillary Refill Less than 3 Seconds Skin: No rashes, No breakdown Musculoskeletal: No Tenderness to Palpation of Joints or Extremities Neurological: Cranial nerves II-XII grossly intact, Neuro grossly intact, Sensory exam intact to light touch and pain, Coordination normal Psych/Mental Status: Normal Affect, Appropriate Laboratory Results 06/10/20 21:25: POC Glucose 182 H 06/11/20 06:43: POC Glucose 175 H 06/11/20 11:47: POC Glucose 159 H Current Medications Acetaminophen (Tylenol) 650 mg PO Q6H PRN PRN PRN Reason: Pain Score 1-10/Temp > 100.7 F Last Admin: 06/08/20 21:20 Dose: 650 mg Documented by: Al Hydroxide/Mg Hydroxide (Mylanta Ii) 30 ml PO Q6H PRN PRN PRN Reason: Gastric Burning Albuterol Sulfate (Ventolin Aerosols) 2.5 mg INHALATION Q2H PRN PRN PRN Reason: Shortness of Breath/Wheezing Aspirin (Aspirin) 325 mg PO DAILY@0800 [facility] Last Admin: 06/11/20 10:37 Dose: 325 mg Documented by: Buspirone HCl (Buspar) 15 mg PO TID [facility] Last Admin: 06/11/20 14:59 Dose: 15 mg Documented by: Cholecalciferol (Vitamin D (25mcg)) 5,000 unit PO DAILY [facility] Last Admin: 06/11/20 10:39 Dose: 5,000 unit Documented by: Dextrose (D50w Syringe) 0 gm IV X1 PRN; Protocol PRN Reason: Hypoglycemia Dicyclomine HCl (Bentyl) 20 mg PO 4X/DAY PRN PRN Reason: Spasmodic pain Enoxaparin Sodium (Enoxaparin 40 Mg/0.4 Ml Syringe) 40 mg SC DAILY [facility] Last Admin: 06/11/20 10:40 Dose: 40 mg Documented by: Fenofibrate (Tricor) 145 mg PO DAILYCM [facility] Last Admin: 06/11/20 10:38 Dose: 145 mg Documented by: Fentanyl (Duragesic Patch) 25 mcg TRANSDERM. Q72H [facility] Last Admin: 06/10/20 14:14 Dose: 25 mcg Documented by: Fluoxetine HCl (Prozac) 40 mg PO DAILY [facility] Last Admin: 06/11/20 10:38 Dose: 40 mg Documented by: Glucagon () 1 mg IM .X1 PRN PRN Reason: Hypoglycemia Sodium Chloride () 250 mls @ 15 mls/hr IV .[id number] PRN PRN Reason: Saline Flush Sodium Chloride () 250 mls @ 15 mls/hr IV .[id number] PRN PRN Reason: Additional IVPB Infusion Insulin Human Lispro (Humalog Kwikpen (Bkc)) 0 unit SC ACHS [facility]; Protocol Last Admin: 06/11/20 11:49 Dose: 2 units Documented by: Lamotrigine (Lamictal) 150 mg PO BID [facility] Last Admin: 06/11/20 10:38 Dose: 150 mg Documented by: Levothyroxine Sodium (Synthroid) 25 mcg PO DAILY@0600 [facility] Last Admin: 06/11/20 06:41 Dose: 25 mcg Documented by: Morphine Sulfate () 2 mg IV Q3H PRN PRN PRN Reason: Pain Score 6-10 Last Admin: 06/09/20 09:44 Dose: 2 mg Documented by: Nitroglycerin (Nitrostat) 0.4 mg SUBLINGUAL Q5M PRN PRN Reason: CARDIAC/CHEST PAIN Ondansetron HCl (Zofran) 4 mg IV Q8H PRN PRN PRN Reason: NAUSEA/VOMITING Last Admin: 06/06/20 07:33 Dose: 4 mg Documented by: Oxycodone HCl (Oxyir) 10 mg PO Q4H PRN PRN PRN Reason: Pain Score 4-10 Last Admin: 06/11/20 10:49 Dose: 10 mg Documented by: Pantoprazole Sodium (Protonix) 40 mg PO DAILY [facility] Last Admin: 06/11/20 10:41 Dose: 40 mg Documented by: Polyethylene Glycol (Miralax) 17 gm PO DAILY [facility] Last Admin: 06/11/20 10:41 Dose: 17 gm Documented by: Pravastatin Sodium (Pravachol) 80 mg PO QHS [facility] Last Admin: 06/10/20 21:35 Dose: 80 mg Documented by: Pregabalin (Lyrica) 50 mg PO BID [facility] Last Admin: 06/11/20 10:49 Dose: 50 mg Documented by: Prochlorperazine Edisylate (Compazine Iv) 5 mg IV Q4H PRN PRN PRN Reason: Breakthrough nausea/vomiting Last Admin: 06/07/20 08:19 Dose: 5 mg Documented by: Psyllium Hydrophilic Mucilloid (Metamucil) 1 packet PO TID [facility] Last Admin: 06/11/20 15:00 Dose: 1 packet Documented by: Senna/Docusate Sodium (Senokot-S, Sapphire-Colace) 2 tablet PO BID [facility] Last Admin: 06/11/20 10:48 Dose: 2 tablet Documented by: Sodium Chloride () 10 - 40 ml IV UD PRN PRN Reason: SALINE FLUSH Last Admin: 06/09/20 09:44 Dose: 10 ml Documented by: Trazodone HCl (Desyrel) 150 mg PO BID [facility] Last Admin: 06/11/20 10:37 Dose: 150 mg Documented by: Medical Necessity - Tobacco Use Smoking Status: Never smoker Tobacco Use: Non-smoker Assessment/Plan All Active Problems Compression fractures L4 lumbar vertebra (Acute) Fall (Acute) #1 acute compression fracture of L4 secondary to osteoporosis-continue pain medication, continue PT and OT, await approval for placement in a care home facility #2 type 2 diabetes continue present medications #3 schizophrenia #4 essential hypertension #5 degenerative joint disease of the lumbar spine #6 osteoporosis-patient will need vitamin D supplementation and calcium supplementation Inpatient E&M: 56500 Subs Hosp L2
[2020-06-11 18:05] LABS: Bedside Glucose 157 mg/dL (70-110)
[2020-06-11 20:52] VITALS: BP 145/55; PULSE 60; RESP 16; TEMP 36.7; O2SAT 97
[2020-06-11 21:00] LABS: Bedside Glucose 180 mg/dL (70-110)
[2020-06-11] MEDS: Pravastatin 80 MG Tablet PO (21:03)
[2020-06-12 03:32] VITALS: BP 149/58; PULSE 61; RESP 16; TEMP 36.6; O2SAT 93
[2020-06-12] MEDS: Levothyroxine 25 MCG TABLET PO (06:19)
[2020-06-12] MEDS: busPIRone 15 MG TABLET PO (06:19)
[2020-06-12] MEDS: oxyCODONE 5 MG Tablet 10 MG PO ×2 (06:24→10:42)
[2020-06-12] MEDS: Psyllium 1 PACKET PO (06:54)
[2020-06-12] MEDS: Insulin Lispro 100 UNIT/ML INSULN.PEN SC (06:55)
[2020-06-12 07:00] LABS: Bedside Glucose 157 mg/dL (70-110)
[2020-06-12 08:24] VITALS: BP 150/62; PULSE 68; RESP 16; TEMP 36.7; O2SAT 94
[2020-06-12] MEDS: Calcium (Elemental) 500 MG Tablet PO (08:38)
[2020-06-12] MEDS: Aspirin 325 MG Tablet PO (08:39)
[2020-06-12] MEDS: Fenofibrate 145 MG Tablet PO (08:39)
--- NOTE | 2020-06-12 09:45 | CASEMGMT ---
Social Work Note MARY received call from Nati at [facility] stating pre-cert has been obtained and pt is able to discharge today. MARY asked Nati if [facility] would be able to transport pt and Nati states she will check with their helper/driver. Physician updated. SW in to speak with pt. SW updated pt that pre-cert has been obtained and pt will be discharge today to [facility]. Pt states understanding, gave this worker permission to call daughter Mary Jo to update. MARY received call from Nati at [facility] stating their helper/driver is able to transport pt at 11:00am. MARY updated RN, PT of transportation time. MARY placed a call to pt's daughter Mary Jo and updated her on discharge and transportation time. MARY placed a call to pt's MICHAEL Arcos at [facility] and left message that pt will be discharged today. MARY placed a call to [facility] and spoke with MP Cota and updated her on pt's discharge. SW to fax discharge paperwork once completed. Plan: [facility] skilled with [facility] transporting pt at 11:00am. Cecilia Castillo PRE PRESS MANAGER, BROILER SUPERVISOR
[2020-06-12] MEDS: traZODone 100 MG Tablet 150 MG PO (10:31)
[2020-06-12] MEDS: lamoTRIgine 150 MG Tablet PO (10:32)
[2020-06-12] MEDS: Enoxaparin 40 MG/0.4 ML Syringe SC (10:33)
[2020-06-12] MEDS: Pantoprazole Sodium 40 MG Tablet PO (10:34)
[2020-06-12] MEDS: Polyethylene Glycol 3350 17 GM PACKET PO (10:34)
[2020-06-12] MEDS: FLUoxetine 20 MG Capsule 40 MG PO (10:34)
--- NOTE | 2020-06-12 10:34 | TREXTCAR_ITS ---
- Diet 06/05/20 12:46 Diet: Consistent Carb - Calorie Controlled Food consistency:: Regular Liquid Consistency:: Regular/Thin How many daily calories?: 1800 calorie - Routine Orders/Code Status Code Status: [facility] - no intubation - Wound(s) lower back Wound Type: Injection site - Therapies Weight Bearing: Full weight bearing - with walker Physical Therapy: Eval and Treat Occupational Therapy: Eval and Treat - Problem/Diagnosis (1) Depression Status: Chronic (2) Compression fractures L4 lumbar vertebra Status: Acute (3) History of schizophrenia Status: Chronic (4) Type 2 diabetes mellitus Status: Chronic Comment: diet controlled - Allergies/Procedures Done in Hospital Allergies/Adverse Reactions: Allergies ciprofloxacin Allergy (Verified 06/05/20 12:50) Unknown codeine Allergy (Verified 06/05/20 12:50) Unknown hydroxyzine HCl [From Vistaril] Allergy (Verified 06/05/20 12:50) Unknown hydroxyzine pamoate [From Vistaril] Allergy (Verified 06/05/20 12:50) Unknown niacin Allergy (Verified 06/05/20 12:50) Unknown ofloxacin [From Floxin] Allergy (Verified 06/05/20 12:50) Unknown tetracycline [Tetracycline] Allergy (Verified 06/05/20 12:50) Unknown Tetracyclines Allergy (Verified 06/05/20 12:50) Unknown Procedures: None - Type of Care/Length of Stay Estimated LOS: Convalescent Care Less Than 30 days Type of Care Needed: Skilled Rehab Potential: Good Prognosis: Good - Additional Orders/Day of Discharge H&P will serve as current which was dated: 06/05/20 Day of Discharge: 06/12/20 - Dietary and Speech Recommendations Dietitian Recommendations/Changes: Will provide cut up meats per pt request. - Follow Up Care Primary Care Physician: Shelley Martell ASSISTANT PROFESSOR OF PHILOSOPHY, ASSISTANT PROFESSOR OF PHILOSOPHY-C [Primary Care Provider] -
[2020-06-12] MEDS: Pregabalin 50 MG Capsule PO (10:42)
--- NOTE | 2020-06-12 11:29 | CASEMGMT ---
Pt HCPOA printed from pt [employer]. SW met with pt and she confirms HCPOA naming Mary Jo Moralez. Pt states she does have a living will. Pt notified LW not in pt chart and requested document be brought in when able. EMILIO Muñiz
--- NOTE | 2020-06-12 11:50 | CASEMGMT ---
Social Work Note MARY placed a call to Nati at [facility] asking about transportation. Nati states she will call her transportation and see. MARY received call back from Nati stating there was some miscommunication and her drive will be at [facility] in about 10 minutes. Cecilia Castillo PRIOR AUTHORIZATION NURSE, SHOT DROPPER
--- NOTE | 2020-06-12 16:55 | PCM.DC.SUM ---
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 #6 osteoporosis - Secondary Discharge Diagnosis Chronic Problems: Chronic Problems Mitral valve prolapse (Chronic) Depression (Chronic) Migraine (Chronic) Compression fracture of L1 lumbar vertebra (Chronic) Status post kyphoplasty (Chronic) Hypothyroidism (Chronic) History of schizophrenia (Chronic) Type 2 diabetes mellitus (Chronic) diet controlled Hospital Course and Treatment Operations: None Procedures: None Summary of Care Provided: The patient is a 70 year old F was seen in the emergency room at [facility] with a chief complaint of back and hip pain, she stated that she lost her balance approximately 5 days prior and fell at that time she injured her lower back and right hip. Patient had lumbar spine films done the day before her emergency room visit which showed an L4 compression fracture. Patient's labs were unremarkable. Patient was placed in observation status on [facility] 3, she was seen by PT and OT, it was believed that the patient would benefit from inpatient longterm care and a request for approval for inpatient longterm service was sent to her insurance carrier. On 06/12/2020, patient was seen and examined: On examination she appeared her stated age, she does not appear to be in any distress. Vital signs as documented. Skin warm and dry and without overt rashes. Neck without JVD, thyroid appears normal, trachea is midline, neck is supple. Lungs clear, normal air movement was noted. Heart exam notable for regular rhythm, normal sounds and absence of murmurs, rubs or gallops. Abdomen unremarkable and without evidence of organomegaly, masses, or abdominal aortic enlargement, bowel sounds are present in all 4 quadrants, no abdominal tenderness was noted. Extremities nonedematous, no cyanosis was noted, no clubbing was noted. Neuro: Cranial nerves II through XII are grossly intact, no focal motor deficits were noted, sensation to light touch and pinprick is intact, motor exam 5/5 throughout. Patient has evidence of mild tardive dyskinesia with lip licking present. Psych: Patient is alert and oriented x3, she does not appear anxious or depressed, she does not appear agitated. On 06/12/2020, patient was transferred to an extended care facility for inpatient rehab services. Patient Problems: Active and Suspected Problems Compression fractures L4 lumbar vertebra (Acute) Fall (Acute) - Physical Exam Vitals/I&O's: Vital Signs Temp Pulse Resp BP Pulse Ox 98.1 F 68 16 150/62 H 94 06/12/20 08:24 06/12/20 08:24 06/12/20 08:24 06/12/20 08:24 06/12/20 08:24 Oxygen Delivery Method Room Air Weight: 65.771 kg Body Mass Index (BMI) 28.3 Finger Stick Blood Glucose 133 Intake and Output for Last 24 Hours 06/10/20 06/11/20 06/12/20 23:59 23:59 23:59 Intake Total 1100 / 1100 100 / 100 Output Total 1350 / 2150 1999 Balance -250 / -1050 -1900 / -1900 Laboratory Results 06/11/20 17:58: POC Glucose 157 H 06/11/20 20:58: POC Glucose 180 H 06/12/20 06:55: POC Glucose 157 H Home Medications: Medications to take at Discharge Fluoxetine [Prozac] 40 mg PO DAILY 06/26/13 Levothyroxine [Synthroid] 25 mcg PO DAILY 06/26/13 Omeprazole [Prilosec] 40 mg PO DAILY 06/26/13 Trazodone HCl [Oleptro ER] 300 mg PO QHS 06/26/13 Aspirin 325 mg PO DAILY@0800 03/13/17 Dicyclomine HCl 20 mg PO 4X/DAY 03/13/17 Pravastatin [Pravachol] 80 mg PO QHS 03/13/17 busPIRone [Buspar] 15 mg PO TID 03/13/17 Fenofibrate [Tricor] 160 mg PO DAILY 05/11/18 Polyethylene Glycol 3350 [Miralax] 17 gm PO DAILY 05/11/18 Lamotrigine [Lamictal] 150 mg PO BID 06/05/20 Paliperidone [Invega] 6 mg PO DAILY #1 tab 06/05/20 Acetaminophen [Tylenol Tablet] 650 mg PO Q6H PRN PRN tab 06/12/20 Calcium (Elemental) [Os-Wilson 500] 500 mg PO BIDCM tab 06/12/20 Cholecalciferol (VIT D3) [Vitamin D3] 5,000 unit PO DAILY tab 06/12/20 Oxycodone [Oxyir] 10 mg PO Q4H PRN PRN 7 Days #20 tab 06/12/20 Pregabalin [Lyrica] 50 mg PO BID 7 Days #14 cap 06/12/20 Senna/Docusate Sodium [Senokot-S] 2 tab PO BID tab 06/12/20 fentaNYL patch [Duragesic patch] 25 mcg TRANSDERM. Q72H 7 Days #2 patch 06/12/20 Following Prescriptions Were Given to Patient: fentaNYL patch [Duragesic patch] 25 mcg TRANSDERM. Q72H 7 Days #2 patch Prescription Printed Paliperidone [Invega] 6 mg PO DAILY #1 tab Pregabalin [Lyrica] 50 mg PO BID 7 Days #14 cap Prescription Printed Oxycodone [Oxyir] 10 mg PO Q4H PRN PRN 7 Days #20 tab PRN Reason: Pain Score 4-10 Prescription Printed Primary Care Physician: Shelley Martell ELECTRONIC TECHNOLOGIST, ELECTRONIC TECHNOLOGIST-C [Primary Care Provider] - Disposition: Group Home facility Minutes spent on discharge:: 30 Patient Condition:: Stable Medical Necessity - Tobacco Use Smoking Status: Never smoker Tobacco Use: Non-smoker Meaningful Use Info Meaningful Use Diagnoses (Choose all that apply): None applicable OBSV E&M: 98234 Observation care discharge
== END 2020-06-12 12:15 | disposition skilled nursing facility (03) ==
LOC: ED 09:32 → MS3 12:15
PROVIDERS: Anesthesiology; Anesthesiology Pain Medicine; Admitting Provider Internal Medicine; Emergency Provider Emergency Medicine; PCP Nurse Practitioner Adult Health; Visit Provider Internal Medicine
PROC: 3E0S3BZ Introduction of Anesthetic Agent into Epidural Space, Percutaneous Approach (ICD-10-PCS; CPT 62322; principal; 2020-06-09 12:55)
DX: M80.08XA Age-related osteoporosis with current pathological fracture, vertebra(e), initial encounter for fracture (principal); E11.9 Type 2 diabetes mellitus without complications; I10 Essential (primary) hypertension; F20.9 Schizophrenia, unspecified; M47.816 Spondylosis without myelopathy or radiculopathy, lumbar region; F32.9 Major depressive disorder, single episode, unspecified; R29.6 Repeated falls; M19.90 Unspecified osteoarthritis, unspecified site; M16.0 Bilateral primary osteoarthritis of hip; M17.0 Bilateral primary osteoarthritis of knee; E03.9 Hypothyroidism, unspecified; G43.909 Migraine, unspecified, not intractable, without status migrainosus; Z79.899 Other long term (current) drug therapy; Z79.82 Long term (current) use of aspirin; Z91.81 History of falling; G25.81 Restless legs syndrome; K21.9 Gastro-esophageal reflux disease without esophagitis; E78.00 Pure hypercholesterolemia, unspecified; F41.9 Anxiety disorder, unspecified
CPT/HCPCS: 62323; 36415; 64483; 72020; 73502; 80048; 82962; 83036; 83735; 84439; 84443; 85025; 87635; 93005; 96361; 96372; 96374; 96375; 96376; 97110; 97116; 97162; 97165; 97530; 97535; 97802; 99218; 99251; 99285; J7030; A4216; G0378; G0463; J2405; U0003

== ENCOUNTER 2020-07-06 21:24 | Emergency (ER) | payer MEDICARE, MEDICAID, SELFPAY ==
[2020-06-05 12:30] VITALS: BMI 28.3
[2020-07-06 21:24] VITALS: BP 170/76; PULSE 76; RESP 16; TEMP 36.4; O2SAT 96
[2020-07-06 21:25] VITALS: BP 170/76; PULSE 78; RESP 16; TEMP 36.4; O2SAT 96; BMI 29.8
--- NOTE | 2020-07-06 21:54 | CM.ED ---
Social Work Consult: Mental Health Informant: Nursing staff Chief Complaint: Patient reports back pain. Patient reports to nursing staff to have had a suicidal thought this morning. Marital/Social History: Living Situation: [facility] living. Patient discharged from the [facility] recently (07/03/2020). Support/Resources: Medicaid Waiver. Patient ed case manager is Josselyn Nolan. Education/Employment: Retired. Denies any issues with comprehension or understanding. Mental Health Treatment/History: History of Schizophrenia. Patient reports to be doing well. Patient denies any active mental health follow up currently. Substance Abuse/use: Denies Risk to Self/Others: Patient reports to have had suicidal thought this morning when I was in so much pain. Patient denies plan or intent to complete suicide. Patient does report to have attempted to complete suicide by overdose in the past with last overdose being in 1984. Patient denies wanting to end my life. Patient states to want to live and again denies intent to complete suicide. Patient denies self harming behavior or homicidal thoughts/plans/intents. Mental Status Exam: A&Ox3 Appearance/General Behavior: Appropriate. Clean. Calm Mood/Affect: Pleasant. Engaged in conversation. Assessment: Met with patient in room. Introduced self and social media marketer role. Patient remembering this social media marketer from prior interaction in early 2019. Patient state I am not going to kill myself, I am fine. This social media marketer educating patient further on reason for social work consult and wanting to follow up on patient current mental health. This social media marketer also notes with patient that patient is back living at [facility] when patient was wanted to stay in a correction per prior interaction. Patient reports I guess I wanted to go home. This social media marketer providing active support and listening. Patient reports main concern currently is my pain. Patient states I don't have pain medication anymore. Patient forward focused. Patient counseled on lethal means. Patient nursing staff at assisted [facility] manage patient medications. Updated medical team on above. Tara KELLER, ERIKA
--- NOTE | 2020-07-06 22:43 | ED.VIS.GEN ---
History of Present Illness Chief Complaint: Back Informant: Patient Narrative: Patient presents with chronic back pain. She stated for years she has had pain in her low back. She describes a deep ache in her right low back with radiation to the right hip. She had a fall last month and suffered a L4 mild compression fracture and did have epidural shot recently which she stated does help. She stated her pain is worse in the evening. She is in assisted living at this time. She was recently mid to the hospital after her fall when they found her L4 compression fracture. She had x-ray of her hip that showed nothing acute as well. Patient denies any new injury. She is on oxycodone Tylenol for pain. She stated she continues to have pain. Today her pain was significantly worse when she woke up. She stated that she thought about OFFING herself due to the pain but stated she did not want to do that. She is not suicidal currently. She stated she does not want to hurt her self. She does have a history of schizophrenia. She is here tonight if she called the paramedics for pain control. - Past Medical History (1) Mitral valve prolapse Status: Chronic (2) Depression Status: Chronic (3) Compression fractures L4 lumbar vertebra Status: Acute (4) Fall Status: Acute (5) Ileus Status: Inactive (6) Abdominal bloating Status: Inactive (7) Migraine Status: Chronic (8) Compression fracture of L1 lumbar vertebra Status: Chronic (9) Status post kyphoplasty Status: Chronic (10) Hypothyroidism Status: Chronic (11) History of schizophrenia Status: Chronic (12) Type 2 diabetes mellitus Status: Chronic Comment: diet controlled Past Medical History - Allergies and Home Meds Allergies/Adverse Reactions: Allergies ciprofloxacin Allergy (Verified 06/05/20 12:50) Unknown codeine Allergy (Verified 06/05/20 12:50) Unknown hydroxyzine HCl [From Vistaril] Allergy (Verified 06/05/20 12:50) Unknown hydroxyzine pamoate [From Vistaril] Allergy (Verified 06/05/20 12:50) Unknown niacin Allergy (Verified 06/05/20 12:50) Unknown ofloxacin [From Floxin] Allergy (Verified 06/05/20 12:50) Unknown tetracycline [Tetracycline] Allergy (Verified 06/05/20 12:50) Unknown Tetracyclines Allergy (Verified 06/05/20 12:50) Unknown Primary Care Physician: Shelley Martell EDUCATIONAL TECHNOLOGIST, EDUCATIONAL TECHNOLOGIST-C [Primary Care Provider] - Prior records reviewed: Yes Past Medical History: - - See problem list Surgical History: - - Reviewed Lives: [facility] Smoking Status: Never smoker Alcohol: None Drugs: None - Family History Paternal Family History: Reports: No pertinent history Review of Systems General: Denies: Chills, Fever, Sweats Eyes: Denies: Visual changes - bilaterally, Diplopia ENT: Denies: Rhinorrhea, Sore throat Cardiovascular: Denies: Chest pain, Palpitations Respiratory: Denies: Dyspnea, Cough, Dyspnea on exertion Gastrointestinal: Denies: Abdominal pain, Nausea, Vomiting, Diarrhea, Melena, Hematochezia Genitourinary: Denies: Dysuria, Hematuria, Frequency Musculoskeletal: Reports: Back pain. Denies: Extremity Pain Skin: Denies: Rash, Wounds Neurological: Denies: Headache, Weakness, Numbness Physical Exam Vital Signs/Narrative: Vital Signs Temp Pulse Resp BP Pulse Ox 07/06/20 21:25 97.6 F L 78 16 170/76 H 96 07/06/20 21:24 97.6 F L 76 16 170/76 H 96 General: Well nourished, Well developed, No Acute Distress Head: Normocephalic, Atraumatic Eyes: Perrl, EOMI ENT: Moist mucous membranes, No rhinorrhea Neck: Supple, Nontender Cardiovascular: Regular rate, Regular rhythm, No murmurs Respiratory: No distress, CTA bilaterally, Chest nontender Abdomen: Soft, Nontender, Nondistended, Normal bowel sounds Back: Normal Inspection, - - Has tenderness in the right paraspinals and right lower back to palpation with mild decreased range of motion secondary to pain. Negative straight leg raise test.. Negative for: CVA tenderness Extremities: Nontender, No edema Skin: Normal color, No rash Neurological: Alert, Oriented x3, Cranial nerves II-XII grossly intact, Normal Strength, Normal Sensation Psychological: Normal affect, Normal Mood Diagnostic/Tx/Re-eval - Medical Decision Making Given injection of morphine for pain. This appears to be a chronic issue for the patient. The patient is on pain medication at assisted living at this time. There is been no new injury. She recently had imaging studies. I do not feel she needs repeat imaging at this time. Patient felt much better after symptom control. Give a second dose of morphine however for complete resolution of symptoms. Able to roll over easily in bed on her right hip that has been bothering her. Able to ambulate to the bathroom without difficulty. I feel she can be discharged to follow-up as an outpatient and will return if she worsens ED Disposition - Plan for ED Patient: Disposition: Home or Assisted Living Diagnosis: Chronic low back pain Instructions: ED Back Pain Acute or Chronic Referrals: Shelley Martell EDUCATIONAL TECHNOLOGIST, EDUCATIONAL TECHNOLOGIST-C [Primary Care Provider] -
[2020-07-06] MEDS: Morphine 4 MG/ML Syringe IM (22:51)
[2020-07-07] MEDS: Morphine 2 MG/ML Syringe IM (00:10)
[2020-07-07 01:02] VITALS: BP 133/63; PULSE 79; RESP 18; O2SAT 93
== END 2020-07-07 01:16 | disposition home or self-care (01) ==
PROVIDERS: Emergency Provider Emergency Medicine; PCP Nurse Practitioner Adult Health
DX: G89.29 Other chronic pain (principal); M54.5 Low back pain; E03.9 Hypothyroidism, unspecified; Z79.82 Long term (current) use of aspirin
CPT/HCPCS: 96372; 99284

== ENCOUNTER 2020-07-27 12:57 | Inpatient (IN) | payer MEDICARE, MEDICAID, SELFPAY ==
[2020-07-27 13:02] VITALS: BP 180/97; PULSE 98; RESP 18; TEMP 36.9; O2SAT 95; BMI 29.3
--- NOTE | 2020-07-27 13:38 | RAD_ITS ---
STUDY: X-RAY CHEST REASON FOR EXAM: Female, 70 years old. Cough, n/v, altered mental status and frequent falls. pt states she has been more confused last couple days. TECHNIQUE: Single AP portable view of the chest. COMPARISON: Comparison is made with prior examination dated 04/05/2019. FINDINGS: EKG electrodes are seen. Mild degree of increased markings at the left lung base. This is stable. This most likely represents scarring. There is no demonstrated pleural abnormality. Normal size heart. Normal mediastinum and jack. Normal visualized pulmonary arteries. There is atherosclerotic tortuosity of the aortic arch and descending thoracic aorta. There are diffuse degenerative changes of the visualized thoracic spine. Normal visualized ribs, clavicles, and shoulders. There is no demonstrated abnormality of the visualized soft tissue structures of the upper abdomen. RAD/Chest 1 View (Portable) IMPRESSION: Stable mild degree of increased markings at the left lung base suggestive of scarring. Electronically Signed: Johnnie Ortega, at 15:39 EST , Service support ,
--- NOTE | 2020-07-27 13:38 | CT_ITS ---
STUDY: CT BRAIN WITHOUT CONTRAST REASON FOR EXAM: Female, 70 years old. ALTERED MENTAL STATUS -- COUGH,N/V,INCREASED FALLING RADIATION DOSAGE (If Supplied By Facility): CTDIvol = ( 44.99 ) mGy, DLP = ( 745.49 ) mGycm TECHNIQUE: Transaxial CT imaging of the brain was performed without administration of intravenous contrast material. Individualized dose optimization techniques were used for this CT. COMPARISON: MR brain 07/27/[address] brain 04/30/2015 FINDINGS: Normal soft tissue structures. Normal calvarium. There is moderate cerebral atrophy with widening of the extra-axial spaces and ventricular dilatation. Normal white matter tracts of the cerebral hemispheres. Normal basal ganglia and thalami. Normal brainstem. Normal cerebellum. There is no intracranial hemorrhage. There are no findings of an acute ischemic infarction. Normal visualized paranasal sinuses. CT/Brain/Head without Contrast IMPRESSION: No acute disease Electronically Signed: Prateek Berman MD at 17:40 EST , Service support ,
--- NOTE | 2020-07-27 13:38 | EKG12_ITS ---
Test Reason : DYSRHYTHMIA Blood Pressure : / mmHG Vent. Rate : 091 BPM Atrial Rate : 091 BPM P-R Int : 172 ms QRS Dur : 088 ms QT Int : 376 ms P-R-T Axes : 038 -01 040 degrees QTc Int : 462 ms Normal sinus rhythm Minimal voltage criteria for LVH, may be normal variant Borderline ECG Confirmed by SCARLET DON, ARIES ([id number]), acquisition editor LINDA WATT ([id number]) on 07/29/2020 9:36:22 AM Referred By: CYNDI Confirmed By:ARIES NOVAK MD
--- NOTE | 2020-07-27 13:42 | ED.VIS.GEN ---
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 She states that she fell. When asked when she mumbles unintelligibly. When asked if she is hurt she mumbles unintelligibly. I asked her to open her eyes to look at me and to speak to me directly. I even have her take her mask down I cannot get her to answer these questions as to even why she was here. Nursing states that [facility] reported that the patient had a cough nausea vomiting. Nursing tells me that the patient told them that she has been having a large amount of diarrhea. She did eventually tell me that her ankle has water on it from a recent fall. <Mookie Caceres - Last Filed: 07/27/20 17:15> <José Manuel Deras - Last Filed: 07/27/20 17:53> Chief Complaint: Alt LOC - Past Medical History (1) Mitral valve prolapse Status: Chronic (2) Depression Status: Chronic (3) Migraine Status: Chronic (4) Hypothyroidism Status: Chronic (5) History of schizophrenia Status: Chronic (6) Type 2 diabetes mellitus Status: Chronic Comment: diet controlled <Mookie Caceres - Last Filed: 07/27/20 17:15> Past Medical History Prior records reviewed: Yes Surgical History: noncontributory, - - Reviewed Smoking Status: Never smoker Drugs: None - Family History Paternal Family History: Reports: No pertinent history <Mookie Caceres - Last Filed: 07/27/20 17:15> <José Manuel Deras - Last Filed: 07/27/20 17:53> - Allergies and Home Meds Allergies/Adverse Reactions: Allergies ciprofloxacin Allergy (Verified 07/27/20 13:07) Unknown codeine Allergy (Verified 07/27/20 13:07) Unknown hydroxyzine HCl [From Vistaril] Allergy (Verified 07/27/20 13:07) Unknown hydroxyzine pamoate [From Vistaril] Allergy (Verified 07/27/20 13:07) Unknown niacin Allergy (Verified 07/27/20 13:07) Unknown ofloxacin [From Floxin] Allergy (Verified 07/27/20 13:07) Unknown tetracycline [Tetracycline] Allergy (Verified 07/27/20 13:07) Unknown Tetracyclines Allergy (Verified 07/27/20 13:07) Unknown Primary Care Physician: Shelley Martell PHOTOGRAPHIC EQUIPMENT ASSEMBLER, PHOTOGRAPHIC EQUIPMENT ASSEMBLER-C [Primary Care Provider] - Review of Systems ROS: Unable to Obtain <Mookie Caceres - Last Filed: 07/27/20 17:15> Physical Exam Vital Signs/Narrative: Vital Signs Temp Pulse Resp BP Pulse Ox 07/27/20 13:02 98.5 F 98 18 180/97 H 95 General: Well nourished, Well developed, No Acute Distress Head: Normocephalic, Atraumatic Eyes: Perrl, EOMI ENT: No rhinorrhea, Dry mucous membranes Neck: Supple, Nontender Cardiovascular: Regular rate, Regular rhythm, No murmurs Respiratory: No distress, CTA bilaterally, Chest nontender Abdomen: Soft, Nontender, Nondistended, Normal bowel sounds Back: Nontender, Normal Inspection Extremities: No edema, Tenderness - Right ankle Skin: Normal color, No rash, Trauma - Bilateral knee abrasions there are multiple contusions on the extremities. Neurological: Lethargic, - - Patient lays in the bed with her eyes closed. When asked to open them she does not. She moves all 4 extremities. <Mookie Caceres - Last Filed: 07/27/20 17:15> Vital Signs/Narrative: Vital Signs Temp Pulse Resp BP Pulse Ox 07/27/20 16:20 99.3 F H 07/27/20 16:08 87 14 199/102 H 92 <José Manuel Deras - Last Filed: 07/27/20 17:53> Diagnostic/Tx/Re-eval Clinical Impression(s) from Imaging Studies Chest X-Ray 07/27/20 13:38 IMPRESSION: Stable mild degree of increased markings at the left lung base suggestive of scarring. Electronically Signed: Johnnie Ortega, at 15:39 EST , Service support , Ankle X-Ray 07/27/20 14:45 IMPRESSION: Calcaneal spurs. Findings suggesting old avulsion fracture of the medial talus. Electronically Signed: Johnnie Ortega, at 15:43 EST , Service support , - EKG Initial EKG Interpretation: Sinus Rhythm - EKG demonstrates a normal sinus rhythm at a rate of 91. There is no ectopy or concerning features of ACS. - Medical Decision Making My interpretation of the plain films of the chest are negative for infiltrate. Plain films of the ankle are negative for acute fracture. Patient is Covid positive. T The patient requires significant assistance getting up from the bed. Nursing is having difficulty obtaining blood. We have however been able to get an IV and have been hydrating her. Plan will be to obtain the labs and review but I am anticipating an admission. Basic labs show a calcium of 14.3. She received additional fluids. Ionized calcium was ordered. <Mookie Caceres - Last Filed: 07/27/20 17:15> - Medical Decision Making This patient was checked out to me with CT and labs pending. CT head shows no acute disease. CBC has a normal white count and hemoglobin. Lactic acid is negative. Treatment plan: Patient was discussed with Dr. Putnam. She will be admitted to hospital for further relation and treatment. Disposition: Admitted in serious condition. <José Manuel Deras - Last Filed: 07/27/20 17:53> ED Disposition <Mookie Caceres - Last Filed: 07/27/20 17:15> <José Manuel Deras - Last Filed: 07/27/20 17:53> - Plan for ED Patient: Disposition: Acute Care Hospital [facility] Diagnosis: COVID-19, Diarrhea, Encephalopathy acute, Frequent falls, Hypercalcemia, ARIELLE (acute kidney injury) Referrals: Shelley Martell PHOTOGRAPHIC EQUIPMENT ASSEMBLER, PHOTOGRAPHIC EQUIPMENT ASSEMBLER-C [Primary Care Provider] -
[2020-07-27] MEDS: 0.9% Normal Saline 1,000 ML 1000 ML IV (14:28)
--- NOTE | 2020-07-27 14:45 | RAD_ITS ---
STUDY: X-RAY - RIGHT ANKLE REASON FOR EXAM: Female, 70 years old. Cough, n/v, altered mental status and frequent falls. Pt states she has been more confused last couple days. TECHNIQUE: 3 view(s) of the ankle. COMPARISON: None. FINDINGS: Normal visualized distal tibia and fibula. Normal medial and lateral malleoli. Normal tibiotalar articulation and ankle mortise. Calcaneal spurs. There is a 4.3 mm well-defined rounded bony density along the medial aspect of the talus. This may represent an old injury. The soft tissue structures are unremarkable. RAD/Ankle min 3 Views IMPRESSION: Calcaneal spurs. Findings suggesting old avulsion fracture of the medial talus. Electronically Signed: Johnnie Ortega, at 15:43 EST , Service support ,
[2020-07-27 16:08] VITALS: BP 199/102; PULSE 87; RESP 14; O2SAT 92
[2020-07-27] MEDS: 0.9% Normal Saline 1,000 ML 150 ML IV (16:12)
[2020-07-27 16:13] LABS: Mucous, Urine 0 SEEN /hpf (<or=2+); Red Blood Cells-Urine 0 SEEN /hpf (0-5); Squamous Epithelial Cells - UA 0 SEEN /hpf (5-10); White Blood Cells 0 SEEN /hpf (0-5)
[2020-07-27 16:20] VITALS: TEMP 37.4
[2020-07-27 16:28] LABS: Color, Urine Yellow (Yellow); Glucose, Dipstick Normal (Normal); Ketone-Dipstick Negative (Negative); Leukocyte Esterase-Dipstick Negative /ul (Negative); Nitrite-Dipstick Negative (Negative); Occult Blood-Urine Negative /ul (Negative); Protein-Dipstick Negative (Negative); Specific Gravity, Urine 1.015 (1.002-1.030); Urine Bilirubin Dipstick Negative (Negative); Urine Clarity Clear (Clear); Urine Urobilinogen Normal (Normal)
[2020-07-27 16:41] LABS: Alcohol, Blood (Medical)-Serum < 3.0 mg/dL
[2020-07-27 16:41] LABS: Bacteria 1+ /hpf (None Seen); Hyaline Cast 0-5 SEEN /lpf (0-5)
[2020-07-27 16:53] LABS: Amphetamine Urine VISTA NEGATIVE (<1000 ng/mL); Barbiturate Urine VISTA NEGATIVE (< 200 ng/mL); Benzodiazepine Urine VISTA NEGATIVE (< 200 ng/mL); Cocaine Urine VISTA NEGATIVE (< 300 ng/mL); Ecstacy Urine VISTA NEGATIVE (< 500 ng/mL); Methadone Urine VISTA NEGATIVE (< 300 ng/mL); PCP Urine VISTA NEGATIVE (< 25 ng/mL); THC Urine VISTA NEGATIVE (< 50 ng/mL); Vista UDS pH Range 6
[2020-07-27 16:56] LABS: ALB/GLOB Ratio 0.9 RATIO (0.9-2.4); AST(SGOT) 36 U/L (15-37); Alanine Aminotransfer ALT/SGPT 30 U/L (13-56); Albumin, Serum 3.1 g/dL (3.2-5.0); Alkaline Phosphatase 41 U/L (45-117); Anion Gap 9 (5-15); BUN 12 mg/dL (7-18); Calcium,Total 14.3 mg/dL (8.5-10.1); Chloride 111 mmol/L (98-107); EST Glomerular Filtration Rate 47 mL/min (>60); Est Glom Filt Rate - Afr Amer 57 mL/min (>60); Estimated Creatinine Clearance 30.44 ml/min; Globulin 3.4 g/dL (2.2-4.2); Glucose 115 mg/dL (74-106); Lipase 103 U/L (73-393); Potassium 3.4 mmol/L (3.5-5.1); Protein, Total 6.5 g/dL (6.4-8.2); Sodium Level 144 mmol/L (136-145)
[2020-07-27] MEDS: hydrALAZINE 20 MG/ML Vial 10 MG IV (17:10)
[2020-07-27] MEDS: 0.9% Normal Saline 1,000 ML 999 ML IV (17:10)
[2020-07-27 17:25] LABS: Absolute Neutrophil Count 6.2 X10^3/uL (2.0-7.7); Basophil# 0.03 X10^3/uL; Basophil% 0.4 % (0-1); Eosinophil# 0.02 X10^3/uL; Eosinophils% 0.2 % (0-5); Hematocrit 37.5 % (37-47); Hemoglobin 12.1 g/dL (12.0-15.0); Lymphocyte % 15.7 % (19-41); Mean Corp Hgb Conc 32.3 g/dL (32-36); Mean Corpuscular Volume 89.9 fL (81-99); Mean Platelet Vol. 9.6 fl (6.2-12.0); Monocyte# 0.66 X10^3/uL; NRBC Flagged by Analyzer 0 % (0-5); Neutrophil # 6.17 X10^3/uL (2.7-7.7); Neutrophil % 74.7 % (47-70); Platelet Count 410 K/mm3 (150-450); RBC Distribution Width CV 12.7 % (11.6-14.6); Red Blood Count 4.17 M/mm3 (4.2-5.4); White Blood Count 8.3 K/mm3 (4.4-11.0)
[2020-07-27 17:35] LABS: International Normalized Ratio 1.1; Partial Thromboplast Time 26.2 Seconds (24.1-36.2); Prothrombin Time (Protime)PT. 14.2 SECONDS (11.7-14.9)
[2020-07-27 17:43] LABS: Lactic Acid 1.1 mmol/L (0.4-1.9)
[2020-07-27] MEDS: 0.9% Normal Saline 1,000 ML 250 ML IV ×2 (18:13→21:21)
[2020-07-27 18:20] VITALS: BP 159/75; PULSE 109; RESP 16; TEMP 37.4; O2SAT 95
[2020-07-27 18:45] VITALS: BP 156/76; PULSE 105; RESP 20; TEMP 36.8; O2SAT 95
[2020-07-27 18:48] VITALS: BMI 28.1
[2020-07-27 18:52] VITALS: BMI 28.2
--- NOTE | 2020-07-27 19:13 | PCM.HP.STD ---
Problem List (1) Altered mental status Status: Acute Qualifiers: Altered mental status type: delirium Qualified Code(s): R41.0 - Disorientation, unspecified (2) Cough Status: Acute (3) Frequent falls Status: Acute History of Present Illness Date of Admission: 07/27/20 Chief Complaint: Altered mental status, cough, frequent falls The patient is a 70 year old F sent to the emergency room at [facility] for evaluation concerning frequent falls, altered mental status, and nonproductive cough-patient is a resident of an assisted living facility and has schizophrenia. Medical information was not able to be obtained from the patient due to the patient's confusion. Work-up in the emergency room included a CBC which was unremarkable, patient had an INR which was normal, patient's potassium was low at 3.4, creatinine was elevated at 1.2, and patient's calcium was extremely elevated at 14.3. Urinalysis was unremarkable, tox screen was negative, CT of the brain did not show any acute process. Chest x-ray was obtained and was negative for any acute process, patient's Covid 19 antigen was positive. Patient's pulse ox on room air was 85%. Patient will be admitted to [facility] for acute kidney injury and hypercalcemia-etiology is unclear at this point, patient does take vitamin D at assisted living but is not not on a calcium supplement. Patient will not be given any treatment for her Covid as she is relatively asymptomatic-chest x-ray is unremarkable and her pulse ox is normal. She will be given IV fluids and her calcium will be rechecked tomorrow. She will probably need further work-up as to the etiology of the hypercalcemia. Past Medical History Past Medical History (Chronic Problems): Chronic Problems Mitral valve prolapse (Chronic) Depression (Chronic) Migraine (Chronic) Compression fracture of L1 lumbar vertebra (Chronic) Status post kyphoplasty (Chronic) Hypothyroidism (Chronic) History of schizophrenia (Chronic) Type 2 diabetes mellitus (Chronic) diet controlled Allergies ciprofloxacin Allergy (Verified 07/27/20 13:07) Unknown codeine Allergy (Verified 07/27/20 13:07) Unknown hydroxyzine HCl [From Vistaril] Allergy (Verified 07/27/20 13:07) Unknown hydroxyzine pamoate [From Vistaril] Allergy (Verified 07/27/20 13:07) Unknown niacin Allergy (Verified 07/27/20 13:07) Unknown ofloxacin [From Floxin] Allergy (Verified 07/27/20 13:07) Unknown tetracycline [Tetracycline] Allergy (Verified 07/27/20 13:07) Unknown Tetracyclines Allergy (Verified 07/27/20 13:07) Unknown Home Medications: Ambulatory Orders Medication Instructions Recorded Levothyroxine [Synthroid] 25 mcg PO DAILY@0600 06/26/13 Omeprazole [Prilosec] 20 mg PO DAILY 06/26/13 Aspirin 325 mg PO DAILY@0800 03/13/17 Pravastatin [Pravachol] 80 mg PO QHS 03/13/17 Polyethylene Glycol 3350 [Miralax] 17 gm PO DAILY 05/11/18 Lamotrigine [Lamictal] 150 mg PO DAILY 06/05/20 Oxycodone Myristate [Xtampza ER] 9 mg PO BID 07/06/20 Pregabalin [Lyrica] 50 mg PO TID 07/06/20 Acetaminophen [Tylenol Tablet] 650 mg PO Q4H PRN 07/27/20 Buspirone HCl 15 mg PO TID 07/27/20 Cholecalciferol (Vitamin D3) 2,000 unit PO DAILY 07/27/20 [Vitamin D3] Dicyclomine HCl 20 mg PO 4X/DAY 07/27/20 Fenofibrate Nanocrystallized 160 mg PO QHS 07/27/20 [Fenofibrate] Fluoxetine HCl 40 mg PO DAILY 07/27/20 Ondansetron HCl [Zofran] 4 mg PO Q4H PRN 07/27/20 Paliperidone [Invega] 6 mg PO DAILY 07/27/20 Prochlorperazine Maleate 10 mg PO Q6H PRN PRN 07/27/20 [Compazine] Trazodone HCl 300 mg PO QHS 07/27/20 Surgical History: noncontributory Psychiatric History: Schizophrenia MEDICATION TECH History: No pertinent MEDICATION TECH history Lives: - - Patient lives in assisted living Smoking Status: Never smoker Tobacco Use: Non-smoker Drugs: None - *Family History Paternal History Items: No pertinent history Maternal History Items: No pertinent history Review of Systems Comment: Of systems was unobtainable due to patient's confusion and chronic mental illness (schizophrenia) VTE Information - Inpt Only VTE Present on Admission: No VTE Mechan Device Prophylaxis: None VTE Pharm Prophylaxis ordered?: Yes Patient Problems: Active and Suspected Problems COVID-19 (Acute) Diarrhea (Acute) Encephalopathy acute (Acute) Frequent falls (Acute) Hypercalcemia (Acute) ARIELLE (acute kidney injury) (Acute) - Physical Exam Vitals/I&O's: Vital Signs Temp Pulse Resp BP Pulse Ox 98.3 F 105 H 20 H 156/76 H 95 07/27/20 18:45 07/27/20 18:45 07/27/20 18:45 07/27/20 18:45 07/27/20 18:45 Oxygen Delivery Method Room Air Weight: 65.408 kg Body Mass Index (BMI) 28.1 Finger Stick Blood Glucose 133 Intake and Output for Last 24 Hours 07/25/20 07/26/20 07/27/20 23:59 23:59 23:59 Intake Total 1999 Balance 1999 General: Alert, Cooperative, No apparent distress, Well developed, Well nourished HEENT: Atraumatic, PERRLA, EOMI, Normocephalic Oral: Dry Mucosa Neck: Supple, No JVD, Negative Carotid Bruits, Trachea Midline, Thyroid Normal Size and Texture Lungs: Clear to auscultation, Normal air movement, No rhonchi, No wheeze, No rales Cardiovascular: Regular rate, Regular Rhythm, Normal S1, Normal S2, No murmurs, PMI Normal, No rub noted, No Gallop Abdomen: Bowel Sounds Present, Soft, Non Tender, Non-Distended, No hernias noted Extremities: No clubbing, No cyanosis, No edema, Capillary Refill Less than 3 Seconds Skin: No rashes, No breakdown Musculoskeletal: No Tenderness to Palpation of Joints or Extremities Neurological: Cranial nerves II-XII grossly intact, Neuro grossly intact, Sensory exam intact to light touch and pain Psych/Mental Status: - - Patient was confused but not agitated or anxious. Microbiology Past 72 Hours 07/27/20 14:12 Mucosa - Nasopharyngeal Respiratory Panel (PCR) - Final 07/27/20 14:12 Mucosa - Nasopharyngeal SARS-CoV-2 Antigen (Rapid) - Final SARS-CoV-2 (COVID 19) Laboratory Results 07/27/20 16:00: WBC Cancelled, Corrected WBC Cancelled, RBC Cancelled, Hgb Cancelled, Hct Cancelled, MCV Cancelled, MCH Cancelled, MCHC Cancelled, RDW Std Deviation Cancelled, RDW Coeff of Randall Cancelled, Plt Count Cancelled, MPV Cancelled, Immature Gran % (Auto) Cancelled, Neut % (Auto) Cancelled, Lymph % (Auto) Cancelled, [place] % (Auto) Cancelled, Eos % (Auto) Cancelled, Baso % (Auto) Cancelled, Absolute Neuts (auto) Cancelled, Absolute Lymphs (auto) Cancelled, Total Counted Cancelled, Neutrophils % (Manual) Cancelled, Band Neutrophils % Cancelled, Lymphocytes % (Manual) Cancelled, Monocytes % (Manual) Cancelled, Eosinophils % (Manual) Cancelled, Basophils % (Manual) Cancelled, Metamyelocytes % Cancelled, Myelocytes % Cancelled, Promyelocytes % Cancelled, Blast Cells % Cancelled, Plasma Cell % (Manual) Cancelled, Other Cells % Cancelled, Nucleated RBC % Cancelled, Nucleated RBCs/100 WBC Cancelled, Differential Comment Cancelled, Diff Path Review Cancelled, Hypersegmented Neuts Cancelled, Atypical Lymphocytes Cancelled, Reactive Lymphocytes Cancelled, Smudge Cells Cancelled, Toxic Granulation Cancelled, Toxic Vacuolation Cancelled, Dohle Bodies Cancelled, Ana M Rods Cancelled, Platelet Estimate Cancelled, Plt Morphology Comment Cancelled, RBC Morphology Cancelled, Polychromasia Cancelled, Hypochromasia Cancelled, Poikilocytosis Cancelled, Basophilic Stippling Cancelled, Anisocytosis Cancelled, Microcytosis Cancelled, Macrocytosis Cancelled, Spherocytes Cancelled, Sickle Cells Cancelled, Target Cells Cancelled, Tear Drop Cells Cancelled, Ovalocytes Cancelled, Stomatocytes Cancelled, [place] Bodies Cancelled, Irene Cells Cancelled, Bite Cells Cancelled, Crenated Cell Cancelled, Acanthocytes (Spur) Cancelled, Rouleaux Cancelled, Schistocytes Cancelled 07/27/20 16:00: Sodium 144, Potassium 3.4 L, Chloride 111 H, Carbon Dioxide 24.0, Anion Gap 9, BUN 12, Creatinine 1.20 H, Estim Creat Clear Calc 30.44, Est GFR (MDRD) Af Amer 57 L, Est GFR (MDRD) Non-Af 47 L, BUN/Creatinine Ratio 10.0, Glucose 115 H, Calcium 14.3 H*, Total Bilirubin 0.30, AST 36, ALT 30, Alkaline Phosphatase 41 L, Troponin I 0.026, Total Protein 6.5, Albumin 3.1 L, Globulin 3.4, Albumin/Globulin Ratio 0.9, Lipase 103 07/27/20 16:00: Ethyl Alcohol < 3.0 07/27/20 16:05: Urine Color Yellow, Urine Clarity Clear, Urine pH 6.0, Ur Specific [place] 1.015, Urine Protein Negative, Urine Glucose (UA) Normal, Urine Ketones Negative, Urine Occult Blood Negative, Urine Nitrite Negative, Urine Bilirubin Negative, Urine Urobilinogen Normal, Ur Leukocyte Esterase Negative, Urine RBC 0 SEEN, Urine WBC 0 SEEN, Ur Squamous Epith Cells 0 SEEN, Urine Bacteria 1+, Hyaline Casts 0-5 SEEN, Urine Mucus 0 SEEN 07/27/20 16:05: Urine Opiates Screen NEGATIVE, Urine Methadone Screen NEGATIVE, Ur Barbiturates Screen NEGATIVE, Ur Phencyclidine Scrn NEGATIVE, Ur Amphetamines Screen NEGATIVE, U Methamphetamin-MDMA NEGATIVE, U Benzodiazepines Scrn NEGATIVE, Urine Cocaine Screen NEGATIVE, U Cannabinoids Screen NEGATIVE, Ur Drug Screen Comment 07/27/20 17:00: PT 14.2, INR 1.1, APTT 26.2 07/27/20 17:00: Lactic Acid 1.1 07/27/20 17:00: WBC 8.3, RBC 4.17 L, Hgb 12.1, Hct 37.5, MCV 89.9, MCH 29.0, MCHC 32.3, RDW Std Deviation 42.0, RDW Coeff of Randall 12.7, Plt Count 410, MPV 9.6, Immature Gran % (Auto) 1.000 H, Neut % (Auto) 74.7 H, Lymph % (Auto) 15.7 L, [place] % (Auto) 8.0, Eos % (Auto) 0.2, Baso % (Auto) 0.4, Absolute Neuts (auto) 6.2, Absolute Lymphs (auto) 1.30, Nucleated RBC % 0 07/27/20 17:10: Ionized Calcium Pending Current Medications Acetaminophen (Acetaminophen 325 Mg Tablet) 650 mg PO Q6H PRN PRN PRN Reason: Pain Score 1-10/Temp > 100.7 F Aspirin (Aspirin 81 Mg Tab.Chew) 81 mg PO DAILY@0800 JOY Buspirone HCl (Buspirone 15 Mg Tablet) 15 mg PO TID JOY Dicyclomine HCl (Dicyclomine 10 Mg Capsule) 20 mg PO TIDAC JOY Enoxaparin Sodium (Enoxaparin 40 Mg/0.4 Ml Syringe) 40 mg SC BID [facility] Sodium Chloride () 1,000 mls @ 250 mls/hr IV .Q4H JOY Last Admin: 07/27/20 18:13 Dose: 250 mls/hr Documented by: Lamotrigine (Lamotrigine 150 Mg Tablet) 150 mg PO DAILY JOY Levothyroxine Sodium (Levothyroxine 25 Mcg Tablet) 25 mcg PO DAILY@0600 JOY Non-Formulary Medication (Fluoxetine Hcl) 40 mg PO DAILY JOY Non-Formulary Medication (Omeprazole) 20 mg PO DAILY [facility] Non-Formulary Medication (Trazodone Hcl) 300 mg PO QHS JOY Ondansetron HCl (Ondansetron 4 Mg/2 Ml Vial) 4 mg IV Q8H PRN PRN PRN Reason: NAUSEA/VOMITING Oxycodone HCl (Oxycodone Hcl Cr 10 Mg Tablet) 10 mg PO BID JOY Paliperidone (Paliperidone 6 Mg Tablet) 6 mg PO DAILY JOY Potassium Chloride (Potassium Chloride 20 Meq Tablet) 20 meq PO X1 ONE Stop: 07/27/20 19:07 Pravastatin Sodium (Pravastatin 80 Mg Tablet) 80 mg PO QHS JOY Pregabalin (Pregabalin 50 Mg Capsule) 50 mg PO TID JOY Sodium Chloride (0.9% Saline Lock 10 Ml Syringe) 10 - 40 ml IV UD PRN PRN Reason: SALINE FLUSH Assessment/Plan All Active Problems Compression fractures L4 lumbar vertebra (Acute) Fall (Acute) COVID-19 (Acute) Diarrhea (Acute) Encephalopathy acute (Acute) Frequent falls (Acute) Hypercalcemia (Acute) ARIELLE (acute kidney injury) (Acute) Altered mental status (Acute) Cough (Acute) #1 hypercalcemia-etiology unclear at this point, PTH and TSH was ordered, patient will be given IV fluids at 250 cc/h and the patient's calcium level will be rechecked tomorrow. Patient will be monitored on telemetry. I did not order a vitamin D level on this patient as I did not think this was necessary for treatment. #2 COVID-19 infection without pneumonia-patient will not be given any dexamethasone, remdesivir, or convalescent plasma. Patient exhibits no respiratory symptoms whatsoever to this examiner. #3 acute kidney injury-labs will be rechecked, patient will be given IV fluids #4 schizophrenia-patient will remain on her current medications #5 type 2 diabetes-diet controlled, patient will be placed on 1800-calorie diet, I do not think the patient needs blood sugars monitored at this time #6 hypothyroidism-TSH was ordered #7 history of lumbar compression fractures-etiology unclear, patient has no history previous in her medical record that shows an elevated calcium, multiple myeloma is a cause at times for hypercalcemia, I will defer any testing for multiple myeloma to her attending physician tomorrow Inpatient E&M: [id number] Init Hosp L3
[2020-07-27 20:32] LABS: Thyroid Stim Hormone (TSH) 0.76 uIU/mL (0.358-3.74)
[2020-07-27 21:19] VITALS: BP 160/71; PULSE 86; RESP 16; TEMP 36.9; O2SAT 93
[2020-07-27] MEDS: traZODone 100 MG Tablet 300 MG PO (21:21)
[2020-07-27] MEDS: Enoxaparin 40 MG/0.4 ML Syringe SC (21:21)
[2020-07-27] MEDS: Pravastatin 80 MG Tablet PO (21:22)
[2020-07-27] MEDS: oxyCODONE HCl Cr 10 MG Tablet PO (21:22)
[2020-07-28] VITALS (9 sets, daily range): BP systolic 154–188; BP diastolic 66–90; PULSE 63–95; RESP 14–18; TEMP 36.4–36.8; O2SAT 93–95
[2020-07-28] MEDS: 0.9% Normal Saline 1,000 ML 250 ML IV ×4 (00:32→13:21)
[2020-07-28 07:32] LABS: ALB/GLOB Ratio 0.9 RATIO (0.9-2.4); AST(SGOT) 33 U/L (15-37); Alanine Aminotransfer ALT/SGPT 26 U/L (13-56); Albumin, Serum 2.6 g/dL (3.2-5.0); Alkaline Phosphatase 38 U/L (45-117); Anion Gap 7 (5-15); BUN 10 mg/dL (7-18); BUN/Creat Ratio 7.9 RATIO (10-20); Chloride 117 mmol/L (98-107); Creatinine, Serum 1.26 mg/dL (0.55-1.02); EST Glomerular Filtration Rate 44 mL/min (>60); Est Glom Filt Rate - Afr Amer 54 mL/min (>60); Estimated Creatinine Clearance 28.99 ml/min; Glucose 97 mg/dL (74-106); Potassium 3.5 mmol/L (3.5-5.1); Protein, Total 5.6 g/dL (6.4-8.2); Sodium Level 147 mmol/L (136-145)
[2020-07-28 09:43] LABS: PTHIN 4.7 pg/mL (18.4-80.1)
[2020-07-28] MEDS: Enoxaparin 40 MG/0.4 ML Syringe SC ×2 (09:45→20:22)
[2020-07-28] MEDS: Levothyroxine 25 MCG TABLET PO (09:46)
[2020-07-28] MEDS: lamoTRIgine 150 MG Tablet PO (09:47)
[2020-07-28] MEDS: oxyCODONE HCl Cr 10 MG Tablet PO ×2 (09:47→20:22)
[2020-07-28] MEDS: busPIRone 15 MG TABLET PO ×3 (09:47→17:12)
[2020-07-28] MEDS: Aspirin 81 MG TAB.CHEW PO (09:47)
[2020-07-28] MEDS: Pregabalin 50 MG Capsule PO ×2 (09:47→13:20)
[2020-07-28] MEDS: Pantoprazole Sodium 20 MG Tablet PO (09:48)
[2020-07-28] MEDS: Dicyclomine 10 MG Capsule 20 MG PO ×3 (09:53→17:12)
[2020-07-28] MEDS: FLUoxetine 20 MG Capsule 40 MG PO (09:54)
--- NOTE | 2020-07-28 11:17 | CASEMGMT ---
Addendum entered by Blaine Fox 07/28/20 13:22: Call received from [facility]. They are providing Speech therapy for patient. They cannot continue this with the current covid diagnosis and would like to know on dc when quarantine period is over and they will resume care through patient's PCP. Original Note: RN MICHAEL Note: patient is from assisted living. Does not use home oxygen. Currently on room air. If oxygen is needed, cm will assist with set up. -Patient is isolated @ facility with staff bringing medications and meals. -Pt is able to f/u with physician via telephone on discharge. Gordon GUZMANN RN ACM
--- NOTE | 2020-07-28 11:59 | PCM.HP.ID ---
Problem List (1) COVID-19 Status: Acute Reason for Consult: covid Consulted by: Dr. Putnam History of Present Illness: The patient is a 70 year old F [facility] resident with h/o schizophrenia, presented yesterday to ED with dyspnea, confusion, falls. Pt unable to provide history due to mental status, does report some aches. 85% on RA on admit. Found to have hypercalcemia. ROS unobtainable due to mental status. - Medical History Past Medical History (Chronic Problems): Chronic Problems Mitral valve prolapse (Chronic) Depression (Chronic) Migraine (Chronic) Compression fracture of L1 lumbar vertebra (Chronic) Status post kyphoplasty (Chronic) Hypothyroidism (Chronic) History of schizophrenia (Chronic) Type 2 diabetes mellitus (Chronic) diet controlled Allergies/Adverse Reactions: Allergies ciprofloxacin Allergy (Verified 07/27/20 13:07) Unknown codeine Allergy (Verified 07/27/20 13:07) Unknown hydroxyzine HCl [From Vistaril] Allergy (Verified 07/27/20 13:07) Unknown hydroxyzine pamoate [From Vistaril] Allergy (Verified 07/27/20 13:07) Unknown niacin Allergy (Verified 07/27/20 13:07) Unknown ofloxacin [From Floxin] Allergy (Verified 07/27/20 13:07) Unknown tetracycline [Tetracycline] Allergy (Verified 07/27/20 13:07) Unknown Tetracyclines Allergy (Verified 07/27/20 13:07) Unknown Home Medications: Ambulatory Orders Medication Instructions Recorded Levothyroxine [Synthroid] 25 mcg PO DAILY@0600 06/26/13 Omeprazole [Prilosec] 20 mg PO DAILY 06/26/13 Aspirin 325 mg PO DAILY@0800 03/13/17 Pravastatin [Pravachol] 80 mg PO QHS 03/13/17 Polyethylene Glycol 3350 [Miralax] 17 gm PO DAILY 05/11/18 Lamotrigine [Lamictal] 150 mg PO DAILY 06/05/20 Oxycodone Myristate [Xtampza ER] 9 mg PO BID 07/06/20 Pregabalin [Lyrica] 50 mg PO TID 07/06/20 Acetaminophen [Tylenol Tablet] 650 mg PO Q4H PRN 07/27/20 Buspirone HCl 15 mg PO TID 07/27/20 Cholecalciferol (Vitamin D3) 2,000 unit PO DAILY 07/27/20 [Vitamin D3] Dicyclomine HCl 20 mg PO 4X/DAY 07/27/20 Fenofibrate Nanocrystallized 160 mg PO QHS 07/27/20 [Fenofibrate] Fluoxetine HCl 40 mg PO DAILY 07/27/20 Ondansetron HCl [Zofran] 4 mg PO Q4H PRN 07/27/20 Paliperidone [Invega] 6 mg PO DAILY 07/27/20 Prochlorperazine Maleate 10 mg PO Q6H PRN PRN 07/27/20 [Compazine] Trazodone HCl 300 mg PO QHS 07/27/20 - Social History Tobacco Use: non-smoker Vital Signs Temp Pulse Resp BP Pulse Ox 97.7 F L 95 14 166/90 H 94 07/28/20 09:38 07/28/20 09:38 07/28/20 09:38 07/28/20 09:38 07/28/20 09:38 Oxygen Delivery Method Room Air Weight: 65.408 kg Body Mass Index (BMI) 28.1 Finger Stick Blood Glucose 133 Microbiology Past 72 Hours 07/27/20 14:12 Respiratory Panel (PCR) - Final Mucosa - Nasopharyngeal 07/27/20 14:12 SARS-CoV-2 Antigen (Rapid) - Final Mucosa - Nasopharyngeal SARS-CoV-2 (COVID 19) Laboratory Tests Past 24 Hrs 07/27/20 07/27/20 07/27/20 16:00 16:00 16:00 WBC Cancelled Corrected WBC Cancelled RBC Cancelled Hgb Cancelled Hct Cancelled MCV Cancelled MCH Cancelled MCHC Cancelled RDW Std Deviation Cancelled RDW Coeff of Randall Cancelled Plt Count Cancelled MPV Cancelled Immature Gran % (Auto) Cancelled Neut % (Auto) Cancelled Lymph % (Auto) Cancelled [place] % (Auto) Cancelled Eos % (Auto) Cancelled Baso % (Auto) Cancelled Absolute Neuts (auto) Cancelled Absolute Lymphs (auto) Cancelled Total Counted Cancelled Neutrophils % (Manual) Cancelled Band Neutrophils % Cancelled Lymphocytes % (Manual) Cancelled Monocytes % (Manual) Cancelled Eosinophils % (Manual) Cancelled Basophils % (Manual) Cancelled Metamyelocytes % Cancelled Myelocytes % Cancelled Promyelocytes % Cancelled Blast Cells % Cancelled Plasma Cell % (Manual) Cancelled Other Cells % Cancelled Nucleated RBC % Cancelled Nucleated RBCs/100 WBC Cancelled Differential Comment Cancelled Diff Path Review Cancelled Hypersegmented Neuts Cancelled Atypical Lymphocytes Cancelled Reactive Lymphocytes Cancelled Smudge Cells Cancelled Toxic Granulation Cancelled Toxic Vacuolation Cancelled Dohle Bodies Cancelled Ana M Rods Cancelled Platelet Estimate Cancelled Plt Morphology Comment Cancelled RBC Morphology Cancelled Polychromasia Cancelled Hypochromasia Cancelled Poikilocytosis Cancelled Basophilic Stippling Cancelled Anisocytosis Cancelled Microcytosis Cancelled Macrocytosis Cancelled Spherocytes Cancelled Sickle Cells Cancelled Target Cells Cancelled Tear Drop Cells Cancelled Ovalocytes Cancelled Stomatocytes Cancelled [place] Bodies Cancelled [place] Cells Cancelled Bite Cells Cancelled Crenated Cell Cancelled Acanthocytes (Spur) Cancelled Rouleaux Cancelled Schistocytes Cancelled PT INR APTT Sodium 144 Potassium 3.4 L Chloride 111 H Carbon Dioxide 24.0 Anion Gap 9 BUN 12 Creatinine 1.20 H Estim Creat Clear Calc 30.44 Est GFR (MDRD) Af Amer 57 L Est GFR (MDRD) Non-Af 47 L BUN/Creatinine Ratio 10.0 Glucose 115 H Lactic Acid Calcium 14.3 H* Ionized Calcium Total Bilirubin 0.30 AST 36 ALT 30 Alkaline Phosphatase 41 L Troponin I 0.026 Total Protein 6.5 Albumin 3.1 L Globulin 3.4 Albumin/Globulin Ratio 0.9 Lipase 103 TSH PTH Intact Urine Color Urine Clarity Urine pH Ur Specific [place] Urine Protein Urine Glucose (UA) Urine Ketones Urine Occult Blood Urine Nitrite Urine Bilirubin Urine Urobilinogen Ur Leukocyte Esterase Urine RBC Urine WBC Ur Squamous Epith Cells Urine Bacteria Hyaline Casts Urine Mucus Urine Opiates Screen Urine Methadone Screen Ur Barbiturates Screen Ur Phencyclidine Scrn Ur Amphetamines Screen U Methamphetamin-MDMA U Benzodiazepines Scrn Urine Cocaine Screen U Cannabinoids Screen Ur Drug Screen Comment Ethyl Alcohol < 3.0 07/27/20 07/27/20 07/27/20 16:00 16:05 16:05 WBC Corrected WBC RBC Hgb Hct MCV MCH MCHC RDW Std Deviation RDW Coeff of Randall Plt Count MPV Immature Gran % (Auto) Neut % (Auto) Lymph % (Auto) [place] % (Auto) Eos % (Auto) Baso % (Auto) Absolute Neuts (auto) Absolute Lymphs (auto) Total Counted Neutrophils % (Manual) Band Neutrophils % Lymphocytes % (Manual) Monocytes % (Manual) Eosinophils % (Manual) Basophils % (Manual) Metamyelocytes % Myelocytes % Promyelocytes % Blast Cells % Plasma Cell % (Manual) Other Cells % Nucleated RBC % Nucleated RBCs/100 WBC Differential Comment Diff Path Review Hypersegmented Neuts Atypical Lymphocytes Reactive Lymphocytes Smudge Cells Toxic Granulation Toxic Vacuolation Dohle Bodies Ana M Rods Platelet Estimate Plt Morphology Comment RBC Morphology Polychromasia Hypochromasia Poikilocytosis Basophilic Stippling Anisocytosis Microcytosis Macrocytosis Spherocytes Sickle Cells Target Cells Tear Drop Cells Ovalocytes Stomatocytes [place] Bodies [place] Cells Bite Cells Crenated Cell Acanthocytes (Spur) Rouleaux Schistocytes PT INR APTT Sodium Potassium Chloride Carbon Dioxide Anion Gap BUN Creatinine Estim Creat Clear Calc Est GFR (MDRD) Af Amer Est GFR (MDRD) Non-Af BUN/Creatinine Ratio Glucose Lactic Acid Calcium Ionized Calcium Total Bilirubin AST ALT Alkaline Phosphatase Troponin I Total Protein Albumin Globulin Albumin/Globulin Ratio Lipase TSH 0.76 PTH Intact Urine Color Yellow Urine Clarity Clear Urine pH 6.0 Ur Specific [place] 1.015 Urine Protein Negative Urine Glucose (UA) Normal Urine Ketones Negative Urine Occult Blood Negative Urine Nitrite Negative Urine Bilirubin Negative Urine Urobilinogen Normal Ur Leukocyte Esterase Negative Urine RBC 0 SEEN Urine WBC 0 SEEN Ur Squamous Epith Cells 0 SEEN Urine Bacteria 1+ Hyaline Casts 0-5 SEEN Urine Mucus 0 SEEN Urine Opiates Screen NEGATIVE Urine Methadone Screen NEGATIVE Ur Barbiturates Screen NEGATIVE Ur Phencyclidine Scrn NEGATIVE Ur Amphetamines Screen NEGATIVE U Methamphetamin-MDMA NEGATIVE U Benzodiazepines Scrn NEGATIVE Urine Cocaine Screen NEGATIVE U Cannabinoids Screen NEGATIVE Ur Drug Screen Comment Ethyl Alcohol 07/27/20 07/27/20 07/27/20 17:00 17:00 17:00 WBC 8.3 Corrected WBC RBC 4.17 L Hgb 12.1 Hct 37.5 MCV 89.9 MCH 29.0 MCHC 32.3 RDW Std Deviation 42.0 RDW Coeff of Randall 12.7 Plt Count 410 MPV 9.6 Immature Gran % (Auto) 1.000 H Neut % (Auto) 74.7 H Lymph % (Auto) 15.7 L [place] % (Auto) 8.0 Eos % (Auto) 0.2 Baso % (Auto) 0.4 Absolute Neuts (auto) 6.2 Absolute Lymphs (auto) 1.30 Total Counted Neutrophils % (Manual) Band Neutrophils % Lymphocytes % (Manual) Monocytes % (Manual) Eosinophils % (Manual) Basophils % (Manual) Metamyelocytes % Myelocytes % Promyelocytes % Blast Cells % Plasma Cell % (Manual) Other Cells % Nucleated RBC % 0 Nucleated RBCs/100 WBC Differential Comment Diff Path Review Hypersegmented Neuts Atypical Lymphocytes Reactive Lymphocytes Smudge Cells Toxic Granulation Toxic Vacuolation Dohle Bodies Ana M Rods Platelet Estimate Plt Morphology Comment RBC Morphology Polychromasia Hypochromasia Poikilocytosis Basophilic Stippling Anisocytosis Microcytosis Macrocytosis Spherocytes Sickle Cells Target Cells Tear Drop Cells Ovalocytes Stomatocytes [place] Bodies [place] Cells Bite Cells Crenated Cell Acanthocytes (Spur) Rouleaux Schistocytes PT 14.2 INR 1.1 APTT 26.2 Sodium Potassium Chloride Carbon Dioxide Anion Gap BUN Creatinine Estim Creat Clear Calc Est GFR (MDRD) Af Amer Est GFR (MDRD) Non-Af BUN/Creatinine Ratio Glucose Lactic Acid 1.1 Calcium Ionized Calcium Total Bilirubin AST ALT Alkaline Phosphatase Troponin I Total Protein Albumin Globulin Albumin/Globulin Ratio Lipase TSH PTH Intact Urine Color Urine Clarity Urine pH Ur Specific [place] Urine Protein Urine Glucose (UA) Urine Ketones Urine Occult Blood Urine Nitrite Urine Bilirubin Urine Urobilinogen Ur Leukocyte Esterase Urine RBC Urine WBC Ur Squamous Epith Cells Urine Bacteria Hyaline Casts Urine Mucus Urine Opiates Screen Urine Methadone Screen Ur Barbiturates Screen Ur Phencyclidine Scrn Ur Amphetamines Screen U Methamphetamin-MDMA U Benzodiazepines Scrn Urine Cocaine Screen U Cannabinoids Screen Ur Drug Screen Comment Ethyl Alcohol 07/27/20 07/27/20 07/28/20 17:00 17:10 05:50 WBC Corrected WBC RBC Hgb Hct MCV MCH MCHC RDW Std Deviation RDW Coeff of Randall Plt Count MPV Immature Gran % (Auto) Neut % (Auto) Lymph % (Auto) [place] % (Auto) Eos % (Auto) Baso % (Auto) Absolute Neuts (auto) Absolute Lymphs (auto) Total Counted Neutrophils % (Manual) Band Neutrophils % Lymphocytes % (Manual) Monocytes % (Manual) Eosinophils % (Manual) Basophils % (Manual) Metamyelocytes % Myelocytes % Promyelocytes % Blast Cells % Plasma Cell % (Manual) Other Cells % Nucleated RBC % Nucleated RBCs/100 WBC Differential Comment Diff Path Review Hypersegmented Neuts Atypical Lymphocytes Reactive Lymphocytes Smudge Cells Toxic Granulation Toxic Vacuolation Dohle Bodies Ana M Rods Platelet Estimate Plt Morphology Comment RBC Morphology Polychromasia Hypochromasia Poikilocytosis Basophilic Stippling Anisocytosis Microcytosis Macrocytosis Spherocytes Sickle Cells Target Cells Tear Drop Cells Ovalocytes Stomatocytes [place] Bodies [place] Cells Bite Cells Crenated Cell Acanthocytes (Spur) Rouleaux Schistocytes PT INR APTT Sodium 147 H Potassium 3.5 Chloride 117 H Carbon Dioxide 23.0 Anion Gap 7 BUN 10 Creatinine 1.26 H Estim Creat Clear Calc 28.99 Est GFR (MDRD) Af Amer 54 L Est GFR (MDRD) Non-Af 44 L BUN/Creatinine Ratio 7.9 L Glucose 97 Lactic Acid Calcium 12.0 H Ionized Calcium Pending Total Bilirubin 0.20 AST 33 ALT 26 Alkaline Phosphatase 38 L Troponin I Total Protein 5.6 L Albumin 2.6 L Globulin 3.0 Albumin/Globulin Ratio 0.9 Lipase TSH PTH Intact 4.7 L Urine Color Urine Clarity Urine pH Ur Specific [place] Urine Protein Urine Glucose (UA) Urine Ketones Urine Occult Blood Urine Nitrite Urine Bilirubin Urine Urobilinogen Ur Leukocyte Esterase Urine RBC Urine WBC Ur Squamous Epith Cells Urine Bacteria Hyaline Casts Urine Mucus Urine Opiates Screen Urine Methadone Screen Ur Barbiturates Screen Ur Phencyclidine Scrn Ur Amphetamines Screen U Methamphetamin-MDMA U Benzodiazepines Scrn Urine Cocaine Screen U Cannabinoids Screen Ur Drug Screen Comment Ethyl Alcohol - Other Studies Radiology: [] reviewed Other Studies: [] Route of nutrition/ use of supplements: [] Nutritional Intake: [] IV Site: [] Beal Catheter: [] - Physical Exam General: Lethargic, - - oriented x1 HEENT: Atraumatic, PERRLA, EOMI Neck: Supple, No Nodes Lungs: Diminished Cardiovascular: Regular rate, Regular Rhythm Abdomen: Soft, Non Tender, Non-Distended Extremities: No edema Skin: No rashes IV Site: Peripheral, without redness Musculoskeletal: No Tenderness to Palpation of Joints or Extremities Neurological: Cranial nerves II-XII grossly intact - Assessment/Plan Antibiotics: [] Assessment/Plan: [] Active and Suspected Problems COVID-19 (Acute) Diarrhea (Acute) Encephalopathy acute (Acute) Frequent falls (Acute) Hypercalcemia (Acute) ARIELLE (acute kidney injury) (Acute) Altered mental status (Acute) Cough (Acute) covid with hypoxia - sats as low as 92% overnight, so meets criteria for dex and remdesivir. Will check d-dimer. Is on lovenox 40mg bid. Calcium workup started by primary team. Will follow, thank you
[2020-07-28] MEDS: dexAMETHasone 4 MG Tablet 6 MG PO (13:20)
--- NOTE | 2020-07-28 15:40 | PCM.PN.HOSP ---
Patient Problems: Active and Suspected Problems COVID-19 (Acute) Diarrhea (Acute) Encephalopathy acute (Acute) Frequent falls (Acute) Hypercalcemia (Acute) ARIELLE (acute kidney injury) (Acute) Altered mental status (Acute) Cough (Acute) Subjective: Pt sleeping on and off and not that interactive. Has mental health d/o at baseline and lives in a facility. Baseline is unclear. Vitals/I&O's: Vital Signs Temp Pulse Resp BP Pulse Ox 98.3 F 79 18 188/86 H 95 07/28/20 15:12 07/28/20 15:12 07/28/20 15:12 07/28/20 15:12 07/28/20 15:12 Oxygen Delivery Method Room Air Weight: 65.408 kg Body Mass Index (BMI) 28.1 Finger Stick Blood Glucose 133 Intake and Output for Last 24 Hours 07/26/20 07/27/20 07/28/20 23:59 23:59 23:59 Intake Total 3570.83 / 3595.83 3995.83 / 3995.83 Output Total 1400 / 1400 Balance 3570.83 / 3595.83 2595.83 / 2595.83 General: Alert, No apparent distress, Well developed, Well nourished, Confused, Disoriented HEENT: Atraumatic, Normocephalic Oral: Moist Mucosa, No Gingival or Mucosal Lesions/ Ulcerations Neck: Supple, No Nodes, No Nuchal Rigidity, Trachea Midline, Thyroid Normal Size and Texture Lungs: Clear to auscultation, No rhonchi, No wheeze, No rales, Diminished - diffusely Cardiovascular: Regular rate, Regular Rhythm, Normal S1, Normal S2, No murmurs, No Ectopic Activity, No rub noted, No Gallop Abdomen: Bowel Sounds Present, Soft, Non Tender, Non-Distended, No Hepato-splenomegaly, No hernias noted Extremities: No clubbing, No cyanosis, No edema, Capillary Refill Less than 3 Seconds, Peripheral Pulses Normal Skin: No rashes, No breakdown, - - very pale Musculoskeletal: No Tenderness to Palpation of Joints or Extremities, No Muscle Wasting, Arthritic Changes Lymphatic: No Cervical, Supraclavicular, or Inguinal Adenopathy Neurological: Cranial nerves II-XII grossly intact, - - ANDERSON symmetrically but exam difficult as pt was withdrawn Psych/Mental Status: Flat Affect Microbiology Past 72 Hours 07/27/20 14:12 Mucosa - Nasopharyngeal Respiratory Panel (PCR) - Final 07/27/20 14:12 Mucosa - Nasopharyngeal SARS-CoV-2 Antigen (Rapid) - Final SARS-CoV-2 (COVID 19) Laboratory Results 07/27/20 16:00: WBC Cancelled, Corrected WBC Cancelled, RBC Cancelled, Hgb Cancelled, Hct Cancelled, MCV Cancelled, MCH Cancelled, MCHC Cancelled, RDW Std Deviation Cancelled, RDW Coeff of Randall Cancelled, Plt Count Cancelled, MPV Cancelled, Immature Gran % (Auto) Cancelled, Neut % (Auto) Cancelled, Lymph % (Auto) Cancelled, [place] % (Auto) Cancelled, Eos % (Auto) Cancelled, Baso % (Auto) Cancelled, Absolute Neuts (auto) Cancelled, Absolute Lymphs (auto) Cancelled, Total Counted Cancelled, Neutrophils % (Manual) Cancelled, Band Neutrophils % Cancelled, Lymphocytes % (Manual) Cancelled, Monocytes % (Manual) Cancelled, Eosinophils % (Manual) Cancelled, Basophils % (Manual) Cancelled, Metamyelocytes % Cancelled, Myelocytes % Cancelled, Promyelocytes % Cancelled, Blast Cells % Cancelled, Plasma Cell % (Manual) Cancelled, Other Cells % Cancelled, Nucleated RBC % Cancelled, Nucleated RBCs/100 WBC Cancelled, Differential Comment Cancelled, Diff Path Review Cancelled, Hypersegmented Neuts Cancelled, Atypical Lymphocytes Cancelled, Reactive Lymphocytes Cancelled, Smudge Cells Cancelled, Toxic Granulation Cancelled, Toxic Vacuolation Cancelled, Dohle Bodies Cancelled, Ana M Rods Cancelled, Platelet Estimate Cancelled, Plt Morphology Comment Cancelled, RBC Morphology Cancelled, Polychromasia Cancelled, Hypochromasia Cancelled, Poikilocytosis Cancelled, Basophilic Stippling Cancelled, Anisocytosis Cancelled, Microcytosis Cancelled, Macrocytosis Cancelled, Spherocytes Cancelled, Sickle Cells Cancelled, Target Cells Cancelled, Tear Drop Cells Cancelled, Ovalocytes Cancelled, Stomatocytes Cancelled, [place] Bodies Cancelled, [place] Cells Cancelled, Bite Cells Cancelled, Crenated Cell Cancelled, Acanthocytes (Spur) Cancelled, Rouleaux Cancelled, Schistocytes Cancelled 07/27/20 16:00: Sodium 144, Potassium 3.4 L, Chloride 111 H, Carbon Dioxide 24.0, Anion Gap 9, BUN 12, Creatinine 1.20 H, Estim Creat Clear Calc 30.44, Est GFR (MDRD) Af Amer 57 L, Est GFR (MDRD) Non-Af 47 L, BUN/Creatinine Ratio 10.0, Glucose 115 H, Calcium 14.3 H*, Total Bilirubin 0.30, AST 36, ALT 30, Alkaline Phosphatase 41 L, Troponin I 0.026, Total Protein 6.5, Albumin 3.1 L, Globulin 3.4, Albumin/Globulin Ratio 0.9, Lipase 103 07/27/20 16:00: Ethyl Alcohol < 3.0 07/27/20 16:00: TSH 0.76 07/27/20 16:05: Urine Color Yellow, Urine Clarity Clear, Urine pH 6.0, Ur Specific [place] 1.015, Urine Protein Negative, Urine Glucose (UA) Normal, Urine Ketones Negative, Urine Occult Blood Negative, Urine Nitrite Negative, Urine Bilirubin Negative, Urine Urobilinogen Normal, Ur Leukocyte Esterase Negative, Urine RBC 0 SEEN, Urine WBC 0 SEEN, Ur Squamous Epith Cells 0 SEEN, Urine Bacteria 1+, Hyaline Casts 0-5 SEEN, Urine Mucus 0 SEEN 07/27/20 16:05: Urine Opiates Screen NEGATIVE, Urine Methadone Screen NEGATIVE, Ur Barbiturates Screen NEGATIVE, Ur Phencyclidine Scrn NEGATIVE, Ur Amphetamines Screen NEGATIVE, U Methamphetamin-MDMA NEGATIVE, U Benzodiazepines Scrn NEGATIVE, Urine Cocaine Screen NEGATIVE, U Cannabinoids Screen NEGATIVE, Ur Drug Screen Comment 07/27/20 17:00: PT 14.2, INR 1.1, APTT 26.2 07/27/20 17:00: Lactic Acid 1.1 07/27/20 17:00: WBC 8.3, RBC 4.17 L, Hgb 12.1, Hct 37.5, MCV 89.9, MCH 29.0, MCHC 32.3, RDW Std Deviation 42.0, RDW Coeff of Randall 12.7, Plt Count 410, MPV 9.6, Immature Gran % (Auto) 1.000 H, Neut % (Auto) 74.7 H, Lymph % (Auto) 15.7 L, [place] % (Auto) 8.0, Eos % (Auto) 0.2, Baso % (Auto) 0.4, Absolute Neuts (auto) 6.2, Absolute Lymphs (auto) 1.30, Nucleated RBC % 0 07/27/20 17:00: PTH Intact 4.7 L 07/27/20 17:10: Ionized Calcium Pending 07/28/20 05:50: Sodium 147 H, Potassium 3.5, Chloride 117 H, Carbon Dioxide 23.0, Anion Gap 7, BUN 10, Creatinine 1.26 H, Estim Creat Clear Calc 28.99, Est GFR (MDRD) Af Amer 54 L, Est GFR (MDRD) Non-Af 44 L, BUN/Creatinine Ratio 7.9 L, Glucose 97, Calcium 12.0 H, Total Bilirubin 0.20, AST 33, ALT 26, Alkaline Phosphatase 38 L, Total Protein 5.6 L, Albumin 2.6 L, Globulin 3.0, Albumin/Globulin Ratio 0.9 Current Medications Acetaminophen (Acetaminophen 325 Mg Tablet) 650 mg PO Q6H PRN PRN PRN Reason: Pain Score 1-10/Temp > 100.7 F Aspirin (Aspirin 81 Mg Tab.Chew) 81 mg PO DAILY [facility] Last Admin: 07/28/20 09:47 Dose: 81 mg Documented by: Buspirone HCl (Buspirone 15 Mg Tablet) 15 mg PO TIDCM [facility] Last Admin: 07/28/20 13:19 Dose: 15 mg Documented by: Dexamethasone (Dexamethasone 4 Mg Tablet) 6 mg PO DAILY [facility] Stop: 08/06/20 10:01 Last Admin: 07/28/20 13:20 Dose: 6 mg Documented by: Dicyclomine HCl (Dicyclomine 10 Mg Capsule) 20 mg PO TIDCM [facility] Last Admin: 07/28/20 13:19 Dose: 20 mg Documented by: Enoxaparin Sodium (Enoxaparin 40 Mg/0.4 Ml Syringe) 40 mg SC BID [facility] Last Admin: 07/28/20 09:45 Dose: 40 mg Documented by: Fluoxetine HCl (Fluoxetine 20 Mg Capsule) 40 mg PO DAILY [facility] Last Admin: 07/28/20 09:54 Dose: 40 mg Documented by: Furosemide (Furosemide 20 Mg/2 Ml Vial) 20 mg IV BID@1000,1800 [facility] Remdesivir 100 mg/ Sodium (Chloride) 250 mls @ 125 mls/hr IV DAILY [facility]; Protocol Stop: 08/01/20 11:59 Sodium Chloride () 1,000 mls @ 150 mls/hr IV .Q6H40M [facility] Lamotrigine (Lamotrigine 150 Mg Tablet) 150 mg PO DAILY [facility] Last Admin: 07/28/20 09:47 Dose: 150 mg Documented by: Levothyroxine Sodium (Levothyroxine 25 Mcg Tablet) 25 mcg PO DAILY [facility] Last Admin: 07/28/20 09:46 Dose: 25 mcg Documented by: Non-Formulary Medication (Oxycodone Myristate [Xtampza Er]) 9 mg PO BID [facility] Ondansetron HCl (Ondansetron 4 Mg/2 Ml Vial) 4 mg IV Q8H PRN PRN PRN Reason: NAUSEA/VOMITING Oxycodone HCl (Oxycodone Hcl Cr 10 Mg Tablet) 10 mg PO BID [facility] Last Admin: 07/28/20 09:47 Dose: 10 mg Documented by: Paliperidone (Paliperidone 6 Mg Tablet) 6 mg PO DAILY [facility] Pantoprazole Sodium (Pantoprazole Sodium 20 Mg Tablet) 20 mg PO DAILY [facility] Last Admin: 07/28/20 09:48 Dose: 20 mg Documented by: Polyethylene Glycol (Polyethylene Glycol 3350 17 Gm Packet) 17 gm PO DAILY [facility] Pravastatin Sodium (Pravastatin 80 Mg Tablet) 80 mg PO QHS [facility] Last Admin: 07/27/20 21:22 Dose: 80 mg Documented by: Pregabalin (Pregabalin 50 Mg Capsule) 50 mg PO TIDCM [facility] Last Admin: 07/28/20 13:20 Dose: 50 mg Documented by: Sodium Chloride (0.9% Saline Lock 10 Ml Syringe) 10 - 40 ml IV UD PRN PRN Reason: SALINE FLUSH Trazodone HCl (Trazodone 100 Mg Tablet) 300 mg PO QHS [facility] Last Admin: 07/27/20 21:21 Dose: 300 mg Documented by: STROKE Vital Signs/Narrative: Vital Signs Temp Pulse Resp BP Pulse Ox 07/28/20 15:12 98.3 F 79 18 188/86 H 95 Medical Necessity - Tobacco Use Smoking Status: Never smoker Tobacco Use: Non-smoker Assessment/Plan All Active Problems Compression fractures L4 lumbar vertebra (Acute) Fall (Acute) COVID-19 (Acute) Diarrhea (Acute) Encephalopathy acute (Acute) Frequent falls (Acute) Hypercalcemia (Acute) ARIELLE (acute kidney injury) (Acute) Altered mental status (Acute) Cough (Acute) Acute Respiratory Insufficiency 2/2 COVID PNA -pt with hypoxia to 92% on RA but not requiring supplemental O2 -ID has seen and started on dex and Remdesivir -continue Lovenox BID -ID following and discussed case with them Hypercalcemia -PTH was appropriately suppressed (4.7) -ICa pending -better some today but still > 12 -continue IVF but switch to 1/2 NS and add lasix today -Check Vit D 25 and 1, 25 for Vitamin D tox -pt was on vit D supplementation at home -check PTHrp as well -may need to add bisphosphonate tomorrow depending on levels -suspect this may be related to MS changes -may need skeletal survey or further w/u for malignancy Metabolic Encephalopathy -Baseline is unclear -above w/u in progress -monitor Hypernatremia/Hyperchloremia -switch IVF to 1/2 NS -iatrogenic HTN -start PRN Hydralazine Hypothyroidism -cont supplementation -TSH WNL GERD -PPI DM-2 -monitor BGT -add SSI if needed CKD stage 3 -appears that sCr is close to baseline -monitor Schizophrenia -continue home meds Chronic Pain -continue home meds -hold lyrica DVT prophylaxis 40 BID Lovenox Code Status -Full Inpatient E&M: 47014 Subs Hosp L3
[2020-07-28 16:31] LABS: Phosphorus 2.6 mg/dL (2.5-4.9)
[2020-07-28] MEDS: 0.45% Normal Saline 1,000 ML 150 ML IV ×2 (17:01→22:56)
[2020-07-28] MEDS: hydrALAZINE 20 MG/ML Vial 10 MG IV (17:03)
[2020-07-28] MEDS: Furosemide 20 MG/2 ML VIAL IV (17:12)
--- NOTE | 2020-07-28 18:14 | CASEMGMT ---
Social Work Note SW reviewed chart. Pt is from [facility]. Pt has CM Josselyn Nolan. SW placed a call to Josselyn and left message updating her on pt's admission to [facility]. Cecilia Castillo TYPING SECTION CHIEF, [employer]
[2020-07-28] MEDS: traZODone 100 MG Tablet 300 MG PO (20:22)
[2020-07-28] MEDS: Pravastatin 80 MG Tablet PO ×2 (20:22)
[2020-07-29] VITALS (10 sets, daily range): BP systolic 146–163; BP diastolic 63–100; PULSE 51–80; RESP 14–18; TEMP 36.6–37.1; O2SAT 94–97
[2020-07-29] MEDS: 0.45% Normal Saline 1,000 ML 150 ML IV ×3 (04:54→21:25)
[2020-07-29 06:36] LABS: Hematocrit 37.5 % (37-47); Hemoglobin 11.5 g/dL (12.0-15.0); Mean Corp Hgb Conc 30.7 g/dL (32-36); Mean Corpuscular Hgb 30.1 pg (27.0-32.0); Mean Corpuscular Volume 98.2 fL (81-99); Mean Platelet Vol. 9.5 fl (6.2-12.0); Platelet Count 402 K/mm3 (150-450); RBC Distribution Width CV 12.7 % (11.6-14.6); RBC Distribution Width SD 45.8 fl (35.1-43.9); Red Blood Count 3.82 M/mm3 (4.2-5.4); White Blood Count 7.8 K/mm3 (4.4-11.0)
[2020-07-29 06:52] LABS: D-Dimer Quantitative (DVT/PE) 1.03 FEU/ug/m (0.27-0.49)
[2020-07-29 07:12] LABS: ALB/GLOB Ratio 0.6 RATIO (0.9-2.4); AST(SGOT) 31 U/L (15-37); Alanine Aminotransfer ALT/SGPT 23 U/L (13-56); Albumin, Serum 2.3 g/dL (3.2-5.0); Alkaline Phosphatase 34 U/L (45-117); Anion Gap 8 (5-15); BUN 12 mg/dL (7-18); Calcium,Total 10.2 mg/dL (8.5-10.1); Chloride 110 mmol/L (98-107); EST Glomerular Filtration Rate 47 mL/min (>60); Est Glom Filt Rate - Afr Amer 57 mL/min (>60); Estimated Creatinine Clearance 30.44 ml/min; Globulin 3.6 g/dL (2.2-4.2); Glucose 107 mg/dL (74-106); Potassium 3.1 mmol/L (3.5-5.1); Protein, Total 5.9 g/dL (6.4-8.2); Sodium Level 138 mmol/L (136-145)
[2020-07-29 07:53] LABS: Vitamin D,25 Hydroxy 58.9 ng/mL
[2020-07-29] MEDS: Aspirin 81 MG TAB.CHEW PO (10:02)
[2020-07-29] MEDS: lamoTRIgine 150 MG Tablet PO (10:02)
[2020-07-29] MEDS: Pantoprazole Sodium 20 MG Tablet PO (10:02)
[2020-07-29] MEDS: dexAMETHasone 4 MG Tablet 6 MG PO (10:02)
[2020-07-29] MEDS: FLUoxetine 20 MG Capsule 40 MG PO (10:02)
[2020-07-29] MEDS: Levothyroxine 25 MCG TABLET PO (10:02)
[2020-07-29] MEDS: Dicyclomine 10 MG Capsule 20 MG PO ×3 (10:02→17:28)
[2020-07-29] MEDS: oxyCODONE HCl Cr 10 MG Tablet PO ×2 (10:03→22:38)
[2020-07-29] MEDS: Enoxaparin 40 MG/0.4 ML Syringe SC ×2 (10:03→22:38)
[2020-07-29] MEDS: Furosemide 20 MG/2 ML VIAL IV ×2 (10:03→17:29)
[2020-07-29] MEDS: busPIRone 15 MG TABLET PO ×3 (10:03→17:29)
--- NOTE | 2020-07-29 10:23 | NURSING ---
female named Jayde phoned in, states she is senior care specialist for [facility] and requesting update on status- update provided.
--- NOTE | 2020-07-29 11:22 | CASEMGMT ---
Social Work Pt is currently a resident at [facility]. SW reviewed nursing notes and therapy notes which indicate pt is confused at this time and pt stood at [facility] and was unable to ambulate with therapy yesterday. SW placed call to pt HCPOA/dgt Mary Jo Moralez. Mary Jo stating [facility] and then returned to [facility]. Pt was able to walk with rollator and go to dining room and downstairs to get meds. Per Mary Jo, pt was alert and oriented x3 but forgetful. Discussed discharge plan and possible need for SNF at time of discharge. List of SNFs that are in network with insurance and accepting Covid patients provided to Mary Jo. [facility], [facility], [facility], [facility], [facility], [place], [facility] and [facility]. Mary Jo would prefer [facility] or [facility] but if they are unable to accept Mary Jo has no preference on facility. VM left with [facility]. [facility] is not accepting new pt until Monday and [facility] is not accepting new pt until Monday. SW will speak with physician to discuss when pt will potientially be ready for d/c and assist in making arrangements for d/c to SNF. EMILIO Muñiz
--- NOTE | 2020-07-29 14:48 | CASEMGMT ---
Social Work SW spoke with Dr. Mcgarry. Pt is not ready for discharge at this time and pt is showing some improvement. Pt to receive PT/OT again today and will see if pt improves and can return to [place] or if pt will need SNF. Return call from [facility] and they are not accepting Covid pt at this time. SW will follow for d/c planning. Plan: Return to [place] vs SNF EMILIO Muñiz
--- NOTE | 2020-07-29 16:12 | PCM.PN.HOSP ---
Patient Problems: Active and Suspected Problems COVID-19 (Acute) Diarrhea (Acute) Encephalopathy acute (Acute) Frequent falls (Acute) Hypercalcemia (Acute) ARIELLE (acute kidney injury) (Acute) Altered mental status (Acute) Cough (Acute) Subjective: Pt states she is tired. Much more awake and interactive today. Vitals/I&O's: Vital Signs Temp Pulse Resp BP Pulse Ox 98.6 F 65 16 146/100 H 95 07/29/20 09:57 07/29/20 16:00 07/29/20 09:57 07/29/20 09:57 07/29/20 09:57 Oxygen Delivery Method Room Air Weight: 65.408 kg Body Mass Index (BMI) 28.1 Finger Stick Blood Glucose 133 Intake and Output for Last 24 Hours 07/27/20 07/28/20 07/29/20 23:59 23:59 23:59 Intake Total 3570.83 / 3595.83 5287.50 / 5287.50 2082.5 / 2082.5 Output Total 3750 / 3750 1000 / 1000 Balance 3570.83 / 3595.83 1537.50 / 1537.50 1082.5 / 1082.5 General: Alert, Cooperative, No apparent distress, Well developed, Well nourished, - - oriented to self and place HEENT: Atraumatic, Normocephalic Oral: Moist Mucosa, No Gingival or Mucosal Lesions/ Ulcerations, - - tardive dyskinesia noted Lungs: Clear to auscultation, Normal air movement, No rhonchi, No wheeze, No rales Cardiovascular: Regular rate, Regular Rhythm, Normal S1, Normal S2, No murmurs, No rub noted, No Gallop Abdomen: Bowel Sounds Present, Soft, Non Tender, Non-Distended, No Hepato-splenomegaly Extremities: No clubbing, No cyanosis, No edema, Capillary Refill Less than 3 Seconds, Peripheral Pulses Normal Skin: No rashes, No breakdown Musculoskeletal: No Tenderness to Palpation of Joints or Extremities, Arthritic Changes Neurological: Cranial nerves II-XII grossly intact, Neuro grossly intact Psych/Mental Status: Flat Affect, - - much more interactive today Microbiology Past 72 Hours 07/27/20 14:12 Mucosa - Nasopharyngeal Respiratory Panel (PCR) - Final 07/27/20 14:12 Mucosa - Nasopharyngeal SARS-CoV-2 Antigen (Rapid) - Final SARS-CoV-2 (COVID 19) Laboratory Results 07/28/20 05:50: Phosphorus 2.6 07/29/20 06:02: WBC 7.8, RBC 3.82 L, Hgb 11.5 L, Hct 37.5, MCV 98.2 D, MCH 30.1, MCHC 30.7 L, RDW Std Deviation 45.8 H, RDW Coeff of Randall 12.7, Plt Count 402, MPV 9.5 07/29/20 06:02: Sodium 138, Potassium 3.1 L, Chloride 110 H, Carbon Dioxide 20.0 L, Anion Gap 8, BUN 12, Creatinine 1.20 H, Estim Creat Clear Calc 30.44, Est GFR (MDRD) Af Amer 57 L, Est GFR (MDRD) Non-Af 47 L, BUN/Creatinine Ratio 10.0, Glucose 107 H, Calcium 10.2 H, Total Bilirubin 0.30, AST 31, ALT 23, Alkaline Phosphatase 34 L, Total Protein 5.9 L, Albumin 2.3 L, Globulin 3.6, Albumin/Globulin Ratio 0.6 L 07/29/20 06:02: D-Dimer Quant (PE/DVT) 1.03 H* 07/29/20 06:02: Vitamin D 25-Hydroxy 58.9 07/29/20 07:05: Miscellaneous Test Pending 07/29/20 07:05: Ionized Calcium Pending 07/29/20 07:05: Vit D 1,25-Dihydroxy Pending Current Medications Acetaminophen (Acetaminophen 325 Mg Tablet) 650 mg PO Q6H PRN PRN PRN Reason: Pain Score 1-10/Temp > 100.7 F Aspirin (Aspirin 81 Mg Tab.Chew) 81 mg PO DAILY [facility] Last Admin: 07/29/20 10:02 Dose: 81 mg Documented by: Buspirone HCl (Buspirone 15 Mg Tablet) 15 mg PO TIDCM [facility] Last Admin: 07/29/20 13:48 Dose: 15 mg Documented by: Dexamethasone (Dexamethasone 4 Mg Tablet) 6 mg PO DAILY [facility] Stop: 08/06/20 10:01 Last Admin: 07/29/20 10:02 Dose: 6 mg Documented by: Dicyclomine HCl (Dicyclomine 10 Mg Capsule) 20 mg PO TIDCM [facility] Last Admin: 07/29/20 13:48 Dose: 20 mg Documented by: Enoxaparin Sodium (Enoxaparin 40 Mg/0.4 Ml Syringe) 40 mg SC BID [facility] Last Admin: 07/29/20 10:03 Dose: 40 mg Documented by: Fluoxetine HCl (Fluoxetine 20 Mg Capsule) 40 mg PO DAILY [facility] Last Admin: 07/29/20 10:02 Dose: 40 mg Documented by: Furosemide (Furosemide 20 Mg/2 Ml Vial) 20 mg IV BID@1000,1800 [facility] Last Admin: 07/29/20 10:03 Dose: 20 mg Documented by: Hydralazine HCl (Hydralazine 20 Mg/Ml Vial) 10 mg IV Q6H PRN PRN PRN Reason: SBP > 160 Last Admin: 07/28/20 17:03 Dose: 10 mg Documented by: Remdesivir 100 mg/ Sodium (Chloride) 250 mls @ 125 mls/hr IV DAILY [facility]; Protocol Stop: 08/01/20 11:59 Last Infusion: 07/29/20 12:58 Dose: Infused Documented by: Sodium Chloride () 1,000 mls @ 150 mls/hr IV .Q6H40M [facility] Last Admin: 07/29/20 13:48 Dose: 150 mls/hr Documented by: Lamotrigine (Lamotrigine 150 Mg Tablet) 150 mg PO DAILY [facility] Last Admin: 07/29/20 10:02 Dose: 150 mg Documented by: Levothyroxine Sodium (Levothyroxine 25 Mcg Tablet) 25 mcg PO DAILY [facility] Last Admin: 07/29/20 10:02 Dose: 25 mcg Documented by: Ondansetron HCl (Ondansetron 4 Mg/2 Ml Vial) 4 mg IV Q8H PRN PRN PRN Reason: NAUSEA/VOMITING Oxycodone HCl (Oxycodone Hcl Cr 10 Mg Tablet) 10 mg PO BID [facility] Last Admin: 07/29/20 10:03 Dose: 10 mg Documented by: Paliperidone (Paliperidone 6 Mg Tablet) 6 mg PO DAILY [facility] Pantoprazole Sodium (Pantoprazole Sodium 20 Mg Tablet) 20 mg PO DAILY [facility] Last Admin: 07/29/20 10:02 Dose: 20 mg Documented by: Polyethylene Glycol (Polyethylene Glycol 3350 17 Gm Packet) 17 gm PO DAILY [facility] Last Admin: 07/29/20 10:03 Dose: Not Given Documented by: Pravastatin Sodium (Pravastatin 80 Mg Tablet) 80 mg PO QHS [facility] Last Admin: 07/28/20 20:22 Dose: 80 mg Documented by: Sodium Chloride (0.9% Saline Lock 10 Ml Syringe) 10 - 40 ml IV UD PRN PRN Reason: SALINE FLUSH Trazodone HCl (Trazodone 100 Mg Tablet) 300 mg PO QHS [facility] Last Admin: 07/28/20 20:22 Dose: 300 mg Documented by: STROKE Vital Signs/Narrative: Vital Signs Pulse 07/29/20 16:00 65 Medical Necessity - Tobacco Use Smoking Status: Never smoker Tobacco Use: Non-smoker Assessment/Plan All Active Problems Compression fractures L4 lumbar vertebra (Acute) Fall (Acute) COVID-19 (Acute) Diarrhea (Acute) Encephalopathy acute (Acute) Frequent falls (Acute) Hypercalcemia (Acute) ARIELLE (acute kidney injury) (Acute) Altered mental status (Acute) Cough (Acute) Acute Respiratory Insufficiency 2/ COVID PNA -pt with hypoxia to 92% on RA but not requiring supplemental O2 on admission but now at 95% on RA at rest -dex day 10/07 and Remdesivir day 10/02--> may be d/c prior to the completion of Remdesivir if medically stable -continue Lovenox BID -ID following Hypercalcemia -PTH was appropriately suppressed (4.7) -ICa still pending -down to 10 today -continue IVF 1/2 NS and lasix today -Vit D 25 is WNL and 1,25 is still pending for Vitamin D tox -pt was on vit D supplementation at home -PTHrp is pending -suspect this may be related to MS changes -may need skeletal survey or further w/u for malignancy Metabolic Encephalopathy -Baseline is forgetful but converses with her daughter -seems better today -above w/u in progress -monitor Hypernatremia/Hyperchloremia -resolved Hypokalemia -replaced this am -repeat in am with Mag level HTN -start po scheduled low dose hydralazine -continue PRN Hydralazine Hypothyroidism -cont supplementation -TSH WNL GERD -PPI DM-2 -monitor BGT -add SSI if needed CKD stage 3 -appears that sCr is close to baseline -monitor Schizophrenia -continue home meds -tardive dyskinesia noted today Chronic Pain -continue home meds -hold lyrica DVT prophylaxis 40 BID Lovenox Code Status -Full Inpatient E&M: 89393 Subs Hosp L2
--- NOTE | 2020-07-29 16:32 | PN.ID_ITS ---
Patient Problems: Active and Suspected Problems COVID-19 (Acute) Diarrhea (Acute) Encephalopathy acute (Acute) Frequent falls (Acute) Hypercalcemia (Acute) ARIELLE (acute kidney injury) (Acute) Altered mental status (Acute) Cough (Acute) Subjective: Feeling better, no fever, no n/v/d. - Physical Exam Vitals/I&O's: Vital Signs Temp Pulse Resp BP Pulse Ox 98.8 F 74 16 156/79 H 97 07/29/20 16:18 07/29/20 16:18 07/29/20 16:18 07/29/20 16:18 07/29/20 16:18 Oxygen Delivery Method Room Air Weight: 65.408 kg Body Mass Index (BMI) 28.1 Finger Stick Blood Glucose 133 Intake and Output for Last 24 Hours 07/27/20 07/28/20 07/29/20 23:59 23:59 23:59 Intake Total 3570.83 / 3595.83 5287.50 / 5287.50 2082.5 / 2082.5 Output Total 3750 / 3750 1000 / 1000 Balance 3570.83 / 3595.83 1537.50 / 1537.50 1082.5 / 1082.5 General: Alert, Cooperative, No apparent distress Lungs: Clear to auscultation, Diminished Cardiovascular: Regular rate, Regular Rhythm Abdomen: Soft, Non Tender, Non-Distended Skin: No rashes Microbiology Past 72 Hours 07/27/20 14:12 Mucosa - Nasopharyngeal Respiratory Panel (PCR) - Final 07/27/20 14:12 Mucosa - Nasopharyngeal SARS-CoV-2 Antigen (Rapid) - Final SARS-CoV-2 (COVID 19) Laboratory Results 07/29/20 06:02: WBC 7.8, RBC 3.82 L, Hgb 11.5 L, Hct 37.5, MCV 98.2 D, MCH 30.1, MCHC 30.7 L, RDW Std Deviation 45.8 H, RDW Coeff of Randall 12.7, Plt Count 402, MPV 9.5 07/29/20 06:02: Sodium 138, Potassium 3.1 L, Chloride 110 H, Carbon Dioxide 20.0 L, Anion Gap 8, BUN 12, Creatinine 1.20 H, Estim Creat Clear Calc 30.44, Est GFR (MDRD) Af Amer 57 L, Est GFR (MDRD) Non-Af 47 L, BUN/Creatinine Ratio 10.0, Glucose 107 H, Calcium 10.2 H, Total Bilirubin 0.30, AST 31, ALT 23, Alkaline Phosphatase 34 L, Total Protein 5.9 L, Albumin 2.3 L, Globulin 3.6, Albumin/Globulin Ratio 0.6 L 07/29/20 06:02: D-Dimer Quant (PE/DVT) 1.03 H* 07/29/20 06:02: Vitamin D 25-Hydroxy 58.9 07/29/20 07:05: Miscellaneous Test Pending 07/29/20 07:05: Ionized Calcium Pending 07/29/20 07:05: Vit D 1,25-Dihydroxy Pending Current Medications Acetaminophen (Acetaminophen 325 Mg Tablet) 650 mg PO Q6H PRN PRN PRN Reason: Pain Score 1-10/Temp > 100.7 F Aspirin (Aspirin 81 Mg Tab.Chew) 81 mg PO DAILY [facility] Last Admin: 07/29/20 10:02 Dose: 81 mg Documented by: Buspirone HCl (Buspirone 15 Mg Tablet) 15 mg PO TIDCM [facility] Last Admin: 07/29/20 13:48 Dose: 15 mg Documented by: Dexamethasone (Dexamethasone 4 Mg Tablet) 6 mg PO DAILY [facility] Stop: 08/06/20 10:01 Last Admin: 07/29/20 10:02 Dose: 6 mg Documented by: Dicyclomine HCl (Dicyclomine 10 Mg Capsule) 20 mg PO TIDCM [facility] Last Admin: 07/29/20 13:48 Dose: 20 mg Documented by: Enoxaparin Sodium (Enoxaparin 40 Mg/0.4 Ml Syringe) 40 mg SC BID [facility] Last Admin: 07/29/20 10:03 Dose: 40 mg Documented by: Fluoxetine HCl (Fluoxetine 20 Mg Capsule) 40 mg PO DAILY [facility] Last Admin: 07/29/20 10:02 Dose: 40 mg Documented by: Furosemide (Furosemide 20 Mg/2 Ml Vial) 20 mg IV BID@1000,1800 [facility] Last Admin: 07/29/20 10:03 Dose: 20 mg Documented by: Hydralazine HCl (Hydralazine 20 Mg/Ml Vial) 10 mg IV Q6H PRN PRN PRN Reason: SBP > 160 Last Admin: 07/28/20 17:03 Dose: 10 mg Documented by: Hydralazine HCl (Hydralazine 25 Mg Tablet) 25 mg PO TIDCM [facility] Remdesivir 100 mg/ Sodium (Chloride) 250 mls @ 125 mls/hr IV DAILY [facility]; Protocol Stop: 08/01/20 11:59 Last Infusion: 07/29/20 12:58 Dose: Infused Documented by: Sodium Chloride () 1,000 mls @ 150 mls/hr IV .Q6H40M [facility] Last Admin: 07/29/20 13:48 Dose: 150 mls/hr Documented by: Lamotrigine (Lamotrigine 150 Mg Tablet) 150 mg PO DAILY [facility] Last Admin: 07/29/20 10:02 Dose: 150 mg Documented by: Levothyroxine Sodium (Levothyroxine 25 Mcg Tablet) 25 mcg PO DAILY [facility] Last Admin: 07/29/20 10:02 Dose: 25 mcg Documented by: Ondansetron HCl (Ondansetron 4 Mg/2 Ml Vial) 4 mg IV Q8H PRN PRN PRN Reason: NAUSEA/VOMITING Oxycodone HCl (Oxycodone Hcl Cr 10 Mg Tablet) 10 mg PO BID [facility] Last Admin: 07/29/20 10:03 Dose: 10 mg Documented by: Pantoprazole Sodium (Pantoprazole Sodium 20 Mg Tablet) 20 mg PO DAILY [facility] Last Admin: 07/29/20 10:02 Dose: 20 mg Documented by: Polyethylene Glycol (Polyethylene Glycol 3350 17 Gm Packet) 17 gm PO DAILY [facility] Last Admin: 07/29/20 10:03 Dose: Not Given Documented by: Pravastatin Sodium (Pravastatin 80 Mg Tablet) 80 mg PO QHS [facility] Last Admin: 07/28/20 20:22 Dose: 80 mg Documented by: Sodium Chloride (0.9% Saline Lock 10 Ml Syringe) 10 - 40 ml IV UD PRN PRN Reason: SALINE FLUSH Trazodone HCl (Trazodone 100 Mg Tablet) 300 mg PO QHS [facility] Last Admin: 07/28/20 20:22 Dose: 300 mg Documented by: Medical Necessity - Tobacco Use Smoking Status: Never smoker Tobacco Use: Non-smoker Route of nutrition/ use of supplements: [] Nutritional Intake: [] IV Site: [] Beal Catheter: [] - Assessment/Plan Antibiotics: [] Assessment/Plan: [] Active and Suspected Problems COVID-19 (Acute) Diarrhea (Acute) Encephalopathy acute (Acute) Frequent falls (Acute) Hypercalcemia (Acute) ARIELLE (acute kidney injury) (Acute) Altered mental status (Acute) Cough (Acute) covid with hypoxia - sats as low as 92% on admit, on dex and remdesivir. D- dimer of 1. Is on lovenox 40mg bid. Feeling better. Plan for discharge will be complete 10 days total of dex, 2 weeks of eliquis 2.5mg bid given abnormal d- dimer. Will follow
[2020-07-29] MEDS: RisperiDONE 0.5 MG Tablet PO (17:29)
[2020-07-29] MEDS: hydrALAZINE 25 MG Tablet PO (17:29)
[2020-07-29] MEDS: Acetaminophen 325 MG Tablet 650 MG PO (18:29)
[2020-07-29] MEDS: 0.9% Saline Lock 10 ML Syringe IV (22:36)
[2020-07-29] MEDS: traZODone 100 MG Tablet 300 MG PO (22:37)
[2020-07-30] VITALS (14 sets, daily range): BP systolic 140–158; BP diastolic 74–90; PULSE 49–80; RESP 16–18; TEMP 36.8–37.4; O2SAT 95–98
[2020-07-30] MEDS: 0.45% Normal Saline 1,000 ML 150 ML IV ×2 (04:25→11:38)
[2020-07-30 08:11] LABS: Hematocrit 34.1 % (37-47); Hemoglobin 11.7 g/dL (12.0-15.0); Mean Corp Hgb Conc 34.3 g/dL (32-36); Mean Corpuscular Hgb 29.5 pg (27.0-32.0); Mean Corpuscular Volume 85.9 fL (81-99); Mean Platelet Vol. 9.6 fl (6.2-12.0); Platelet Count 475 K/mm3 (150-450); RBC Distribution Width CV 12.3 % (11.6-14.6); Red Blood Count 3.97 M/mm3 (4.2-5.4); White Blood Count 8.5 K/mm3 (4.4-11.0)
[2020-07-30 08:38] LABS: ALB/GLOB Ratio 0.7 RATIO (0.9-2.4); AST(SGOT) 19 U/L (15-37); Alanine Aminotransfer ALT/SGPT 22 U/L (13-56); Albumin, Serum 2.6 g/dL (3.2-5.0); Alkaline Phosphatase 36 U/L (45-117); Anion Gap 6 (5-15); BUN 13 mg/dL (7-18); BUN/Creat Ratio 11.6 RATIO (10-20); Calcium,Total 9.6 mg/dL (8.5-10.1); Chloride 105 mmol/L (98-107); Creatinine, Serum 1.12 mg/dL (0.55-1.02); EST Glomerular Filtration Rate 51 mL/min (>60); Est Glom Filt Rate - Afr Amer 62 mL/min (>60); Estimated Creatinine Clearance 32.61 ml/min; Globulin 3.6 g/dL (2.2-4.2); Glucose 92 mg/dL (74-106); Potassium 2.3 mmol/L (3.5-5.1); Protein, Total 6.2 g/dL (6.4-8.2); Sodium Level 138 mmol/L (136-145)
[2020-07-30] MEDS: Furosemide 20 MG/2 ML VIAL IV (08:51)
[2020-07-30] MEDS: Levothyroxine 25 MCG TABLET PO (08:51)
[2020-07-30] MEDS: FLUoxetine 20 MG Capsule 40 MG PO (08:51)
[2020-07-30] MEDS: Aspirin 81 MG TAB.CHEW PO (08:51)
[2020-07-30] MEDS: Dicyclomine 10 MG Capsule 20 MG PO ×3 (08:52→16:19)
[2020-07-30] MEDS: dexAMETHasone 4 MG Tablet 6 MG PO (08:52)
[2020-07-30] MEDS: lamoTRIgine 150 MG Tablet PO (08:52)
[2020-07-30] MEDS: Pantoprazole Sodium 20 MG Tablet PO (08:52)
[2020-07-30] MEDS: busPIRone 15 MG TABLET PO ×3 (08:53→16:19)
[2020-07-30] MEDS: Polyethylene Glycol 3350 17 GM PACKET PO (08:53)
[2020-07-30] MEDS: Enoxaparin 40 MG/0.4 ML Syringe SC ×2 (08:53→20:32)
[2020-07-30] MEDS: 0.9% Saline Lock 10 ML Syringe IV (08:54)
[2020-07-30] MEDS: hydrALAZINE 25 MG Tablet PO ×2 (08:56→11:35)
[2020-07-30] MEDS: RisperiDONE 0.5 MG Tablet PO ×2 (08:58→16:20)
[2020-07-30] MEDS: oxyCODONE HCl Cr 10 MG Tablet PO ×2 (09:13→20:35)
--- NOTE | 2020-07-30 10:11 | CASEMGMT ---
Social Work SW reviewed therapy notes, pt able to ambulate 3 feet with mod A x2 and pivot transfer mod Ax2. Pt would benefit from SNF prior to return to [place]. Referral faxed to [facility] and will await determination if they can assist. EMILIO Muñiz
--- NOTE | 2020-07-30 15:31 | CT_ITS ---
STUDY: CT CHEST WITHOUT CONTRAST REASON FOR EXAM: Female, 70 years old. COVID, HYPERCALCEMIA, COUGH, NAUSEA/VOMITING, DIARRHEA RADIATION DOSAGE (If Supplied By Facility): CTDIvol = ( 6.47 ) mGy, DLP = ( 1218.20 ) mGycm TECHNIQUE: Transaxial imaging was performed without the administration of intravenous contrast material. Multiplanar coronal and sagittal images were reformatted. Individualized dose optimization techniques were used for this CT. COMPARISON: Prior chest radiograph of 07/27/2020. Prior chest CTA of 05/23/2015 FINDINGS: Platelike subpleural atelectatic changes of the right lower lobe. Mild subpleural atelectatic changes of the posterior left lower lobe and base of the lingula. 1 small pleural-based groundglass type infiltrate in the posterior right upper lobe abutting the oblique fissure Negative for pleural effusion. Normal heart and pericardium. Mild coronary calcifications. Normal mediastinum. Normal hilar regions. Normal unenhanced pulmonary arteries. Mild plaque and minimal elongation of the thoracic aorta. There are multi-level degenerative changes of the thoracic spine. No acute findings of the uppermost abdomen. CT/Chest without Contrast IMPRESSION: Bilateral platelike atelectatic changes more extensively in the posterior right lung. 1. Minimal groundglass pleural-based infiltrate in the posterior right upper lobe abutting the oblique fissure. Negative for pleural effusion. Imaging features are not highly suggestive of acute Covid 19 pneumonia. Normal heart size. Mild coronary calcifications. Mild atherosclerotic changes of the aorta. No acute bone findings. No acute findings in the uppermost abdomen. Electronically Signed: Loan Shaw MD at 22:21 EST , Service support ,
--- NOTE | 2020-07-30 15:31 | CT_ITS ---
STUDY: CT ABDOMEN AND PELVIS WITHOUT CONTRAST REASON FOR EXAM: Female, 70 years old. COVID, HYPERCALCEMIA, COUGH, NAUSEA/VOMITING, DIARRHEA -- SURG-GB,APPY,JAMES RADIATION DOSAGE (If Supplied By Facility): CTDIvol = ( 6.47 ) mGy, DLP = ( 1218.20 ) mGycm TECHNIQUE: Transaxial images were obtained from the dome of the diaphragm to the symphysis pubis without oral contrast, and without intravenous contrast. Sagittal and coronal images were reconstructed. Individualized dose optimization techniques were used for this CT. COMPARISON: Prior abdomen and pelvic CT exam of 01/20/2016 FINDINGS: Bilateral posterior band platelike areas of atelectasis. The visualized portions of the heart are within normal limits. Normal liver. Status post cholecystectomy with moderate dilatation of the central intrahepatic biliary ducts and common bile duct without a visualized filling defect. Normal spleen. 2 punctate calcifications of the uncinate process of the pancreas with an otherwise normal pancreas. Normal bilateral adrenal glands. Normal right kidney. Normal left kidney. Normal visualized stomach. Normal small intestine. Nondistended colon with minimal diverticulosis without evidence of acute diverticulitis. There is non-visualization of the appendix. There is diffuse atherosclerotic calcification of the abdominal aorta, without a demonstrated aneurysm. Normal inferior vena cava. Normal retroperitoneum. Normal urinary bladder. Status post hysterectomy with no pelvic mass or free fluid of the pelvis. Normal abdominal wall. Old moderate compression deformity of L1 status post vertebroplasty. Mild superior endplate compression deformity of L4 which appears old or subacute. Mild degenerative changes. CT/Abdomen/Pelvis without Cont IMPRESSION: No acute bowel related findings. Negative for obstruction, perforation or inflammatory bowel changes. Mild diverticulosis without evidence of acute diverticulitis. Increased submucosal fat in the proximal colon. The appendix is not identified. Status post hysterectomy with no pelvic mass or free fluid of the pelvis. Normal kidneys bilaterally without hydronephrosis, renal or ureteral stones. Unremarkable urinary bladder. Unremarkable liver spleen and pancreas except for 2 punctate calcifications in the pancreatic head. Status post cholecystectomy with moderate compensatory dilatation of the central intrahepatic bile ducts and common bile duct without a visualized filling defect. Degree of ductal dilatation has not changed since prior exam of 2015. Electronically Signed: Loan Shaw MD at 21:50 EST , Service support ,
--- NOTE | 2020-07-30 15:35 | PCM.PN.HOSP ---
Patient Problems: Active and Suspected Problems COVID-19 (Acute) Diarrhea (Acute) Encephalopathy acute (Acute) Frequent falls (Acute) Hypercalcemia (Acute) ARIELLE (acute kidney injury) (Acute) Altered mental status (Acute) Cough (Acute) Subjective: No issues overnight. Pt is very weak but did a bit better with therapy today. Vitals/I&O's: Vital Signs Temp Pulse Resp BP Pulse Ox 99.1 F 80 18 158/90 H 98 07/30/20 09:05 07/30/20 11:35 07/30/20 09:05 07/30/20 09:05 07/30/20 09:05 Oxygen Delivery Method Room Air Weight: 65.408 kg Body Mass Index (BMI) 28.1 Finger Stick Blood Glucose 133 Intake and Output for Last 24 Hours 07/28/20 07/29/20 07/30/20 23:59 23:59 23:59 Intake Total 5287.50 / 5287.50 3882.5 / 3882.5 2257.5 / 2257.5 Output Total 3750 / 3750 3300 / 3300 2049 / 2049 Balance 1537.50 / 1537.50 582.5 / 582.5 207.5 / 207.5 General: Alert, Cooperative, No apparent distress, Well developed, Well nourished HEENT: Atraumatic, Normocephalic Oral: Moist Mucosa, No Gingival or Mucosal Lesions/ Ulcerations, - - tardive dyskinesia Neck: Supple, Trachea Midline, Thyroid Normal Size and Texture Lungs: Clear to auscultation, No rhonchi, No wheeze, No rales, Diminished Cardiovascular: Regular rate, Regular Rhythm, Normal S1, Normal S2, No Ectopic Activity, No rub noted, No Gallop Abdomen: Bowel Sounds Present, Soft, Non Tender, Non-Distended Extremities: No clubbing, No cyanosis, No edema, Capillary Refill Less than 3 Seconds, Peripheral Pulses Normal Skin: No rashes, No breakdown Musculoskeletal: No Tenderness to Palpation of Joints or Extremities, No Muscle Wasting, Arthritic Changes Lymphatic: No Cervical, Supraclavicular, or Inguinal Adenopathy Neurological: Cranial nerves II-XII grossly intact, Neuro grossly intact Psych/Mental Status: Flat Affect, - - mild confusion Microbiology Past 72 Hours 07/27/20 17:00 Blood Culture (Wb) - Arm Right Blood Culture - Preliminary No growth in 48 hours. 07/27/20 14:12 Mucosa - Nasopharyngeal Respiratory Panel (PCR) - Final 07/27/20 14:12 Mucosa - Nasopharyngeal SARS-CoV-2 Antigen (Rapid) - Final SARS-CoV-2 (COVID 19) Laboratory Results 07/27/20 17:10: Ionized Calcium 9.5 H 07/30/20 07:45: WBC 8.5, RBC 3.97 L, Hgb 11.7 L, Hct 34.1 L, MCV 85.9 D, MCH 29.5, MCHC 34.3 D, RDW Std Deviation 39.0, RDW Coeff of Randall 12.3, Plt Count 475 H, MPV 9.6 07/30/20 07:45: Sodium 138, Potassium 2.3 L*, Chloride 105, Carbon Dioxide 27.0, Anion Gap 6, BUN 13, Creatinine 1.12 H, Estim Creat Clear Calc 32.61, Est GFR (MDRD) Af Amer 62, Est GFR (MDRD) Non-Af 51 L, BUN/Creatinine Ratio 11.6, Glucose 92, Calcium 9.6, Total Bilirubin 0.30, AST 19, ALT 22, Alkaline Phosphatase 36 L, Total Protein 6.2 L, Albumin 2.6 L, Globulin 3.6, Albumin/Globulin Ratio 0.7 L Current Medications Acetaminophen (Acetaminophen 325 Mg Tablet) 650 mg PO Q6H PRN PRN PRN Reason: Pain Score 1-10/Temp > 100.7 F Last Admin: 07/29/20 18:29 Dose: 650 mg Documented by: Aspirin (Aspirin 81 Mg Tab.Chew) 81 mg PO DAILY [facility] Last Admin: 07/30/20 08:51 Dose: 81 mg Documented by: Buspirone HCl (Buspirone 15 Mg Tablet) 15 mg PO TIDCM [facility] Last Admin: 07/30/20 11:35 Dose: 15 mg Documented by: Dexamethasone (Dexamethasone 4 Mg Tablet) 6 mg PO DAILY [facility] Stop: 08/06/20 10:01 Last Admin: 07/30/20 08:52 Dose: 6 mg Documented by: Dicyclomine HCl (Dicyclomine 10 Mg Capsule) 20 mg PO TIDCM [facility] Last Admin: 07/30/20 11:35 Dose: 20 mg Documented by: Enoxaparin Sodium (Enoxaparin 40 Mg/0.4 Ml Syringe) 40 mg SC BID [facility] Last Admin: 07/30/20 08:53 Dose: 40 mg Documented by: Fluoxetine HCl (Fluoxetine 20 Mg Capsule) 40 mg PO DAILY [facility] Last Admin: 07/30/20 08:51 Dose: 40 mg Documented by: Hydralazine HCl (Hydralazine 20 Mg/Ml Vial) 10 mg IV Q6H PRN PRN PRN Reason: SBP > 160 Last Admin: 07/28/20 17:03 Dose: 10 mg Documented by: Hydralazine HCl (Hydralazine 25 Mg Tablet) 25 mg PO TIDCM [facility] Last Admin: 07/30/20 11:35 Dose: 25 mg Documented by: Remdesivir 100 mg/ Sodium (Chloride) 250 mls @ 125 mls/hr IV DAILY [facility]; Protocol Stop: 08/01/20 11:59 Last Infusion: 07/30/20 13:34 Dose: Infused Documented by: Lamotrigine (Lamotrigine 150 Mg Tablet) 150 mg PO DAILY [facility] Last Admin: 07/30/20 08:52 Dose: 150 mg Documented by: Levothyroxine Sodium (Levothyroxine 25 Mcg Tablet) 25 mcg PO DAILY [facility] Last Admin: 07/30/20 08:51 Dose: 25 mcg Documented by: Ondansetron HCl (Ondansetron 4 Mg/2 Ml Vial) 4 mg IV Q8H PRN PRN PRN Reason: NAUSEA/VOMITING Oxycodone HCl (Oxycodone Hcl Cr 10 Mg Tablet) 10 mg PO BID [facility] Last Admin: 07/30/20 09:13 Dose: 10 mg Documented by: Pantoprazole Sodium (Pantoprazole Sodium 20 Mg Tablet) 20 mg PO DAILY [facility] Last Admin: 07/30/20 08:52 Dose: 20 mg Documented by: Polyethylene Glycol (Polyethylene Glycol 3350 17 Gm Packet) 17 gm PO DAILY [facility] Last Admin: 07/30/20 08:53 Dose: 17 gm Documented by: Potassium Chloride (Potassium Chloride 20 Meq Tablet) 40 meq PO TID [facility] Stop: 07/31/20 22:01 Pravastatin Sodium (Pravastatin 80 Mg Tablet) 80 mg PO QHS [facility] Last Admin: 07/28/20 20:22 Dose: 80 mg Documented by: Risperidone ([facility] 0.5 Mg Tablet) [facility] Last Admin: 07/30/20 08:58 Dose: 0.5 mg Documented by: Sodium Chloride (0.9% Saline Lock 10 Ml Syringe) 10 - 40 ml IV UD PRN PRN Reason: SALINE FLUSH Last Admin: 07/30/20 08:54 Dose: 10 ml Documented by: Trazodone HCl (Trazodone 100 Mg Tablet) 300 mg PO QHS [facility] Last Admin: 07/29/20 22:37 Dose: 300 mg Documented by: Medical Necessity - Tobacco Use Smoking Status: Never smoker Tobacco Use: Non-smoker Assessment/Plan All Active Problems Compression fractures L4 lumbar vertebra (Acute) Fall (Acute) COVID-19 (Acute) Diarrhea (Acute) Encephalopathy acute (Acute) Frequent falls (Acute) Hypercalcemia (Acute) ARIELLE (acute kidney injury) (Acute) Altered mental status (Acute) Cough (Acute) Acute Respiratory Insufficiency 2/2 COVID PNA -pt with hypoxia to 92% on RA but not requiring supplemental O2 on admission but now at 96% on RA at rest -dex day 11/04 and Remdesivir day 10/30--> may be d/c prior to the completion of Remdesivir if medically stable -continue Lovenox BID -ID following Hypercalcemia -PTH was appropriately suppressed (4.7) -ICa was elevated at 9.5 with admission calcium -down to 9.6 today which is WNL -d/c IVF 1/2 NS and lasix today and watch calcium closely -Vit D 25 is WNL and 1,25 is still pending -suspect not Vitamin D tox although pt was on supplementation at home -PTHrp remains pending -CT chest abdomen and pelvis without contrast 2/2 CKD to search for malignancy -serum proteins are low -suspect this may be related to MS changes -may need skeletal survey or further w/u for malignancy Metabolic Encephalopathy -Baseline is forgetful but converses with her daughter -remains better -above w/u in progress -monitor Hypernatremia/Hyperchloremia -resolved Hypokalemia -will give a total of 120 mEq today and recheck -mag in am HTN -increase hydralazine to 50 -continue PRN Hydralazine Hypothyroidism -cont supplementation -TSH WNL GERD -PPI DM-2 -monitor BGT -add SSI if needed CKD stage 3 -appears that sCr is close to baseline -monitor Schizophrenia -continue home meds -tardive dyskinesia noted today Chronic Pain -continue home meds -hold lyrica DVT prophylaxis 40 BID Lovenox Code Status -Full Inpatient E&M: 02860 Subs Hosp L3
[2020-07-30] MEDS: hydrALAZINE 50 MG Tablet PO (16:19)
[2020-07-30] MEDS: traZODone 100 MG Tablet 300 MG PO (20:32)
[2020-07-30] MEDS: Pravastatin 80 MG Tablet PO (20:32)
[2020-07-31] VITALS (13 sets, daily range): BP systolic 118–157; BP diastolic 55–81; PULSE 52–76; RESP 18–20; TEMP 36.6–36.8; O2SAT 94–97
[2020-07-31 07:52] LABS: Hematocrit 35.1 % (37-47); Hemoglobin 12.1 g/dL (12.0-15.0); Mean Corp Hgb Conc 34.5 g/dL (32-36); Mean Corpuscular Hgb 29.9 pg (27.0-32.0); Mean Corpuscular Volume 86.7 fL (81-99); Mean Platelet Vol. 9.9 fl (6.2-12.0); Platelet Count 513 K/mm3 (150-450); RBC Distribution Width CV 12.4 % (11.6-14.6); RBC Distribution Width SD 39.6 fl (35.1-43.9); Red Blood Count 4.05 M/mm3 (4.2-5.4); White Blood Count 7.5 K/mm3 (4.4-11.0)
[2020-07-31 08:26] LABS: ALB/GLOB Ratio 0.8 RATIO (0.9-2.4); AST(SGOT) 22 U/L (15-37); Alanine Aminotransfer ALT/SGPT 24 U/L (13-56); Albumin, Serum 2.7 g/dL (3.2-5.0); Alkaline Phosphatase 35 U/L (45-117); Anion Gap 7 (5-15); BUN 15 mg/dL (7-18); BUN/Creat Ratio 12.1 RATIO (10-20); Calcium,Total 9.5 mg/dL (8.5-10.1); Chloride 108 mmol/L (98-107); Creatinine, Serum 1.24 mg/dL (0.55-1.02); EST Glomerular Filtration Rate 45 mL/min (>60); Est Glom Filt Rate - Afr Amer 55 mL/min (>60); Estimated Creatinine Clearance 29.46 ml/min; Globulin 3.4 g/dL (2.2-4.2); Glucose 135 mg/dL (74-106); Magnesium 1.4 mg/dL (1.6-2.6); Protein, Total 6.1 g/dL (6.4-8.2); Sodium Level 141 mmol/L (136-145)
[2020-07-31] MEDS: Enoxaparin 40 MG/0.4 ML Syringe SC ×2 (11:19→22:08)
[2020-07-31] MEDS: lamoTRIgine 150 MG Tablet PO (11:19)
[2020-07-31] MEDS: FLUoxetine 20 MG Capsule 40 MG PO ×2 (11:20→11:21)
[2020-07-31] MEDS: dexAMETHasone 4 MG Tablet 6 MG PO (11:20)
[2020-07-31] MEDS: Dicyclomine 10 MG Capsule 20 MG PO ×3 (11:20→16:39)
[2020-07-31] MEDS: Levothyroxine 25 MCG TABLET PO (11:20)
[2020-07-31] MEDS: Aspirin 81 MG TAB.CHEW PO (11:20)
[2020-07-31] MEDS: busPIRone 15 MG TABLET PO ×3 (11:20→16:40)
[2020-07-31] MEDS: Pantoprazole Sodium 20 MG Tablet PO (11:20)
[2020-07-31] MEDS: hydrALAZINE 50 MG Tablet PO ×3 (11:21→16:39)
[2020-07-31] MEDS: RisperiDONE 0.5 MG Tablet PO ×2 (11:22→16:40)
[2020-07-31] MEDS: Polyethylene Glycol 3350 17 GM PACKET PO (11:22)
[2020-07-31] MEDS: oxyCODONE HCl Cr 10 MG Tablet PO ×2 (11:29→22:08)
--- NOTE | 2020-07-31 11:52 | CASEMGMT ---
Social Work Pt would benefit from SNF placement prior to return to her home in assisted living. The following facilities have been called and are unable to accept pt: - [place] - [facility] MARY spoke with Mary Ann at [facility] and they do have beds available. Referral faxed. SALENA left at [facility] to check on bed availability. MARY spoke with physician and updated. Pt will likely be ready for d/c on Monday. MARY will await return calls on determination if pt can be accepted. EMILIO Muñiz
[2020-07-31] MEDS: Magnesium Sulfate 4gm/100mL 4 GM/100 ML IV.SOLN. IV (14:08)
--- NOTE | 2020-07-31 15:28 | PN_ITS ---
Patient Problems: Active and Suspected Problems COVID-19 (Acute) Diarrhea (Acute) Encephalopathy acute (Acute) Frequent falls (Acute) Hypercalcemia (Acute) ARIELLE (acute kidney injury) (Acute) Altered mental status (Acute) Cough (Acute) Subjective: States that her stomach is a bit upset but did eat lunch. No pain. No BM since 07/28. Vitals/I&O's: Vital Signs Temp Pulse Resp BP Pulse Ox 98.0 F 67 18 153/81 H 97 07/31/20 14:25 07/31/20 14:52 07/31/20 14:25 07/31/20 14:25 07/31/20 14:25 Oxygen Delivery Method Room Air Weight: 65.408 kg Body Mass Index (BMI) 28.1 Finger Stick Blood Glucose 133 Intake and Output for Last 24 Hours 07/29/20 07/30/20 07/31/20 23:59 23:59 23:59 Intake Total 3882.5 / 3882.5 3257.5 / 3382.5 475 / 475 Output Total 3300 / 3300 2650 / 2900 600 / 600 Balance 582.5 / 582.5 607.5 / 482.5 -125 / -125 General: Alert, Oriented x3, Cooperative, No apparent distress, Well developed, Well nourished, - - WF appears older than stated age, sitting up in a chair HEENT: Atraumatic, Normocephalic Oral: Moist Mucosa, - - no thrush Lungs: Clear to auscultation, Normal air movement, No rhonchi, No wheeze, No rales Cardiovascular: Regular rate, Regular Rhythm, Normal S1, Normal S2, No murmurs, No Ectopic Activity, No rub noted, No Gallop Abdomen: Bowel Sounds Present, Soft, Non Tender, Non-Distended, No Hepato- splenomegaly Extremities: No clubbing, No cyanosis, No edema, Capillary Refill Less than 3 Seconds, Peripheral Pulses Normal Skin: No rashes, No breakdown Musculoskeletal: No Tenderness to Palpation of Joints or Extremities Neurological: Cranial nerves II-XII grossly intact, Neuro grossly intact Psych/Mental Status: Appropriate, Flat Affect Microbiology Past 72 Hours 07/27/20 17:00 Blood Culture (Wb) - Arm Right Blood Culture - Preliminary No growth in 48 hours. Laboratory Results 07/29/20 07:05: Ionized Calcium 7.1 H 07/31/20 07:07: WBC 7.5, RBC 4.05 L, Hgb 12.1, Hct 35.1 L, MCV 86.7, MCH 29.9, MCHC 34.5, RDW Std Deviation 39.6, RDW Coeff of Randall 12.4, Plt Count 513 H, MPV 9 .9 07/31/20 07:07: Sodium 141, Potassium 3.0 L, Chloride 108 H, Carbon Dioxide 26.0, Anion Gap 7, BUN 15, Creatinine 1.24 H, Estim Creat Clear Calc 29.46, Est GFR (MDRD) Af Amer 55 L, Est GFR (MDRD) Non-Af 45 L, BUN/Creatinine Ratio 12.1, Glucose 135 H, Calcium 9.5, Magnesium 1.4 L, Total Bilirubin 0.20, AST 22, ALT 24, Alkaline Phosphatase 35 L, Total Protein 6.1 L, Albumin 2.7 L, Globulin 3.4, Albumin/Globulin Ratio 0.8 L Current Medications Acetaminophen (Acetaminophen 325 Mg Tablet) 650 mg PO Q6H PRN PRN PRN Reason: Pain Score 1-10/Temp > 100.7 F Last Admin: 07/29/20 18:29 Dose: 650 mg Documented by: Aspirin (Aspirin 81 Mg Tab.Chew) 81 mg PO DAILY COUNTS [facility]CLUDE [facility] BEDS AT [facility] Last Admin: 07/31/20 11:20 Dose: 81 mg Documented by: Buspirone HCl (Buspirone 15 Mg Tablet) 15 mg PO TIDCM COUNTS INCLUDE 234 BEDS AT [facility] Last Admin: 07/31/20 12:55 Dose: 15 mg Documented by: Dexamethasone (Dexamethasone 4 Mg Tablet) 6 mg PO DAILY COUNTS INCLUDE 234 BEDS AT [facility] Stop: 08/06/20 10:01 Last Admin: 07/31/20 11:20 Dose: 6 mg Documented by: Dicyclomine HCl (Dicyclomine 10 Mg Capsule) 20 mg PO TIDCM COUNTS INCLUDE 234 BEDS AT [facility] Last Admin: 07/31/20 12:55 Dose: 20 mg Documented by: Enoxaparin Sodium (Enoxaparin 40 Mg/0.4 Ml Syringe) 40 mg SC BID COUNTS INCLUDE 234 BEDS AT [facility] Last Admin: 07/31/20 11:19 Dose: 40 mg Documented by: Fluoxetine HCl (Fluoxetine 20 Mg Capsule) 40 mg PO DAILY COUNTS INCLUDE 234 BEDS AT [facility] Last Admin: 07/31/20 11:21 Dose: 40 mg Documented by: Hydralazine HCl (Hydralazine 20 Mg/Ml Vial) 10 mg IV Q6H PRN PRN PRN Reason: SBP > 160 Last Admin: 07/28/20 17:03 Dose: 10 mg Documented by: Hydralazine HCl (Hydralazine 50 Mg Tablet) 50 mg PO TIDCM COUNTS INCLUDE 234 BEDS AT [facility] Last Admin: 07/31/20 14:08 Dose: 50 mg Documented by: Remdesivir 100 mg/ Sodium (Chloride) 250 mls @ 125 mls/hr IV DAILY COUNTS INCLUDE 234 BEDS AT [facility]; Protocol Stop: 08/01/20 11:59 Last Infusion: 07/31/20 13:40 Dose: Infused Documented by: Lamotrigine (Lamotrigine 150 Mg Tablet) 150 mg PO DAILY COUNTS INCLUDE 234 BEDS AT [facility] Last Admin: 07/31/20 11:19 Dose: 150 mg Documented by: Levothyroxine Sodium (Levothyroxine 25 Mcg Tablet) 25 mcg PO DAILY COUNTS INCLUDE 234 BEDS AT [facility] Last Admin: 07/31/20 11:20 Dose: 25 mcg Documented by: Ondansetron HCl (Ondansetron 4 Mg/2 Ml Vial) 4 mg IV Q8H PRN PRN PRN Reason: NAUSEA/VOMITING Oxycodone HCl (Oxycodone Hcl Cr 10 Mg Tablet) 10 mg PO BID COUNTS INCLUDE 234 BEDS AT [facility] Last Admin: 07/31/20 11:29 Dose: 10 mg Documented by: Pantoprazole Sodium (Pantoprazole Sodium 20 Mg Tablet) 20 mg PO DAILY COUNTS INCLUDE 234 BEDS AT [facility] Last Admin: 07/31/20 11:20 Dose: 20 mg Documented by: Polyethylene Glycol (Polyethylene Glycol 3350 17 Gm Packet) 17 gm PO DAILY COUNTS INCLUDE 234 BEDS AT [facility] Last Admin: 07/31/20 11:22 Dose: 17 gm Documented by: Potassium Chloride (Potassium Chloride 20 Meq Tablet) 40 meq PO TID COUNTS INCLUDE 234 BEDS AT [facility] Stop: 07/31/20 22:01 Last Admin: 07/31/20 12:55 Dose: 40 meq Documented by: Pravastatin Sodium (Pravastatin 80 Mg Tablet) 80 mg PO QHS COUNTS INCLUDE 234 BEDS AT [facility] Last Admin: 07/30/20 20:32 Dose: 80 mg Documented by: Risperidone (Risperidone 0.5 Mg Tablet) 0.5 mg PO BIDCM COUNTS INCLUDE 234 BEDS AT [facility] Last Admin: 07/31/20 11:22 Dose: 0.5 mg Documented by: Sodium Chloride (0.9% Saline Lock 10 Ml Syringe) 10 - 40 ml IV UD PRN PRN Reason: SALINE FLUSH Last Admin: 07/30/20 08:54 Dose: 10 ml Documented by: Trazodone HCl (Trazodone 100 Mg Tablet) 300 mg PO QHS [facility] Last Admin: 07/30/20 20:32 Dose: 300 mg Documented by: STROKE Vital Signs/Narrative: Vital Signs Temp Pulse Resp BP Pulse Ox 07/31/20 14:52 67 07/31/20 14:25 98.0 F 66 18 153/81 H 97 07/31/20 14:08 76 07/31/20 12:11 96 Medical Necessity - Tobacco Use Smoking Status: Never smoker Tobacco Use: Non-smoker Assessment/Plan All Active Problems Compression fractures L4 lumbar vertebra (Acute) Fall (Acute) COVID-19 (Acute) Diarrhea (Acute) Encephalopathy acute (Acute) Frequent falls (Acute) Hypercalcemia (Acute) ARIELLE (acute kidney injury) (Acute) Altered mental status (Acute) Cough (Acute) Acute Respiratory Insufficiency 2/2 COVID PNA -pt with hypoxia to 92% on RA but not requiring supplemental O2 on admission but now at 96% on RA at rest -dex day 12/05 and Remdesivir day 11/30--> may be d/c prior to the completion of Remdesivir if medically stable -continue Lovenox BID -ID following Hypercalcemia -PTH was appropriately suppressed (4.7) -ICa was elevated at 9.5 with admission calcium -calcium is stable today without therapies--> repeat in am -No malignancy found on CT C/A/P -Vit D 25 is WNL and 1,25 is still pending -suspect not Vitamin D tox although pt was on supplementation at home -PTHrp remains pending -serum proteins are low Metabolic Encephalopathy -Baseline is forgetful but converses with her daughter -remains better -seems to be close to baseline -monitor Hypernatremia/Hyperchloremia -resolved Hypokalemia -repeat in am Hypomagnesemia -4 gm and repeat in am HTN -continue hydralazine to 50 -add 5 mg Norvasc -continue PRN Hydralazine Hypothyroidism -cont supplementation -TSH WNL GERD -PPI DM-2 -monitor BGT -add SSI if needed CKD stage 3 -appears that sCr is close to baseline -monitor Schizophrenia -continue home meds -tardive dyskinesia noted today Chronic Pain -continue home meds -hold lyrica DVT prophylaxis 40 BID Lovenox Code Status -Full Inpatient E&M: 49649 Subs Hosp L2
--- NOTE | 2020-07-31 15:57 | CASEMGMT ---
Addendum entered by Aretha Astudillo 07/31/20 16:31: Phone call to pt room and updated on discharge plan. Pt more alert and oriented at this time. Pt stating she is understanding of need for SNF and is agreeable to [place]. EMILIO Muñiz Original Note: Social Work Return call from [facility] and they are able to accept pt tomorrow. 7000 convalescent form completed in glob[employer] system. Phone call to pt dgt Mary Jo and updated and Mary Jo is agreeable with d/c plan. Phone call to [facility] and updated Hope that pt will be going to SNF with plan to return to [place] when rehab is complete. VM left with CM at [facility] and notified of d/c plan. Physician updated that facility is available tomorrow if pt is medically ready. Facility pharmacy closes at noon on Monday and orders will need faxed in the morning, nursing made aware. Plan: [facility] SNF, when medically ready EMILIO Muñiz
[2020-07-31 16:28] LABS: Vitamin D 1,25-Dihydroxy 18.6 pg/mL (19.9-79.3)
[2020-07-31] MEDS: amLODIPine 5 MG Tablet PO (16:39)
[2020-07-31] MEDS: traZODone 100 MG Tablet 300 MG PO (22:08)
[2020-07-31] MEDS: Pravastatin 80 MG Tablet PO (22:08)
[2020-08-01 03:27] VITALS: BP 157/73; PULSE 72; RESP 18; TEMP 36.4; O2SAT 996
[2020-08-01 03:30] VITALS: PULSE 75
--- NOTE | 2020-08-01 05:25 | NURSING ---
Pt. wanted to add two names to her list of contacts. The first is her brother Bruno Gold and he can be reached at [phone]. The second is her sister in law Beulah Gold and her phone number is [phone].
[2020-08-01 07:11] LABS: Hematocrit 35.3 % (37-47); Hemoglobin 11.5 g/dL (12.0-15.0); Mean Corp Hgb Conc 32.6 g/dL (32-36); Mean Corpuscular Hgb 28.7 pg (27.0-32.0); Platelet Count 485 K/mm3 (150-450); RBC Distribution Width CV 12.6 % (11.6-14.6); RBC Distribution Width SD 41.1 fl (35.1-43.9); Red Blood Count 4.01 M/mm3 (4.2-5.4); White Blood Count 9.3 K/mm3 (4.4-11.0)
[2020-08-01 07:22] VITALS: PULSE 63
[2020-08-01 07:47] LABS: ALB/GLOB Ratio 0.8 RATIO (0.9-2.4); AST(SGOT) 23 U/L (15-37); Alanine Aminotransfer ALT/SGPT 25 U/L (13-56); Albumin, Serum 2.6 g/dL (3.2-5.0); Alkaline Phosphatase 35 U/L (45-117); Anion Gap 5 (5-15); BUN 16 mg/dL (7-18); BUN/Creat Ratio 16.5 RATIO (10-20); Calcium,Total 9.2 mg/dL (8.5-10.1); Chloride 113 mmol/L (98-107); Creatinine, Serum 0.97 mg/dL (0.55-1.02); EST Glomerular Filtration Rate 60 mL/min (>60); Est Glom Filt Rate - Afr Amer 73 mL/min (>60); Estimated Creatinine Clearance 37.66 ml/min; Globulin 3.4 g/dL (2.2-4.2); Glucose 133 mg/dL (74-106); Potassium 4.2 mmol/L (3.5-5.1); Sodium Level 142 mmol/L (136-145)
[2020-08-01 07:49] VITALS: BP 145/73; PULSE 76; RESP 18; TEMP 36.6; O2SAT 96
[2020-08-01 07:52] VITALS: PULSE 76
[2020-08-01] MEDS: dexAMETHasone 4 MG Tablet 6 MG PO (07:52)
[2020-08-01] MEDS: RisperiDONE 0.5 MG Tablet PO (07:52)
[2020-08-01] MEDS: lamoTRIgine 150 MG Tablet PO (07:52)
[2020-08-01] MEDS: Aspirin 81 MG TAB.CHEW PO (07:52)
[2020-08-01] MEDS: busPIRone 15 MG TABLET PO (07:52)
[2020-08-01] MEDS: hydrALAZINE 50 MG Tablet PO (07:52)
[2020-08-01] MEDS: Levothyroxine 25 MCG TABLET PO (07:52)
[2020-08-01] MEDS: Pantoprazole Sodium 20 MG Tablet PO (07:52)
[2020-08-01] MEDS: Dicyclomine 10 MG Capsule 20 MG PO (07:52)
[2020-08-01] MEDS: amLODIPine 5 MG Tablet PO (07:52)
[2020-08-01] MEDS: Enoxaparin 40 MG/0.4 ML Syringe SC (07:53)
[2020-08-01] MEDS: Polyethylene Glycol 3350 17 GM PACKET PO (07:53)
--- NOTE | 2020-08-01 09:11 | TREXTCAR_ITS ---
- Diet 07/31/20 10:27 Diet: 1999 chivo ADA Food consistency:: Regular Liquid Consistency:: Regular/Thin Type of Dietary Supplement:: Magic Cup Dessert Is pt able to select menu?: Yes Diet Comments: provide fruit flavored magic cup w/ meals please - Routine Orders/Code Status Routine Lab Work: BMP - in one week, - - serum calcium in one week Code Status: Full Code - Therapies Weight Bearing: Full weight bearing Physical Therapy: Eval and Treat Occupational Therapy: Eval and Treat - Problem/Diagnosis (1) Altered mental status Status: Acute Comment: due to elevated calcium (2) Frequent falls Status: Acute (3) COVID-19 Status: Acute (4) Hypercalcemia Status: Acute Comment: etiology unknown-possibly secondary to vitamin d administration (5) History of schizophrenia Status: Chronic (6) Type 2 diabetes mellitus Status: Chronic Comment: diet controlled (7) Hypokalemia Status: Acute - Allergies/Procedures Done in Hospital Allergies/Adverse Reactions: Allergies ciprofloxacin Allergy (Verified 07/27/20 13:07) Unknown codeine Allergy (Verified 07/27/20 13:07) Unknown hydroxyzine HCl [From Vistaril] Allergy (Verified 07/27/20 13:07) Unknown hydroxyzine pamoate [From Vistaril] Allergy (Verified 07/27/20 13:07) Unknown niacin Allergy (Verified 07/27/20 13:07) Unknown ofloxacin [From Floxin] Allergy (Verified 07/27/20 13:07) Unknown tetracycline [Tetracycline] Allergy (Verified 07/27/20 13:07) Unknown Tetracyclines Allergy (Verified 07/27/20 13:07) Unknown Procedures: None - Type of Care/Length of Stay Estimated LOS: Convalescent Care Less Than 30 days Type of Care Needed: Skilled Rehab Potential: Good Prognosis: Good - Additional Orders/Day of Discharge H&P will serve as current which was dated: 07/27/20 Day of Discharge: 08/01/20 - Dietary and Speech Recommendations Dietitian Recommendations/Changes: offer magic cup ice cream w/ meals instead of glucerna shake for increased nutrition if consumed. - Follow Up Care Primary Care Physician: Shelley Martell TRANSFORMATION SPECIALIST, TRANSFORMATION SPECIALIST-C [Primary Care Provider] -
[2020-08-01] MEDS: oxyCODONE HCl Cr 10 MG Tablet PO (10:11)
--- NOTE | 2020-08-02 15:43 | PCM.DC.SUM ---
Discharge Date and Diagnosis - Problem List Patient Problems: Active and Suspected Problems COVID-19 (Acute) Diarrhea (Acute) Encephalopathy acute (Acute) Frequent falls (Acute) Hypercalcemia (Acute) etiology unknown-possibly secondary to vitamin d administration ARIELLE (acute kidney injury) (Acute) Altered mental status (Acute) due to elevated calcium Hypokalemia (Acute) Date of Admission: 07/27/20 Date of Discharge: 08/01/20 - Primary Discharge Diagnosis Acute Problems: Active Problems #1 hypercalcemia-etiology unclear #2 COVID-19 infection without pneumonia #3 acute kidney injury #4 schizophrenia-patient will remain on her current medications #5 type 2 diabetes-diet controlled #6 hypothyroidism #7 history of lumbar compression fractures-etiology unclear - Secondary Discharge Diagnosis Chronic Problems: Chronic Problems Mitral valve prolapse (Chronic) Depression (Chronic) Migraine (Chronic) Compression fracture of L1 lumbar vertebra (Chronic) Status post kyphoplasty (Chronic) Hypothyroidism (Chronic) History of schizophrenia (Chronic) Type 2 diabetes mellitus (Chronic) diet controlled Hospital Course and Treatment Operations: None Procedures: None Summary of Care Provided: The patient is a 70 year old F was seen in the emergency room at [facility] after being sent in from an assisted living facility which she resides due to frequent falls, altered mental status, and nonproductive cough. Work-up in the emergency room included a CBC which was unremarkable, patient's potassium was low at 3.4, creatinine was elevated at 1.2, and the patient's calcium was highly elevated at 14.3. Patient's COVID-19 antigen test was positive. Patient was admitted to [facility], she was given vigorous IV administration and her calcium lowered over the next several days. The exact etiology of the patient's elevated calcium level was unknown. Patient was seen by PT and OT and it was felt that she would benefit from [place] [facility] in an inpatient setting. On 08/01/2020, patient was seen and examined: On examination she appeared her stated age, she does not appear to be in any distress. Vital signs as documented. Skin warm and dry and without overt rashes. Neck without JVD, thyroid appears normal, trachea is midline, neck is supple. Lungs clear, normal air movement was noted. Heart exam notable for regular rhythm, normal sounds and absence of murmurs, rubs or gallops. Abdomen unremarkable and without evidence of organomegaly, masses, or abdominal aortic enlargement, bowel sounds are present in all 4 quadrants, no abdominal tenderness was noted. Extremities nonedematous, no cyanosis was noted, no clubbing was noted. Neuro: Cranial nerves II through XII are grossly intact, no focal motor deficits were noted, sensation to light touch and pinprick is intact, motor exam 5/5 throughout. Psych: Patient is alert, she does not appear depressed or anxious. On 08/01/2020, patient was discharged to an extended care facility - [facility]-stable condition. I contacted this facility and recommended that a repeat serum calcium be obtained in 5 to 7 days. Nursing there stated that they would pass it onto the attending physician. Patient was discharged in stable condition. Patient Problems: Active and Suspected Problems COVID-19 (Acute) Diarrhea (Acute) Encephalopathy acute (Acute) Frequent falls (Acute) Hypercalcemia (Acute) etiology unknown-possibly secondary to vitamin d administration ARIELLE (acute kidney injury) (Acute) Altered mental status (Acute) due to elevated calcium Hypokalemia (Acute) - Physical Exam Vitals/I&O's: Vital Signs Temp Pulse Resp BP Pulse Ox 98 F 76 18 145/73 H 96 08/01/20 07:49 08/01/20 07:52 08/01/20 07:49 08/01/20 07:49 08/01/20 07:49 Oxygen Delivery Method Room Air Weight: 65.408 kg Body Mass Index (BMI) 28.1 Finger Stick Blood Glucose 133 Intake and Output for Last 24 Hours 07/31/20 08/01/20 08/02/20 23:59 23:59 23:59 Intake Total 575 / 575 Output Total 1100 / 1100 250 / 250 Balance -525 / -525 -250 / -250 Microbiology Past 72 Hours 07/27/20 17:00 Blood Culture (Wb) - Arm Right Blood Culture - Final No growth in 5 days. Home Medications: Medications to take at Discharge Levothyroxine [Synthroid] 25 mcg PO DAILY@0600 06/26/13 Omeprazole [Prilosec] 20 mg PO DAILY 06/26/13 Pravastatin [Pravachol] 80 mg PO QHS 03/13/17 Polyethylene Glycol 3350 [Miralax] 17 gm PO DAILY 05/11/18 Lamotrigine [Lamictal] 150 mg PO DAILY 06/05/20 Buspirone HCl 15 mg PO TID 07/27/20 Cholecalciferol (Vitamin D3) [Vitamin D3] 2,000 unit PO DAILY 07/27/20 Fluoxetine HCl 40 mg PO DAILY 07/27/20 Paliperidone [Invega] 6 mg PO DAILY 07/27/20 Trazodone HCl 300 mg PO QHS 07/27/20 Acetaminophen [Tylenol Tablet] 650 mg PO Q6H PRN PRN tab 08/01/20 Amlodipine [Norvasc] 5 mg PO DAILY tab 08/01/20 Aspirin [Aspirin, Baby] 81 mg PO DAILY tab.chew 08/01/20 Dexamethasone [Decadron] 6 mg PO DAILY #4 tab 08/01/20 Dicyclomine HCl [Bentyl] 20 mg PO TIDCM cap 08/01/20 Enoxaparin [Lovenox] 40 mg SC BID #20 syringe 08/01/20 Oxycodone CR [Oxycontin] 10 mg PO BID 3 Days #6 tab 08/01/20 hydrALAZINE [Apresoline] 50 mg PO TIDCM tab 08/01/20 Following Prescriptions Were Given to Patient: Enoxaparin [Lovenox] 40 mg SC BID #20 syringe Oxycodone CR [Oxycontin] 10 mg PO BID 3 Days #6 tab Prescription Printed Primary Care Physician: Shelley Martell TABLEAU ANALYST, TABLEAU ANALYST-C [Primary Care Provider] - Disposition: Snf facility Minutes spent on discharge:: 31 Patient Condition:: Stable Medical Necessity - Tobacco Use Smoking Status: Never smoker Tobacco Use: Non-smoker Meaningful Use Info Meaningful Use Diagnoses (Choose all that apply): None applicable Inpatient E&M: 96954 Disch Hosp
== END 2020-08-01 12:34 | disposition skilled nursing facility (03) | DRG 177 ==
LOC: ED 16:00 → MS2 21:15
PROVIDERS: Internal Medicine; Internal Medicine Infectious Disease; Admitting Provider Internal Medicine; Emergency Provider Emergency Medicine; PCP Nurse Practitioner Adult Health; Visit Provider Internal Medicine
DX: U07.1 COVID-19 (principal); G93.41 Metabolic encephalopathy; E87.0 Hyperosmolality and hypernatremia; N17.9 Acute kidney failure, unspecified; E87.6 Hypokalemia; E03.9 Hypothyroidism, unspecified; F20.9 Schizophrenia, unspecified; G43.909 Migraine, unspecified, not intractable, without status migrainosus; F32.9 Major depressive disorder, single episode, unspecified; E83.52 Hypercalcemia; R29.6 Repeated falls; R09.02 Hypoxemia; R06.89 Other abnormalities of breathing; E87.8 Other disorders of electrolyte and fluid balance, not elsewhere classified; K21.9 Gastro-esophageal reflux disease without esophagitis; E11.22 Type 2 diabetes mellitus with diabetic chronic kidney disease; I12.9 Hypertensive chronic kidney disease with stage 1 through stage 4 chronic kidney disease, or unspecified chronic kidney disease; N18.30 Chronic kidney disease, stage 3 unspecified; G89.29 Other chronic pain; G24.01 Drug induced subacute dyskinesia
CPT/HCPCS: 36415; 70450; 71045; 71250; 73610; 74176; 80053; 80307; 80320; 81001; 82306; 82330; 82652; 83605; 83690; 83735; 83970; 84100; 84443; 84484; 85025; 85027; 85379; 85610; 85730; 87040; 87426; 87633; 93005; 97116; 97162; 97166; 97530; 97535; 99285; J7030; J7050; A4216; G0480; J1940

== ENCOUNTER 2020-10-22 11:33 | Emergency (ER) | payer MEDICARE, MEDICAID, SELFPAY ==
[2020-10-22 11:38] VITALS: BP 144/75; PULSE 87; RESP 16; TEMP 36.8; O2SAT 95; BMI 27.4
[2020-10-22 11:40] VITALS: BP 131/59; PULSE 79; RESP 18; O2SAT 94
[2020-10-22 12:00] VITALS: O2SAT 97
--- NOTE | 2020-10-22 12:40 | EKG12_ITS ---
Test Reason : CP Blood Pressure : / mmHG Vent. Rate : 073 BPM Atrial Rate : 073 BPM P-R Int : 160 ms QRS Dur : 076 ms QT Int : 448 ms P-R-T Axes : 055 000 048 degrees QTc Int : 493 ms Normal sinus rhythm Prolonged QT Abnormal ECG Confirmed by SHAUNNA DON, CARMEN ([id number]), electronic news gathering editor LINDA WATT ([id number]) on 10/26/2020 9:56:06 AM Referred By: DAVIN/JOSH Confirmed By:BARRERA MAZA MD
--- NOTE | 2020-10-22 12:40 | RAD_ITS ---
STUDY: X-RAY CHEST REASON FOR EXAM: Female, 70 years old. Chest pain radiates into jaw. 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 COMPARISON: Comparison is made with prior study dated 07/27/2020. FINDINGS: EKG electrodes are seen. The lungs are clear and expanded. There is no demonstrated pleural abnormality. Normal size heart. Normal mediastinum and jack. Normal visualized pulmonary arteries. There is atherosclerotic tortuosity of the aortic arch and descending thoracic aorta. There are diffuse degenerative changes of the visualized thoracic spine. Prior vertebroplasty of the L1 vertebrae. Normal visualized ribs, clavicles, and shoulders. There is no demonstrated abnormality of the visualized soft tissue structures of the upper abdomen. RAD/Chest 1 View (Portable) IMPRESSION: No acute abnormality is seen. Electronically Signed: Johnnie Ortega MD at 13:59 EST , Service support ,
--- NOTE | 2020-10-22 12:41 | ED.DCSUM_ITS ---
History of Present Illness Chief Complaint: Chest Pain Informant: Patient, EMS Onset: Today - around 3 hrs [employer] Activity at onset: Rest - lying on couch Timing: Continuous Quality: Dull Location: Left Chest - without radiation Current Severity: Moderate Maximum Severity: Moderate Worsened By: Breathing, Coughing. Not Worsened By: Exertion Relieved By: - - breathing easy Associated Symptoms: Dyspnea - mild. Negative for: Nausea, Vomiting, Diaphoresis, Cough, Fever, Lightheadedness, Palpitations Narrative: Patient in independent living he was at rest this morning and started having chest discomfort. It is pleuritic, and she has never had this before. No history of leg pain or swelling recently, hospitalization, or surgery. She thinks she had a blood clot in her left arm remotely that she was anticoagulated for, but that was a long time ago and she no longer takes anticoagulants. She denies a known history of pulmonary embolus. She has had no recent cough or fever or other illness. No known history of heart problems. Prior Similar Symptoms: No Recent Illness/Hospitalization: No - Past Medical History (1) COVID-19 Status: Resolved (2) Compression fractures L4 lumbar vertebra Status: Chronic (3) Depression Status: Chronic (4) History of schizophrenia Status: Chronic (5) Hypothyroidism Status: Chronic (6) Migraine Status: Chronic (7) Mitral valve prolapse Status: Chronic (8) Type 2 diabetes mellitus Status: Chronic Comment: diet controlled Past Medical History - Allergies and Home Meds Allergies/Adverse Reactions: Allergies ciprofloxacin Allergy (Verified 07/27/20 13:07) Unknown codeine Allergy (Verified 07/27/20 13:07) Unknown hydroxyzine HCl [From Vistaril] Allergy (Verified 07/27/20 13:07) Unknown hydroxyzine pamoate [From Vistaril] Allergy (Verified 07/27/20 13:07) Unknown niacin Allergy (Verified 07/27/20 13:07) Unknown ofloxacin [From Floxin] Allergy (Verified 07/27/20 13:07) Unknown tetracycline [Tetracycline] Allergy (Verified 07/27/20 13:07) Unknown Tetracyclines Allergy (Verified 07/27/20 13:07) Unknown Primary Care Physician: Shelley Martell WATER POLLUTION SCIENTIST, WATER POLLUTION SCIENTIST-C [Primary Care Provider] - Lives: Alone - Independent living Smoking Status: Never smoker - Family History Paternal Family History: Reports: No pertinent history Maternal Family History: Reports: No pertinent history Review of Systems General: Denies: Chills, Fever, Sweats Eyes: Denies: Visual changes - bilaterally, Diplopia ENT: Denies: Rhinorrhea, Sore throat Cardiovascular: Reports: Chest pain. Denies: Palpitations Respiratory: Reports: Dyspnea. Denies: Cough, Dyspnea on exertion, Orthopnea Gastrointestinal: Denies: Abdominal pain, Nausea, Vomiting, Diarrhea, Melena, Hematochezia Genitourinary: Denies: Dysuria, Hematuria, Frequency Musculoskeletal: Reports: Back pain - Since of acute back fracture. Denies: Neck pain, Swelling, Extremity Pain Skin: Denies: Rash, Wounds Neurological: Denies: Headache, Weakness, Numbness Physical Exam Vital Signs/Narrative: Vital Signs Temp Pulse Resp BP Pulse Ox 10/22/20 11:40 79 18 131/59 H 94 10/22/20 11:38 98.3 F 87 16 144/75 H 95 Inital Vital Signs reviewed: Yes General: Well nourished, Well developed, No Acute Distress Head: Normocephalic, Atraumatic Eyes: Perrl, EOMI ENT: Moist mucous membranes, No rhinorrhea Neck: Supple, Nontender Cardiovascular: Regular rate, Regular rhythm, No murmurs. Negative for: Tachycardia Respiratory: No distress, CTA bilaterally, Chest nontender Abdomen: Soft, Nontender, Nondistended, Normal bowel sounds Back: Nontender, Normal Inspection Extremities: Nontender, No edema. Negative for: Calf Tenderness Skin: Normal color, No rash, No Trauma Neurological: Alert, Oriented x3, Cranial nerves II-XII grossly intact, Normal Strength, Normal Sensation Psychological: Normal affect, Normal Mood Diagnostic/Tx/Re-eval Impressions Chest X-Ray 10/22/20 12:40 IMPRESSION: No acute abnormality is seen. Electronically Signed: Johnnie Ortega MD at 13:59 EST , Service support , 10/22/20 12:40 Chest 1 View (Portable) [RAD] Stat Laboratory Results 10/22/20 10/22/20 10/22/20 13:25 13:25 13:25 WBC 8.0 RBC 4.07 L Hgb 11.7 L Hct 37.5 MCV 92.1 MCH 28.7 MCHC 31.2 L RDW Std Deviation 45.1 H RDW Coeff of Randall 13.2 Plt Count 350 MPV 9.3 Immature Gran % (Auto) 0.400 Neut % (Auto) 65.3 Lymph % (Auto) 26.3 [place] % (Auto) 5.9 Eos % (Auto) 1.3 Baso % (Auto) 0.8 Absolute Neuts (auto) 5.2 Absolute Lymphs (auto) 2.10 Nucleated RBC % 0 D-Dimer Quant (PE/DVT) 0.39 Sodium 142 Potassium 3.7 Chloride 109 H Carbon Dioxide 26.0 Anion Gap 7 BUN 5 L Creatinine 0.74 Estim Creat Clear Calc 36.53 Est GFR (MDRD) Af Amer 99 Est GFR (MDRD) Non-Af 82 BUN/Creatinine Ratio 6.7 L Glucose 114 H Calcium 9.1 Troponin I < 0.015 - Rhythm Strip Rhythm Strip: Sinus Rhythm Rate: 73 Ectopy: None - EKG Initial EKG Interpretation: Sinus Rhythm, No Acute Injury Pattern Treatment: GI Cocktail Repeat Eval: Improved PRINCE Risk: Age >/= 65 Score: 1 - Medical Decision Making Patient's heart score is 3 for her age and risk of having diabetes mellitus. Differential here includes cardiac etiologies which is less likely given the atypical nature of it, however considered because of the fact that she has an elderly female with diabetes. Differential also includes pleurisy, pulmonary embolus, musculoskeletal etiologies, GI/esophageal etiologies, other pulmonary abnormalities such as spontaneous pneumothorax, atelectasis, pneumonia. With D- dimer being well within normal limits/negative, this essentially rules out acute pulmonary embolus as cause for the symptoms at this time. Her EKG is normal showing no acute injury, and is unchanged compared with her EMS and her old EKGs. Initial troponin is negative but she does started having discomfort 2 or 3 hours prior to arrival. X-ray is unremarkable, ruling out obvious pulmonary etiologies such as pneumothorax, atelectasis, pneumonia. She was given a GI cocktail, she stated that this did improve her discomfort but it was not resolved and she requested something else for pain. Tramadol was ordered here, but I would not want her to be on more than 1 dose given her age and the possibility of it creating a picture of delirium. I offered admission but the patient does not want to stay and wants to go home if safe. If her 3-hour troponin returned negative, I am comfortable with this. She will be prescribed Howard and advised to follow-up closely. After the work-up, differential includes a GI etiologies, pleurisy, musculoskeletal etiologies, and if the delta troponin is negative, very unlikely to be acute coronary syndrome. ED Disposition - Plan for ED Patient: Disposition: Home or Assisted Living Diagnosis: Chest pain, unspecified Instructions: ED Chest Pain, Uncertain Cause Prescriptions: Hydrocodone Bitart/Apap 5-325 [Howard 5MG-325MG] 0.5 - 1 tab PO Q4H PRN PRN 2 Days #10 tab PRN Reason: Pain Prescription Printed Referrals: Shelley Martell WATER POLLUTION SCIENTIST, WATER POLLUTION SCIENTIST-C [Primary Care Provider] - 3-5 Days
[2020-10-22 13:33] LABS: Absolute Neutrophil Count 5.2 X10^3/uL (2.0-7.7); Basophil# 0.06 X10^3/uL; Basophil% 0.8 % (0-1); Eosinophils% 1.3 % (0-5); Hematocrit 37.5 % (37-47); Hemoglobin 11.7 g/dL (12.0-15.0); Lymphocyte % 26.3 % (19-41); Mean Corp Hgb Conc 31.2 g/dL (32-36); Mean Corpuscular Hgb 28.7 pg (27.0-32.0); Mean Corpuscular Volume 92.1 fL (81-99); Mean Platelet Vol. 9.3 fl (6.2-12.0); Monocyte# 0.47 X10^3/uL; Monocyte% 5.9 % (0-10); NRBC Flagged by Analyzer 0 % (0-5); Neutrophil # 5.22 X10^3/uL (2.7-7.7); Neutrophil % 65.3 % (47-70); Platelet Count 350 K/mm3 (150-450); RBC Distribution Width CV 13.2 % (11.6-14.6); RBC Distribution Width SD 45.1 fl (35.1-43.9); Red Blood Count 4.07 M/mm3 (4.2-5.4)
[2020-10-22 13:45] LABS: D-Dimer Quantitative (DVT/PE) 0.39 FEU/ug/m (0.27-0.49)
[2020-10-22 13:52] LABS: Anion Gap 7 (5-15); BUN 5 mg/dL (7-18); BUN/Creat Ratio 6.7 RATIO (10-20); Calcium,Total 9.1 mg/dL (8.5-10.1); Chloride 109 mmol/L (98-107); Creatinine, Serum 0.74 mg/dL (0.55-1.02); EST Glomerular Filtration Rate 82 mL/min (>60); Est Glom Filt Rate - Afr Amer 99 mL/min (>60); Estimated Creatinine Clearance 36.53 ml/min; Glucose 114 mg/dL (74-106); Potassium 3.7 mmol/L (3.5-5.1); Sodium Level 142 mmol/L (136-145)
[2020-10-22 15:34] VITALS: BP 150/69; PULSE 77; RESP 18; O2SAT 99
[2020-10-22] MEDS: Mag Hydrox/Al Hydrox/Simeth 30 ML UDC PO (15:46)
[2020-10-22 17:17] VITALS: BP 152/87; PULSE 83; RESP 19; O2SAT 96
[2020-10-22] MEDS: traMADol 50 MG Tablet PO (17:23)
[2020-10-22 19:00] VITALS: RESP 18
== END 2020-10-22 19:33 | disposition home or self-care (01) ==
PROVIDERS: Emergency Provider Emergency Medicine; PCP Nurse Practitioner Adult Health
DX: R07.9 Chest pain, unspecified (principal); E03.9 Hypothyroidism, unspecified; F20.9 Schizophrenia, unspecified; Z79.82 Long term (current) use of aspirin
CPT/HCPCS: 71045; 80048; 84484; 85025; 85379; 93005; 99285; A4216

== ENCOUNTER → 2021-06-24 15:46 | Outpatient (CLI) | payer MEDICARE, MEDICAID, SELFPAY ==
--- NOTE | 2021-06-24 15:50 | RAD_ITS ---
STUDY: X-RAY - LUMBAR SPINE REASON FOR EXAM: Female, 71 years old. Back pain. TECHNIQUE: 3 view(s) of the lumbar spine were obtained. COMPARISON: 06/04/2020. FINDINGS: Osteopenia. Normal lumbar lordosis. There is no substantial scoliosis. There is a normal alignment of the vertebrae. Diffuse facet sclerosis. Anterior wedge compression deformity of L1 with vertebroplasty changes unaltered. Slight loss of height of the L4 vertebral body which has progressed since the prior study. Diffuse intervertebral intervertebral disc space narrowing most marked at L3-4 with osteophytes at this level. Vascular calcification. RAD/Lumbar Spine 2 or 3 Views IMPRESSION: Osteopenia with stable L1 vertebral plasty changes. Diffuse lumbosacral spondylosis relatively unchanged. Decreased height of the L4 vertebral body since the prior study. Electronically Signed: Kirill Cesar MD at 9:37 EDT , Service support ,
== END ==
PROVIDERS: PCP Nurse Practitioner Adult Health; Referring Provider Anesthesiology Pain Medicine; Visit Provider Anesthesiology Pain Medicine
DX: M54.9 Dorsalgia, unspecified (principal)
CPT/HCPCS: 72100

== ENCOUNTER 2021-08-31 15:12 | Outpatient (CLI) | payer MEDICARE, MEDICAID, SELFPAY ==
[2021-08-31 16:42] LABS: Amphetamine Urine VISTA NEGATIVE (<1000 ng/mL); Barbiturate Urine VISTA NEGATIVE (< 200 ng/mL); Benzodiazepine Urine VISTA NEGATIVE (< 200 ng/mL); Cocaine Urine VISTA NEGATIVE (< 300 ng/mL); Ecstacy Urine VISTA POSITIVE (< 500 ng/mL); Methadone Urine VISTA NEGATIVE (< 300 ng/mL); PCP Urine VISTA NEGATIVE (< 25 ng/mL); THC Urine VISTA NEGATIVE (< 50 ng/mL); Vista UDS pH Range 5
== END 2021-08-31 23:59 | disposition short-term general hospital (02) ==
LOC: LAB 15:20
PROVIDERS: PCP Nurse Practitioner Adult Health; Visit Provider Anesthesiology Pain Medicine
DX: F11.20 Opioid dependence, uncomplicated (principal)
CPT/HCPCS: 80307

== ENCOUNTER → 2022-07-13 | Outpatient (CLI) | payer MEDICARE, MEDICAID, SELFPAY ==
[2022-07-13 13:55] LABS: Amphetamine Urine VISTA NEGATIVE (<1000 ng/mL); Barbiturate Urine VISTA NEGATIVE (< 200 ng/mL); Benzodiazepine Urine VISTA NEGATIVE (< 200 ng/mL); Cocaine Urine VISTA NEGATIVE (< 300 ng/mL); Ecstacy Urine VISTA NEGATIVE (< 500 ng/mL); Methadone Urine VISTA NEGATIVE (< 300 ng/mL); PCP Urine VISTA NEGATIVE (< 25 ng/mL); THC Urine VISTA NEGATIVE (< 50 ng/mL); Vista UDS pH Range 7
== END | disposition home or self-care (01) ==
LOC: LAB 13:17
PROVIDERS: PCP Nurse Practitioner Adult Health; Referring Provider Anesthesiology Pain Medicine; Visit Provider Anesthesiology Pain Medicine
DX: F11.20 Opioid dependence, uncomplicated (principal)
CPT/HCPCS: 80307

== ENCOUNTER 2022-09-26 16:18 | Emergency (ER) | payer MEDICARE, MEDICAID, SELFPAY ==
[2022-09-26 16:21] VITALS: BP 134/57; PULSE 78; RESP 18; TEMP 37.1; O2SAT 94; BMI 28.0
--- NOTE | 2022-09-26 16:38 | EDS_ITS ---
HPI History of Present Illness Chief Complaint: Fever Informant: patient Onset/Context/Timing Onset: Today Context: Gradual Onset Timing: Continuous Quality: Aching Location: Back and right shoulder Worsened by: Nothing Relieved by: Nothing Narrative Narrative: Patient presents with weakness and a fall that occurred today. Patient states she felt her legs get weak and she felt like she was going to fall. Patient states she was able to lean against the wall and then slide to the ground. Patient denies any head injury or loss of consciousness. Patient complains of pain in her back and right shoulder. Patient describes the pain as aching. Patient states nothing makes her pain worse and nothing makes it better. Patient does admit to some recent urinary frequency. Patient states she got up in the middle the night 4 times to urinate. Patient admits to some nausea but denies any vomiting. Patient denies any fevers or chills. [facility] Medical History (Updated 09/26/22 @ 19:[address] Rufino Sharif, DO) Depression History of schizophrenia Hypothyroidism Migraine Type 2 diabetes mellitus Home Medications levothyroxine 25 mcg tablet 25 mcg PO DAILY THYROID 06/26/13 [History Last Taken 09/26/22 08:00] omeprazole 20 mg capsule,delayed release 20 mg PO DAILY GERD 06/26/13 [History Last Taken 09/26/22] pravastatin 80 mg tablet 80 mg PO QHS CHOLESTEROL 03/13/17 [History Last Taken 09/25/22] polyethylene glycol 3350 17 gram oral powder packet (Gavilax) 17 g PO DAILY CONSTIPATION 05/11/18 [History Last Taken 09/26/22] buspirone 15 mg tablet 15 mg PO TID ANXIETY 07/27/20 [History Last Taken 09/26/22] cholecalciferol (vitamin D3) 50 mcg (2,000 unit) tablet 2,000 unit PO DAILY SUPPLEMENT 07/27/20 [History Last Taken 09/26/22] fluoxetine 40 mg capsule 40 mg PO DAILY DEPRESSION 07/27/20 [History Last Taken 09/26/22] paliperidone 6 mg tablet,extended release 24 hr 6 mg PO DAILY MENTAL HEALTH 07/27/20 [History Last Taken 09/26/22] trazodone 150 mg tablet 300 mg PO QHS SLEEP 07/27/20 [History Last Taken 09/25/22] oxybutynin chloride 5 mg tablet 2.5 mg PO BID BLADDER 10/22/20 [History Last Taken 09/26/22] amlodipine 5 mg tablet 5 mg PO DAILY BLOOD PRESSURE 09/26/22 [History Last Taken 09/26/22] aspirin 81 mg chewable tablet 81 mg PO DAILY HEART HEALTH 09/26/22 [History Last Taken 09/26/22] benzonatate 200 mg capsule 200 mg PO BID COUGH 09/26/22 [History Last Taken 09/26/22] benztropine 0.5 mg tablet 0.5 mg PO BID MUSCLE SPASMS 09/26/22 [History Last Taken 09/26/22] cephalexin 500 mg capsule 500 mg PO Q6 #12 CAPSULES 09/26/22 [Rx Last Taken Unknown] dicyclomine 20 mg tablet 20 mg PO TID 09/26/22 [History Last Taken 09/26/22] hydralazine 50 mg tablet 50 mg PO TID BLOOD PRESSURE 09/26/22 [History Last Taken 09/26/22] lamotrigine 200 mg tablet 200 mg PO BID MOOD 09/26/22 [History Last Taken 09/26/22] melatonin 5 mg tablet 5 mg PO QHS SLEEP 09/26/22 [History Last Taken 09/25/22] Allergy/AdvReac Type Severity Reaction Status Date / Time ciprofloxacin Allergy Unknown Verified 09/26/22 16:32 codeine Allergy Unknown Verified 09/26/22 16:32 hydroxyzine HCl Allergy Unknown Verified 09/26/22 16:32 [From Vistaril] hydroxyzine pamoate Allergy Unknown Verified 09/26/22 16:32 [From Vistaril] niacin Allergy Unknown Verified 09/26/22 16:32 ofloxacin [From Floxin] Allergy Unknown Verified 09/26/22 16:32 tetracycline [Tetracycline] Allergy Unknown Verified 09/26/22 16:32 Tetracyclines Allergy Unknown Verified 09/26/22 16:32 Surgical History (Updated 09/26/22 @ 16:[address] Rufino Sharif DO) Hx of cholecystectomy Hx of hysterectomy Social History Smoking Status: Never smoker ROS ROS ED Constitutional Constitutional ED: Denies chills or fever(s) Eyes Eyes: Denies blurry vision or change in vision ENT ENT ED: Denies rhinorrhea or sore throat Cardiovascular Cardiovascular: Denies chest pain or palpitations Respiratory/Chest Respiratory/Chest: Denies cough or dyspnea Gastrointestinal Gastrointestinal: Reports nausea; Denies vomiting Genitourinary Genitourinary ED: Reports urinary frequency; Denies dysuria or hematuria Musculoskeletal Musculoskeletal: Reports back pain; Denies neck pain Integumentary Denies abscess or rash Neurologic Neurologic: Reports weakness; Denies headache(s) Allergic/Immunologic Allergic/Immunologic ED: Denies mouth swelling or urticaria EXAM Physical Exam Const Vital Signs: 09/26/22 16:21 09/26/22 16:21 09/26/22 18:13 Temperature 98.8 F 98.5 F Temperature Source Oral Oral Pulse Rate 78 73 Respiratory Rate 18 17 Respiratory Effort Normal Respiratory Pattern Normal Blood Pressure 134/57 H 138/66 H Blood Pressure Mean 82 90 Pulse Ox 94 95 Oxygen Delivery Method Room Air Room Air Positive well nourished and well developed General Appearance ED: well developed and NAD HEENT Reports moist mucous membranes Neck supple and no JVD Resp normal respiratory effort and clear to auscultation bilaterally Cardio regular rate, regular rhythm and no murmurs GI normal to inspection, nondistended, normoactive bowel sounds Palpation: soft and tender LLQ, RLQ and suprapubic; Negative for guarding or rebound tenderness present Extremity normal to inspection General Extremety ED: Negative for edema or tenderness General Extremity: Negative for edema Neuro oriented x3, CN's II-XII intact bilaterally and no sensory deficits noted Sensorium / Orientation: alert Motor Exam: strength 5/5 throughout Psych mental status grossly normal Skin no rashes or lesions noted MDM MDM MDM Narrative Medical decision making narrative: Patient was given IV fluids. Differential diagnosis includes electrolyte abnormality, cardiac ischemia, myocardial infarction, stroke, cardiac dysrhythmia, urinary tract infection, and pneumonia. CBC will be obtained to assess for leukocytosis and anemia. Comprehensive metabolic profile will be obtained to assess for electrolyte abnormality, renal function, and hepatic function. CT scan of the brain will be obtained to assess for stroke. Urinalysis will be obtained to assess for urinary tract infection. EKG will be obtained to assess for cardiac dysrhythmia and cardiac ischemia. Troponin will be obtained to assess for cardiac ischemia. Chest x-ray will be obtained to assess for pneumonia, and congestive heart failure. Lab Data Attestation: I reviewed the patient's lab results. Lab results narrative: CBC was reviewed. There is a mild anemia with a hemoglobin of 10.9 and hemato crit 34.0. Prior outpatient labs were reviewed and these results are stable. Comprehensive metabolic profile was reviewed and was essentially within normal limits. Lactate was reviewed and was normal. High-sensitivity troponin was reviewed and was normal. Urinalysis was reviewed and showed a leukocyte esterase of 100 with positive nitrites. There is 1+ bacteria. There are 0-5 white blood cells. There are no epithelial cells. COVID-19 rapid antigen was reviewed and was negative. Influenza A and influenza B rapid antigens were reviewed and were negative. Labs: Laboratory Results - last 24 hr 09/26/22 09/26/22 09/26/22 17:20 17:20 17:20 WBC 9.9 RBC 3.64 L Hgb 10.9 L Hct 34.0 L MCV 93.4 MCH 29.9 MCHC 32.1 RDW Std Deviation 43.2 RDW Coeff of Randall 12.5 Plt Count 311 MPV 9.4 Immature Gran % (Auto) 0.500 Neut % (Auto) 77.5 H Lymph % (Auto) 14.5 L [place] % (Auto) 6.7 Eos % (Auto) 0.4 Baso % (Auto) 0.4 Absolute Neuts (auto) 7.7 Absolute Lymphs (auto) 1.44 Nucleated RBC % 0 Sodium 136 Potassium 3.9 Chloride 104 Carbon Dioxide 25.0 Anion Gap 7 BUN 11 Creatinine 1.09 H Estim Creat Clear Calc 32.52 Est GFR (MDRD) Af Amer 63 Est GFR (MDRD) Non-Af 52 L BUN/Creatinine Ratio 10.1 Glucose 116 H Lactic Acid 1.2 Calcium 8.8 Total Bilirubin 0.20 AST 18 ALT 14 Alkaline Phosphatase 56 Troponin I High Sens 14 Total Protein 6.3 L Albumin 3.3 Globulin 3.0 Albumin/Globulin Ratio 1.1 Urine Color Urine Clarity Urine pH Ur Specific [place] Urine Protein Urine Glucose (UA) Urine Ketones Urine Occult Blood Urine Nitrite Urine Bilirubin Urine Urobilinogen Ur Leukocyte Esterase Urine RBC Urine WBC Ur Squamous Epith Cells Urine Bacteria Urine Mucus 09/26/22 18:09 WBC RBC Hgb Hct MCV MCH MCHC RDW Std Deviation RDW Coeff of Randall Plt Count MPV Immature Gran % (Auto) Neut % (Auto) Lymph % (Auto) [place] % (Auto) Eos % (Auto) Baso % (Auto) Absolute Neuts (auto) Absolute Lymphs (auto) Nucleated RBC % Sodium Potassium Chloride Carbon Dioxide Anion Gap BUN Creatinine Estim Creat Clear Calc Est GFR (MDRD) Af Amer Est GFR (MDRD) Non-Af BUN/Creatinine Ratio Glucose Lactic Acid Calcium Total Bilirubin AST ALT Alkaline Phosphatase Troponin I High Sens Total Protein Albumin Globulin Albumin/Globulin Ratio Urine Color Yellow Urine Clarity Clear Urine pH 7.0 Ur Specific [place] 1.010 Urine Protein Negative Urine Glucose (UA) Normal Urine Ketones Negative Urine Occult Blood Negative Urine Nitrite Positive H Urine Bilirubin Negative Urine Urobilinogen Normal Ur Leukocyte Esterase 100 H Urine RBC 0 SEEN Urine WBC 0-5 SEEN Ur Squamous Epith Cells 0 SEEN Urine Bacteria 1+ Urine Mucus 0 SEEN Radiography Diagnostic Testing: Clinical Impression(s) from Imaging Studies Brain CT 09/26/22 16:46 IMPRESSION: 1. No acute intracranial abnormality. There has been no change from the reference exam. 2. Underlying senescent change with small vessel ischemia. Electronically Signed: Kale Temple MD at 18:13 EST , Chest X-Ray 09/26/22 17:34 IMPRESSION: No radiographic evidence of acute cardiopulmonary disease. Electronically Signed: Kale Temple MD at 17:48 EST , CT scan of the brain was obtained. There is no acute intracranial abnormality. There are chronic changes noted. This was interpreted by the radiologist and was also independently reviewed by myself. PA and lateral chest x-ray was obtained. There are 2 views. On my independent interpretation, lung kilpatrick are clear. There is normal cardiac silhouette. Bony thorax is normal. There is no acute process noted. Radiologist also interpreted the x-ray and agrees. EKG Initial EKG: Attestation: I personally reviewed and interpreted this EKG as follows: Interpretation: Sinus Rhythm (67) and No Acute Injury Pattern Prior EKG tracings: available for review Prior: Unchanged (10/22/2020) Treatment and Re-Evaluation Narrative: Patient was advised of her findings. Patient was complaining of pain in her back. Urine culture was ordered. Patient was given a dose of Keflex here. Patient was given a dose of morphine. Patient was instructed to drink plenty of fluids. Patient was given a prescription for Keflex. Patient was instructed to follow-up with her primary care physician in 5 to 7 days. Patient understood and was agreeable with the plan. All questions were answered. Discharge Plan Triage Chief Complaint: Fever ED Provider: Rufino Sahrif Dx/Rx/DC Orders Clinical Impression: Cystitis, Low back pain Instructions: ED Cystitis Female Adult Prescriptions: New cephalexin [cephalexin] 500 mg capsule 500 mg PO Q6 Qty: 12 0RF No Action levothyroxine 25 MCG tablet 25 mcg PO DAILY omeprazole 20 MG capsule 20 mg PO DAILY pravastatin 80 MG tablet 80 mg PO QHS polyethylene glycol 3350 [Gavilax] 17 GM powder in packet 17 g PO DAILY fluoxetine 40 MG capsule 40 mg PO DAILY trazodone 150 MG tablet 300 mg PO QHS buspirone 15 MG tablet 15 mg PO TID paliperidone 6 MG tablet 6 mg PO DAILY cholecalciferol (vitamin D3) 50 MCG tablet 2,000 unit PO DAILY oxybutynin chloride 5 MG tablet 2.5 mg PO BID benztropine 0.5 mg tablet 0.5 mg PO BID lamotrigine 200 mg tablet 200 mg PO BID benzonatate 200 mg capsule 200 mg PO BID dicyclomine 20 mg tablet 20 mg PO TID melatonin 5 mg Tablet 5 mg PO QHS amlodipine 5 MG tablet 5 mg PO DAILY aspirin 81 MG tablet,chewable 81 mg PO DAILY hydralazine 50 MG tablet 50 mg PO TID Primary Care Provider: Shelley Martell [employer]CH[employer] PRESENTATION MANAGER Referrals: Shelley Martell MERCHANDISE PRESENTATION MANAGER, [facility] PRESENTATION MANAGER-C [Primary Care Provider] - 3-5 Days Disposition Disposition: Home, Self Care
--- NOTE | 2022-09-26 16:46 | EKG12_ITS ---
Test Reason : FEVER Blood Pressure : / mmHG Vent. Rate : 067 BPM Atrial Rate : 067 BPM P-R Int : 184 ms QRS Dur : 078 ms QT Int : 440 ms P-R-T Axes : 049 010 057 degrees QTc Int : 464 ms Normal sinus rhythm Normal ECG Confirmed by SCARLET DON, ARIES ([id number]), book editor LINDA WATT ([id number]) on 09/29/2022 10:07:58 AM Referred By: Confirmed By:ARIES NOVAK MD
--- NOTE | 2022-09-26 16:46 | CT_ITS ---
EXAM: CT HEAD WITHOUT INTRAVENOUS CONTRAST CLINICAL INDICATION: Stroke TECHNIQUE: Multiple axial images were obtained of the head without intravenous contrast. This CT exam was performed using one or more of the following dose reduction techniques: automated exposure control, adjustment of the mA and/or kV according to patient size, and/or use of iterative reconstruction technique. This report was created using [email or web address] report generation technology. COMPARISON: 07/27/2020 FINDINGS: BRAIN AND EXTRA-AXIAL SPACES: The ventricular system and cortical sulci are mildly enlarged in size. There is hypoattenuation in the periventricular white matter. No intra- or extra-axial hemorrhage. No evidence of acute infarct. No intracranial mass or mass effect. There is preservation of the mao/white matter interface. Posterior fossa structures are unremarkable. Basal cisterns are patent. BONES/JOINTS: Unremarkable. No discrete lytic or blastic abnormalities. SINUSES: Unremarkable as visualized. Clear. MASTOID AIR CELLS: Unremarkable. Clear. ORBITS: Visualized globes, extraocular muscles, optic nerves and retrobulbar fat appear unremarkable. CT/Brain/Head without Contrast IMPRESSION: 1. No acute intracranial abnormality. There has been no change from the reference exam. 2. Underlying senescent change with small vessel ischemia. Electronically Signed: Kale Temple MD at 18:13 EST ,
--- NOTE | 2022-09-26 17:34 | RAD_ITS ---
EXAM: XR CHEST, 2 VIEWS CLINICAL INDICATION: Weakness TECHNIQUE: Frontal and lateral views of the chest. This report was created using [employer] report generation technology. COMPARISON: 10/22/2020 FINDINGS: LUNGS AND PLEURAL SPACES: Unremarkable. No consolidation or edema. No pneumothorax. No effusion. HEART: Unremarkable. Cardiac silhouette not enlarged. MEDIASTINUM: Central airways and mediastinal contour are unremarkable. BONES/JOINTS: Unremarkable. SOFT TISSUES: Unremarkable. RAD/Chest PA and Lateral IMPRESSION: No radiographic evidence of acute cardiopulmonary disease. Electronically Signed: Kale Temple MD at 17:48 EST ,
[2022-09-26 17:57] LABS: Absolute Lymphocyte Count 1.44 X10^3/uL (0.83-4.51); Absolute Neutrophil Count 7.7 X10^3/uL (2.0-7.7); Basophil# 0.04 X10^3/uL; Basophil% 0.4 % (0-1); Eosinophil# 0.04 X10^3/uL; Eosinophils% 0.4 % (0-5); Hemoglobin 10.9 g/dL (12.0-15.0); Lymphocyte # 1.44 X10^3/ul (0.83-4.51); Lymphocyte % 14.5 % (19-41); Mean Corp Hgb Conc 32.1 g/dL (32-36); Mean Corpuscular Hgb 29.9 pg (27.0-32.0); Mean Corpuscular Volume 93.4 fL (81-99); Mean Platelet Vol. 9.4 fl (6.2-12.0); Monocyte# 0.66 X10^3/uL; Monocyte% 6.7 % (0-10); NRBC Flagged by Analyzer 0 % (0-5); Neutrophil # 7.69 X10^3/uL (2.7-7.7); Neutrophil % 77.5 % (47-70); Platelet Count 311 K/mm3 (150-450); RBC Distribution Width CV 12.5 % (11.6-14.6); RBC Distribution Width SD 43.2 fl (35.1-43.9); Red Blood Count 3.64 M/mm3 (4.2-5.4); White Blood Count 9.9 K/mm3 (4.4-11.0)
[2022-09-26 17:58] LABS: Lactic Acid 1.2 mmol/L (0.4-1.9)
[2022-09-26 18:03] LABS: ALB/GLOB Ratio 1.1 RATIO (0.9-2.4); AST(SGOT) 18 U/L (15-37); Alanine Aminotransfer ALT/SGPT 14 U/L (13-56); Albumin, Serum 3.3 g/dL (3.2-5.0); Alkaline Phosphatase 56 U/L (45-117); Anion Gap 7 (5-15); BUN 11 mg/dL (7-18); BUN/Creat Ratio 10.1 RATIO (10-20); Calcium,Total 8.8 mg/dL (8.5-10.1); Chloride 104 mmol/L (98-107); Creatinine, Serum 1.09 mg/dL (0.55-1.02); EST Glomerular Filtration Rate 52 mL/min (>60); Est Glom Filt Rate - Afr Amer 63 mL/min (>60); Estimated Creatinine Clearance 32.52 ml/min; Glucose 116 mg/dL (74-106); Potassium 3.9 mmol/L (3.5-5.1); Protein, Total 6.3 g/dL (6.4-8.2); Sodium Level 136 mmol/L (136-145); Troponin-I HS 14 pg/mL (3.0-54.0)
[2022-09-26 18:13] VITALS: BP 138/66; PULSE 73; RESP 17; TEMP 36.9; O2SAT 95
[2022-09-26 18:13] LABS: Mucous, Urine 0 SEEN /hpf (<or=2+); Red Blood Cells-Urine 0 SEEN /hpf (0-5); Squamous Epithelial Cells - UA 0 SEEN /hpf (5-10)
[2022-09-26 18:20] LABS: Color, Urine Yellow (Yellow); Glucose, Dipstick Normal (Normal); Ketone-Dipstick Negative (Negative); Leukocyte Esterase-Dipstick 100 /ul (Negative); Nitrite-Dipstick Positive (Negative); Occult Blood-Urine Negative /ul (Negative); Protein-Dipstick Negative (Negative); Urine Bilirubin Dipstick Negative (Negative); Urine Clarity Clear (Clear); Urine Urobilinogen Normal (Normal)
[2022-09-26 18:34] LABS: Bacteria 1+ /hpf (None Seen); White Blood Cells 0-5 SEEN /hpf (0-5)
[2022-09-26 19:04] VITALS: BP 130/79; PULSE 85; RESP 18; TEMP 37; O2SAT 95
[2022-09-26] MEDS: Cephalexin 500 MG Capsule PO (19:10)
[2022-09-26] MEDS: Morphine 2 MG/ML Syringe IV (19:11)
--- NOTE | 2022-09-29 08:12 | ED.RN ---
PRESCRIPTION CALLED TO [facility]
== END 2022-09-27 00:55 | disposition home or self-care (01) ==
PROVIDERS: Emergency Provider Emergency Medicine; PCP Nurse Practitioner Adult Health; Visit Provider Emergency Medicine
DX: N30.90 Cystitis, unspecified without hematuria (principal); M54.50 Low back pain, unspecified; E03.9 Hypothyroidism, unspecified; F32.A Depression, unspecified; Z79.82 Long term (current) use of aspirin; Z79.899 Other long term (current) drug therapy
CPT/HCPCS: 70450; 71046; 80053; 81001; 83605; 84484; 85025; 87077; 87086; 87088; 87186; 87428; 93005; 96361; 96374; 99285; J7040; A4216

== ENCOUNTER 2022-10-04 13:24 | Emergency (ER) | payer MEDICARE, MEDICAID, SELFPAY ==
[2022-10-04 13:27] VITALS: BP 141/55; PULSE 82; RESP 18; TEMP 35.9; O2SAT 95; BMI 25.9
--- NOTE | 2022-10-04 16:11 | CT_ITS ---
INDICATION: aloc EXAMINATION: CT BRAIN - CT Head or Brain W/O Contrast Injection TECHNIQUE: Multiple axial images were obtained of the head without intravenous contrast. A radiation dose optimization technique was used for this scan. IV Contrast dosage and agent: None. COMPARISON: 09/26/2022 FINDINGS: BRAIN PARENCHYMA: No intra- or extra-axial hemorrhage. No evidence of acute infarct. No intracranial mass or mass effect. Posterior fossa structures are unremarkable. Stable volume loss with low attenuation of the periventricular white matter typical of chronic small vessel disease. CSF SPACES: Appropriate for age. No hydrocephalus. Basal cisterns are patent. CALVARIUM, SKULL BASE, PARANASAL SINUSES AND MASTOID AIR CELLS: Scattered mild mucoperiosteal thickening. No discrete lytic or blastic abnormalities. CT/Brain/Head without Contrast IMPRESSION: Stable volume loss with chronic white matter changes. No acute intracranial findings or significant interval change from the prior examination. Electronically Signed: Antonio Holly MD at 17:55 EST ,
--- NOTE | 2022-10-04 16:11 | EKG12_ITS ---
Test Reason : Blood Pressure : / mmHG Vent. Rate : 071 BPM Atrial Rate : 071 BPM P-R Int : 162 ms QRS Dur : 078 ms QT Int : 450 ms P-R-T Axes : 040 000 053 degrees QTc Int : 489 ms Normal sinus rhythm Normal ECG Confirmed by ARIES NOVAK MD ([id number]), newspaper copy editor LINDA WATT ([id number]) on 10/06/2022 11:31:51 AM Referred By: KIRSTEN Confirmed By:ARIES NOVAK MD
--- NOTE | 2022-10-04 16:11 | CT_ITS ---
INDICATION: falls EXAMINATION: CT Spine Cervical W/O Contrast Injection TECHNIQUE: Helically acquired images were obtained of the cervical spine. 2D reformatted images were reviewed. A radiation dose optimization technique was used for this scan. IV Contrast dosage and agent: None. COMPARISON: None. FINDINGS: VERTEBRAE: No fracture or traumatic subluxation. No discrete lytic or blastic abnormality. Normal alignment. Normal craniocervical junction and cervicothoracic junction. DISCS and SPINAL CANAL: Moderate multilevel degenerative disc disease and spondylosis. No critical stenosis. NECK SOFT TISSUES: No prevertebral soft tissue swelling. There is no cervical adenopathy. LUNG APICES: Clear. CT/Spine Cervical without Contras IMPRESSION: No evidence of acute cervical spinal fracture or spondylolisthesis. Moderate multilevel degenerative disc disease and spondylosis. Electronically Signed: Popeye Almendarez MD at 17:56 EST ,
--- NOTE | 2022-10-04 16:14 | EDS_ITS ---
HPI HPI - Fall History of Present Illness Chief Complaint: Fall Narrative Narrative: 72-year-old female from long term with history of falls. Last fall was this morning. Patient cannot recall how she fell or why she fell. She reports lower back pain. She is unsure how long she was down on the ground but thinks it might be an hour and a half. Patient is a poor informant with history of schizophrenia, dementia. Patient unsure if she hit her head or not. She denies headache or neck pain. PFSH PFS Medical History Depression History of schizophrenia Hypothyroidism Migraine Type 2 diabetes mellitus Home Medications levothyroxine 25 mcg tablet 25 mcg PO DAILY THYROID 06/26/13 [History Last Taken 09/26/22 08:00] omeprazole 20 mg capsule,delayed release 20 mg PO DAILY GERD 06/26/13 [History Last Taken 09/26/22] pravastatin 80 mg tablet 80 mg PO QHS CHOLESTEROL 03/13/17 [History Last Taken 09/25/22] polyethylene glycol 3350 17 gram oral powder packet (Gavilax) 17 g PO DAILY CONSTIPATION 05/11/18 [History Last Taken 09/26/22] buspirone 15 mg tablet 15 mg PO TID ANXIETY 07/27/20 [History Last Taken 09/26/22] cholecalciferol (vitamin D3) 50 mcg (2,000 unit) tablet 2,000 unit PO DAILY SUPPLEMENT 07/27/20 [History Last Taken 09/26/22] fluoxetine 40 mg capsule 40 mg PO DAILY DEPRESSION 07/27/20 [History Last Taken 09/26/22] paliperidone 6 mg tablet,extended release 24 hr 6 mg PO DAILY MENTAL HEALTH 07/27/20 [History Last Taken 09/26/22] trazodone 150 mg tablet 300 mg PO QHS SLEEP 07/27/20 [History Last Taken 09/25/22] oxybutynin chloride 5 mg tablet 2.5 mg PO BID BLADDER 10/22/20 [History Last Taken 09/26/22] amlodipine 5 mg tablet 5 mg PO DAILY BLOOD PRESSURE 09/26/22 [History Last Taken 09/26/22] aspirin 81 mg chewable tablet 81 mg PO DAILY HEART HEALTH 09/26/22 [History Last Taken 09/26/22] benzonatate 200 mg capsule 200 mg PO BID COUGH 09/26/22 [History Last Taken 09/26/22] benztropine 0.5 mg tablet 0.5 mg PO BID MUSCLE SPASMS 09/26/22 [History Last Taken 09/26/22] cephalexin 500 mg capsule 500 mg PO Q6 #12 CAPSULES 09/26/22 [Rx Last Taken Unk nown] dicyclomine 20 mg tablet 20 mg PO TID 09/26/22 [History Last Taken 09/26/22] hydralazine 50 mg tablet 50 mg PO TID BLOOD PRESSURE 09/26/22 [History Last Taken 09/26/22] lamotrigine 200 mg tablet 200 mg PO BID MOOD 09/26/22 [History Last Taken 09/26/22] melatonin 5 mg tablet 5 mg PO QHS SLEEP 09/26/22 [History Last Taken 09/25/22] cephalexin 500 mg capsule 500 mg PO Q12 #14 CAPSULES 10/04/22 [Rx Last Taken Unknown] Allergy/AdvReac Type Severity Reaction Status Date / Time ciprofloxacin Allergy Unknown Verified 10/04/22 13:29 codeine Allergy Unknown Verified 10/04/22 13:29 hydroxyzine HCl Allergy Unknown Verified 10/04/22 13:29 [From Vistaril] hydroxyzine pamoate Allergy Unknown Verified 10/04/22 13:29 [From Vistaril] niacin Allergy Unknown Verified 10/04/22 13:29 ofloxacin [From Floxin] Allergy Unknown Verified 10/04/22 13:29 tetracycline [Tetracycline] Allergy Unknown Verified 10/04/22 13:29 Tetracyclines Allergy Unknown Verified 10/04/22 13:29 Surgical History Hx of cholecystectomy Hx of hysterectomy Social History Smoking Status: Never smoker ROS ROS ED Constitutional Constitutional ED: Denies chills or fever(s) Eyes Eyes: Denies change in vision or diplopia ENT ENT ED: Denies rhinorrhea or sore throat Cardiovascular Cardiovascular: Denies chest pain or palpitations Respiratory/Chest Respiratory/Chest: Denies cough or dyspnea Gastrointestinal Gastrointestinal: Denies abdominal pain, nausea or vomiting Genitourinary Genitourinary ED: Denies dysuria or hematuria Musculoskeletal Musculoskeletal: Reports back pain Integumentary Denies abscess Neurologic Neurologic: Denies headache(s) or paresthesias Psychiatric Psychiatric: Denies anxiety or depression EXAM Physical Exam Const Vital Signs: 10/04/22 13:27 10/04/22 19:29 Temperature 96.7 F L Temperature Source Temporal Pulse Rate 82 Respiratory Rate 18 Blood Pressure 141/55 H Blood Pressure Mean 83 Pulse Ox 95 98 Oxygen Delivery Method Room Air Room Air Positive well nourished HEENT Reports normocephalic and TM's normal bilaterally atraumatic Eyes PERRL and EOMs intact bilaterally Neck full ROM Chest Wall inspection of chest normal and palpation of chest normal Resp normal respiratory effort and no retractions Auscultation: Negative for rales, rhonchi or wheezes Cardio regular rate and regular rhythm MDM MDM MDM Narrative Medical decision making narrative: 72-year-old female with history of schizophrenia presenting with falls. She states has been at least 3 times. She was found this morning and believes she has been down for an hour and a half but cannot be sure. She does not know how or why she fell. Unsure if she hit her head. Differential is broad as patient was a poor informant. This does include but is not limited to subarachnoid, subdural, epidural hematoma, UTI, dehydration, ACS, pneumonia, electrolyte abnormalities. CT brain to assess for subdural epidural subarachnoid hemorrhage due to confusion and falls. Patient having lower back pain after a fall so we will obtain imaging of the lumbar spine as well as CT C-spine because I cannot clear by Nexus criteria due to confusion and lower back pain. CBC to assess for anemia elevated white blood cell count, differential. BMP to assess for renal function electrolytes, glucose, anion gap, urinalysis to assess for UTI. Chest x-ray to assess for pneumonia. EKG and troponin to assess for cardiac source for the fall. EKG shows a normal sinus rhythm with a ventricular to 71 bpm on my interpretation. No ST elevations or depressions. No signs of dysrhythmia. CBC shows slight leukocytosis at 12.6. Minimal left shift. Hemoglobin hematocrit stable. Platelets normal 336. Renal function electrolytes within normal limits. Glucose 111. No anion gap. Breath, high-sensitivity troponin is 11. Chest x-ray on my interpretation shows no acute cardiopulmonary process. Radiology interpreted this and agrees. I did obtain a CPK because of unsure how long the patient was down. This is within normal limits. CT of the brain and the cervical spine were obtained and are both negative for acute findings. X-ray of the lumbar spine was also obtained due to patient's pain complaint. This is negative for acute fracture my interpretation. Radiology interprets this and agrees. Patient doing well with Lidoderm patch. Urinalysis returned consistent with UTI. She is placed given a gram of Rocephin IV. Urine culture sent she is been able to ambulate throughout the emergency room since has been here. She has not fallen. Discussed with the nurse practitioner on-call for the long term. Patient stable for discharge home with UTIs she has been stable here. Discussed with the nurse practitioner. Prescription given. Impression: 1. Fall 2. Leukocytosis 3. Urinary tract infection 4. Back contusion Lab Data Labs: Laboratory Results - last 24 hr 10/04/22 10/04/22 10/04/22 14:23 16:40 16:40 WBC 12.6 H RBC 4.04 L Hgb 12.4 Hct 38.5 MCV 95.3 MCH 30.7 MCHC 32.2 RDW Std Deviation 44.8 H RDW Coeff of Randall 12.7 Plt Count 336 MPV 9.5 Immature Gran % (Auto) 0.600 Neut % (Auto) 75.1 H Lymph % (Auto) 17.5 L [place] % (Auto) 6.0 Eos % (Auto) 0.3 Baso % (Auto) 0.5 Absolute Neuts (auto) 9.4 H Absolute Lymphs (auto) 2.19 Nucleated RBC % 0 Sodium 138 Potassium 3.7 Chloride 105 Carbon Dioxide 26.0 Anion Gap 7 BUN 6 L Creatinine 0.88 Estim Creat Clear Calc 40.29 Est GFR (MDRD) Af Amer 81 Est GFR (MDRD) Non-Af 67 BUN/Creatinine Ratio 6.8 L Glucose 111 H Calcium 9.2 Total Creatine Kinase Troponin I High Sens 11 Urine Color Yellow Urine Clarity Clear Urine pH 7.0 Ur Specific [place] 1.010 Urine Protein Negative Urine Glucose (UA) Normal Urine Ketones Negative Urine Occult Blood 10 H Urine Nitrite Positive H Urine Bilirubin Negative Urine Urobilinogen Normal Ur Leukocyte Esterase 500 H Urine RBC 0 SEEN Urine WBC 10-25 SEEN Ur Squamous Epith Cells 0 SEEN Urine Bacteria 1+ Urine Mucus 0 SEEN 10/04/22 16:40 WBC RBC Hgb Hct MCV MCH MCHC RDW Std Deviation RDW Coeff of Randall Plt Count MPV Immature Gran % (Auto) Neut % (Auto) Lymph % (Auto) [place] % (Auto) Eos % (Auto) Baso % (Auto) Absolute Neuts (auto) Absolute Lymphs (auto) Nucleated RBC % Sodium Potassium Chloride Carbon Dioxide Anion Gap BUN Creatinine Estim Creat Clear Calc Est GFR (MDRD) Af Amer Est GFR (MDRD) Non-Af BUN/Creatinine Ratio Glucose Calcium Total Creatine Kinase 168 Troponin I High Sens Urine Color Urine Clarity Urine pH Ur Specific [place] Urine Protein Urine Glucose (UA) Urine Ketones Urine Occult Blood Urine Nitrite Urine Bilirubin Urine Urobilinogen Ur Leukocyte Esterase Urine RBC Urine WBC Ur Squamous Epith Cells Urine Bacteria Urine Mucus Radiography Diagnostic Testing: Clinical Impression(s) from Imaging Studies Brain CT 10/04/22 16:11 IMPRESSION: Stable volume loss with chronic white matter changes. No acute intracranial findings or significant interval change from the prior examination. Electronically Signed: Antonio Holly MD at 17:55 EST Reading Location ID and State: [email or web address] / [place] Tel , Service support , Cervical Spine CT 10/04/22 16:11 IMPRESSION: No evidence of acute cervical spinal fracture or spondylolisthesis. Moderate multilevel degenerative disc disease and spondylosis. Electronically Signed: Popeye Almendarez MD at 17:56 EST , Chest X-Ray 10/04/22 17:05 IMPRESSION: No radiographic evidence of acute cardiopulmonary disease. Electronically Signed: Antonio Holly MD at 17:55 EST , Lumbar Spine X-Ray 10/04/22 17:05 IMPRESSION: Stable degenerative disc disease with chronic compression fractures. No acute bony abnormality. Electronically Signed: Antonio Holly MD at 18:08 EST , Discharge Plan Triage Chief Complaint: Fall ED Provider: Gaurang Fajardo Dx/Rx/DC Orders Instructions: ED Fall with Uncertain Cause, ED Cystitis Female Adult, ED Fall Prevention Prescriptions: New cephalexin 500 mg capsule 500 mg PO Q12 Qty: 14 0RF No Action levothyroxine 25 MCG tablet 25 mcg PO DAILY omeprazole 20 MG capsule 20 mg PO DAILY pravastatin 80 MG tablet 80 mg PO QHS polyethylene glycol 3350 [Gavilax] 17 GM powder in packet 17 g PO DAILY fluoxetine 40 MG capsule 40 mg PO DAILY trazodone 150 MG tablet 300 mg PO QHS buspirone 15 MG tablet 15 mg PO TID paliperidone 6 MG tablet 6 mg PO DAILY cholecalciferol (vitamin D3) 50 MCG tablet 2,000 unit PO DAILY oxybutynin chloride 5 MG tablet 2.5 mg PO BID benztropine 0.5 mg tablet 0.5 mg PO BID lamotrigine 200 mg tablet 200 mg PO BID benzonatate 200 mg capsule 200 mg PO BID dicyclomine 20 mg tablet 20 mg PO TID melatonin 5 mg Tablet 5 mg PO QHS amlodipine 5 MG tablet 5 mg PO DAILY aspirin 81 MG tablet,chewable 81 mg PO DAILY hydralazine 50 MG tablet 50 mg PO TID cephalexin [cephalexin] 500 mg capsule 500 mg PO Q6 Qty: 12 0RF Primary Care Provider: Shelley Martell ADMINISTRATIVE SERVICES MANAGER Referrals: Shelley Martell ADMINISTRATIVE SERVICES MANAGER, ADMINISTRATIVE SERVICES MANAGER-C [Primary Care Provider] - Disposition Disposition: Home, Self Care
[2022-10-04 16:24] LABS: Mucous, Urine 0 SEEN /hpf (<or=2+); Red Blood Cells-Urine 0 SEEN /hpf (0-5); Squamous Epithelial Cells - UA 0 SEEN /hpf (5-10)
[2022-10-04 16:27] LABS: Color, Urine Yellow (Yellow); Glucose, Dipstick Normal (Normal); Ketone-Dipstick Negative (Negative); Leukocyte Esterase-Dipstick 500 /ul (Negative); Nitrite-Dipstick Positive (Negative); Occult Blood-Urine 10 /ul (Negative); Protein-Dipstick Negative (Negative); Urine Bilirubin Dipstick Negative (Negative); Urine Clarity Clear (Clear); Urine Urobilinogen Normal (Normal)
[2022-10-04] MEDS: 0.9% Normal Saline 1,000 ML 999 ML IV (16:45)
[2022-10-04] MEDS: Lidocaine 5% Patch 1 PATCH TOPICAL (16:45)
[2022-10-04 16:46] LABS: Absolute Lymphocyte Count 2.19 X10^3/uL (0.83-4.51); Absolute Neutrophil Count 9.4 X10^3/uL (2.0-7.7); Basophil# 0.06 X10^3/uL; Basophil% 0.5 % (0-1); Eosinophil# 0.04 X10^3/uL; Eosinophils% 0.3 % (0-5); Hematocrit 38.5 % (37-47); Hemoglobin 12.4 g/dL (12.0-15.0); Lymphocyte # 2.19 X10^3/ul (0.83-4.51); Lymphocyte % 17.5 % (19-41); Mean Corp Hgb Conc 32.2 g/dL (32-36); Mean Corpuscular Hgb 30.7 pg (27.0-32.0); Mean Corpuscular Volume 95.3 fL (81-99); Mean Platelet Vol. 9.5 fl (6.2-12.0); Monocyte# 0.75 X10^3/uL; NRBC Flagged by Analyzer 0 % (0-5); Neutrophil # 9.44 X10^3/uL (2.7-7.7); Neutrophil % 75.1 % (47-70); Platelet Count 336 K/mm3 (150-450); RBC Distribution Width CV 12.7 % (11.6-14.6); RBC Distribution Width SD 44.8 fl (35.1-43.9); Red Blood Count 4.04 M/mm3 (4.2-5.4); White Blood Count 12.6 K/mm3 (4.4-11.0)
[2022-10-04 16:49] LABS: Bacteria 1+ /hpf (None Seen); White Blood Cells 10-25 SEEN /hpf (0-5)
--- NOTE | 2022-10-04 17:05 | RAD_ITS ---
INDICATION: ams EXAMINATION/TECHNIQUE: X-RAY - portable upright AP chest x-ray COMPARISON: 09/26/2022 FINDINGS: LINES/DEVICES: None. LUNGS: No consolidation, edema or effusion. No pneumothorax. MEDIASTINUM AND CARDIOVASCULAR STRUCTURES: Cardiac silhouette not enlarged. Central airways and mediastinal contour are unremarkable. BONES AND SOFT TISSUES: Unremarkable. RAD/Chest 1 View (Portable) IMPRESSION: No radiographic evidence of acute cardiopulmonary disease. Electronically Signed: Antonio Holly MD at 17:55 EST ,
--- NOTE | 2022-10-04 17:05 | RAD_ITS ---
INDICATION: back pain EXAMINATION/TECHNIQUE: X-RAY - XR Spine Lumbar 2 or 3 Views COMPARISON: 06/24/2021 FINDINGS: VERTEBRAE: Stable chronic compression fracture of L4, stable chronic compression fracture of L1 with kyphoplasty material. No acute fracture. No spondylolisthesis. Preservation of the normal lumbar lordosis. DISCS: Stable disc space narrowing L3-4 and L4-5. INCLUDED ABDOMEN: Included bowel gas pattern is non-obstructive. RAD/Lumbar Spine 2 or 3 Views IMPRESSION: Stable degenerative disc disease with chronic compression fractures. No acute bony abnormality. Electronically Signed: Antonio Holly MD at 18:08 EST ,
[2022-10-04 17:12] LABS: Anion Gap 7 (5-15); BUN 6 mg/dL (7-18); BUN/Creat Ratio 6.8 RATIO (10-20); Calcium,Total 9.2 mg/dL (8.5-10.1); Chloride 105 mmol/L (98-107); Creatinine, Serum 0.88 mg/dL (0.55-1.02); EST Glomerular Filtration Rate 67 mL/min (>60); Est Glom Filt Rate - Afr Amer 81 mL/min (>60); Estimated Creatinine Clearance 40.29 ml/min; Glucose 111 mg/dL (74-106); Potassium 3.7 mmol/L (3.5-5.1); Sodium Level 138 mmol/L (136-145); Troponin-I HS 11 pg/mL (3.0-54.0)
[2022-10-04 17:15] LABS: CPK Total, Creatine Kinase 168 U/L (26-192)
[2022-10-04] MEDS: Ceftriaxone 1 GM/50 ML BAG IV (17:34)
[2022-10-04 19:29] VITALS: O2SAT 98
== END 2022-10-04 21:18 | disposition home or self-care (01) ==
PROVIDERS: Emergency Provider Student in an Organized Health Care Education/Training Program; PCP Nurse Practitioner Adult Health; Visit Provider Student in an Organized Health Care Education/Training Program
DX: D72.829 Elevated white blood cell count, unspecified (principal); F20.9 Schizophrenia, unspecified; N39.0 Urinary tract infection, site not specified; S20.229A Contusion of unspecified back wall of thorax, initial encounter; W19.XXXA Unspecified fall, initial encounter
CPT/HCPCS: 70450; 71045; 72100; 72125; 80048; 81001; 82550; 84484; 85025; 87077; 87086; 87088; 87186; 93005; 96365; 99284; J7030; A4216

== ENCOUNTER 2022-10-04 21:55 | Emergency (ER) | payer MEDICARE, MEDICAID, SELFPAY ==
[2022-10-04 21:56] VITALS: BP 135/65; PULSE 74; RESP 15; TEMP 36.8; O2SAT 99; BMI 27.2
[2022-10-04 22:06] VITALS: O2SAT 99
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
[2022-10-04 22:40] VITALS: BP 132/74; PULSE 78; RESP 14; O2SAT 99
[2022-10-05 00:28] VITALS: O2SAT 99
== END 2022-10-05 01:42 | disposition home or self-care (01) ==
PROVIDERS: Emergency Provider Emergency Medicine; PCP Nurse Practitioner Adult Health; Visit Provider Emergency Medicine
DX: E11.9 Type 2 diabetes mellitus without complications (principal); F20.9 Schizophrenia, unspecified; F32.A Depression, unspecified; V89.2XXA Person injured in unspecified motor-vehicle accident, traffic, initial encounter

== ENCOUNTER 2022-10-11 09:03 | Emergency (ER) | payer MEDICARE, MEDICAID, SELFPAY ==
[2022-10-11 09:04] VITALS: BP 135/42; PULSE 84; RESP 18; TEMP 36.4; O2SAT 95; BMI 25.4
[2022-10-11 09:07] VITALS: BP 135/42; PULSE 822; RESP 18; TEMP 36.4; O2SAT 95
--- NOTE | 2022-10-11 09:19 | CT_ITS ---
STUDY: CT BRAIN WITHOUT CONTRAST REASON FOR EXAM: Female, 72 years old. Altered level of consciousness. RADIATION DOSAGE (If Supplied By Facility): CTDIvol = ( 44.99 ) mGy, DLP = ( 745.49 ) mGycm TECHNIQUE: Transaxial CT imaging of the brain was performed without administration of intravenous contrast material. Individualized dose optimization techniques were used for this CT. COMPARISON: Comparison is made with prior examination dated 10/04/2022. FINDINGS: Normal soft tissue structures. Normal calvarium. There is mild cerebral atrophy with widening of the extra-axial spaces and ventricular dilatation. Normal white matter tracts of the cerebral hemispheres. Normal basal ganglia and thalami. Normal brainstem. Normal cerebellum. There is no intracranial hemorrhage. There are no findings of an acute ischemic infarction. Atherosclerotic plaque formation of the cavernous portions of the internal carotid arteries bilaterally Normal visualized paranasal sinuses. CT/Brain/Head without Contrast IMPRESSION: Chronic involutional changes of the brain. Electronically Signed: Johnnie Oretga MD at 10:01 EST ,
--- NOTE | 2022-10-11 09:20 | EKG12_ITS ---
Test Reason : WEAKNESS Blood Pressure : / mmHG Vent. Rate : 077 BPM Atrial Rate : 077 BPM P-R Int : 172 ms QRS Dur : 076 ms QT Int : 424 ms P-R-T Axes : 032 016 054 degrees QTc Int : 479 ms Normal sinus rhythm Normal ECG Confirmed by BISI DON, BARBARA ([id number]), department editor LINDA WATT ([id number]) on 10/12/2022 1:43:14 PM Referred By: Confirmed By:BARBARA MATHEWS MD
--- NOTE | 2022-10-11 09:21 | EX.ED.DYSGE1 ---
HPI History of Present Illness Chief Complaint: Complaint Detail of Chief Complaint: Follows at the assisted living facility. Informant: patient and other Onset/Context/Timing Onset: Today Context: Gradual Onset Timing: Intermittent Current Severity: Mild Maximum Severity: Mild Narrative Narrative: 72-year-old female history of schizophrenia and diabetes. Lives at assisted living facility. Reportedly had several falls today. Diagnosed with a UTI approximately a week ago. Has had generalized weakness. She is a very limited informant. Prior similar symptoms: Yes Recent Illness/Hospitalization: No PFSH [facility] Medical History Depression History of schizophrenia Hypothyroidism Migraine Type 2 diabetes mellitus Home Medications levothyroxine 25 mcg tablet 25 mcg PO DAILY THYROID 06/26/13 [History Last Taken 10/11/22] omeprazole 20 mg capsule,delayed release 20 mg PO DAILY GERD 06/26/13 [History Last Taken 10/11/22] pravastatin 80 mg tablet 80 mg PO QHS CHOLESTEROL 03/13/17 [History Last Taken 10/09/22] polyethylene glycol 3350 17 gram oral powder packet (Gavilax) 17 g PO DAILY CONSTIPATION 05/11/18 [History Last Taken 10/11/22] buspirone 15 mg tablet 15 mg PO TID ANXIETY 07/27/20 [History Last Taken 10/11/22] cholecalciferol (vitamin D3) 50 mcg (2,000 unit) tablet 2,000 unit PO DAILY SUPPLEMENT 07/27/20 [History Last Taken 10/11/22] fluoxetine 40 mg capsule 40 mg PO DAILY DEPRESSION 07/27/20 [History Last Taken 10/11/22] paliperidone 6 mg tablet,extended release 24 hr 6 mg PO DAILY MENTAL HEALTH 07/27/20 [History Last Taken 10/11/22] trazodone 150 mg tablet 300 mg PO QHS SLEEP 07/27/20 [History Last Taken 10/10/22] oxybutynin chloride 5 mg tablet 2.5 mg PO BID BLADDER 10/22/20 [History Last Taken 10/11/22] amlodipine 5 mg tablet 5 mg PO DAILY BLOOD PRESSURE 09/26/22 [History Last Taken 10/11/22] aspirin 81 mg chewable tablet 81 mg PO DAILY HEART HEALTH 09/26/22 [History Last Taken 10/11/22] benzonatate 200 mg capsule 200 mg PO BID COUGH 09/26/22 [History Last Taken 10/11/22] benztropine 0.5 mg tablet 0.5 mg PO BID MUSCLE SPASMS 09/26/22 [History Last Taken 10/11/22] dicyclomine 20 mg tablet 20 mg PO TID IBS 09/26/22 [History Last Taken 10/11/22] hydralazine 50 mg tablet 50 mg PO TID BLOOD PRESSURE 09/26/22 [History Last Taken 10/11/22] lamotrigine 200 mg tablet 200 mg PO BID MOOD 09/26/22 [History Last Taken 10/11/22] melatonin 5 mg tablet 5 mg PO QHS SLEEP 09/26/22 [History Last Taken 10/10/22] cephalexin 500 mg capsule 500 mg PO Q12H UTI 10/11/22 [History Last Taken 10/11/22] Allergy/AdvReac Type Severity Reaction Status Date / Time ciprofloxacin Allergy Unknown Verified 10/11/22 09:03 codeine Allergy Unknown Verified 10/11/22 09:03 hydroxyzine HCl Allergy Unknown Verified 10/11/22 09:03 [From Vistaril] hydroxyzine pamoate Allergy Unknown Verified 10/11/22 09:03 [From Vistaril] niacin Allergy Unknown Verified 10/11/22 09:03 ofloxacin [From Floxin] Allergy Unknown Verified 10/11/22 09:03 tetracycline [Tetracycline] Allergy Unknown Verified 10/11/22 09:03 Tetracyclines Allergy Unknown Verified 10/11/22 09:03 Surgical History Hx of cholecystectomy Hx of hysterectomy Social History housing: shelter Smoking Status: Never smoker substance use type: does not use ROS ROS ED ROS Narrative Denies recent illness. Reportedly diagnosed with a UTI. A limited informant. Review of Systems ROS Unobtainable: Denies due to encephalopathy Constitutional Constitutional ED: Denies chills or fever(s) ENT ENT ED: Denies ear pain Cardiovascular Cardiovascular: Denies chest pain Respiratory/Chest Respiratory/Chest: Denies cough or dyspnea Genitourinary Genitourinary ED: Denies dysuria or hematuria Musculoskeletal Musculoskeletal: Denies arthralgias Integumentary Denies abscess Neurologic Neurologic: Denies headache(s) Psychiatric Psychiatric: Denies anxiety Endocrine Endocrinology: Denies cold intolerance Hematologic/Lymphatic Hematologic/Lymphatic: Reports none Allergic/Immunologic Allergic/Immunologic ED: Denies mouth swelling or tongue swelling EXAM Physical Exam Narrative Exam Narrative: 72-year-old female no acute distress. Vital signs stable afebrile. Pulse ox 95% on room air no hypoxia. H EENT exam unremarkable atraumatic. Pupils round reactive light. Moist mucous membranes. No trauma. Neck nontender. No lymphadenopathy. Back nontender no signs of trauma. Spine nontender. Lungs clear. Heart regular rate and rhythm rate about 80. Chest wall nontender. Abdomen soft nontender. Pelvic girdle intact. Moving all 4 extremities. Nontender. No deformity. Normal motor strength and range of motion. Neurologically she is awake. She is a limited informant. Const Vital Signs: 10/11/22 09:04 10/11/22 09:07 Temperature 97.6 F L 97.6 F L Temperature Source Temporal Temporal Pulse Rate 84 822 H Respiratory Rate 18 18 Blood Pressure 135/42 H 135/42 H Blood Pressure Mean 73 73 Pulse Ox 95 95 Oxygen Delivery Method Room Air Room Air Positive well nourished and well developed; Negative for obese, cachectic, contractures or unkempt General Appearance ED: well developed and NAD; Negative for unkempt, cachectic, contractures, cyanotic or diaphoretic Nutritional Appearance: Negative for cachectic or obese HEENT Reports moist mucous membranes; Denies dry mucous membranes Negative for trauma or tenderness Mouth ED: No dry mucous membranes Mouth: No dry mucous membranes Eyes PERRL and EOMs intact bilaterally General Eye ED: Negative for pale conjunctiva, scleral icterus or other Neck no lymphadenopathy, supple and no JVD General: Negative for tenderness Lymph Lymphatic: Negative for other Chest Wall inspection of chest normal and palpation of chest normal Chest: Negative for other Resp normal respiratory effort and clear to auscultation bilaterally Effort and Inspection: Negative for retractions Auscultation: Negative for rales, rhonchi or wheezes Cardio regular rate, regular rhythm, S1 normal heart sound, S2 normal heart sound and no murmurs GI normal to inspection, nondistended, normoactive bowel sounds, non-tender, non-distended and no masses Inspection: Negative for abdominal distention Auscultation: normoactive bowel sounds Palpation: soft; Negative for tender or guarding Back/Spine no CVA tenderness General Back: Negative for CVA tenderness Cervical Spine: Negative for cervical spine tenderness Thoracic Spine / Upper Back: Negative for thoracic spinal tenderness Lumbar Spine / Lower Back: Negative for lumbar spinal tenderness Extremity normal to inspection General Extremety ED: Negative for edema or tenderness General Extremity: Negative for edema Neuro No oriented x3 and CN's II-XII intact bilaterally Sensorium / Orientation: alert and orientation impaired; Negative for lethargic or stuporous Motor Exam: strength 5/5 throughout Psych mental status grossly normal Appearance: Negative for unkempt Attitude: No agitated Mood & Affect: Negative for depressed, anxious or tearful Skin no rashes or lesions noted, no wounds and skin turgor normal General Skin Exam: elasticity normal Lesions: No lesion noted Rashes: No rashes noted Trauma: Negative for abrasion Wounds: Negative for wounds noted MDM MDM MDM Narrative Medical decision making narrative: 72-year-old with reported generalized weakness and falls. Exam benign no obvious areas of injury or trauma. She also reportedly has mental status change. With the falls we will CAT scan her head. Screening labs and a urinalysis. I did review her old records and recent labs. Approximately a week ago she did have what appeared to be a UTI and culture positive for Pseudomonas. Repeat exam at 10:33 AM patient doing well. Resting comfortably. I went over her labs with her. Nurses will attempt to walk the patient if she does well she will be discharged back to her assisted living facility. Patient ambulated well with nursing with a walker. She will be discharged home. Lab Data Attestation: I reviewed the patient's lab results. Lab results narrative: CBC unremarkable white count 6.9. H&H 12.1 and 37. Platelets 363. Urinalysis is negative. She was just and I believe still is on antibiotics urine has no white or red cells. No bacteria and no nitrites. Chemistries unremarkable gap of 4 BUN 9 creatinine 1.21. Liver enzymes unremarkable. Glucose 158. CAT scan of the brain shows no acute processes. Chronic changes. Read by the radiologist and reviewed by me. Labs: Laboratory Results - last 24 hr 10/11/22 10/11/22 10/11/22 09:10 09:10 09:35 WBC 6.9 RBC 3.97 L Hgb 12.1 Hct 37.6 MCV 94.7 MCH 30.5 MCHC 32.2 RDW Std Deviation 45.7 H RDW Coeff of Randall 13.1 Plt Count 363 MPV 9.2 Immature Gran % (Auto) 0.400 Neut % (Auto) 78.4 H Lymph % (Auto) 15.3 L [place] % (Auto) 4.8 Eos % (Auto) 0.4 Baso % (Auto) 0.7 Absolute Neuts (auto) 5.4 Absolute Lymphs (auto) 1.05 Nucleated RBC % 0 Sodium 144 Potassium 3.8 Chloride 108 H Carbon Dioxide 32.0 Anion Gap 4 L BUN 9 Creatinine 1.21 H Estim Creat Clear Calc 30.78 Est GFR (MDRD) Af Amer 56 L Est GFR (MDRD) Non-Af 46 L BUN/Creatinine Ratio 7.4 L Glucose 158 H Calcium 9.9 Total Bilirubin 0.40 AST 23 ALT 20 Alkaline Phosphatase 61 Total Protein 7.6 Albumin 3.9 Globulin 3.7 Albumin/Globulin Ratio 1.1 Urine Color Yellow Urine Clarity Clear Urine pH 7.0 Ur Specific [place] 1.010 Urine Protein Negative Urine Glucose (UA) Normal Urine Ketones Negative Urine Occult Blood Negative Urine Nitrite Negative Urine Bilirubin Negative Urine Urobilinogen Normal Ur Leukocyte Esterase Negative Urine RBC 0-5 SEEN Urine WBC 0-5 SEEN Ur Squamous Epith Cells 0 SEEN Urine Bacteria 0 SEEN Urine Mucus 0 SEEN Radiography Diagnostic Testing: Clinical Impression(s) from Imaging Studies Brain CT 10/11/22 09:19 IMPRESSION: Chronic involutional changes of the brain. Electronically Signed: Johnnie Ortega MD at 10:01 EST , Rhythm Strip Rhythm Strip: Sinus Rhythm Rate: 77 Ectopy: None EKG Initial EKG: Attestation: I personally reviewed and interpreted this EKG as follows: Interpretation: Sinus Rhythm Comments: Normal sinus rhythm rate of 77 no acute signs of TX or ischemia. No dysrhythmia. Discharge Plan Triage Chief Complaint: Complaint ED Provider: Maximiliano Hoffman Dx/Rx/DC Orders Clinical Impression: Falls, History of diabetes mellitus Instructions: ED Fall with Uncertain Cause Prescriptions: No Action levothyroxine 25 MCG tablet 25 mcg PO DAILY omeprazole 20 MG capsule 20 mg PO DAILY pravastatin 80 MG tablet 80 mg PO QHS polyethylene glycol 3350 [Gavilax] 17 GM powder in packet 17 g PO DAILY fluoxetine 40 MG capsule 40 mg PO DAILY trazodone 150 MG tablet 300 mg PO QHS buspirone 15 MG tablet 15 mg PO TID paliperidone 6 MG tablet 6 mg PO DAILY cholecalciferol (vitamin D3) 50 MCG tablet 2,000 unit PO DAILY oxybutynin chloride 5 MG tablet 2.5 mg PO BID benztropine 0.5 mg tablet 0.5 mg PO BID lamotrigine 200 mg tablet 200 mg PO BID benzonatate 200 mg capsule 200 mg PO BID dicyclomine 20 mg tablet 20 mg PO TID melatonin 5 mg Tablet 5 mg PO QHS amlodipine 5 MG tablet 5 mg PO DAILY aspirin 81 MG tablet,chewable 81 mg PO DAILY hydralazine 50 MG tablet 50 mg PO TID cephalexin 500 mg capsule 500 mg PO Q12H Primary Care Provider: Shelley Martell SOLAR SITE ASSESSMENT SPECIALIST Referrals: Shelley Martell SOLAR SITE ASSESSMENT SPECIALIST, SOLAR SITE ASSESSMENT SPECIALIST-C [Primary Care Provider] - 3-5 Days Activity Restrictions/Additional Instructions: CAT scan and labs are unremarkable. Her urinalysis today was normal. The antibiotics appear to have worked. We do not have a specific cause for her falls. Follow-up with her primary care provider. Disposition Disposition: Home, Self Care
[2022-10-11 09:38] LABS: Absolute Lymphocyte Count 1.05 X10^3/uL (0.83-4.51); Absolute Neutrophil Count 5.4 X10^3/uL (2.0-7.7); Basophil# 0.05 X10^3/uL; Basophil% 0.7 % (0-1); Eosinophil# 0.03 X10^3/uL; Eosinophils% 0.4 % (0-5); Hematocrit 37.6 % (37-47); Hemoglobin 12.1 g/dL (12.0-15.0); Lymphocyte # 1.05 X10^3/ul (0.83-4.51); Lymphocyte % 15.3 % (19-41); Mean Corp Hgb Conc 32.2 g/dL (32-36); Mean Corpuscular Hgb 30.5 pg (27.0-32.0); Mean Corpuscular Volume 94.7 fL (81-99); Mean Platelet Vol. 9.2 fl (6.2-12.0); Monocyte# 0.33 X10^3/uL; Monocyte% 4.8 % (0-10); NRBC Flagged by Analyzer 0 % (0-5); Neutrophil # 5.38 X10^3/uL (2.7-7.7); Neutrophil % 78.4 % (47-70); Platelet Count 363 K/mm3 (150-450); RBC Distribution Width CV 13.1 % (11.6-14.6); RBC Distribution Width SD 45.7 fl (35.1-43.9); Red Blood Count 3.97 M/mm3 (4.2-5.4); White Blood Count 6.9 K/mm3 (4.4-11.0)
[2022-10-11 09:38] LABS: Bacteria 0 SEEN /hpf (None Seen); Mucous, Urine 0 SEEN /hpf (<or=2+); Squamous Epithelial Cells - UA 0 SEEN /hpf (5-10)
[2022-10-11 09:41] LABS: Glucose, Dipstick Normal (Normal); Ketone-Dipstick Negative (Negative); Leukocyte Esterase-Dipstick Negative /ul (Negative); Nitrite-Dipstick Negative (Negative); Occult Blood-Urine Negative /ul (Negative); Protein-Dipstick Negative (Negative); Urine Bilirubin Dipstick Negative (Negative); Urine Urobilinogen Normal (Normal)
[2022-10-11 09:46] LABS: Color, Urine Yellow (Yellow); Urine Clarity Clear (Clear)
[2022-10-11 09:52] LABS: Red Blood Cells-Urine 0-5 SEEN /hpf (0-5); White Blood Cells 0-5 SEEN /hpf (0-5)
[2022-10-11 09:57] LABS: ALB/GLOB Ratio 1.1 RATIO (0.9-2.4); AST(SGOT) 23 U/L (15-37); Alanine Aminotransfer ALT/SGPT 20 U/L (13-56); Albumin, Serum 3.9 g/dL (3.2-5.0); Alkaline Phosphatase 61 U/L (45-117); Anion Gap 4 (5-15); BUN 9 mg/dL (7-18); BUN/Creat Ratio 7.4 RATIO (10-20); Calcium,Total 9.9 mg/dL (8.5-10.1); Chloride 108 mmol/L (98-107); Creatinine, Serum 1.21 mg/dL (0.55-1.02); EST Glomerular Filtration Rate 46 mL/min (>60); Est Glom Filt Rate - Afr Amer 56 mL/min (>60); Estimated Creatinine Clearance 30.78 ml/min; Globulin 3.7 g/dL (2.2-4.2); Glucose 158 mg/dL (74-106); Potassium 3.8 mmol/L (3.5-5.1); Protein, Total 7.6 g/dL (6.4-8.2); Sodium Level 144 mmol/L (136-145)
--- NOTE | 2022-10-11 10:58 | NURSING ---
[facility] ETA IS 30 MIN
[2022-10-11 11:36] VITALS: BP 118/78; PULSE 78; RESP 16; TEMP 36.6; O2SAT 99
== END 2022-10-11 11:37 | disposition home or self-care (01) ==
PROVIDERS: Emergency Provider Emergency Medicine; PCP Nurse Practitioner Adult Health; Visit Provider Emergency Medicine
DX: R53.1 Weakness (principal); E03.9 Hypothyroidism, unspecified; F32.A Depression, unspecified; Z79.82 Long term (current) use of aspirin; Z79.899 Other long term (current) drug therapy
CPT/HCPCS: 70450; 80053; 81001; 85025; 93005; 99285; P9612

== ENCOUNTER 2022-10-19 07:06 | Observation (INO) | payer MEDICARE, MEDICAID, SELFPAY ==
[2022-10-19] VITALS (9 sets, daily range): BP systolic 115–147; BP diastolic 54–94; PULSE 61–94; RESP 16–18; TEMP 36.6–36.9; O2SAT 94–98; BMI 25.2; BMI 24.3
--- NOTE | 2022-10-19 07:16 | EKG12_ITS ---
Test Reason : FALL Blood Pressure : / mmHG Vent. Rate : 079 BPM Atrial Rate : 079 BPM P-R Int : 174 ms QRS Dur : 082 ms QT Int : 428 ms P-R-T Axes : 044 006 059 degrees QTc Int : 490 ms Normal sinus rhythm Abnormal ECG Confirmed by SCARLET DON, ARIES ([id number]), multimedia editor LINDA WATT ([id number]) on 10/21/2022 12:54:58 PM Referred By: Confirmed By:ARIES NOVAK MD
--- NOTE | 2022-10-19 07:21 | ED.VIS.FALL ---
HPI HPI - Fall History of Present Illness Chief Complaint: Fall Narrative Narrative: 72-year-old female presenting for evaluation. Patient is a poor informant. She has a history of dementia and schizophrenia. Apparently she had a fall overnight. Recently she has had multiple falls. She has been seen in the emergency room 3 times. She hit her head. The EMS report states that the patient fell last night and her heart rate was very fast. Currently she is well-appearing only complaining of back pain. [facility] Medical History Depression History of schizophrenia Hypothyroidism Migraine Type 2 diabetes mellitus Home Medications levothyroxine 25 mcg tablet 25 mcg PO DAILY THYROID 06/26/13 [History Last Taken 10/19/22] omeprazole 20 mg capsule,delayed release 20 mg PO DAILY GERD 06/26/13 [History Last Taken 10/19/22] pravastatin 80 mg tablet 80 mg PO QHS CHOLESTEROL 03/13/17 [History Last Taken 10/18/22] polyethylene glycol 3350 17 gram oral powder packet (Gavilax) 17 g PO DAILY CONSTIPATION 05/11/18 [History Last Taken 10/19/22] buspirone 15 mg tablet 15 mg PO TID ANXIETY 07/27/20 [History Last Taken 10/19/22] cholecalciferol (vitamin D3) 50 mcg (2,000 unit) tablet 2,000 unit PO DAILY SUPPLEMENT 07/27/20 [History Last Taken 10/19/22] fluoxetine 40 mg capsule 40 mg PO DAILY DEPRESSION 07/27/20 [History Last Taken 10/19/22] paliperidone 6 mg tablet,extended release 24 hr 6 mg PO DAILY MENTAL HEALTH 07/27/20 [History Last Taken 10/19/22] trazodone 150 mg tablet 300 mg PO QHS SLEEP 07/27/20 [History Last Taken 10/18/22] oxybutynin chloride 5 mg tablet 2.5 mg PO BID BLADDER 10/22/20 [History Last Taken 10/19/22] amlodipine 5 mg tablet 5 mg PO DAILY BLOOD PRESSURE 09/26/22 [History Last Taken 10/19/22] aspirin 81 mg chewable tablet 81 mg PO DAILY HEART HEALTH 09/26/22 [History Last Taken 10/19/22] benzonatate 200 mg capsule 200 mg PO BID COUGH 09/26/22 [History Last Taken 10/19/22] benztropine 0.5 mg tablet 0.5 mg PO BID MUSCLE SPASMS 09/26/22 [History Last Taken 10/19/22] dicyclomine 20 mg tablet 20 mg PO TID IBS 09/26/22 [History Last Taken 10/19/22] hydralazine 50 mg tablet 50 mg PO TID BLOOD PRESSURE 09/26/22 [History Last Taken 10/19/22] lamotrigine 200 mg tablet 200 mg PO BID MOOD 09/26/22 [History Last Taken 10/19/22] melatonin 5 mg tablet 5 mg PO QHS SLEEP 09/26/22 [History Last Taken 10/18/22] fluticasone propionate 50 mcg/actuation nasal spray,suspension 1 spray intranasal DAILY PRN ALLERGIES 10/19/22 [History Last Taken 09/28/22] Allergy/AdvReac Type Severity Reaction Status Date / Time ciprofloxacin Allergy Unknown Verified 10/19/22 07:07 codeine Allergy Unknown Verified 10/19/22 07:07 hydroxyzine HCl Allergy Unknown Verified 10/19/22 07:07 [From Vistaril] hydroxyzine pamoate Allergy Unknown Verified 10/19/22 07:07 [From Vistaril] niacin Allergy Unknown Verified 10/19/22 07:07 ofloxacin [From Floxin] Allergy Unknown Verified 10/19/22 07:07 tetracycline [Tetracycline] Allergy Unknown Verified 10/19/22 07:07 Tetracyclines Allergy Unknown Verified 10/19/22 07:07 Surgical History Hx of cholecystectomy Hx of hysterectomy Social History housing: custodial Smoking Status: Never smoker substance use type: does not use ROS ROS ED Review of Systems ROS Unobtainable: due to mental condition EXAM Physical Exam Const Vital Signs: 10/19/22 07:07 10/19/22 07:17 10/19/22 09:06 Temperature 97.8 F Temperature Source Temporal Pulse Rate 94 78 Respiratory Rate 18 16 Respiratory Effort Normal Respiratory Depth Normal Respiratory Pattern Normal Blood Pressure 118/78 Blood Pressure Mean 91 Pulse Ox 95 98 Oxygen Delivery Method Room Air Room Air Room Air Positive well nourished General Appearance ED: NAD HEENT Reports normocephalic and TM's normal bilaterally atraumatic Eyes PERRL and EOMs intact bilaterally Neck full ROM and no lymphadenopathy Chest Wall inspection of chest normal and palpation of chest normal Resp normal respiratory effort, no retractions and clear to auscultation bilaterally Auscultation: Negative for rales or rhonchi Cardio regular rate and regular rhythm GI non-tender Back/Spine no CVA tenderness Lumbar Spine / Lower Back: lumbar spinal tenderness L3 and L4 Neuro CN's II-XII intact bilaterally, moves all extremities, no focal motor deficits and no sensory deficits noted Sensorium / Orientation: alert Motor Exam: general weakness Psych Attitude: No agitated Mood & Affect: Negative for tearful MDM MDM MDM Narrative Medical decision making narrative: 72-year-old female presenting for evaluation of her falls. She is unsure if she hit her head. Patient is well-appearing and stating the only pain she has is in her lower back. She has a history compression fracture. Since she fell I will obtain x-rays of the lumbar spine. Because she had a tachycardia cardiac rate I will obtain an EKG for assessment of dysrhythmia. High-sensitivity troponin as well. Chest x-ray to look for any acute cardiopulmonary maladies. CBC for white blood cell count, hemoglobin, differential. CMP for liver function, renal function, electrolytes, anion gap, glucose. Urinalysis to test for infection as she is a history of UTI with weakness. CT brain and CT cervical spine. COVID and influenza swabs due to generalized weakness. EKG on my interpretation shows normal sinus rhythm with a ventricular rate of 79 bpm. LA interval 174 ms, QRS duration 82 ms, QTc 490 ms. CBC shows normal white blood cell count of 7.6. Hemoglobin stable at 10.8 however this is slightly lower than previous. Hemoccult stool was tested and this is negative. Renal function and electrolytes within normal limits. Glucose is 135 without anion gap. Liver function enzymes are normal. Urinalysis consistent with infection. I reviewed her previous urine culture when I saw her on her previous visit and this was positive for Pseudomonas that was sensitive to Cipro however she is allergic to Cipro. I did speak with Dolores Martell who is on-call for Dr. Franklin. She recommended that we admit the patient due to debility. She states that she had COVID recently and just has not recovered. She is about 75% weaker than she has been and she is falling consistently. In addition to that her urine culture sensitivities would require to be admitted for IV antibiotics. Patient given a dose of Zosyn here. CT brain and cervical spine were negative. Chest x-ray my interpretation shows no acute process. radiologist interpretation agrees. I also interpreted the lumbar spine as no acute fracture. There are old L1 and L4 fractures. Patient discussed with hospitalist for admission. Impression: 1. Falls 2. UTI 3. Debility 4. Back pain Lab Data Labs: Laboratory Results - last 24 hr 10/19/22 10/19/22 10/19/22 07:57 07:58 07:58 WBC 7.6 RBC 3.56 L Hgb 10.8 L Hct 34.5 L MCV 96.9 MCH 30.3 MCHC 31.3 L RDW Std Deviation 47.8 H RDW Coeff of Randall 13.2 Plt Count 340 MPV 9.1 Immature Gran % (Auto) 0.400 Neut % (Auto) 81.8 H Lymph % (Auto) 11.3 L [place] % (Auto) 5.4 Eos % (Auto) 0.3 Baso % (Auto) 0.8 Absolute Neuts (auto) 6.2 Absolute Lymphs (auto) 0.86 Nucleated RBC % 0 Sodium 138 Potassium 3.5 Chloride 106 Carbon Dioxide 27.0 Anion Gap 5 BUN 9 Creatinine 1.18 H Estim Creat Clear Calc 31.56 Est GFR (MDRD) Af Amer 58 L Est GFR (MDRD) Non-Af 48 L BUN/Creatinine Ratio 7.6 L Glucose 135 H Calcium 9.1 Total Bilirubin 0.20 AST 15 ALT 16 Alkaline Phosphatase 59 Troponin I High Sens 5 Total Protein 6.5 Albumin 3.2 Globulin 3.3 Albumin/Globulin Ratio 1.0 Urine Color Yellow Urine Clarity Sl. Cloudy Urine pH 6.5 Ur Specific [place] 1.010 Urine Protein Negative Urine Glucose (UA) Normal Urine Ketones Negative Urine Occult Blood Negative Urine Nitrite Positive H Urine Bilirubin Negative Urine Urobilinogen Normal Ur Leukocyte Esterase 500 H Urine RBC 0 SEEN Urine WBC 10-25 SEEN Ur Squamous Epith Cells 0 SEEN Urine Bacteria 1+ Urine Mucus 0 SEEN Radiography Diagnostic Testing: Clinical Impression(s) from Imaging Studies Cervical Spine CT 10/19/22 07:23 IMPRESSION: Multilevel degenerative changes, as described above. Stable examination. Electronically Signed: Johnnie Ortega MD at 8:42 EST , Lumbar Spine X-Ray 10/19/22 08:00 IMPRESSION: Degenerative changes of the spine, as detailed above. Prior vertebroplasty of the L1 vertebrae. Mild loss of height of the superior endplate of the L4 vertebrae. Stable examination. Electronically Signed: Johnnie Ortega MD at 8:30 EST , Chest X-Ray 10/19/22 08:10 IMPRESSION: Stable blunting of the left costophrenic angle. No acute abnormality seen. Electronically Signed: Johnnie Ortega MD at 8:31 EST , Brain CT 10/19/22 08:23 IMPRESSION: Chronic involutional changes of the brain. Electronically Signed: Johnnie Ortega MD at 8:39 EST , Discharge Plan Triage Chief Complaint: Fall ED Provider: Gaurang Fajardo Dx/Rx/DC Orders Primary Care Provider: Shelley Martell CLINICAL TRIALS SPECIALIST
--- NOTE | 2022-10-19 07:23 | CT_ITS ---
STUDY: CT CERVICAL SPINE WITHOUT CONTRAST REASON FOR EXAM: Female, 72 years old. Falls RADIATION DOSAGE (If Supplied By Facility): CTDIvol = ( 17.39 ) mGy, DLP = ( 372.07 ) mGycm TECHNIQUE: High resolution transaxial imaging was performed without contrast material. Sagittal and coronal images were reconstructed. Individualized dose optimization techniques were used for this CT. COMPARISON: Comparison is made with prior study dated 10/04/2022. FINDINGS: Normal craniovertebral junction. There are degenerative changes of the anterior atlantoaxial articulation. Normal odontoid process. Normal cervical lordosis. Multilevel spondylosis. C2-3: The disc spaces well maintained. There is facet joint osteoarthritis hypertrophy on the left side. No significant stenosis is seen. C3-4: Mild degree of disc space narrowing. Facet joint osteoarthritis more prominent on the right side. Anterior spondylosis. No significant stenosis is seen. C4-5: Mild degree of disc space narrowing. Spondylosis. No evidence of spinal stenosis. C5-6: Moderate degree of disc space narrowing and anterior spondylosis. Uncovertebral arthrosis. Mild degree of bilateral neural foraminal stenosis. C6-7: Marked degree of disc space narrowing and spondylosis. Uncovertebral arthrosis. Mild degree of bilateral neural foraminal stenosis. C7-T1: Normal endplates. Normal disc height and morphology. Normal central canal and intervertebral neuroforamina. Normal visualized soft tissue structures. CT/Spine Cervical without Contras IMPRESSION: Multilevel degenerative changes, as described above. Stable examination. Electronically Signed: Johnnie Ortega MD at 8:42 EST ,
--- NOTE | 2022-10-19 08:00 | RAD_ITS ---
STUDY: X-RAY - LUMBAR SPINE REASON FOR EXAM: Female, 72 years old. billy pain TECHNIQUE: 2 view(s) of the lumbar spine were obtained. COMPARISON: Comparison is made with prior study dated 10/04/2022. FINDINGS: There is straightening of the normal lumbar lordosis. There is no substantial scoliosis. There is a normal alignment of the vertebrae. There is multilevel endplate spondylosis of the lumbar vertebrae. Mild degree of disc space narrowing at the L3-L4 level. Prior vertebral plasty of the L1 vertebrae with almost complete collapse of the L1 vertebrae. 10% loss of height of the superior endplate of the L4 vertebrae. Facet joint osteoarthritis. There is atherosclerotic calcification of the abdominal aorta without a demonstrated aneurysm. RAD/Lumbar Spine 2 or 3 Views IMPRESSION: Degenerative changes of the spine, as detailed above. Prior vertebroplasty of the L1 vertebrae. Mild loss of height of the superior endplate of the L4 vertebrae. Stable examination. Electronically Signed: Johnnie Ortega MD at 8:30 EST ,
--- NOTE | 2022-10-19 08:10 | RAD_ITS ---
STUDY: X-RAY CHEST REASON FOR EXAM: Female, 72 years old. Weakness TECHNIQUE: Single AP portable view of the chest. COMPARISON: Comparison is made with prior study dated 10/04/2022. FINDINGS: EKG electrodes are seen. Stable blunting of the left costophrenic angle. The lungs are clear. Normal size heart. Normal mediastinum and jack. Normal visualized pulmonary arteries. There is atherosclerotic calcification of the aortic arch with tortuosity. Prior vertebroplasty of the L1 vertebrae. Normal visualized ribs, clavicles, and shoulders. There is no demonstrated abnormality of the visualized soft tissue structures of the upper abdomen. RAD/Chest 1 View (Portable) IMPRESSION: Stable blunting of the left costophrenic angle. No acute abnormality seen. Electronically Signed: Johnnie Ortega MD at 8:31 EST ,
[2022-10-19 08:16] LABS: Absolute Lymphocyte Count 0.86 X10^3/uL (0.83-4.51); Absolute Neutrophil Count 6.2 X10^3/uL (2.0-7.7); Basophil# 0.06 X10^3/uL; Basophil% 0.8 % (0-1); Eosinophil# 0.02 X10^3/uL; Eosinophils% 0.3 % (0-5); Hematocrit 34.5 % (37-47); Hemoglobin 10.8 g/dL (12.0-15.0); Lymphocyte # 0.86 X10^3/ul (0.83-4.51); Lymphocyte % 11.3 % (19-41); Mean Corp Hgb Conc 31.3 g/dL (32-36); Mean Corpuscular Hgb 30.3 pg (27.0-32.0); Mean Corpuscular Volume 96.9 fL (81-99); Mean Platelet Vol. 9.1 fl (6.2-12.0); Monocyte# 0.41 X10^3/uL; Monocyte% 5.4 % (0-10); NRBC Flagged by Analyzer 0 % (0-5); Neutrophil # 6.22 X10^3/uL (2.7-7.7); Neutrophil % 81.8 % (47-70); Platelet Count 340 K/mm3 (150-450); RBC Distribution Width CV 13.2 % (11.6-14.6); RBC Distribution Width SD 47.8 fl (35.1-43.9); Red Blood Count 3.56 M/mm3 (4.2-5.4); White Blood Count 7.6 K/mm3 (4.4-11.0)
[2022-10-19 08:18] LABS: Color, Urine Yellow (Yellow); Glucose, Dipstick Normal (Normal); Ketone-Dipstick Negative (Negative); Leukocyte Esterase-Dipstick 500 /ul (Negative); Mucous, Urine 0 SEEN /hpf (<or=2+); Nitrite-Dipstick Positive (Negative); Occult Blood-Urine Negative /ul (Negative); Protein-Dipstick Negative (Negative); Red Blood Cells-Urine 0 SEEN /hpf (0-5); Squamous Epithelial Cells - UA 0 SEEN /hpf (5-10); Urine Bilirubin Dipstick Negative (Negative); Urine Clarity Sl. Cloudy (Clear); Urine Urobilinogen Normal (Normal); Urine pH 6.5 (5.0 - 8.0)
--- NOTE | 2022-10-19 08:23 | CT_ITS ---
STUDY: CT BRAIN WITHOUT CONTRAST REASON FOR EXAM: Female, 72 years old. FALL RADIATION DOSAGE (If Supplied By Facility): CTDIvol = ( 47.06 ) mGy, DLP = ( 907.97 ) mGycm TECHNIQUE: Transaxial CT imaging of the brain was performed without administration of intravenous contrast material. Individualized dose optimization techniques were used for this CT. COMPARISON: Comparison is made with prior study dated 10/11/2022. FINDINGS: Normal soft tissue structures. Normal calvarium. There is mild cerebral atrophy with widening of the extra-axial spaces and ventricular dilatation. There are areas of decreased attenuation within the white matter tracts of the supratentorial brain, consistent with microvascular disease changes. Normal basal ganglia and thalami. Normal brainstem. Normal cerebellum. There is no intracranial hemorrhage. There are no findings of an acute ischemic infarction. Atherosclerotic plaque formation of the cavernous portions of the internal carotid arteries. Normal visualized paranasal sinuses. CT/Brain/Head without Contrast IMPRESSION: Chronic involutional changes of the brain. Electronically Signed: Johnnie Ortega MD at 8:39 EST ,
[2022-10-19 08:25] LABS: Bacteria 1+ /hpf (None Seen); White Blood Cells 10-25 SEEN /hpf (0-5)
[2022-10-19 08:49] LABS: AST(SGOT) 15 U/L (15-37); Alanine Aminotransfer ALT/SGPT 16 U/L (13-56); Albumin, Serum 3.2 g/dL (3.2-5.0); Alkaline Phosphatase 59 U/L (45-117); Anion Gap 5 (5-15); BUN 9 mg/dL (7-18); BUN/Creat Ratio 7.6 RATIO (10-20); Calcium,Total 9.1 mg/dL (8.5-10.1); Chloride 106 mmol/L (98-107); Creatinine, Serum 1.18 mg/dL (0.55-1.02); EST Glomerular Filtration Rate 48 mL/min (>60); Est Glom Filt Rate - Afr Amer 58 mL/min (>60); Estimated Creatinine Clearance 31.56 ml/min; Globulin 3.3 g/dL (2.2-4.2); Glucose 135 mg/dL (74-106); Potassium 3.5 mmol/L (3.5-5.1); Protein, Total 6.5 g/dL (6.4-8.2); Sodium Level 138 mmol/L (136-145); Troponin-I HS 5 pg/mL (3.0-54.0)
--- NOTE | 2022-10-19 09:29 | NURSING ---
LEFT MESSAGE ON PHONE FOR GALINA NEWMAN OR ROBSON MOSQUERA
--- NOTE | 2022-10-19 09:30 | NURSING ---
SENT EMAIL TO [facility] [employer] [facility] [employer] ATTENDANT FOR DR FRANCO
--- NOTE | 2022-10-19 09:34 | NURSING ---
AT HOME CALLED BACK. THE NURSE [employer] OFFICE. THEY WILL LET MATILDE MOSQUERA KNOW TO CALL ER
--- NOTE | 2022-10-19 09:39 | NURSING ---
MATILDE MOSQUERA RETURNED CALL
--- NOTE | 2022-10-19 09:51 | NURSING ---
DR ZAID FRANCO
--- NOTE | 2022-10-19 09:54 | NURSING ---
MED SURG OBS ZAID UTI, DEBILITY
--- NOTE | 2022-10-19 10:32 | ED.RN ---
called edil bruce to inform of admission
[2022-10-19] MEDS: Acetaminophen 325 MG Tablet 650 MG PO (11:14)
[2022-10-19] MEDS: Enoxaparin 40 MG/0.4 ML Syringe SC (11:41)
[2022-10-19 11:45] LABS: Bedside Glucose 87 mg/dL (74-106)
[2022-10-19] MEDS: busPIRone 15 MG TABLET PO ×2 (13:40→21:52)
[2022-10-19] MEDS: hydrALAZINE 50 MG Tablet PO ×2 (13:40→21:52)
[2022-10-19] MEDS: Dicyclomine 10 MG Capsule 20 MG PO ×2 (13:40→21:53)
--- NOTE | 2022-10-19 14:39 | HP.PCM.HOS_ITS ---
HPI - General General Date of Admission: 10/19/22 Date of Service: 10/19/22 Chief Complaint: Recurrent falls HPI Narrative WANDA GIPSON, is a 72 F who presents presents with recurrent falls. Patient states that just gets weak and falls. Has been in the emergency room numerous times over the past month. Patient did have a urinary tract infection based on urine culture but was Pseudomonas. Patient denies any dysuria however. [facility] Medical History Depression History of schizophrenia Hypothyroidism Migraine Type 2 diabetes mellitus Home Medications levothyroxine 25 mcg tablet 25 mcg PO DAILY THYROID 06/26/13 [History Last Taken 10/19/22] omeprazole 20 mg capsule,delayed release 20 mg PO DAILY GERD 06/26/13 [History Last Taken 10/19/22] pravastatin 80 mg tablet 80 mg PO QHS CHOLESTEROL 03/13/17 [History Last Taken 10/18/22] polyethylene glycol 3350 17 gram oral powder packet (Gavilax) 17 g PO DAILY CONSTIPATION 05/11/18 [History Last Taken 10/19/22] buspirone 15 mg tablet 15 mg PO TID ANXIETY 07/27/20 [History Last Taken 10/19/22] cholecalciferol (vitamin D3) 50 mcg (2,000 unit) tablet 2,000 unit PO DAILY SUPPLEMENT 07/27/20 [History Last Taken 10/19/22] fluoxetine 40 mg capsule 40 mg PO DAILY DEPRESSION 07/27/20 [History Last Taken 10/19/22] paliperidone 6 mg tablet,extended release 24 hr 6 mg PO DAILY MENTAL HEALTH 07/27/20 [History Last Taken 10/19/22] trazodone 150 mg tablet 300 mg PO QHS SLEEP 07/27/20 [History Last Taken 10/18/22] oxybutynin chloride 5 mg tablet 2.5 mg PO BID BLADDER 10/22/20 [History Last Taken 10/19/22] amlodipine 5 mg tablet 5 mg PO DAILY BLOOD PRESSURE 09/26/22 [History Last Taken 10/19/22] aspirin 81 mg chewable tablet 81 mg PO DAILY HEART HEALTH 09/26/22 [History Last Taken 10/19/22] benzonatate 200 mg capsule 200 mg PO BID COUGH 09/26/22 [History Last Taken 10/19/22] benztropine 0.5 mg tablet 0.5 mg PO BID MUSCLE SPASMS 09/26/22 [History Last Taken 10/19/22] dicyclomine 20 mg tablet 20 mg PO TID IBS 09/26/22 [History Last Taken 10/19/22] hydralazine 50 mg tablet 50 mg PO TID BLOOD PRESSURE 09/26/22 [History Last Taken 10/19/22] lamotrigine 200 mg tablet 200 mg PO BID MOOD 09/26/22 [History Last Taken 10/19/22] melatonin 5 mg tablet 5 mg PO QHS SLEEP 09/26/22 [History Last Taken 10/18/22] fluticasone propionate 50 mcg/actuation nasal spray,suspension 1 spray intranasal DAILY PRN ALLERGIES 10/19/22 [History Last Taken 09/28/22] Allergy/AdvReac Type Severity Reaction Status Date / Time ciprofloxacin Allergy Unknown Verified 10/19/22 07:07 codeine Allergy Unknown Verified 10/19/22 07:07 hydroxyzine HCl Allergy Unknown Verified 10/19/22 07:07 [From Vistaril] hydroxyzine pamoate Allergy Unknown Verified 10/19/22 07:07 [From Vistaril] niacin Allergy Unknown Verified 10/19/22 07:07 ofloxacin [From Floxin] Allergy Unknown Verified 10/19/22 07:07 tetracycline [Tetracycline] Allergy Unknown Verified 10/19/22 07:07 Tetracyclines Allergy Unknown Verified 10/19/22 07:07 Family History no significant family his no significant family history Surgical History Hx of cholecystectomy Hx of hysterectomy Social History housing: detention Smoking Status: Never smoker substance use type: does not use ROS ROS Narrative All review of systems were negative except as mentioned above in the history of present illness and the other review of systems. Vital Signs Vital Signs Vital Signs: 10/19/22 07:07 10/19/22 07:17 10/19/22 09:06 Temperature 36.6 C Temperature Source Temporal Pulse Rate 94 78 Respiratory Rate 18 16 Respiratory Effort Normal Respiratory Depth Normal Respiratory Pattern Normal Blood Pressure 118/78 Blood Pressure Mean 91 Blood Pressure Source Blood Pressure Position Blood Pressure Location Pulse Ox 95 98 Oxygen Delivery Method Room Air Room Air Room Air 10/19/22 10:19 10/19/22 10:36 10/19/22 10:45 Temperature 36.9 C 36.8 C Temperature Source Oral Oral Pulse Rate 75 75 Respiratory Rate 18 18 Respiratory Effort Normal Non-Labored Respiratory Depth Normal Respiratory Pattern Normal Blood Pressure 123/54 H 117/60 Blood Pressure Mean 77 79 Blood Pressure Source Monitor Blood Pressure Position Semi-Fowlers Blood Pressure Location Left Arm Pulse Ox 94 96 Oxygen Delivery Method Room Air Room Air Room Air 10/19/22 13:40 Temperature Temperature Source Pulse Rate 74 Respiratory Rate Respiratory Effort Respiratory Depth Respiratory Pattern Blood Pressure 147/54 H Blood Pressure Mean Blood Pressure Source Blood Pressure Position Blood Pressure Location Pulse Ox Oxygen Delivery Method Weight Weight: 56.4 kg Body Mass Index (BMI) 24.3 Physical Exam Narrative - Physical Exam General: Alert, Cooperative HEENT: Atraumatic, PERRLA, EOMI, Normocephalic Oral: Moist Mucosa, No Gingival or Mucosal Lesions/ Ulcerations Neck: Supple, No JVD, Negative Carotid Bruits Lungs: Clear to auscultation, Normal air movement Cardiovascular: Regular rate, Normal S1, Normal S2, No murmurs Abdomen: Bowel Sounds Present, Soft, Non Tender, Non-Distended, No Hepato- splenomegaly Extremities: No clubbing, No cyanosis, No edema, Skin: No rashes, No breakdown Musculoskeletal: No Tenderness to Palpation of Joints or Extremities Neurological: Neuro grossly intact Psych/Mental Status: Normal Affect, Appropriate Results Lab / Micro Data Result Diagrams: 10/19/22 07:58 10/19/22 07:57 Labs: Laboratory Results - last 24 hr 10/19/22 07:57: Sodium 138, Potassium 3.5, Chloride 106, Carbon Dioxide 27.0, Anion Gap 5, BUN 9, Creatinine 1.18 H, Estim Creat Clear Calc 31.56, Est GFR (MDRD) Af Amer 58 L, Est GFR (MDRD) Non-Af 48 L, BUN/Creatinine Ratio 7.6 L, Glucose 135 H, Calcium 9.1, Total Bilirubin 0.20, AST 15, ALT 16, Alkaline Phosphatase 59, Troponin I High Sens 5, Total Protein 6.5, Albumin 3.2, Globulin 3.3, Albumin/Globulin Ratio 1.0 10/19/22 07:58: WBC 7.6, RBC 3.56 L, Hgb 10.8 L, Hct 34.5 L, MCV 96.9, MCH 30.3, MCHC 31.3 L, RDW Std Deviation 47.8 H, RDW Coeff of Randall 13.2, Plt Count 340, MPV 9.1, Immature Gran % (Auto) 0.400, Neut % (Auto) 81.8 H, Lymph % (Auto) 11.3 L, Cecil % (Auto) 5.4, Eos % (Auto) 0.3, Baso % (Auto) 0.8, Absolute Neuts (auto) 6.2, Absolute Lymphs (auto) 0.86, Nucleated RBC % 0 10/19/22 07:58: Urine Color Yellow, Urine Clarity Sl. Cloudy, Urine pH 6.5, Ur Specific [place] 1.010, Urine Protein Negative, Urine Glucose (UA) Normal, Urine Ketones Negative, Urine Occult Blood Negative, Urine Nitrite Positive H, Urine Bilirubin Negative, Urine Urobilinogen Normal, Ur Leukocyte Esterase 500 H, U rine RBC 0 SEEN, Urine WBC 10-25 SEEN, Ur Squamous Epith Cells 0 SEEN, Urine Bacteria 1+, Urine Mucus 0 SEEN 10/19/22 11:11: POC Glucose 87 Micro: Microbiology 10/19/22 08:57 Stool Stool Occult Blood (CHRISTINE) - Final 10/19/22 07:58 Nasal Secretion SARS-CoV-2 & FLU Antigen (Rapid) - Final Radiology Impression Cervical Spine CT 10/19/22 07:23 IMPRESSION: Multilevel degenerative changes, as described above. Stable examination. Electronically Signed: Johnnie Ortega MD at 8:42 EST , Lumbar Spine X-Ray 10/19/22 08:00 IMPRESSION: Degenerative changes of the spine, as detailed above. Prior vertebroplasty of the L1 vertebrae. Mild loss of height of the superior endplate of the L4 vertebrae. Stable examination. Electronically Signed: Johnnie Ortega MD at 8:30 EST , Chest X-Ray 10/19/22 08:10 IMPRESSION: Stable blunting of the left costophrenic angle. No acute abnormality seen. Electronically Signed: Johnnie Ortega MD at 8:31 EST , Brain CT 10/19/22 08:23 IMPRESSION: Chronic involutional changes of the brain. Electronically Signed: Johnnie Ortega MD at 8:39 EST , Assessment & Plan Assessment/Plan (1) Debility: PLAN: Ongoing PT OT evaluate and treat (2) UTI (urinary tract infection): PLAN: Has been Pseudomonas sensitive to cefepime, Cipro, gent, imipenem, levofloxacin, Zosyn and tobramycin. Patient has allergy to fluoroquinolones So we will continue with cefepime. PLAN: Plan Chronic conditions * Hypertension: Continue with amlodipine, hydralazine * Diabetes mellitus type 2: Sliding scale insulin * Hypothyroidism: Continue levothyroxine * Schizophrenia: Continue with paliperidone, limit drinking. VTE prophylaxis with enoxaparin. Charges/Coding Visit Charges Inpatient E&M: 64331 Init Hosp L2
[2022-10-19 17:10] LABS: Bedside Glucose 104 mg/dL (74-106)
[2022-10-19] MEDS: Benzonatate 100 MG Capsule 200 MG PO (21:52)
[2022-10-19] MEDS: MELATONIN 10 MG TABLET 5 MG PO (21:52)
[2022-10-19] MEDS: Benztropine Mesylate 0.5 MG TABLET PO (21:52)
[2022-10-19] MEDS: Oxybutynin 5 MG Tablet 2.5 MG PO (21:52)
[2022-10-19] MEDS: traZODone 100 MG Tablet 300 MG PO (21:53)
[2022-10-19] MEDS: Pravastatin 80 MG Tablet PO (21:53)
[2022-10-19] MEDS: lamoTRIgine 100 MG Tablet 200 MG PO (21:53)
[2022-10-19 23:16] LABS: Bedside Glucose 148 mg/dL (74-106)
[2022-10-20] VITALS (8 sets, daily range): BP systolic 104–127; BP diastolic 44–66; PULSE 59–88; RESP 16–20; TEMP 36.3–37.1; O2SAT 95–96
[2022-10-20] MEDS: busPIRone 15 MG TABLET PO ×3 (05:05→21:22)
[2022-10-20] MEDS: hydrALAZINE 50 MG Tablet PO ×3 (05:05→21:22)
[2022-10-20] MEDS: Dicyclomine 10 MG Capsule 20 MG PO ×3 (05:05→21:23)
[2022-10-20] MEDS: Levothyroxine 25 MCG TABLET PO (05:05)
[2022-10-20 05:52] LABS: Anion Gap 8 (5-15); BUN 10 mg/dL (7-18); BUN/Creat Ratio 9.5 RATIO (10-20); Calcium,Total 9.1 mg/dL (8.5-10.1); Chloride 110 mmol/L (98-107); Creatinine, Serum 1.05 mg/dL (0.55-1.02); EST Glomerular Filtration Rate 54 mL/min (>60); Est Glom Filt Rate - Afr Amer 66 mL/min (>60); Estimated Creatinine Clearance 33.76 ml/min; Glucose 102 mg/dL (74-106); Potassium 4.8 mmol/L (3.5-5.1); Sodium Level 142 mmol/L (136-145)
[2022-10-20 06:50] LABS: Bedside Glucose 133 mg/dL (74-106)
[2022-10-20] MEDS: Aspirin 81 MG TAB.CHEW PO (07:24)
[2022-10-20] MEDS: Cholecalciferol (VIT D3) 25 MCG TABLET (1,000 UNITS) 50 MCG PO (07:24)
[2022-10-20] MEDS: Pantoprazole Sodium 20 MG Tablet PO (08:21)
[2022-10-20] MEDS: Benzonatate 100 MG Capsule 200 MG PO ×2 (08:21→21:20)
[2022-10-20] MEDS: Benztropine Mesylate 0.5 MG TABLET PO ×2 (08:21→21:23)
[2022-10-20] MEDS: amLODIPine 5 MG Tablet PO (08:21)
[2022-10-20] MEDS: lamoTRIgine 100 MG Tablet 200 MG PO ×2 (08:21→21:20)
[2022-10-20] MEDS: Polyethylene Glycol 3350 17 GM PACKET PO (08:22)
[2022-10-20] MEDS: Oxybutynin 5 MG Tablet 2.5 MG PO ×2 (08:22→21:21)
[2022-10-20] MEDS: Enoxaparin 40 MG/0.4 ML Syringe SC (08:22)
[2022-10-20] MEDS: Fluoxetine HCl 40 MG CAPSULE PO (08:22)
--- NOTE | 2022-10-20 08:26 | PN.HOSP_ITS ---
Reason for Visit Reason for Visit: Diagnoses Urinary tract infection, site not specified (10/19/22) Other malaise (10/19/22) Subjective Subjective Denies any complaints. Objective Data Objective Data Vital Signs: Vital Signs Temp Pulse Resp BP Pulse Ox O2 Del Method 36.7 C 60 16 121/53 H 95 Room Air 10/20/22 03:10 10/20/22 05:07 10/20/22 03:10 10/20/22 05:07 10/20/22 03:10 10/20/22 07:25 Oxygen Delivery Method Room Air Weight: 56.4 kg Body Mass Index (BMI) 24.3 Intake & Output: Intake and Output for Last 24 Hours 10/18/22 10/19/22 10/20/22 23:59 23:59 23:59 Intake Total 750 / 750 120 / 120 Balance 750 / 750 120 / 120 Lab / Micro Data Result Diagrams: 10/19/22 07:58 10/20/22 04:08 Labs: Laboratory Results - last 24 hr 10/19/22 07:57: Sodium 138, Potassium 3.5, Chloride 106, Carbon Dioxide 27.0, Anion Gap 5, BUN 9, Creatinine 1.18 H, Estim Creat Clear Calc 31.56, Est GFR (MDRD) Af Amer 58 L, Est GFR (MDRD) Non-Af 48 L, BUN/Creatinine Ratio 7.6 L, Glucose 135 H, Calcium 9.1, Total Bilirubin 0.20, AST 15, ALT 16, Alkaline Phosphatase 59, Troponin I High Sens 5, Total Protein 6.5, Albumin 3.2, Globulin 3.3, Albumin/Globulin Ratio 1.0 10/19/22 11:11: POC Glucose 87 10/19/22 16:38: POC Glucose 104 10/19/22 22:02: POC Glucose 148 H 10/20/22 04:08: Sodium 142, Potassium 4.8, Chloride 110 H, Carbon Dioxide 24.0, Anion Gap 8, BUN 10, Creatinine 1.05 H, Estim Creat Clear Calc 33.76, Est GFR (MDRD) Af Amer 66, Est GFR (MDRD) Non-Af 54 L, BUN/Creatinine Ratio 9.5 L, Glucose 102, Calcium 9.1 10/20/22 06:28: POC Glucose 133 H Micro: Microbiology 10/19/22 08:57 Stool Stool Occult Blood (CHRISTINE) - Final 10/19/22 07:58 Nasal Secretion SARS-CoV-2 & FLU Antigen (Rapid) - Final Radiography Diagnostic Testing: Radiology Impression Cervical Spine CT 10/19/22 07:23 IMPRESSION: Multilevel degenerative changes, as described above. Stable examination. Electronically Signed: Johnnie Ortega MD at 8:42 EST , Lumbar Spine X-Ray 10/19/22 08:00 IMPRESSION: Degenerative changes of the spine, as detailed above. Prior vertebroplasty of the L1 vertebrae. Mild loss of height of the superior endplate of the L4 vertebrae. Stable examination. Electronically Signed: Johnnie Ortega MD at 8:30 EST , Chest X-Ray 10/19/22 08:10 IMPRESSION: Stable blunting of the left costophrenic angle. No acute abnormality seen. Electronically Signed: Johnnie Ortega MD at 8:31 EST , Brain CT 10/19/22 08:23 IMPRESSION: Chronic involutional changes of the brain. Electronically Signed: Johnnie Ortega MD at 8:39 EST , Physical Exam Const Constitutional Narrative: Up in chair. No acute distress. Afebrile. HEENT head/scalp atraumatic Resp normal respiratory effort, no retractions, no use of accessory muscles and clear to auscultation bilaterally Cardio regular rate, regular rhythm, S1 normal heart sound and S2 normal heart sound Assessment & Plan Assessment/Plan (1) Debility: PLAN: Ongoing PT OT evaluate and treat (2) UTI (urinary tract infection): PLAN: Has been Pseudomonas sensitive to cefepime, Cipro, gent, imipenem, levofloxacin, Zosyn and tobramycin. Patient has allergy to fluoroquinolones So we will continue with cefepime through the . PLAN: Plan Chronic conditions * Hypertension: Continue with amlodipine, hydralazine * Diabetes mellitus type 2: Sliding scale insulin * Hypothyroidism: Continue levothyroxine * Schizophrenia: Continue with paliperidone, limit drinking. VTE prophylaxis with enoxaparin. Charges/Coding Visit Charges Inpatient E&M: 12849 Subs Hosp L2
[2022-10-20 11:45] LABS: Bedside Glucose 132 mg/dL (74-106)
--- NOTE | 2022-10-20 12:31 | CASEMGMT ---
Therapy recommended patient go somewhere short term for rehab. SW met with patient. Introduced self as well as role at [facility]. SW explained recommendations. Patient was agreeable. SW provided patient with a list of nursing home facility providers including quality and resource use data and consistent with patient?s preferred geographic region, medical needs, and insurance network were provided from the [facility]. SW asked patient to pick 2-3 places she would be okay with and SW will contact the facilities. SW told patient SW will check back. Plan: SNF pending patient choices, accepting facility, and insurance approval. Kayli SCHAFER
--- NOTE | 2022-10-20 13:50 | CASEMGMT ---
MARY spoke with patient and she would like [facility]. MARY told patient MARY is not sure [facility] takes her insurance as they are not on her list. Patient said she has been there before with this insurance. MARY asked for another choice and patient would be okay with [facility]. MARY called Nati at [facility] and she will check patient's benefits to see if they are in network. MARY sent referrals to [facility] and [facility]. Kayli SCHAFER
--- NOTE | 2022-10-20 14:41 | CASEMGMT ---
Addendum entered by Kayli Barbosa 10/20/22 15:59: MARY notified patient that [facility] does not take her current insurance. [facility] and she will be at [facility] until her insurance approves her. Kayli SCHAFER Original Note: Per Nati at [facility] they are out of network with patient's insurance. [facility] and SW asked them to start the pre-cert. will notify patient. Plan: d/c to [facility] pending pre-cert. Kayli SCHAFER
--- NOTE | 2022-10-20 16:58 | CASEMGMT ---
MP RODRIGUEZ in to complete CEE form with patient. MP RODRIGUEZ explained CEE Form to patient, patient voiced understanding. Patient signed CEE Form and filed in chart. Patient provided copy of signed CEE form. Patient had no further questions or concerns at this time.
--- NOTE | 2022-10-20 17:34 | CASEMGMT ---
Social Work PASRR screen completed via the online [employer] system. Results are back. No level II evaluation required. PLAN: [facility] when insurance authorization is obtained for NF placement. Social work to follow. -MARIA ISABEL Huntley, [employer] MAINFRAME SYSTEMS PROGRAMMER
[2022-10-20 17:51] LABS: Bedside Glucose 121 mg/dL (74-106)
[2022-10-20] MEDS: Acetaminophen 325 MG Tablet 650 MG PO (21:19)
[2022-10-20] MEDS: Pravastatin 80 MG Tablet PO (21:20)
[2022-10-20] MEDS: MELATONIN 10 MG TABLET 5 MG PO (21:20)
[2022-10-20] MEDS: traZODone 100 MG Tablet 300 MG PO (21:35)
[2022-10-21 03:30] VITALS: BP 113/42; PULSE 53; RESP 16; TEMP 36.6; O2SAT 96
[2022-10-21] MEDS: Dicyclomine 10 MG Capsule 20 MG PO (06:27)
[2022-10-21 06:30] VITALS: PULSE 77
[2022-10-21] MEDS: hydrALAZINE 50 MG Tablet PO (06:30)
[2022-10-21] MEDS: Levothyroxine 25 MCG TABLET PO (06:31)
[2022-10-21] MEDS: busPIRone 15 MG TABLET PO (06:31)
[2022-10-21 07:00] LABS: Bedside Glucose 112 mg/dL (74-106)
--- NOTE | 2022-10-21 08:11 | PN.HOSP_ITS ---
Reason for Visit Reason for Visit: Diagnoses Urinary tract infection, site not specified (10/19/22) Other malaise (10/19/22) Subjective Subjective No events overnight Objective Data Objective Data Vital Signs: Vital Signs Temp Pulse Resp BP Pulse Ox O2 Del Method 36.6 C 77 16 113/42 L 96 Room Air 10/21/22 03:30 10/21/22 06:30 10/21/22 03:30 10/21/22 03:30 10/21/22 03:30 10/21/22 03:30 Oxygen Delivery Method Room Air Weight: 56.4 kg Body Mass Index (BMI) 24.3 Intake & Output: Intake and Output for Last 24 Hours 10/19/22 10/20/22 10/21/22 23:59 23:59 23:59 Intake Total 750 / 750 1060 / 1060 150 / 150 Balance 750 / 750 1060 / 1060 150 / 150 Lab / Micro Data Result Diagrams: 10/19/22 07:58 10/20/22 04:08 Labs: Laboratory Results - last 24 hr 10/20/22 11:17: POC Glucose 132 H 10/20/22 16:45: POC Glucose 121 H 10/21/22 06:33: POC Glucose 112 H Micro: Microbiology 10/19/22 08:57 Stool Stool Occult Blood (CHRISTINE) - Final 10/19/22 07:58 Nasal Secretion SARS-CoV-2 & FLU Antigen (Rapid) - Final Physical Exam Const alert and no apparent distress HEENT head/scalp atraumatic, moist oral mucous membranes, oropharynx normal and dentition normal Resp normal respiratory effort, no retractions, no use of accessory muscles and clear to auscultation bilaterally Cardio regular rate, regular rhythm, S1 normal heart sound and S2 normal heart sound GI normal to inspection, nondistended, normoactive bowel sounds, soft to palpation, non-tender and non-distended Assessment & Plan Assessment/Plan (1) Debility: PLAN: Ongoing PT OT evaluate and treat Has been accepted by [facility], waiting on insurance approval. (2) UTI (urinary tract infection): PLAN: Has been Pseudomonas sensitive to cefepime, Cipro, gent, imipenem, levofloxacin, Zosyn and tobramycin. Patient has allergy to fluoroquinolones So we will continue with cefepime through the . PICC line. PLAN: Plan Chronic conditions * Hypertension: Continue with amlodipine, hydralazine * Diabetes mellitus type 2: Sliding scale insulin * Hypothyroidism: Continue levothyroxine * Schizophrenia: Continue with paliperidone, limit drinking. VTE prophylaxis with enoxaparin. Disposition: To [facility]
[2022-10-21] MEDS: Cholecalciferol (VIT D3) 25 MCG TABLET (1,000 UNITS) 50 MCG PO (08:57)
[2022-10-21] MEDS: Aspirin 81 MG TAB.CHEW PO (08:57)
[2022-10-21] MEDS: Benzonatate 100 MG Capsule 200 MG PO (08:58)
[2022-10-21] MEDS: Fluoxetine HCl 40 MG CAPSULE PO (08:58)
[2022-10-21] MEDS: Pantoprazole Sodium 20 MG Tablet PO (08:58)
[2022-10-21] MEDS: Oxybutynin 5 MG Tablet 2.5 MG PO (08:58)
[2022-10-21] MEDS: lamoTRIgine 100 MG Tablet 200 MG PO (08:59)
[2022-10-21] MEDS: Benztropine Mesylate 0.5 MG TABLET PO (08:59)
[2022-10-21] MEDS: amLODIPine 5 MG Tablet PO (08:59)
--- NOTE | 2022-10-21 09:16 | TREXTCAR_ITS ---
Diet Diet Order/Speech Therapy: 10/19/22 10:41 Diet: Consistent Carb - Calorie Controlled Food consistency:: Regular Liquid Consistency:: Regular/Thin How many daily calories?: 2000 calorie Wound(s) right buttock: Wound Type: Pressure Injury Therapies Physical Therapy: Eval and Treat Occupational Therapy: Eval and Treat Problem/Diagnosis (1) Debility: Status: Acute Code(s): R53.81 - Other malaise Plan: Ongoing PT OT evaluate and treat Has been accepted by [facility], waiting on insurance approval. (2) UTI (urinary tract infection): Status: Acute Code(s): N39.0 - Urinary tract infection, site not specified Plan: Has been Pseudomonas sensitive to cefepime, Cipro, gent, imipenem, levofloxacin, Zosyn and tobramycin. Patient has allergy to fluoroquinolones So we will continue with cefepime through the . PICC line. Plan Chronic conditions * Hypertension: Continue with amlodipine, hydralazine * Diabetes mellitus type 2: Sliding scale insulin * Hypothyroidism: Continue levothyroxine * Schizophrenia: Continue with paliperidone, limit drinking. VTE prophylaxis with enoxaparin. Disposition: To [facility] Allergies/Procedures Done in Hospital Allergies ciprofloxacin Allergy (Verified 10/19/22 07:07) Unknown codeine Allergy (Verified 10/19/22 07:07) Unknown hydroxyzine HCl [From Vistaril] Allergy (Verified 10/19/22 07:07) Unknown hydroxyzine pamoate [From Vistaril] Allergy (Verified 10/19/22 07:07) Unknown niacin Allergy (Verified 10/19/22 07:07) Unknown ofloxacin [From Floxin] Allergy (Verified 10/19/22 07:07) Unknown tetracycline [Tetracycline] Allergy (Verified 10/19/22 07:07) Unknown Tetracyclines Allergy (Verified 10/19/22 07:07) Unknown Procedures: PICC line placement Type of Care/Length of Stay Estimated LOS: Convalescent Care Less Than 30 days Type of Care Needed: Skilled Rehab Potential: Fair Prognosis: Fair Additional Orders/Day of Discharge Day of Discharge: 10/21/22 Discharge Plan Admission Admit Date/Time: 10/19/22 09:50 Primary Reason for Your Visit: Debility. UTI. Attending Provider: Rufino Noguera Primary Care Provider: Shelley Martell MEDICAL OFFICE SCHEDULER Discharge Orders/Prescriptions Prescriptions: New acetaminophen [Tylenol] 325 mg Tablet 650 mg PO Q6H PRN PRN (Reason: Pain 1-10 Or Fever >100.7) Qty: 0 0RF cefepime 1 gram Recon Soln 1 g IV Q12 Qty: 5 0RF Continued levothyroxine 25 MCG tablet 25 mcg PO DAILY omeprazole 20 MG capsule 20 mg PO DAILY pravastatin 80 MG tablet 80 mg PO QHS polyethylene glycol 3350 [Gavilax] 17 GM powder in packet 17 g PO DAILY fluoxetine 40 MG capsule 40 mg PO DAILY trazodone 150 MG tablet 300 mg PO QHS buspirone 15 MG tablet 15 mg PO TID paliperidone 6 MG tablet 6 mg PO DAILY cholecalciferol (vitamin D3) 50 MCG tablet 2,000 unit PO DAILY oxybutynin chloride 5 MG tablet 2.5 mg PO BID benztropine 0.5 mg tablet 0.5 mg PO BID lamotrigine 200 mg tablet 200 mg PO BID benzonatate 200 mg capsule 200 mg PO BID dicyclomine 20 mg tablet 20 mg PO TID melatonin 5 mg Tablet 5 mg PO QHS amlodipine 5 MG tablet 5 mg PO DAILY aspirin 81 MG tablet,chewable 81 mg PO DAILY hydralazine 50 MG tablet 50 mg PO TID fluticasone propionate 50 mcg/actuation spray,suspension 1 spray intranasal DAILY PRN (Reason: ALLERGIES) Referrals / Follow Up: Shelley Martell MEDICAL OFFICE SCHEDULER, MEDICAL OFFICE SCHEDULER-C [Primary Care Provider] - Within 2 Weeks Disposition Disposition (needs filled in before D/C Order can be placed): Longterm Facility
--- NOTE | 2022-10-21 09:22 | PCM.DC.SUM ---
Providers Date of Admission: 10/19/22 Primary Care Physician: MARCUS LandaC Reason For Visit: FALLS, DEBILITY Diagnosis Discharge Diagnosis (1) Debility: Status: Acute Code(s): R53.81 - Other malaise Plan: Ongoing PT OT evaluate and treat Has been accepted by [facility], waiting on insurance approval. (2) UTI (urinary tract infection): Status: Acute Code(s): N39.0 - Urinary tract infection, site not specified Plan: Has been Pseudomonas sensitive to cefepime, Cipro, gent, imipenem, levofloxacin, Zosyn and tobramycin. Patient has allergy to fluoroquinolones So we will continue with cefepime through the . PICC line. Plan Chronic conditions Hypertension: Continue with amlodipine, hydralazine Diabetes mellitus type 2: Sliding scale insulin Hypothyroidism: Continue levothyroxine Schizophrenia: Continue with paliperidone, limit drinking. VTE prophylaxis with enoxaparin. Disposition: To [facility] Medications at Discharge Home Medications levothyroxine 25 mcg tablet 25 mcg PO DAILY THYROID 06/26/13 omeprazole 20 mg capsule,delayed release 20 mg PO DAILY GERD 06/26/13 pravastatin 80 mg tablet 80 mg PO QHS CHOLESTEROL 03/13/17 polyethylene glycol 3350 17 gram oral powder packet (Gavilax) 17 g PO DAILY CONSTIPATION 05/11/18 buspirone 15 mg tablet 15 mg PO TID ANXIETY 07/27/20 cholecalciferol (vitamin D3) 50 mcg (2,000 unit) tablet 2,000 unit PO DAILY SUPPLEMENT 07/27/20 fluoxetine 40 mg capsule 40 mg PO DAILY DEPRESSION 07/27/20 paliperidone 6 mg tablet,extended release 24 hr 6 mg PO DAILY MENTAL HEALTH 07/27/20 trazodone 150 mg tablet 300 mg PO QHS SLEEP 07/27/20 oxybutynin chloride 5 mg tablet 2.5 mg PO BID BLADDER 10/22/20 amlodipine 5 mg tablet 5 mg PO DAILY BLOOD PRESSURE 09/26/22 aspirin 81 mg chewable tablet 81 mg PO DAILY HEART HEALTH 09/26/22 benzonatate 200 mg capsule 200 mg PO BID COUGH 09/26/22 benztropine 0.5 mg tablet 0.5 mg PO BID MUSCLE SPASMS 09/26/22 dicyclomine 20 mg tablet 20 mg PO TID IBS 09/26/22 hydralazine 50 mg tablet 50 mg PO TID BLOOD PRESSURE 09/26/22 lamotrigine 200 mg tablet 200 mg PO BID MOOD 09/26/22 melatonin 5 mg tablet 5 mg PO QHS SLEEP 09/26/22 fluticasone propionate 50 mcg/actuation nasal spray,suspension 1 spray intranasal DAILY PRN ALLERGIES 10/19/22 acetaminophen 325 mg tablet (Tylenol) 650 mg PO Q6H PRN PRN Pain 1-10 Or Fever >100.7 #0 tabs 10/21/22 cefepime 1 gram solution for injection 1 g IV Q12 #5 ea 10/21/22 Hospital Course Operations None Procedures PICC line placement Summary of Care Provided Minutes Spent on Discharge: 32 Weight / BMI Weight Weight: 56.4 kg Body Mass Index (BMI) 24.3 ABG / Lab / Microbiology Data Result Diagrams: 10/19/22 07:58 10/20/22 04:08 Laboratory: Laboratory Results - last 24 hr 10/20/22 11:17: POC Glucose 132 H 10/20/22 16:45: POC Glucose 121 H 10/21/22 06:33: POC Glucose 112 H Microbiology: Microbiology 10/19/22 08:57 Stool Stool Occult Blood (CHRISTINE) - Final 10/19/22 07:58 Nasal Secretion SARS-CoV-2 & FLU Antigen (Rapid) - Final Meaningful Use Info Meaningful Use Diagnoses (Choose all that apply): None applicable Discharge Plan Admission Admit Date/Time: 10/19/22 09:50 Primary Reason for Your Visit: Debility. UTI. Attending Provider: Rufino Noguera Primary Care Provider: Shelley Martell [employer] Instructions Additional Instructions / Restrictions: Remove PICC line when antibiotics completed. Discharge Orders/Prescriptions Prescriptions: New acetaminophen [Tylenol] 325 mg Tablet 650 mg PO Q6H PRN PRN (Reason: Pain 1-10 Or Fever >100.7) Qty: 0 0RF cefepime 1 gram Recon Soln 1 g IV Q12 Qty: 5 0RF Continued levothyroxine 25 MCG tablet 25 mcg PO DAILY omeprazole 20 MG capsule 20 mg PO DAILY pravastatin 80 MG tablet 80 mg PO QHS polyethylene glycol 3350 [Gavilax] 17 GM powder in packet 17 g PO DAILY fluoxetine 40 MG capsule 40 mg PO DAILY trazodone 150 MG tablet 300 mg PO QHS buspirone 15 MG tablet 15 mg PO TID paliperidone 6 MG tablet 6 mg PO DAILY cholecalciferol (vitamin D3) 50 MCG tablet 2,000 unit PO DAILY oxybutynin chloride 5 MG tablet 2.5 mg PO BID benztropine 0.5 mg tablet 0.5 mg PO BID lamotrigine 200 mg tablet 200 mg PO BID benzonatate 200 mg capsule 200 mg PO BID dicyclomine 20 mg tablet 20 mg PO TID melatonin 5 mg Tablet 5 mg PO QHS amlodipine 5 MG tablet 5 mg PO DAILY aspirin 81 MG tablet,chewable 81 mg PO DAILY hydralazine 50 MG tablet 50 mg PO TID fluticasone propionate 50 mcg/actuation spray,suspension 1 spray intranasal DAILY PRN (Reason: ALLERGIES) Referrals / Follow Up: Shelley Martell [employer], [employer] [Primary Care Provider] - Within 2 Weeks Disposition Disposition (needs filled in before D/C Order can be placed): [facility] Facility Charges/Coding Visit Charges Inpatient E&M: 05755 Disch Hosp >30min
[2022-10-21 09:30] VITALS: BP 129/55; PULSE 54; RESP 16; TEMP 36.5; O2SAT 96
[2022-10-21] MEDS: RisperiDONE 2 MG Tablet PO (09:32)
[2022-10-21] MEDS: Enoxaparin 40 MG/0.4 ML Syringe SC (09:33)
[2022-10-21] MEDS: 0.9% Saline Lock 10 ML Syringe IV (09:33)
[2022-10-21] MEDS: Polyethylene Glycol 3350 17 GM PACKET PO (09:33)
--- NOTE | 2022-10-21 09:50 | PHA.DC.MR ---
Pharmacy Service has performed discharge medication reconciliation for this patient. The patient's discharge medication list was reviewed for discrepancies and discrepancies were resolved. Home Medications levothyroxine 25 mcg tablet 25 mcg PO DAILY THYROID 06/26/13 omeprazole 20 mg capsule,delayed release 20 mg PO DAILY GERD 06/26/13 pravastatin 80 mg tablet 80 mg PO QHS CHOLESTEROL 03/13/17 polyethylene glycol 3350 17 gram oral powder packet (Gavilax) 17 g PO DAILY CONSTIPATION 05/11/18 buspirone 15 mg tablet 15 mg PO TID ANXIETY 07/27/20 cholecalciferol (vitamin D3) 50 mcg (2,000 unit) tablet 2,000 unit PO DAILY SUPPLEMENT 07/27/20 fluoxetine 40 mg capsule 40 mg PO DAILY DEPRESSION 07/27/20 paliperidone 6 mg tablet,extended release 24 hr 6 mg PO DAILY MENTAL HEALTH 07/27/20 trazodone 150 mg tablet 300 mg PO QHS SLEEP 07/27/20 oxybutynin chloride 5 mg tablet 2.5 mg PO BID BLADDER 10/22/20 amlodipine 5 mg tablet 5 mg PO DAILY BLOOD PRESSURE 09/26/22 aspirin 81 mg chewable tablet 81 mg PO DAILY HEART HEALTH 09/26/22 benzonatate 200 mg capsule 200 mg PO BID COUGH 09/26/22 benztropine 0.5 mg tablet 0.5 mg PO BID MUSCLE SPASMS 09/26/22 dicyclomine 20 mg tablet 20 mg PO TID IBS 09/26/22 hydralazine 50 mg tablet 50 mg PO TID BLOOD PRESSURE 09/26/22 lamotrigine 200 mg tablet 200 mg PO BID MOOD 09/26/22 melatonin 5 mg tablet 5 mg PO QHS SLEEP 09/26/22 fluticasone propionate 50 mcg/actuation nasal spray,suspension 1 spray intranasal DAILY PRN ALLERGIES 10/19/22 acetaminophen 325 mg tablet (Tylenol) 650 mg PO Q6H PRN PRN Pain 1-10 Or Fever >100.7 #0 tabs 10/21/22 cefepime 1 gram solution for injection 1 g IV Q12 #5 ea 10/21/22
--- NOTE | 2022-10-21 10:07 | CASEMGMT ---
Patient was approved for [facility]. MARY notified physician. Patient is ready for discharge. MARY sent orders to [facility] via [facility]. Patient is getting a PICC line placed at 10:45a. MARY called [facility] and spoke with Ryann as required by patient's insurance and requested pickle pumper anytime 1p or after. MARY also notified Ryann that [facility] preferred provider is [facility] and gave her the phone number SW also let her know patient will need a wheelchair provided. Trip number is [id number]. Await return call. MARY called [facility] and left a voice mail letting them know patient will be going to [facility] today for short term rehab. Plan: d/c to [facility] under skilled level of care on a PASRR as patient was observation status in the hospital. Awaiting [facility] response on transport. Kayli Barbosa SOUND TECHNICIANShamar SCHAFER
--- NOTE | 2022-10-21 11:39 | CASEMGMT ---
SW called [facility] and inquired status of trip request. [facility] will apple picker patient at 1p. SW notified secretary specialist, RN, patient, and [facility]. SW asked patient if she would like SW to call her daughter and patient said, No. It will just upset her. Plan: d/c to [facility] under skilled level of care on a PASRR as patient is observation status in the hospital. [facility] via wheelchair and this was arranged through [facility]. Kayli SCHAFER
[2022-10-21 12:25] LABS: Bedside Glucose 109 mg/dL (74-106)
--- NOTE | 2022-10-21 12:55 | NURSING ---
report called to [facility]. belongings list completed and pt packed and ready for dc.
--- NOTE | 2022-10-21 13:56 | NURSING ---
I spoke with Christian with [facility] to get an ETA on our transport that was due to be here at 1300 (per MARY Milan) he stated they do not have pt scheduled for transport today I let MARY Milan know.
--- NOTE | 2022-10-21 14:17 | CASEMGMT ---
MARY called [facility] and spoke with Maria C. MARY explained situation. When [facility] has a same day transport they are supposed to put the transport request in system and call [facility]. After review it was noted this was not done, therefore [facility] did not have patient on the schedule. Maria C put SW in touch with [facility] and they will forklift picker patient at 3p. Kayli Barbosa MACHINE BUNCH MAKER CRANE ENGINEER
--- NOTE | 2022-10-21 15:48 | NURSING ---
1510 ems here for transport. pt to with transfer packet and all belongings packed and sent
== END 2022-10-21 09:20 | disposition skilled nursing facility (03) ==
LOC: ED 09:58 → PCU 10:09
PROVIDERS: Emergency Provider Student in an Organized Health Care Education/Training Program; PCP Nurse Practitioner Adult Health
DX: N39.0 Urinary tract infection, site not specified (principal); F20.9 Schizophrenia, unspecified; E11.9 Type 2 diabetes mellitus without complications; R53.81 Other malaise; R53.1 Weakness; B96.5 Pseudomonas (aeruginosa) (mallei) (pseudomallei) as the cause of diseases classified elsewhere; Z79.82 Long term (current) use of aspirin; I10 Essential (primary) hypertension; E03.9 Hypothyroidism, unspecified; Z79.899 Other long term (current) drug therapy; Z79.890 Hormone replacement therapy; R29.6 Repeated falls; F32.A Depression, unspecified; M54.50 Low back pain, unspecified
CPT/HCPCS: 36415; 36569; 70450; 71045; 72100; 72125; 80048; 80053; 81001; 82274; 82962; 84484; 85025; 87428; 93005; 96365; 96366; 96367; 96372; 97162; 97166; 99221; 99285; J7050; P9612; A4216; G0378

== ENCOUNTER → 2022-11-07 | Outpatient (REF) | payer MEDICARE, MEDICAID, SELFPAY ==
[2022-11-07 07:58] LABS: Absolute Lymphocyte Count 1.84 X10^3/uL (0.83-4.51); Absolute Neutrophil Count 3.2 X10^3/uL (2.0-7.7); Basophil# 0.07 X10^3/uL; Basophil% 1.2 % (0-1); Eosinophils% 3.5 % (0-5); Hemoglobin 11.4 g/dL (12.0-15.0); Lymphocyte # 1.84 X10^3/ul (0.83-4.51); Lymphocyte % 32.5 % (19-41); Mean Corp Hgb Conc 31.7 g/dL (32-36); Mean Corpuscular Volume 94.7 fL (81-99); Mean Platelet Vol. 9.6 fl (6.2-12.0); Monocyte# 0.34 X10^3/uL; NRBC Flagged by Analyzer 0 % (0-5); Neutrophil % 56.6 % (47-70); Platelet Count 368 K/mm3 (150-450); RBC Distribution Width CV 13.3 % (11.6-14.6); RBC Distribution Width SD 46.7 fl (35.1-43.9); White Blood Count 5.7 K/mm3 (4.4-11.0)
[2022-11-07 08:10] LABS: Anion Gap 6 (5-15); BUN 9 mg/dL (7-18); BUN/Creat Ratio 9.6 RATIO (10-20); Calcium,Total 9.4 mg/dL (8.5-10.1); Chloride 107 mmol/L (98-107); Creatinine, Serum 0.94 mg/dL (0.55-1.02); EST Glomerular Filtration Rate 62 mL/min (>60); Est Glom Filt Rate - Afr Amer 75 mL/min (>60); Glucose 102 mg/dL (74-106); Sodium Level 140 mmol/L (136-145)
== END ==
LOC: OLS.SW 05:00
PROVIDERS: PCP Nurse Practitioner Adult Health; Visit Provider Family Medicine
DX: R68.89 Other general symptoms and signs (principal); Z13.228 Encounter for screening for other metabolic disorders; Z79.899 Other long term (current) drug therapy
CPT/HCPCS: 36415; 80048; 85025

== ENCOUNTER → 2022-11-09 | Outpatient (REF) | payer MEDICARE, MEDICAID, SELFPAY | LOC: OLS.SW 21:00 | PROVIDERS: PCP Nurse Practitioner Adult Health; Visit Provider Family Medicine | DX: N39.0 Urinary tract infection, site not specified (principal) | CPT/HCPCS: 87086; 87088 ==

== ENCOUNTER 2022-11-12 15:54 | Inpatient (IN) | payer MEDICARE, MEDICAID, SELFPAY ==
[2022-11-12] VITALS (9 sets, daily range): BP systolic 118–158; BP diastolic 57–68; PULSE 89–109; RESP 16–22; TEMP 36.6–37.2; O2SAT 94–96; BMI 25.4; BMI 24.6
--- OUTSIDE RECORDS SUMMARY | 2022-11-12 15:57 | XMS RPT_ITS | CCD ---
:1950 Author Organization [employer] Care Team Providers Name Role Phone Bryson Boateng MD Primary Care Provider PHIL NORTON Referring Unavailable PHIL NORTON Attending Unavailable BRYSON OBATENG Primary Care Unavailable BRYSON BOATENG Primary Care Unavailable GIANNI MARTINEZ Attending Unavailable SHWETHA ROGERS Attending Unavailable BRYSON BOATENG Primary Care Unavailable Allergies Allergy Reported Allergy Type Date of Reaction(s) Facility Classification Allergen(s) Onset Codeine; Drug Allergy 01-02-2013 Intolerance [facility] (3 sources) Translations: Work Phone : [CODEINE] hydrOXYzine; Drug Allergy 01-02-2013 Intolerance [facility] (3 sources) Translations: Work Phone : [HYDROXYZINE HCL] Niacin; Drug Allergy 01-02-2013 Intolerance [facility] (3 sources) Translations: Work Phone : [NIACIN] Ofloxacin; Drug Allergy 01-02-2013 Intolerance [facility] (3 sources) Translations: Work Phone : [OFLOXACIN] Tetracycline; Drug Allergy 01-02-2013 Intolerance [facility] (3 sources) Translations: Work Phone : [TETRACYCLINE] Medications Current Medications Medication Drug Class(es) Dates Sig (Normalized) Sig (Orig inal) nitrofurantoin, macrocrystals 25 mg / ni trofurantoin, monohydrate 75 mg oral capsule Nitrofuran Start: 05-03-2022 take 1 capsule by nitrofuranto in (3 sources) Antibacterial End: 05-10-2022 mouth twice daily monohy drate and macrocrystal (MACROBID) 100 mg capsule Take 1 capsule by mout h twice daily for 7 days. 14 capsul e 0 05/03/2022 05/10/2022 Acti ve Comment on above: Take 1 capsule by mouth twic e daily for 7 days. Completed/Discontinued Medications Medication Drug Class(es) Dates Sig (Normalized) Sig (Orig inal) acetaminophen 500 mg oral capsule Start: Acetaminophen (2 sources) 03-17-2017 (MAPAP) 500 mg cap Take by mouth. 0 03/17/2017 Acti ve Comment on above: Take by mouth. 24 hr ALPRAZolam 0.5 mg extended release oral tablet Benzodiazep ine take 0.5 mg by mouth ALPRAZolam SR (XANAX SR) (2 sources) every twelve hours 0.5 mg 24 hr tablet Take as needed 0.5 mg by mouth twice daily as needed . 0 Active Comment on above: Take 0.5 mg by mouth twice d aily as needed. aspirin 325 mg oral tablet Platelet Aggregation take 1 tablet by aspirin 325 mg (2 sources) Inhibitor, Nonsteroidal mouth once daily tablet Take 325 mg Anti-inflammatory Drug by mo ut once daily. 0 Active Comment on above: Take 325 mg by mouth once da davion. benzonatate 200 mg oral capsule Non-narcotic Start: 03-17-2017 take 1 capsule Benzonatate 200 (2 sources) Antitussive by mouth every mg capsule Ta ke eight hours as 200 mg by doe th needed three times cristiano ly as needed. 0 03/17/2017 Acti ve Comment on above: Take 200 mg by mouth three t imes daily as needed. busPIRone hydrochloride 10 mg oral tablet busPIRone 10 mg tablet Take 15 mg by (2 sources) mouth three rachele es daily. 0 Active Comment on above: Take 15 mg by mouth three ti mes daily. Calcium Carbonate / vitamin D3 take 8000 [IU] by CALCIUM CARBONATE/VITAMIN D3 (2 sources) mouth once daily (VITAMIN D- 3 ORAL) Take 8,000 Units by mouth once daily. 0 Active Comment on above: Take 8,000 Units by mouth on ce daily. cholecalciferol 0.05 mg oral capsule Vitamin D take 4 capsules by Cholecalciferol, Vitamin (2 sources) mouth once daily D3, 2,000 u nit cap Take 4 capsules by doe th once daily. 0 Active Comment on above: Take 4 capsules by mouth onc e daily. dicyclomine hydrochloride 20 mg oral tablet Anticholinergic Star t: 11-17-2016 take 1 tablet dicyclomine (2 sources) by mouth at (BENTYL) 20 mg bedtime tablet Take 1 tablet by mouth before meals an d at bedtime. 120 tablet 0 11/17/2016 Acti ve Comment on above: Take 1 tablet by mouth befor e meals and at bedtime. diphenhydrAMINE hydrochloride 25 mg oral capsule Histamine-1 Rec eptor take 1 capsule diphenhydrAMINE (2 sources) Antagonist by mouth twice (BENADRYL) 25 mg daily capsule Take 25 mg by mouth twice cristiano ly. 0 Active Comment on above: Take 25 mg by mouth twice da davion. docusate sodium 100 mg oral capsule take 1 capsule by mouth docusate sodium (COLACE) (2 sources) twice daily 100 mg capsule Take 100 mg by mouth twice daily. 0 Active Comment on above: Take 100 mg by mouth twice d aily. 72 hr fentaNYL 0.012 mg/hr transdermal system Opioid Agonist fentaNYL (DURAGESIC) 12 mcg/hr (2 sources) pt72 Apply 1 Pa tch as directed every 72 hours. 0 Active Comment on above: Apply 1 Patch as directed ev darien 72 hours. FLUoxetine 40 mg oral capsule Serotonin Reuptake take 1 capsule by FLUoxetine HCl (2 sources) Inhibitor mouth once daily (PROZAC) 40 mg capsule Take 40 mg by mouth once driss y. 0 Active Comment on above: Take 40 mg by mouth once cristiano ly. glycerin-min oil-polycarbophil (REPLENS) gel Start: glycerin-min oil-polycarbophil (2 sources) (REPLENS) gel U se 1 application vaginally once daily as needed. 1 Bottle 2 09/28 Active Comment on above: Use 1 application vaginally once daily as needed. ibuprofen 600 mg oral tablet Nonsteroidal take 1 table t by ibuprofen (MOTRIN) (2 sources) Anti-inflammatory Drug mouth every six 60 0 mg tablet Take hours as needed 600 mg by mo uth every 6 hours a s needed. 0 Activ e Comment on above: Take 600 mg by mouth every 6 hours as needed. levothyroxine sodium 0.025 mg oral tablet l-Thyroxine take 1 tablet by levothyroxine (SYNTHROID) (2 sources) mouth once daily 25 mcg tabl et Take 25 mcg before breakfast by mouth da davion before breakfast. 0 Ac tive Comment on above: Take 25 mcg by mouth daily b efore breakfast. meloxicam 15 mg oral tablet Nonsteroidal Start: 03-17-2017 take 1 meloxicam (2 sources) Anti-inflammatory Drug tablet by (MOBI C) 15 mg mouth once tablet Take 1 daily tablet by mouth once daily. 0 03/17/2017 Active Comment on above: Take 1 tablet by mouth once daily. [place]-3 Fatty Acids-Vitamin E (FISH OIL) 1,000 mg cap take 1 capsule by mouth [place]-3 Fatty Acids-Vitamin E (2 sources) once daily (FISH OIL) 1,00 0 mg cap Take 1 capsule by mo uth once daily. 0 Active Comment on above: Take 1 capsule by mouth once daily. omeprazole 40 mg delayed release oral capsule Proton Pump St art: 11-17-2016 take 1 capsule Omeprazole 40 mg (2 sources) Inhibitor by mouth once capsule Take 1 daily capsule by mout h once daily. 30 capsule 11 11/17/2016 Acti ve Comment on above: Take 1 capsule by mouth once daily. 24 hr paliperidone 6 mg extended release oral tablet Atypical S tart: take 1 paliperidone ER (2 sources) Antipsychotic 03-17-2017 tablet by (INVEGA) 6 mg 24 mouth once hr tablet Take 1 daily tablet by mouth once daily. 0 03/17/2017 Acti ve Comment on above: Take 1 tablet by mouth once daily. phenazopyridine hydrochloride 200 mg oral tablet Start: 05-03-2022 take 1 tablet phenazopyridine (3 sources) End: 05-03-2022 by mouth every (PYRIDIUM, GERIDIUM) 200 eight hours as mg tablet Santosh e 1 tablet needed by mouth three times daily as needed . For dysuria & pelvi s cramping. 6 tab let 0 05/03/2022 Acti ve Comment on above: Take 1 tablet by mouth three times daily as needed. For dysuria & pelvis cramping. polyethylene glycol 3350 84082 mg powder for oral solution Osmotic Laxative polyethylene glycol 3350 (2 sources) (MIRALAX) 17 gr am packet Take 17 g by mouth once daily. 0 Active Comment on above: Take 17 g by mouth once driss y. pravastatin sodium 80 mg oral tablet HMG-CoA Reductase take 1 tablet by pravastatin 80 mg (2 sources) Inhibitor mouth once daily tablet Take 80 mg by mouth once driss y. 0 Active Comment on above: Take 80 mg by mouth once cristiano ly. pregabalin 50 mg oral capsule Start: 03-17-2017 take 1 capsule by pregabalin (LYRICA) 50 (2 sources) mouth three times mg capsule Take 1 daily capsule by mout h three times daily. 0 03/17/2017 Acti ve Comment on above: Take 1 capsule by mouth thre e times daily. prochlorperazine 10 mg oral tablet Phenothiazine take 1 tablet by prochlorperazine (2 sources) mouth every (COMPAZINE) 10 mg tablet eight hours as Take 10 mg by mouth every needed 8 hours as need ed. 0 Active Comment on above: Take 10 mg by mouth every 8 hours as needed. raNITIdine 300 mg oral tablet Histamine-2 Start: 03-17-2017 take 1 tablet Ranitidine HCl (2 sources) Receptor Antagonist by mouth once 300 mg tablet daily at Take 1 tablet b y bedtime mouth daily at bedtime. 0 03/17/2017 Acti ve Comment on above: Take 1 tablet by mouth daily at bedtime. traZODone hydrochloride 150 mg oral tablet Serotonin Start : 03-17-2017 take 1 tablet traZODone (2 sources) Reuptake by mouth once (DESYREL) 150 mg Inhibitor daily at tablet Take 1 bedtime tablet by mouth daily at bedtim e. 0 03/17/2017 Active Comment on above: Take 1 tablet by mouth daily at bedtime. vitamin b12 1 mg oral tablet Vitamin B12 Start: 03-17-2017 take 1 tablet cyanocobalamin (VITAMIN (2 sources) by mouth once B-12) 1,000 mc g tab daily Take 1 tablet b y mouth once daily. 0 03/17/2017 Acti ve Comment on above: Take 1 tablet by mouth once daily. Problems Active Problems Problem Problem Date Documented Date Episodic/Chr onic Classification Abdominal pain Pain in pelvis; Episodic (1 source) Translations: [Pelvic and perineal pain] Acute cerebrovascular disease Cerebrovascular Onset: 08-31-19 17 Chronic (2 sources) accident; 08-31-2016 Translations: [Cerebral infarction, unspecified] Anxiety disorders Mixed anxiety and Onset: 08-31-2016 Chron ic (2 sources) depressive disorder; 08-31-2016 Translations: [Anxiety disorder, unspecified] Diabetes mellitus without complication Type 2 diabetes Onset: 08-31-2016 Chronic (2 sources) mellitus without 08-31-2016 complication; Translations: [Type 2 diabetes mellitus without complications] Disorders of lipid metabolism Hyperlipidemia; Onset: 08-31-19 17 Chronic (2 sources) Translations: 08-31-2016 [Hyperlipidemia, unspecified] Esophageal disorders Gastroesophageal Onset: 08-31-2016 Chr onic (2 sources) reflux disease; 08-31-2016 Translations: [Gastro-esophageal reflux disease without esophagitis] Genitourinary symptoms and ill-defined conditions Increased frequen cy of Episodic (1 source) urination; Translations: [Frequency of micturition] Other screening for suspected conditions (not mental disorders or infectious disease) Patient encounter Episodic (1 source) status; Translations: [Encounter for screening mammogram for malignant neoplasm of breast] Schizophrenia and other psychotic disorders Schizophrenia; Onset: 11-04-2016 Chronic (2 sources) Translations: 11-04-2016 [Schizophrenia, unspecified] Thyroid disorders Acquired Onset: 08-31-2016 Chronic (2 sources) hypothyroidism; 08-31-2016 Translations: [Hypothyroidism, unspecified] Past or Other Problems Problem Classification Problem Date Documented Date Ep isodic/Chronic Other non-traumatic joint disorders Chronic pain of Onset: Episodic (2 sources) right upper 08-31-2016 limb; Translations: [Pain in right shoulder] Residual codes; unclassified Amnesia; Onset: 08-31-2016 Episodic (2 sources) Translations: 08-31-2016 [Other amnesia] Results Test Name Value Interpretation Reference Range Facility [facility]09[facility]20[facility]) [facility] WANDA Tamayo ([id number]) 1950 [facility] Time Provider Department 05/09/22 SHWETHA ROGERS OBVIRA During your visit today, we recorded the following inf ormation about you: Ailin Melgar RN 05/09/2022 2:23 PM Signed Spoke to Anaid, a nurse at [facility]. States papa schmidt was still complaining of dysuria yesterday and seemed uncomforta ble urinating. She did not come out of her room for her meals. C/o feeling ho t than cold yesterday too. Can another antibiotic be sent? We can speak with Anaid when we call back. 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 Ailin Rogers MD 05/09/2022 2:26 PM Signed Patient has a pseudomonas UTI which is rare. I think s he needs to see an internal medicine or urology doctor for this. They cou ld take her to the ED for treatment as well. If having fever, chills o r other symptoms she could be developing pyelonephritis or sepsis. MD Marleni Godwin RN 05/09/2022 2:55 PM Signed Anaid at [facility] notified. Urine culture resu lts faxed. Marleni Pollard RN Allergies As of Date: 05/09/2022 Noted Allergy Reactio n CODEINE 01/02/2013 5 - Intolerance FLOXIN (OFLOXACIN) 01/02/2013 5 - Intolerance NIACIN 01/02/2013 5 - Intolerance TETRACYCLINE 01/02/2013 5 - Intolerance VISTARIL (HYDROXYZINE HCL) 01/02/2013 5 - Intolerance Date Reviewed: 05/03/2022 Reviewed by: Zoila Parker Ma - Fully Assessed Reason for Visit: Medication Problem [65] Prescriptions as of 05/09/2022 - nitrofurantoin monohydrate and macrocrystal (MACROBI D) 100 mg capsule Take 1 capsule by mouth twice daily for 7 days. - phenazopyridine (PYRIDIUM, GERIDIUM) 200 mg tablet Take 1 tablet by mouth three times daily as needed. Fo r dysuria AND pelvis cramping. - glycerin-min oil-polycarbophil (REPLENS) gel Use 1 application vaginally once daily as needed. - paliperidone ER (INVEGA) 6 mg 24 hr tablet Take 1 tablet by mouth once daily. - pregabalin (LYRICA) 50 mg capsule Take 1 capsule by mouth three times daily. - Ranitidine HCl 300 mg tablet Take 1 tablet by mouth daily at bedtime. - traZODone (DESYREL) 150 mg tablet Take 1 tablet by mouth daily at bedtime. - meloxicam (MOBIC) 15 mg tablet Take 1 tablet by mouth once daily. - cyanocobalamin (VITAMIN B-12) 1,000 mcg tab Take 1 tablet by mouth once daily. - Acetaminophen (MAPAP) 500 mg cap Take by mouth. - Benzonatate 200 mg capsule Take 200 mg by mouth three times daily as needed. - ibuprofen (MOTRIN) 600 mg tablet Take 600 mg by mouth every 6 hours as needed. - Cholecalciferol, Vitamin D3, 2,000 unit cap Take 4 capsules by mouth once daily. - ALPRAZolam SR (XANAX SR) 0.5 mg 24 hr tablet Take 0.5 mg by mouth twice daily as needed. - prochlorperazine (COMPAZINE) 10 mg tablet Take 10 mg by mouth every 8 hours as needed. - Omeprazole 40 mg capsule Take 1 capsule by mouth once daily. - dicyclomine (BENTYL) 20 mg tablet Take 1 tablet by mouth before meals and at bedtime. - levothyroxine (SYNTHROID) 25 mcg tablet Take 25 mcg by mouth daily before breakfast. - aspirin 325 mg tablet Take 325 mg by mouth once daily. - diphenhydrAMINE (BENADRYL) 25 mg capsule Take 25 mg by mouth twice daily. - docusate sodium (COLACE) 100 mg capsule Take 100 mg by mouth twice daily. - fentaNYL (DURAGESIC) 12 mcg/hr pt72 Apply 1 Patch as directed every 72 hours. - [place]-3 Fatty Acids-Vitamin E (FISH OIL) 1,000 mg ca p Take 1 capsule by mouth once daily. - FLUoxetine HCl (PROZAC) 40 mg capsule Take 40 mg by mouth once daily. - polyethylene glycol 3350 (MIRALAX) 17 gram packet Take 17 g by mouth once daily. - CALCIUM CARBONATE/VITAMIN D3 (VITAMIN D-3 ORAL) Take 8,000 Units by mouth once daily. - busPIRone 10 mg tablet Take 15 mg by mouth three times daily. - pravastatin 80 mg tablet Take 80 mg by mouth once daily. Problem List As Of Date 05/09/2022 Noted Resolved CVA (cerebral vascular accident) (HCC) [I63.9] 017 HLD (hyperlipidemia) [E78.5] 08/31/2016 GERD (gastroesophageal reflux disease) [K21.9] 017 Acquired hypothyroidism [E03.9] 08/31/2016 Anxiety and depression [F41.9, F32.A] 08/31/2016 Chronic right shoulder pain [M25.511, G89.29] 08/31/19 17 Memory loss of unknown cause [R41.3] 08/31/2016 Type 2 diabetes mellitus without complication (*2016 Schizophrenia (HCC) [F20.9] 11/04/2016 Encounter Status:Closed by MARLENI POLLARD RN on Bacteria Ur Cult on 05-03-2022 Bacteria identified Cx Nom (U) [id number] Abnormal [facility] Comment on above: Order Comment: Specimen Type : URINE SPECIMEN Ordering Facility: [facility] Address: [address] [place] [address] Result Comment: >=100,000 CF U/ml Pseudomonas aeruginosa Performed By: #### [id number], 630-4 #### [facility] [place] [id number] [address] [place] [address] [place] Bacterial susceptibility panel (Isol) o n 05-03-2022 Cefepime [Susc] <=1 Susceptible Susceptible <=8 , [facility] Intermediate >8 , Resistant [facility] >16 Comment on above: Order Comment: Ordering Faci lity: [facility] Address: [address] [place], [place] [id number] Performed By: #### [id number], 630-4 #### [facility] [place] [id number] [address] [place] [address] [place] Ciprofloxacin [Susc] <=0.25 Susceptible Susceptible <=1 , [facility] Intermediate >1 , [facility] Resistant >2 Comment on above: Order Comment: Ordering Faci lity: [facility] Address: [address] [place], [place] [id number] Performed By: #### [id number], 630-4 #### [facility] CLIA [id number] [address] [place] Gentamicin [Susc] <=1 Susceptible Susceptible <=4 , [facility] Intermediate >4 , Resistant [facility] >8 Comment on above: Order Comment: Ordering Faci lity: [facility] Address: Formerly named [facility] [place] [address] Performed By: #### [id number], 630-4 #### [facility] CLIA [id number] [address] [place] [address] [place] Meropenem [Susc] 0.5 Susceptible Susceptible <=2 , [facility] Intermediate >2 , Resistant [facility] >4 Comment on above: Order Comment: Ordering Faci lity: [facility] Address: [address] [place], [place] [address] [address] Performed By: #### [id number], 630-4 #### [facility] CLIA [id number] [address] [place] [address] [place] Piperacillin+Sulbactam CHRISTINE 8 Susceptible Susceptible <= 16 , [facility] [Susc] Intermediate >16 , [facility] Resistant >64 Comment on above: Order Comment: Ordering Faci lity: [facility] Address: Formerly named [facility] [place] [address] Performed By: #### [id number], 630-4 #### [facility] IA [id number] [address] [place] [address] [place] Tobramycin [Susc] <=1 Susceptible Susceptible <=4 , [facility] Intermediate >4 , Resistant [facility]arden >8 Comment on above: Order Comment: Ordering Faci lity: [facility] Address: Formerly named [facility] [place] [address] Performed By: #### [id number], 630-4 #### [facility] CLIA [id number] [address] [place] [address] [place] CNOV on 05-03-2022 CNOV Office Visit (OBGYWM) Normal [facility] WANDA WINTERS ([id number]) 1950 F [facility] Time Provider Department 05/03/22 8:30 AM SHWETHA ROGERS OBGYWM During your visit today, we recorded the following inf ormation about you: Blood pressure Weight 122/58 60.4 kg Shwetha Rogers MD 05/03/2022 10:41 AM Signed Wanda is a 72 year old who presents for problem visit. She reports bothersome pelvic cramping AND urinating e very hour. Postmenopausal: Yes Last Pap: hysterectomy Last mammogram: unsure OB History T1 L1 SAB0 IAB0 Ectopic0 Multiple0 Live Births0 Comment: 1 vaginal delivery [employer] History LMP: Hysterectomy Age at Menarche: Age at First : Age at Menopause: [employer] History Comments: Sexual Activity: Never; No partner data on record; hys terectomy Contraception: Surgical PAST MEDICAL HISTORY Diagnosis Date Anxiety and depression Back pain Depression DM (diabetes mellitus) (HCC) GERD (gastroesophageal reflux disease) Headache(784.0) HLD (hyperlipidemia) Hypothyroidism Stroke (HCC) mini strokes per patient Vitamin deficiency PAST SURGICAL HISTORY Procedure Laterality Date CHOLECYSTECTOMY HX DILATION AND CURETTAGE DXAND/THER NONOBSTETRIC Dilation AND curettage EGD 04/08/11 [facility]. Grade A esophagitis EGD EUS 11/05/07 [place]. dilated CBD ESOPHAGOGASTRODUODENOSCOPY TRANSORAL DIAGNOSTIC 013 EGD ESOPHAGOGASTRODUODENOSCOPY TRANSORAL DIAGNOSTIC N/A MAC LIG/TRNSXJ FLP TUBE ABDL/VAG APPR UNI/BI Tubal ligation OVARIAN CYSTECTOMY PAST SURGICAL HISTORY OF 04/2018 compression fracture repair at [facility] TOTAL ABDOMINAL HYSTERECT W/WO RMVL TUBE OVARY Hysterectomy, JAMES FAMILY HISTORY Problem Relation Age of Onset Emphysema Mother Diabetes Father Diabetes Sister None Brother SOCIAL HISTORY Social History Tobacco Use Smoking status: Never Smokeless tobacco: Never Vaping Use Vaping Use: Never used Substance Use Topics Alcohol use: Not Currently Drug use: No REVIEW OF SYSTEMS Abdomen: No abdominal pain, nausea, vomiting, diarrhea , or constipation. No bloating, early satiety, indigestion, or increased fla tulence. Bladder: see above Breast: No breast lumps, nipple d/c, overlying skin ch anges, redness or skin retraction Allergies and current medication updated:Yes EXAM: BP 122/58 Wt 133 lb 3.2 oz (60.4kg) GENERAL: pleasant, female in no apparent dis tress BREAST: soft, non-tender, no dominant mass, norm al nipple-areolar complex, no lymphadenopathy, and no nipple discharge CHEST: Normal inspiratory effort ABDOMEN: soft and no masses; mild midline lower abdomi nal tenderness PELVIC: external genitalia n ormal, no vulvar lesions, normal appearing perineal body and perianal region; atrophic vagina BIMANUAL: no adnexal masses and uterus s urgically absent; mild tenderness over bladder RECTOVAGINAL: rectovaginal exam negative for any getachew s or nodularity. NEURO: alert and oriented x3,exam grossly non-focal EXTREMITIES: normal ASSESSMENT/PLAN: 1) Health maintenance: Pap/HPV screening no longer needed Mammogram ordered Nutrition, exercise and routine health maintenance exa ms reviewed. Colon cancer screening: patient to discuss with PCP 2) Follow up one year or sooner as needed 3) Pelvic cramping - check pelvic US if symptoms persi st after UTI treatment 4) UTI - send urine culture. Rx macrobid AND pyridium. Medical Decision Making: Problems: Low: Acute, uncomplicated illness or injury Data: Unique test(s) ordered: 3+ Risk: Moderate: Drug management Medical Decision Making Level: 4 - Moderate MD Shwetha Godwin MD 05/03/2022 9:30 AM Signed Please schedule pelvic US if pelvic cramping persists once antibiotic finished. Referring Provider: SELF [200] Allergies As of Date: 05/03/2022 Noted Allergy Reactio n CODEINE 01/02/2013 5 - Intolerance FLOXIN (OFLOXACIN) 01/02/2013 5 - Intolerance NIACIN 01/02/2013 5 - Intolerance TETRACYCLINE 01/02/2013 5 - Intolerance VISTARIL (HYDROXYZINE HCL) 01/02/2013 5 - Intolerance Date Reviewed: 05/03/2022 Reviewed by: Zoila Parker Ma - Fully Assessed Reason for Visit: Yearly Exam [187] Primary Visit Diagnosis:Pelvic cramping [R10.2] Other Visit Diagnoses:Encounter for screening mammogra m for malignant neoplasm of breast [Z12.31] Urinary frequency [R35.0] Order(s):CLARI SCREENING [[id number]] Order #: [id number] F UTURE PELVIC US WHI [[id number]] Order #: [id number]: 1 URINE CULTURE [SQURCUL] Order #: [id number]. #:[id number] UA DIP, URINE (POC) [[id number]] Order #: [id number]. #:[id number] nitrofurantoin monohydrate and macrocrystal (MACROBID) 100 mg capsuleTake 1 capsule by mouth twice daily for 7 days. Disp: 14 capsuleRfl: 0 phenazopyridine (PYRIDIUM, GERIDIUM) 200 mg tabletTake 1 tablet by (more content not included)... UA DIP, URINE (POC) on 05-03-2022 BILIRUBIN UA (POCT) Negative Negative [facility] CLARITY UA (POCT) Clear [facility] COLOR UA (POCT) Yellow [facility] inic GLUCOSE UA (POCT) Negative Negative mg/dL [facility] HEMOGLOBIN/BLOOD UA (POCT) Negative Negative [facility] KETONE UA (POCT) Negative Negative mg/dL [facility] LEUKOCYTES UA (POCT) Small Abnormal Negative [facility] [facility] NITRITE UA (POCT) Positive Abnormal Negative [facility] PH UA (POCT) 7.0 4.5 - 8.0 [facility] Protein Ql (U) Negative Negative mg/dL [facility] SPECIFIC GRAVITY UA (POCT) 1.015 1.005 - 1.030 [facility] UROBILINOGEN UA (POCT) 0.2 E.U./dL Normal E.U./dL [facility] Vital Signs Date Time Vital Sign Value Performing Clinician Facilit y 05-03-2022 Body weight 60.42 kg Shwetha Rogers MD [facility] 08:44-0400 Work Phone: 05-03-2022 Diastolic blood 58 mm[Hg] Shwetha Rogers MD [facility] 08:44-0400 pressure Work Phone: 05-03-2022 Systolic blood 122 mm[Hg] Shwetha Rogers MD [facility] 08:44-0400 pressure Work Phone: Encounters Encounter Date Encounter Type Care Provider Facility Start: 05-25-2022 ambulatory BRYSON BOATENG Facility:[facility] End: 05-25-2022 [facility] Start: 05-09-2022 Telephone encounter Shwetha Rogers MD OB/Gynecol ogy Work Phone: Comment on above: Medication Problem Start: 05-09-2022 ambulatory PHIL STEVENSONBEATRIZ Facility:[facility] Start: 05-03-2022 ambulatory SHWETHA ROGERS Facility:[facility] End: 05-03-2022 Hospital Start: 05-03-2022 Patient encounter Shwetha Rogers MD OB/Gynecolog y End: 05-03-2022 procedure Work Phone: Comment on above: Pelvic cramping (Primary Dx) ; Encounter for screening mamm ogram for malignant neoplasm of breast; Urinary frequency Procedures Date Procedure Procedure Detail Performing Clin ician Start: 05-03-2022 Urnls dip stick/tablet Shwetha Rogers MD rgnt auto w/o microscopy Work Ph one: Plan of Treatment Date Care Activity Detail Author Start: Influenza vaccination INFLUENZA (#1) [facility] 04-28-2022 Start: ADVANCE DIRECTIVE ADVANCE DIRECTIVE [facility] 08-28-2021 DISCUSSION DISCUSSION Start: BONE DENSITY BONE DENSITY [facility] 2013 Start: SHINGRIX VACCINE (1 of SHINGRIX VACCINE (1 of [facility] 1998 2) 2) Start: COLOGUARD (FIT-DNA) COLOGUARD (FIT-DNA) [facility] 1993 Start: Colonoscopy COLONOSCOPY [facility] 1993 Start: COLORECTAL CANCER COLORECTAL CANCER [facility] 1993 SCREENING SCREENING Start: CT COLONOGRAPHY CT COLONOGRAPHY [facility] 1993 Start: FECAL OCCULT BLOOD FECAL OCCULT BLOOD [facility] 1993 Start: SIGMOIDOSCOPY SIGMOIDOSCOPY [facility] 1993 Start: Mammography MAMMOGRAM [facility] 1988 Start: Urine microalbumin DTAP,TDAP,TD (1 - Tdap) [facility] 1967 profile Start: ANNUAL PCP TEAM CHRONIC ANNUAL PCP TEAM CHRONIC [facility] 1966 DISEASE VISIT DISEASE VISIT Start: Hepatitis B surface LDL CHOLESTEROL [facility] 1966 antibody level Start: HEPATITIS C SCREENING HEPATITIS C SCREENING [facility] 1966 Start: 3 comp foot exam DIABETIC FOOT EXAM [facility] 1958 completed Start: Hepatitis B screening URINE ALBUMIN:CREATININE C [facility] 1958 RATIO Start: Hepatitis C antibody, DILATED RETINAL EXAM [facility] 1958 confirmatory test Start: PNEUMOCOCCAL: 65+ (1 - PNEUMOCOCCAL: 65+ (1 - Cl [facility] 1954 PCV) PCV) Start: Hemoglobin HBA1C [facility] 1953 A1c/Hemoglobin.total in Blood Start: COVID-19 VACCINE (#1) COVID-19 VACCINE (#1) [facility] 1948 Bacteria identified in URINE CULTURE [facility] Urine by Culture Microbiology Routine Work Phone : Pelvic cramping Ordered: 05/03/2022 Comment on above: Ordered: 05/03/2022 PELVIC US WHI PELVIC US WHI Anc Imaging Routin e Pelvic [facility] cramping Ordered: 05/03/2022 Wor k Phone: Comment on above: Ordered: 05/03/2022 Screening mammography CLARI SCREENING [facility] End: 06-02-2023 bi 2-[facility] Radiology Routine Work Phon e: cad Encounter for screening mammogram for malignant neoplasm of breast 1 Occurrences starting 05/03/2022 until 06/02/2023 Comment on above: 1 Occurrences starting 05/03 until 06/02/2023 [facility] Payers Date Payer Category Payer Medicaid [facility] MEDICAID [facility] [id number] MEDICAID [id number] 2018-Present [phone] [address] [place] [address] Medicaid 2018 Medicaid [id number] Social History Date Type Detail Facility Start: 05-03-2022 Tobacco smoking status Never smoked tobacco Cl [facility] Start: 05-03-2022 Tobacco use and Smokeless tobacco [facility] exposure non-user Start: 05-03-2022 Alcohol intake Ex-drinker (finding) [facility] Start: 1950 [facility] Assigned At [facility] Start: 04-23-2022 Exposure to SARS-CoV-2 Not sure [facility] End: 05-09-2022 (event) Work Phone: Progress note 05-25-2022 Note Date & Type Note Facility 05-25-2022 Note HNO ID: [id number] [facility] Martinez gallo Author: Gianni Martinez MD Service: ? Author Type: Physician Type: Progress Notes Filed: 05/25/2022 5:15 PM Note Text: Assessment and Plan 1. Type 2 diabetes mellitus without reti nopathy -no diabetic retinopathy both eyes 2. 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 Wanda Winters has confirmed that she is no longer able to function adequately on a day-to-day basis because of her current visual condition. Further, it is my medical opinion that t he cataract is the primary cause, or at least a significantly contributory cause of her visual dysfunction. With uncomplicated cataract surgery and lens implantation, it is my expectation that her visual function and quality of life will improve, significantly. The risks, benefits, alternatives, perso nnel and complications of cataract surgery with lens implantation were disc ussed with Wanda Winters in detail. she appeared to understand and a sked that I proceed with plans for surgery. Plan: Cataract: Right eye (OD) Aim -0.25 [id number] power +16.5 Flomax N Diabetes Y Glaucoma N Astigmatism N Pentacam irregular Refractive surgery N Fuchs N Trypan blue N Malyugin ring Possible Other Fidgety/schizophrenia I have confirmed and edited as necessary the relevant ophthalmic history, ROS, and the neuro exam findings as obta ined by others. I have seen and examined Wanda Winters. I have discussed the case and the manage ment of this patient's care with the Resident/Fellow, if applicable. I al so have reviewed and agree with the assessment and plan as stated above and agree with all of its relevant components. Gianni Martinez MD May 25, 2022 11:47 AM Note 05-09-2022 Telephone Encounter - Marleni Pollard RN - 05/09/2022 2:54 PM EDTTelephone Encounter - Shwetha Rogers MD - 05/09/2022 2:23 PM EDTTelephone Encounter - Ailin Melgar RN - 05/09/2022 2:20 PM EDT Note Date & Type Note Facility 05-09-2022 Miscellaneous Notes [facility] Anaid at [facility] notified. Urin e culture results faxed. Marleni Pollard RN Formatting of this note might be differe nt from the original. Patient has a pseudomonas UT I which is rare. I think she needs to see an internal medicine or urology doctor for this. They could take her to the ED for treatment as well. If having fever, chills or oth er symptoms she could be developing pyel onephritis or sepsis. Shwetha Rogers MD Formatting of this note might be differe nt from the original. Spoke to Anaid, a nurse at [facility]. States patient was still complaining of dysuria yesterday and seemed uncomfortable urinating. She did not come out of her room for her meals. C/o feeling hot than cold yesterday too. Can another an tibiotic be sent? We can speak with Anaid when we call suze k. She is the evening nurse tonight. Ailin Melgar RN documented in this encounter Progress note 05-03-2022 Note Date & Type Note Facility 05-03-2022 Note HNO ID: [id number] [facility] Author: Shwetha Rogers MD [place] Service: ? Author Type: Physician Type: Progress Notes Filed: 05/03/2022 10:41 AM Note Text: Wanda is a 72 year old who presen ts for problem visit. She reports bothersome pelvic cramping A ND urinating every hour. Postmenopausal: Yes Last Pap: hysterectomy Last mammogram: unsure OB History T1 L1 SAB0 IAB0 Ectopic0 Multiple0 Live Births 0 Comment: 1 vaginal delivery [employer] History LMP: Hysterectomy Age at Menarche: Age at First : Age at Menopause: [employer] History Comments: Sexual Activity: Never; No partner data on record; hysterectomy Contraception: Surgical PAST MEDICAL HISTORY Diagnosis Date Anxiety and depression Back pain Depression DM (diabetes mellitus) (HCC) GERD (gastroesophageal reflux disease) Headache(784.0) HLD (hyperlipidemia) Hypothyroidism Stroke (HCC) mini strokes per patient Vitamin deficiency PAST SURGICAL HISTORY Procedure Laterality Date CHOLECYSTECTOMY HX DILATION AND CURETTAGE DXAND/THER NONOBS TETRIC Dilation AND curettage EGD 04/08/11 [facility]. Grade A esophagitis EGD EUS 11/05/07 [place]. dilated CBD ESOPHAGOGASTRODUODENOSCOPY TRANSORAL REJI GNOSTIC 01/11/2013 EGD ESOPHAGOGASTRODUODENOSCOPY TRANSORAL REJI GNOSTIC N/A 11/10/2016 MAC LIG/TRNSXJ FLP TUBE ABDL/VAG APPR UNI/BI Tubal ligation OVARIAN CYSTECTOMY PAST SURGICAL HISTORY OF 04/2018 compression fracture repair at [facility] TOTAL ABDOMINAL HYSTERECT W/WO RMVL TUBE OVARY Hysterectomy, JAMES FAMILY HISTORY Problem Relation Age of Onset Emphysema Mother Diabetes Father Diabetes Sister None Brother SOCIAL HISTORY Social History Tobacco Use Smoking status: Never Smokeless tobacco: Never Vaping Use Vaping Use: Never used Substance Use Topics Alcohol use: Not Currently Drug use: No REVIEW OF SYSTEMS Abdomen: No abdominal pain, nausea, vomi ting, diarrhea, or constipation. No bloating, early satiety, indigestion, or increased flatulence. Bladder: see above Breast: No breast lumps, nipple d/c, ove rlying skin changes, redness or skin retraction Allergies and current medication updated :Yes EXAM: BP 122/58 Wt 133 lb 3.2 oz (60.4 kg) GENERAL: pleasant, female in n o apparent distress BREAST: soft, non-tender, no dominant ma ss, normal nipple-areolar complex, no lymphadenopathy, and no nipple discha rge CHEST: Normal inspiratory effort ABDOMEN: soft and no masses; mild midlin e lower abdominal tenderness PELVIC: external genitalia normal, no vu lvar lesions, normal appearing perineal body and perianal region; atrop hic vagina BIMANUAL: no adnexal masses and uterus s urgically absent; mild tenderness over bladder RECTOVAGINAL: rectovaginal exam negative for any masses or nodularity. NEURO: alert and oriented x3,exam grossl y non-focal EXTREMITIES: normal ASSESSMENT/PLAN: 1) Health maintenance: Pap/HPV screening no longer needed Mammogram ordered Nutrition, exercise and routine health m aintenance exams reviewed. Colon cancer screening: patient to discu ss with PCP 2) Follow up one year or sooner as neede d 3) Pelvic cramping - check pelvic US if symptoms persist after UTI treatment 4) UTI - send urine culture. Rx macrobid AND pyridium. Medical Decision Making: Problems: Low: Acute, uncomplicated illness or inj ury Data: Unique test(s) ordered: 3+ Risk: Moderate: Drug management Medical Decision Making Level: 4 - Moder ate Shwetha Rogers MD Instructions 05-03-2022 Patient Instructions Note Date & Type Note Facility 05-03-2022 Instructions Shwetha Rogers MD - 9:30 AM EDT [facility] Please schedule pelvic US if pelvic cramping persists once antibiotic finished. documented in this encounter History of Present illness Narrative 05-03-2022 Shwetha Rogers MD - 05/03/2022 8:30 AM EDT Note Date & Type Note Facility 05-03-2022 History of Formatting of this note is different f rom the original. [facility] Present illness Narrative Wanda is a 72 year old 1 who presents for problem visit. She reports bothersome pelvic cramping & urinating every hour. Postmenopausal: Yes Last Pap: hysterectomy Last mammogram: unsure OB History T1 L1 SAB0 IAB0 Ectopic0 Multiple0 Live Births 0 Comment: 1 vaginal delivery [employer] History LMP: Hysterectomy Age at Menarche: Age at First : Age at Menopause: [employer] History Comments: Sexual Activity: Never; No partner data on record; hysterectomy Contraception: Surgical PAST MEDICAL HISTORY Diagnosis Date Anxiety and depression Back pain Depression DM (diabetes mellitus) (HCC) GERD (gastroesophageal reflux disease) Headache(784.0) HLD (hyperlipidemia) Hypothyroidism Stroke (HCC) mini strokes per patient Vitamin deficiency PAST SURGICAL HISTORY Procedure Laterality Date CHOLECYSTECTOMY HX DILATION & CURETTAGE DX&/THER NONOBSTETR IC Dilation & curettage EGD 04/08/11 [facility]. Grade A esophagitis EGD EUS 11/05/07 [place]. dilated CBD ESOPHAGOGASTRODUODENOSCOPY TRANSORAL REJI GNOSTIC 01/11/2013 EGD ESOPHAGOGASTRODUODENOSCOPY TRANSORAL REJI GNOSTIC N/A 11/10/2016 MAC LIG/TRNSXJ FLP TUBE ABDL/VAG APPR UNI/BI Tubal ligation OVARIAN CYSTECTOMY PAST SURGICAL HISTORY OF 04/2018 compression fracture repair at [facility] TOTAL ABDOMINAL HYSTERECT W/WO RMVL TUBE OVARY Hysterectomy, JAMES FAMILY HISTORY Problem Relation Age of Onset Emphysema Mother Diabetes Father Diabetes Sister None Brother SOCIAL HISTORY Social History Tobacco Use Smoking status: Never Smokeless tobacco: Never Vaping Use Vaping Use: Never used Substance Use Topics Alcohol use: Not Currently Drug use: No REVIEW OF SYSTEMS Abdomen: No abdominal pain, nausea, vomiting, diarrhea, or constipation. No bloating, early satiety, indigestion, or increased flatulence. Bladder: see above Breast: No breast lumps, nip ple d/c, overlying skin changes, redness or skin retraction Allergies and current medication updated :Yes EXAM: BP 122/58 Wt 133 lb 3.2 oz (60.4 kg) GENERAL: pleasant, female in n o apparent distress BREAST: soft, non-tender, no dominant mass, normal nipple-areolar complex, no lymphadenopathy, and no nipple discharge CHEST: Normal inspiratory effort ABDOMEN: soft and no masses; mild midlin e lower abdominal tenderness PELVIC: external genitalia n ormal, no vulvar lesions, normal appearing perineal body and perianal region; atrophic vagina BIMANUAL: no adnexal masses and uterus surgically absent; mild tenderness over bladder RECTOVAGINAL: rectovaginal exam negative for any masses or nodularity. NEURO: alert and oriented x3,exam grossl y non-focal EXTREMITIES: normal ASSESSMENT/PLAN: 1) Health maintenance: Pap/HPV screening no longer needed Mammogram ordered Nutrition, exercise and routine health m aintenance exams reviewed. Colon cancer screening: patient to discu ss with PCP 2) Follow up one year or sooner as neede d 3) Pelvic cramping - check pelvic US if symptoms persist after UTI treatment 4) UTI - send urine culture. Rx macrobid & pyridium. Medical Decision Making: Problems: Low: Acute, uncomplicated illness or inj ury Data: Unique test(s) ordered: 3+ Risk: Moderate: Drug management Medical Decision Making Level: 4 - Moder ate Shwetha Rogers MD documented in this encounter Evaluation note Note Date & Type Note Facility Evaluation note Diagnosis Pelvic cramping- Primary Unspecified symptom associated with fema le genital organs Encounter for screening mammogram for ma lignant neoplasm of breast Other screening mammogram [facility]inary [facility] Reason for referral (narrative) Diagnostic Procedure Only (Routine) - Authorized Note Date & Type Note Facility Reason for referral (narrative) Specialty Diagnoses / Procedures Referred By Contact Refer red To Contact [facility] Diagnoses Pelvic cramping Shwetha Rogers MD [facility] Procedures PELVIC US I US PELVIC NONOBSTETRIC REAL-TIME IMAGE COMPLETE [address] [place] [address] [place] [address] Referral ID Status Reason Start Expiration Visits Visits Date Date Requested Authorized [id number] Authorized Auto-Generat 05/03/2022 05/03/2023 1 1 ed Referral iagnostic Procedure Only (Routine) - Pending Review Specialty Diagnoses / Procedures Referred By Contact Refer red To Contact [facility] Diagnoses Encounter for screening mammogram for malignant neoplasm of breast Shwetha Rogers MD [facility] Procedures CLARI SCREENING SCREENING MAMMOGRAPHY BI 2-VIEW BREAST INC CAD [address] [place] [address] [place] [address] Referral ID Status Reason Start Expiration Visits Visits Date Date Requested Authorized [id number] Pending Auto-Generat 05/03/2022 06/02/2023 1 1 Review ed Referral [facility] Summary Purpose Family History No Family History Records Found Advance Directives No Advanced Directives Records Found Additional Source Comments Source Comments (unrecognized section an d content) In the event this information is protect ed by the Federal Confidentiality of Alcohol and Drug Abuse Patient Records regulatio ns: This information has been disclosed to you from records protected by Federal co nfidentiality rules ( The Federal rules restrict any use of the information to criminally investigate or prosecute any alcohol or drug abuse patient. [facility] the event this information is protected by t Federal Confidentiality of Alcohol and Drug Abuse Patient Records regulations: This information has been disclosed to you from records protected by Federal confid entiality rules ( The Federal rules restrict any use of th e information to criminally investigate or prosecute any alcohol or drug abuse jaqui ent. [facility] Reason for Visit (unrecognized section a nd content) Reason Onset Date Comments Yearly Exam 05/03/2022 Reason Comments Medication Problem Care Teams (unrecognized section and con tent) Jewel Setter Relationship Specialty Start Date End Date Bryson Boateng MD PCP - General Internal Medicine 03/03/17 [address] [place] [address] Jewel Setter Relationship Specialty Start Date End Date Bryson Boateng MD PCP - General Internal Medicine 03/03/17 [address] [place] [address] INFORMATION SOURCE (unrecognized section and content) DATE CREATED AUTHOR AUTHOR'S ORGANIZ ATION 05/30/2022 [facility] FOR RECORDS PERTAINING TO PATIENTS WHO ARE OR HAVE BEEN ENROLLED IN A CHEMICAL DEPENDENCY/SUBSTANCE ABUSE PROGRAM, SOME INFORMATION MAY BE OMITTED. This clinical summary was aggregated from multiple sources. Caution should be exercised in using it in the provision of clinical care. This summary normalizes information from multiple sources, and as a consequence, information in this document may materially change the coding, format and clinical context of patient data. In addition, data may be omittedin some cases. CLINICAL DECISIONS SHOULD BE BASED ON THE PRIMARY CLINICAL RECORDS. [facility] [employer] provides no warranty or guarantee of the accuracy or completeness of information in this document.
--- OUTSIDE RECORDS SUMMARY | 2022-11-12 16:07 | XMS RPT_ITS | CCD ---
:1950 Author Organization [employer] Care Team Providers Name Role Phone Bryson Boateng MD Primary Care Provider PHIL NORTON Referring Unavailable PHIL NORTON Attending Unavailable BRYSON BOATENG Primary Care Unavailable BRYSON BOATENG Primary Care Unavailable GIANNI MARTINEZ Attending Unavailable SHWETHA ROGERS Attending Unavailable BRYSON BOATENG Primary Care Unavailable Allergies Allergy Reported Allergy Type Date of Reaction(s) Facility Classification Allergen(s) Onset Codeine; Drug Allergy 01-02-2013 [facility] (3 sources) Translations: Work Phone : [CODEINE] hydrOXYzine; Drug Allergy 01-02-2013 Intolerance [facility] (3 sources) Translations: Work Phone : [HYDROXYZINE HCL] Niacin; Drug Allergy 01-02-2013 [facility] (3 sources) Translations: Work Phone : [NIACIN] Ofloxacin; Drug Allergy 01-02-2013 [facility] (3 sources) Translations: Work Phone : [OFLOXACIN] Tetracycline; Drug Allergy 01-02-2013 Intolerance [facility] (3 sources) Translations: Work Phone : [TETRACYCLINE] [...] Take 1 tablet by mouth once daily. [place]-3 Fatty Acids-Vitamin E (FISH OIL) 1,000 mg cap take 1 capsule by mouth [place]-3 Fatty Acids-Vitamin E (2 sources) once daily [...] dysuria & pelvis cramping. polyethylene glycol 3350 20026 mg powder for oral solution Osmotic Laxative [...] Test Name Value Interpretation Reference Range Facility [facility]09[facility]20[facility] ([facility] WANDA Tamayo ([id number]) 1950 [facility] Time Provider Department 05/09/22 SHWETHA ROGERS OBVIRA During your visit today, we recorded the following inf ormation about you: Ailin Melgar RN 05/09/2022 2:23 PM Signed Spoke to Anaid, a nurse at [facility]. States papa schmidt was still complaining of [...] RN 05/09/2022 2:55 PM Signed Anaid at [facility] notified. Urine culture resu lts faxed. Marleni [...] Patch as directed every 72 hours. - [place]-3 Fatty Acids-Vitamin E (FISH OIL) 1,000 mg [...] on 05-03-2022 Bacteria identified Cx Nom (U) [id number] Abnormal [facility] Comment on above: Order Comment: Specimen Type : URINE SPECIMEN Ordering Facility: [facility] Address: [address] [place] [address] Result Comment: >=100,000 CF U/ml Pseudomonas aeruginosa Performed By: #### 36975-4, 630-4 #### [facility] [place] [id number] [address] [place] [address] [place] Bacterial susceptibility panel (Isol) o n 05-03-2022 Cefepime [Susc] <=1 Susceptible Susceptible <=8 , [facility] Intermediate >8 , Resistant Bearden >16 Comment on above: Order Comment: Ordering Faci lity: [facility] Address: [address] [place], [place] [address] Performed By: #### 37527-3, 630-4 #### [facility] [place] [id number] [address] [place] [address] [place] Ciprofloxacin [Susc] <=0.25 Susceptible Susceptible <=1 , [facility] Intermediate >1 , [facility] Resistant >2 Comment on above: Order Comment: Ordering Faci lity: [facility] Address: [address] [place], [place] [phone] Performed By: #### 93664-3, 630-4 #### [facility] CLIA [id number] [address] [place] Gentamicin [Susc] <=1 Susceptible Susceptible <=4 , [facility] Intermediate >4 , Resistant Bearden >8 Comment on above: Order Comment: Ordering Faci lity: [facility] Address: [facility] [place] [address] Performed By: #### 67674-3, 630-4 #### [facility] CLIA [id number] [address] [place] [address] [place] Meropenem [Susc] 0.5 Susceptible Susceptible <=2 , [facility] Intermediate >2 , Resistant Bearden >4 Comment on above: Order Comment: Ordering Faci lity: [facility] Address: [address] [place], [place] [address] [address] Performed By: #### 07474-7, 630-4 #### [facility] CLIA [id number] [address] [place] [address] [place] Piperacillin+Sulbactam CHRISTINE 8 Susceptible Susceptible <= 16 , [facility] [Susc] Intermediate >16 , [facility] Resistant >64 Comment on above: Order Comment: Ordering Faci lity: [facility] Address: [facility] [place] [address] Performed By: #### 44541-0, 630-4 #### [facility] [place] [id number] [address] [place] [address] [place] Tobramycin [Susc] <=1 Susceptible Susceptible <=4 , [facility] Intermediate >4 , Resistant Bearden >8 Comment on above: Order Comment: Ordering Faci lity: [facility] Address: [facility] [place] [address] Performed By: #### 85647-1, 630-4 #### [facility] CLIA [id number] [address] [place] [address] [place] CNOV on 05-03-2022 CNOV Office Visit (OBGYWM) Normal [facility] WANDA WINTERS ([id number]) 1950 F [facility] Time Provider Department 05/03/22 8:30 AM SHWETHA [...] Multiple0 Live Births0 Comment: 1 vaginal delivery Fig Caprifier History LMP: Hysterectomy Age at Menarche: Age at First : Age at Menopause: Fig Caprifier History Comments: Sexual Activity: Never; No partner data on record; hys terectomy Contraception: Surgical PAST MEDICAL HISTORY Diagnosis Date Anxiety and depression Back pain Depression DM (diabetes mellitus) (HCC) GERD (gastroesophageal reflux disease) Headache(784.0) HLD (hyperlipidemia) Hypothyroidism Stroke (HCC) mini strokes per patient Vitamin deficiency PAST SURGICAL HISTORY Procedure Laterality Date CHOLECYSTECTOMY HX DILATION AND CURETTAGE DXAND/THER NONOBSTETRIC Dilation AND curettage EGD 04/08/11 [facility]. Grade A esophagitis EGD EUS 11/05/07 [place]. dilated CBD ESOPHAGOGASTRODUODENOSCOPY TRANSORAL DIAGNOSTIC 013 EGD ESOPHAGOGASTRODUODENOSCOPY TRANSORAL DIAGNOSTIC N/A MAC LIG/TRNSXJ FLP TUBE ABDL/VAG APPR UNI/BI Tubal ligation OVARIAN CYSTECTOMY PAST SURGICAL HISTORY OF 04/2018 compression fracture repair at [facility] TOTAL ABDOMINAL HYSTERECT W/WO RMVL TUBE OVARY [...] breast [Z12.31] Urinary frequency [R35.0] Order(s):CLARI SCREENING [[id number]] Order #: [id number] F UTURE PELVIC US WHI [[id number]] Order #: [id number]: 1 URINE CULTURE [SQURCUL] Order #: [id number]. #:[id number] UA DIP, URINE (POC) [[id number]] Order #: [id number]. #:[id number] nitrofurantoin monohydrate and macrocrystal (MACROBID) 100 mg capsuleTake 1 capsule by mouth twice daily for 7 days. Disp: 14 capsuleRfl: 0 phenazopyridine (PYRIDIUM, GERIDIUM) 200 mg tabletTake 1 tablet by (more content not included)... UA DIP, URINE (POC) on 05-03-2022 BILIRUBIN UA (POCT) Negative Negative [facility] CLARITY UA (POCT) Clear [facility] COLOR UA (POCT) Yellow [facility] inic GLUCOSE UA (POCT) Negative Negative mg/dL [facility] HEMOGLOBIN/BLOOD UA (POCT) Negative Negative [facility] KETONE UA (POCT) Negative Negative mg/dL [facility] LEUKOCYTES UA (POCT) Small Abnormal Negative [facility] NITRITE UA (POCT) Positive Abnormal Negative [facility] PH UA (POCT) 7.0 4.5 - 8.0 [facility] Protein Ql (U) Negative Negative mg/dL [facility] SPECIFIC GRAVITY UA (POCT) 1.015 1.005 - 1.030 [facility] UROBILINOGEN UA (POCT) 0.2 E.U./dL Normal E.U./dL [facility] Vital Signs Date Time Vital Sign Value Performing Clinician Facilit y 05-03-2022 Body weight 60.42 kg Shwetha Rogers MD [facility] 08:44-0400 Work Phone: 05-03-2022 Diastolic blood 58 mm[Hg] Shwetha Rogers MD [facility] 08:44-0400 pressure Work Phone: 05-03-2022 Systolic blood 122 mm[Hg] Shwetha Rogers MD [facility] 08:44-0400 pressure Work Phone: Encounters Encounter Date Encounter Type Care Provider Facility Start: 05-25-2022 ambulatory BRYSON BOATENG Facility:[facility] End: 05-25-2022 [facility] Start: 05-09-2022 Telephone encounter Shwetha Rogers MD OB/Gynecol ogy Work Phone: Comment on above: Medication Problem Start: 05-09-2022 ambulatory PHIL STEVENSONBEATRIZ Facility:[facility] Start: 05-03-2022 ambulatory SHWETHA ROGERS Facility:[facility] End: 05-03-2022 Hospital Start: 05-03-2022 Patient encounter [...] Detail Author Start: Influenza vaccination INFLUENZA (#1) [facility] 04-28-2022 Start: ADVANCE DIRECTIVE ADVANCE DIRECTIVE [facility] 08-28-2021 DISCUSSION DISCUSSION Start: BONE DENSITY BONE DENSITY [facility] 2013 Start: SHINGRIX VACCINE (1 of SHINGRIX VACCINE (1 of [facility] 1998 2) 2) Start: COLOGUARD (FIT-DNA) COLOGUARD (FIT-DNA) [facility] 1993 Start: Colonoscopy COLONOSCOPY [facility] 1993 Start: COLORECTAL CANCER COLORECTAL CANCER [facility] 1993 SCREENING SCREENING Start: CT COLONOGRAPHY CT COLONOGRAPHY [facility] 1993 Start: FECAL OCCULT BLOOD FECAL OCCULT BLOOD [facility] 1993 Start: SIGMOIDOSCOPY SIGMOIDOSCOPY [facility] 1993 Start: Mammography MAMMOGRAM [facility] 1988 Start: Urine microalbumin DTAP,TDAP,TD (1 - Tdap) [facility] 1967 profile Start: ANNUAL PCP TEAM CHRONIC ANNUAL PCP TEAM CHRONIC [facility] 1966 DISEASE VISIT DISEASE VISIT Start: Hepatitis B surface LDL CHOLESTEROL [facility] 1966 antibody level Start: HEPATITIS C SCREENING HEPATITIS C SCREENING [facility] 1966 Start: 3 comp foot exam DIABETIC FOOT EXAM [facility] 1958 completed Start: Hepatitis B screening URINE ALBUMIN:CREATININE C [facility] 1958 RATIO Start: Hepatitis C antibody, DILATED RETINAL EXAM [facility] 1958 confirmatory test Start: PNEUMOCOCCAL: 65+ (1 - PNEUMOCOCCAL: 65+ (1 - Cl [facility] 1954 PCV) PCV) Start: Hemoglobin HBA1C [facility] 1953 A1c/Hemoglobin.total in Blood Start: COVID-19 VACCINE (#1) COVID-19 VACCINE (#1) [facility] 1948 Bacteria identified in URINE CULTURE [facility] Urine by Culture Microbiology Routine Work Phone : Pelvic cramping Ordered: 05/03/2022 Comment on above: Ordered: 05/03/2022 PELVIC US WHI PELVIC US WHI Anc Imaging Routin e Pelvic [facility] cramping Ordered: 05/03/2022 Wor k Phone: Comment on above: Ordered: 05/03/2022 Screening mammography CLARI SCREENING [facility] End: 06-02-2023 bi [facility] Routine Work Phon e: cad Encounter for screening mammogram for malignant neoplasm of breast 1 Occurrences starting 05/03/2022 until 06/02/2023 Comment on above: 1 Occurrences starting 05/03 until 06/02/2023 [facility] Payers Date Payer Category Payer Medicaid [facility] MEDICAID [employer] [id number] MEDICAID [id number] 2018-Present [phone] [address] [place] [address] Medicaid 2018 Medicaid [id number] Social History Date Type Detail Facility Start: 05-03-2022 Tobacco smoking status Never smoked tobacco [facility] Start: 05-03-2022 Tobacco use and Smokeless tobacco [facility] inic exposure non-user Start: 05-03-2022 Alcohol intake Ex-drinker (finding) [facility] Start: 1950 [facility]igned [facility] Start: 04-23-2022 Exposure to SARS-CoV-2 Not sure [facility] End: 05-09-2022 (event) Work Phone: Progress note 05-25-2022 Note Date & Type Note Facility 05-25-2022 Note HNO ID: [id number] [facility] Martinez gallo Author: Gianni Martinez MD Service: [...] & Type Note Facility 05-09-2022 Miscellaneous Notes [facility] Anaid at [facility] notified. Urin e culture results faxed. Marleni [...] original. Spoke to Anaid, a nurse at [facility]. States patient was still complaining of dysuria [...] Type Note Facility 05-03-2022 Note HNO ID: [id number] [facility] Author: Shwetha Rogers MD [place] Service: ? Author Type: Physician Type: Progress Notes Filed: 05/03/2022 10:41 AM Note Text: Wanda is a 72 year old who presen ts for problem visit. She reports bothersome pelvic cramping A ND urinating every hour. Postmenopausal: Yes Last Pap: hysterectomy Last mammogram: unsure OB History T1 L1 SAB0 IAB0 Ectopic0 Multiple0 Live Births 0 Comment: 1 vaginal delivery Fig Caprifier History LMP: Hysterectomy Age at Menarche: Age at First : Age at Menopause: Fig Caprifier History Comments: Sexual Activity: Never; No partner data on record; hysterectomy Contraception: Surgical PAST MEDICAL HISTORY Diagnosis Date Anxiety and depression Back pain Depression DM (diabetes mellitus) (HCC) GERD (gastroesophageal reflux disease) Headache(784.0) HLD (hyperlipidemia) Hypothyroidism Stroke (HCC) mini strokes per patient Vitamin deficiency PAST SURGICAL HISTORY Procedure Laterality Date CHOLECYSTECTOMY HX DILATION AND CURETTAGE DXAND/THER NONOBS TETRIC Dilation AND curettage EGD 04/08/11 [facility]. Grade A esophagitis EGD EUS 11/05/07 [place]. dilated CBD ESOPHAGOGASTRODUODENOSCOPY TRANSORAL REJI GNOSTIC 01/11/2013 EGD ESOPHAGOGASTRODUODENOSCOPY TRANSORAL REJI GNOSTIC N/A 11/10/2016 MAC LIG/TRNSXJ FLP TUBE ABDL/VAG APPR UNI/BI Tubal ligation OVARIAN CYSTECTOMY PAST SURGICAL HISTORY OF 04/2018 compression fracture repair at [facility] TOTAL ABDOMINAL HYSTERECT W/WO RMVL TUBE OVARY [...] Shwetha Rogers MD - 9:30 AM EDT [facility] Please schedule pelvic US if pelvic cramping persists once antibiotic finished. documented in this encounter History of Present illness Narrative 05-03-2022 Shwetha Rogers MD - 05/03/2022 8:30 AM EDT Note Date & Type Note Facility 05-03-2022 History of Formatting of this note is different f rom the original. [facility] Present illness Narrative Wanda is a 72 year old 1 who presents for problem visit. She reports bothersome pelvic cramping & urinating every hour. Postmenopausal: Yes Last Pap: hysterectomy Last mammogram: unsure OB History T1 L1 SAB0 IAB0 Ectopic0 Multiple0 Live Births 0 Comment: 1 vaginal delivery Fig Caprifier History LMP: Hysterectomy Age at Menarche: Age at First : Age at Menopause: Fig Caprifier History Comments: Sexual Activity: Never; No partner [...] HISTORY OF 04/2018 compression fracture repair at [facility] TOTAL ABDOMINAL HYSTERECT W/WO RMVL TUBE OVARY [...] screening mammogram [facility] Reason for referral (narrative) Diagnostic Procedure Only (Routine) - Authorized Note Date & Type Note Facility Reason for referral (narrative) Specialty Diagnoses / Procedures Referred By Contact Refer red To Contact [facility] Diagnoses Pelvic cramping Shwetha Rogers MD [facility] Procedures PELVIC US I US PELVIC NONOBSTETRIC REAL-TIME IMAGE COMPLETE [address] [place] [address] [place] [address] Referral ID Status Reason Start Expiration Visits Visits Date Date Requested Authorized [id number] Authorized Auto-Generat 05/03/2022 05/03/2023 1 1 ed Referral iagnostic Procedure Only (Routine) - Pending Review Specialty Diagnoses / Procedures Referred By Contact Refer red To Contact [facility] Diagnoses Encounter for screening mammogram for malignant neoplasm of breast Shwetha Rogers MD [facility] Procedures CLARI SCREENING SCREENING MAMMOGRAPHY BI 2-VIEW BREAST INC CAD [address] [place] [address] [place] [address] Referral ID Status Reason Start Expiration Visits Visits Date Date Requested Authorized [id number] Pending Auto-Generat 05/03/2022 06/02/2023 1 1 Review ed Referral [facility] Summary Purpose Family History No Family History [...] prosecute any alcohol or drug abuse patient. [facility] the event this information is protected by t Federal Confidentiality of Alcohol and Drug Abuse Patient Records regulations: This information has been disclosed to you from records protected by Federal confid entiality rules ( The Federal rules restrict any use of th e information to criminally investigate or prosecute any alcohol or drug abuse jaqui ent. 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 [facility] [employer] provides no warranty or guarantee of the accuracy or completeness of information in this document.
--- NOTE | 2022-11-12 16:08 | CT_ITS ---
EXAM: CT HEAD WITHOUT INTRAVENOUS CONTRAST CLINICAL INDICATION: Mental status change TECHNIQUE: Multiple axial images were obtained of the head without intravenous contrast. This CT exam was performed using one or more of the following dose reduction techniques: automated exposure control, adjustment of the mA and/or kV according to patient size, and/or use of iterative reconstruction technique. This report was created using [employer] report generation technology. COMPARISON: 10/19/2022 FINDINGS: BRAIN AND EXTRA-AXIAL SPACES: There is mild enlargement of ventricular system and cortical sulci which is stable. There is hypoattenuation in the periventricular white matter. No intra- or extra-axial hemorrhage. No evidence of acute infarct. No intracranial mass or mass effect. There is preservation of the mao/white matter interface. Posterior fossa structures are unremarkable. Basal cisterns are patent. BONES/JOINTS: Unremarkable. No discrete lytic or blastic abnormalities. SINUSES: Unremarkable as visualized. Clear. MASTOID AIR CELLS: Unremarkable. Clear. ORBITS: Visualized globes, extraocular muscles, optic nerves and retrobulbar fat appear unremarkable. CT/Brain/Head without Contrast IMPRESSION: 1. No acute intracranial abnormality. There has been no change from the reference exam. 2. Stable underlying senescent change with small vessel ischemia. Electronically Signed: Kale Temple MD at 17:02 EDT ,
--- NOTE | 2022-11-12 16:09 | EKG12_ITS ---
Test Reason : ALT LOC Blood Pressure : / mmHG Vent. Rate : 095 BPM Atrial Rate : 095 BPM P-R Int : 158 ms QRS Dur : 072 ms QT Int : 366 ms P-R-T Axes : 054 036 080 degrees QTc Int : 459 ms Normal sinus rhythm Normal ECG Confirmed by SHAUNNA DON, CARMEN ([id number]), greeting card editor LINDA WATT ([id number]) on 11/14/2022 9:47:37 AM Referred By: Confirmed By:BARRERA MAZA MD
--- NOTE | 2022-11-12 16:12 | EX.ED.DYSGE1 ---
HPI History of Present Illness Chief Complaint: Mental Status Change Narrative Narrative: 72-year-old female presents from [facility], with mental status change. It was reported that she was last known well yesterday evening. This morning, the nurse noted perhaps left-sided weakness and the patient was leaning towards the left . She had a mental status change. Per EMS, she had low-grade fever of 100.1 ?F. She may have a urinary tract infection. Her history and physical is limited secondary to her being alert and oriented x2 currently., 10 hours later, she was sent in by the intermediate because of the left-sided weakness. [facility] Medical History Compression fracture of L1 lumbar vertebra Compression fractures L4 lumbar vertebra Depression Fall History of schizophrenia Hypothyroidism Migraine Mitral valve prolapse Type 2 diabetes mellitus Home Medications levothyroxine 25 mcg tablet 25 mcg PO DAILY THYROID 06/26/13 [History Last Taken 10/19/22] omeprazole 20 mg capsule,delayed release 20 mg PO DAILY GERD 06/26/13 [History Last Taken 10/19/22] pravastatin 80 mg tablet 80 mg PO QHS CHOLESTEROL 03/13/17 [History Last Taken 10/18/22] polyethylene glycol 3350 17 gram oral powder packet (Gavilax) 17 g PO DAILY CONSTIPATION 05/11/18 [History Last Taken 10/19/22] buspirone 15 mg tablet 15 mg PO TID ANXIETY 07/27/20 [History Last Taken 10/19/22] cholecalciferol (vitamin D3) 50 mcg (2,000 unit) tablet 2,000 unit PO DAILY SUPPLEMENT 07/27/20 [History Last Taken 10/19/22] fluoxetine 40 mg capsule 40 mg PO DAILY DEPRESSION 07/27/20 [History Last Taken 10/19/22] paliperidone 6 mg tablet,extended release 24 hr 6 mg PO DAILY MENTAL HEALTH 07/27/20 [History Last Taken 10/19/22] trazodone 150 mg tablet 300 mg PO QHS SLEEP 07/27/20 [History Last Taken 10/18/22] oxybutynin chloride 5 mg tablet 2.5 mg PO BID BLADDER 10/22/20 [History Last Taken 10/19/22] amlodipine 5 mg tablet 5 mg PO DAILY BLOOD PRESSURE 09/26/22 [History Last Taken 10/19/22] aspirin 81 mg chewable tablet 81 mg PO DAILY HEART HEALTH 09/26/22 [History Last Taken 10/19/22] benzonatate 200 mg capsule 200 mg PO BID COUGH 09/26/22 [History Last Taken 10/19/22] benztropine 0.5 mg tablet 0.5 mg PO BID MUSCLE SPASMS 09/26/22 [History Last Taken 10/19/22] dicyclomine 20 mg tablet 20 mg PO TID IBS 09/26/22 [History Last Taken 10/19/22] hydralazine 50 mg tablet 50 mg PO TID BLOOD PRESSURE 09/26/22 [History Last Taken 10/19/22] lamotrigine 200 mg tablet 200 mg PO BID MOOD 09/26/22 [History Last Taken 10/19/22] melatonin 5 mg tablet 5 mg PO QHS SLEEP 09/26/22 [History Last Taken 10/18/22] fluticasone propionate 50 mcg/actuation nasal spray,suspension 1 spray intranasal DAILY PRN ALLERGIES 10/19/22 [History Last Taken 09/28/22] acetaminophen 325 mg tablet (Tylenol) 650 mg PO Q6H PRN PRN Pain 1-10 Or Fever >100.7 #0 tabs 10/21/22 [Rx Last Taken Unknown] Allergy/AdvReac Type Severity Reaction Status Date / Time ciprofloxacin Allergy Unknown Verified 11/12/22 15:59 codeine Allergy Unknown Verified 11/12/22 15:59 hydroxyzine HCl Allergy Unknown Verified 11/12/22 15:59 [From Vistaril] hydroxyzine pamoate Allergy Unknown Verified 11/12/22 15:59 [From Vistaril] niacin Allergy Unknown Verified 11/12/22 15:59 ofloxacin [From Floxin] Allergy Unknown Verified 11/12/22 15:59 tetracycline [Tetracycline] Allergy Unknown Verified 11/12/22 15:59 Tetracyclines Allergy Unknown Verified 11/12/22 15:59 Surgical History Hx of cholecystectomy Hx of hysterectomy Status post kyphoplasty Social History housing: intermediate Smoking Status: Never smoker substance use type: does not use ROS ROS ED Review of Systems ROS Unobtainable: due to mental status EXAM Physical Exam Narrative Exam Narrative: Afebrile. Vital signs noted. HEENT: Normocephalic. Atraumatic. PERRL, EOMI. Neck soft and supple. No point tenderness or step off. Cardiovascular: Regular rate and rhythm. No murmurs, rubs, or gallops appreciated. Respiratory: No tachypnea. Lungs clear to auscultation bilaterally. Gastrointestinal: Abdomen soft, nontender, with normoactive bowel sounds. No rebound or guarding. Neurological: Awake. Alert. Oriented to person, nonfocal, nonlateralizing. No noted weakness. Skin: No rash. Normal color. No pallor. Musculoskeletal: No pedal edema. Full range of motion extremities. Const Vital Signs: 11/12/22 15:55 11/12/22 15:59 11/12/22 17:15 Temperature 98.7 F 98.7 F Temperature Source Temporal Temporal Pulse Rate 98 97 96 Respiratory Rate 16 18 20 H Blood Pressure 118/66 118/66 131/68 H Blood Pressure Mean 83 83 89 Pulse Ox 95 95 95 Oxygen Delivery Method Room Air Room Air Room Air 11/12/22 17:16 Temperature 98 F Temperature Source Temporal Pulse Rate 96 Respiratory Rate 20 H Blood Pressure 131/68 H Blood Pressure Mean 89 Pulse Ox 94 Oxygen Delivery Method Room Air MDM MDM MDM Narrative Medical decision making narrative: Upon arrival, I reviewed her intermediate paperwork. She does have a DNR comfort care only in place signed by the nurse practitioner at the facility. Additionally, I do not feel that stroke team should have been indicated as she is outside the tPA window, and she is not exhibiting any signs of a focal deficit, moving all extremities. Her last known well time was yesterday evening. I discussed the patient with her daughter, Dolores, who is reportedly her power of compliance attorney. She states that she is unfamiliar with what DNR comfort care means, but states that she was only at that facility for rehab to go back to assisted living. Additionally, she did state that while her mother was able to make her own decisions previously, she knew that a DNR was in place. As her daughter states that they were concerned for stroke at the intermediate, I will work her up for her mental status change and reported fever, although she is afebrile here currently. I will obtain a CT of the brain, along with EKG and laboratory work including urinalysis and chest x-ray with COVID swab and influenza swab. EKG was obtained and interpreted by myself as normal sinus rhythm at 95 bpm without ectopy or acute ST changes. No STEMI. I reviewed the patient's laboratory work, she does have a leukocytosis of 18.4, with concern for sepsis I obtained a lactic acid but is normal at 1.1, her pulse is elevated at 96, so she may have SIRS with her leukocytosis but she is not hypotensive. I cannot find a source for her elevated white count as she has a negative COVID swab and influenza swab, her urinalysis was reviewed and there is no evidence of infection with negative nitrates, negative leukocytes, negative ketones, and 0-5 WBCs on micro analysis. Additionally, I reviewed and interpreted her chest x-ray as no evidence of acute process, no pneumonia or pneumothorax. I reviewed the radiology report which confirms this. I reviewed her CT imaging. In review of the radiology report, there is no acute process, no significant change from previous. In review of her electrolyte panel, she has a BUN normal at 8 with creatinine 1.12, glucose elevated at 158 with a normal anion gap of 8. I discussed patient with her daughter, and while I see no evidence of left-sided weakness, her daughter was concerned about reported slurred speech. I am unsure if the patient is at her baseline with her speech, but she does not have a significant dysarthria and I am able to understand her when she states her name, and where she is. I discussed patient with Dr. Shipman who will admit the patient to the medical surgical floor. Antibiotics were deferred as I have no source for her leukocytosis currently. Patient is in stable condition. History & Record Review Discussion w/independent historian: Family (Daughter, Dolores, D[employer]) Additional record(s) reviewed:: Other (half-way papers) Lab Data Attestation: I reviewed the patient's lab results. Labs: Laboratory Results - last 24 hr 11/12/22 11/12/22 11/12/22 16:05 16:05 16:20 WBC 18.4 H RBC 4.27 Hgb 12.8 Hct 40.6 MCV 95.1 MCH 30.0 MCHC 31.5 L RDW Std Deviation 45.5 H RDW Coeff of Randall 13.2 Plt Count 350 MPV 9.6 Sodium 139 Potassium 4.0 Chloride 105 Carbon Dioxide 26.0 Anion Gap 8 BUN 8 Creatinine 1.12 H Estim Creat Clear Calc 31.65 Est GFR (MDRD) Af Amer 61 Est GFR (MDRD) Non-Af 51 L BUN/Creatinine Ratio 7.1 L Glucose 158 H Lactic Acid 1.1 Calcium 9.6 Total Bilirubin 0.40 AST 33 ALT 23 Alkaline Phosphatase 71 Total Protein 7.6 Albumin 3.9 Globulin 3.7 Albumin/Globulin Ratio 1.1 Urine Color Urine Clarity Urine pH Ur Specific [place] Urine Protein Urine Glucose (UA) Urine Ketones Urine Occult Blood Urine Nitrite Urine Bilirubin Urine Urobilinogen Ur Leukocyte Esterase Urine RBC Urine WBC Ur Squamous Epith Cells Urine Bacteria Urine Mucus 11/12/22 16:56 WBC RBC Hgb Hct MCV MCH MCHC RDW Std Deviation RDW Coeff of Randall Plt Count MPV Sodium Potassium Chloride Carbon Dioxide Anion Gap BUN Creatinine Estim Creat Clear Calc Est GFR (MDRD) Af Amer Est GFR (MDRD) Non-Af BUN/Creatinine Ratio Glucose Lactic Acid Calcium Total Bilirubin AST ALT Alkaline Phosphatase Total Protein Albumin Globulin Albumin/Globulin Ratio Urine Color Yellow Urine Clarity Clear Urine pH 7.0 Ur Specific [place] 1.010 Urine Protein Negative Urine Glucose (UA) Normal Urine Ketones Negative Urine Occult Blood Negative Urine Nitrite Negative Urine Bilirubin Negative Urine Urobilinogen Normal Ur Leukocyte Esterase Negative Urine RBC 0 SEEN Urine WBC 0 SEEN Ur Squamous Epith Cells 0 SEEN Urine Bacteria 0 SEEN Urine Mucus 0 SEEN Radiography Diagnostic Testing: Clinical Impression(s) from Imaging Studies Brain CT 11/12/22 16:08 IMPRESSION: 1. No acute intracranial abnormality. There has been no change from the reference exam. 2. Stable underlying senescent change with small vessel ischemia. Electronically Signed: Kale Temple MD at 17:02 EDT , Chest X-Ray 11/12/22 16:43 IMPRESSION: No radiographic evidence of acute cardiopulmonary disease. Electronically Signed: Kale Temple MD at 17:02 EDT , Discharge Plan Dx/Rx/DC Orders Clinical Impression: Altered mental status, Leukocytosis, Slurred speech Disposition Disposition: Acute Care Hospital [facility]
--- NOTE | 2022-11-12 16:15 | ED.RN ---
DR CALL SPOKE WITH PT'S DAUGHTER, KAYCEE. KAYCEE AWARE OF PTS DNRCC BUT WOULD LIKE TO REVOKE THAT. ORDERS TO FOLLOW
--- NOTE | 2022-11-12 16:25 | ED.RN ---
PT NOT FOLLOWING COMMANDS AT THIS TIME, NIH NOT COMPLETED AT THIS TIME.
[2022-11-12 16:27] LABS: Hematocrit 40.6 % (37-47); Hemoglobin 12.8 g/dL (12.0-15.0); Mean Corp Hgb Conc 31.5 g/dL (32-36); Mean Corpuscular Volume 95.1 fL (81-99); Mean Platelet Vol. 9.6 fl (6.2-12.0); Platelet Count 350 K/mm3 (150-450); RBC Distribution Width CV 13.2 % (11.6-14.6); RBC Distribution Width SD 45.5 fl (35.1-43.9); Red Blood Count 4.27 M/mm3 (4.2-5.4); White Blood Count 18.4 K/mm3 (4.4-11.0)
[2022-11-12 16:38] LABS: ALB/GLOB Ratio 1.1 RATIO (0.9-2.4); AST(SGOT) 33 U/L (15-37); Alanine Aminotransfer ALT/SGPT 23 U/L (13-56); Albumin, Serum 3.9 g/dL (3.2-5.0); Alkaline Phosphatase 71 U/L (45-117); Anion Gap 8 (5-15); BUN 8 mg/dL (7-18); BUN/Creat Ratio 7.1 RATIO (10-20); Calcium,Total 9.6 mg/dL (8.5-10.1); Chloride 105 mmol/L (98-107); Creatinine, Serum 1.12 mg/dL (0.55-1.02); EST Glomerular Filtration Rate 51 mL/min (>60); Est Glom Filt Rate - Afr Amer 61 mL/min (>60); Estimated Creatinine Clearance 31.65 ml/min; Globulin 3.7 g/dL (2.2-4.2); Glucose 158 mg/dL (74-106); Protein, Total 7.6 g/dL (6.4-8.2); Sodium Level 139 mmol/L (136-145)
--- NOTE | 2022-11-12 16:43 | RAD_ITS ---
EXAM: XR CHEST, 1 VIEW CLINICAL INDICATION: cad TECHNIQUE: Frontal view of the chest. This report was created using [employer] report generation technology. COMPARISON: 10/19/2022 FINDINGS: LUNGS AND PLEURAL SPACES: Unremarkable. No consolidation or edema. No pneumothorax. No effusion. HEART: Unremarkable. Cardiac silhouette not enlarged. MEDIASTINUM: Central airways and mediastinal contour are unremarkable. BONES/JOINTS: Unremarkable. SOFT TISSUES: Unremarkable. RAD/Chest 1 View (Portable) IMPRESSION: No radiographic evidence of acute cardiopulmonary disease. Electronically Signed: Kale Temple MD at 17:02 EDT ,
[2022-11-12 16:58] LABS: Lactic Acid 1.1 mmol/L (0.4-1.9)
[2022-11-12] MEDS: 0.9% Normal Saline 1,000 ML 999 ML IV (17:02)
[2022-11-12 17:11] LABS: Bacteria 0 SEEN /hpf (None Seen); Mucous, Urine 0 SEEN /hpf (<or=2+); Red Blood Cells-Urine 0 SEEN /hpf (0-5); Squamous Epithelial Cells - UA 0 SEEN /hpf (5-10); White Blood Cells 0 SEEN /hpf (0-5)
[2022-11-12 17:24] LABS: Color, Urine Yellow (Yellow); Glucose, Dipstick Normal (Normal); Ketone-Dipstick Negative (Negative); Leukocyte Esterase-Dipstick Negative /ul (Negative); Nitrite-Dipstick Negative (Negative); Occult Blood-Urine Negative /ul (Negative); Protein-Dipstick Negative (Negative); Urine Bilirubin Dipstick Negative (Negative); Urine Clarity Clear (Clear); Urine Urobilinogen Normal (Normal)
--- NOTE | 2022-11-12 17:30 | ED.RN ---
SPOKE TO DAUGHTER KAYCEE ON STATUS OF PATIENT. PENDING URINE RESULTS AT THIS TIME
--- NOTE | 2022-11-12 17:46 | NURSING ---
MED SURG OLEE MENTAL STATUS CNAHGE, LEUKOCYTOSIS
--- OUTSIDE RECORDS SUMMARY | 2022-11-12 18:04 | XMS RPT_ITS | CCD ---
:1950 Author Organization [employer] Care Team Providers Name Role Phone Bryson Boateng MD Primary Care Provider PHIL NORTON Referring Unavailable PHIL NORTON Attending Unavailable BRYSON BOATENG Primary Care Unavailable BRYSON BOATENG Primary Care Unavailable GIANNI MARTINEZ Attending Unavailable SHWETHA ROGERS Attending Unavailable BRYSON BOATENG Primary Care Unavailable Allergies Allergy Reported Allergy Type Date of Reaction(s) Facility Classification Allergen(s) Onset Codeine; Drug Allergy 01-02-2013 [facility] (3 sources) Translations: Work Phone : [CODEINE] hydrOXYzine; Drug Allergy 01-02-[address] [facility] (3 sources) Translations: Work Phone : [HYDROXYZINE HCL] Niacin; Drug Allergy 01-02-2013 [facility] (3 sources) Translations: Work Phone : [NIACIN] Ofloxacin; Drug Allergy 01-02-2013 [facility] (3 sources) Translations: Work Phone : [OFLOXACIN] Tetracycline; Drug Allergy 01-02-2013 Intolerance [facility] (3 sources) Translations: Work Phone [...] Take 1 tablet by mouth once daily. [place]-3 Fatty Acids-Vitamin E (FISH OIL) 1,000 mg cap take 1 capsule by mouth [place]-3 Fatty Acids-Vitamin E (2 sources) once daily [...] dysuria & pelvis cramping. polyethylene glycol 3350 70407 mg powder for oral solution Osmotic Laxative [...] Test Name Value Interpretation Reference Range Facility [facility] WANDA Tamayo ([id number]) 1950 [facility] Time Provider Department 05/09/22 SHWETHA ROGERS OBVIRA During your visit today, we recorded the following inf ormation about you: Ailin Melgar RN 05/09/2022 2:23 PM Signed Spoke to Anaid, a nurse at [facility]. States papa schmidt was still complaining of [...] RN 05/09/2022 2:55 PM Signed Anaid at [facility] notified. Urine culture resu lts faxed. Marleni [...] Patch as directed every 72 hours. - [place]-3 Fatty Acids-Vitamin E (FISH OIL) 1,000 mg [...] on 05-03-2022 Bacteria identified Cx Nom (U) [id number] Abnormal [facility] Comment on above: Order Comment: Specimen Type : URINE SPECIMEN Ordering Facility: [facility] Address: [address] [place] [address] Result Comment: >=100,000 CF U/ml Pseudomonas aeruginosa Performed By: #### 36358-0, 630-4 #### [facility] [place] [id number] [address] [place] [address] [place] Bacterial susceptibility panel (Isol) o n 05-03-2022 Cefepime [Susc] <=1 Susceptible Susceptible <=8 , [facility] Intermediate >8 , Resistant Bearden >16 Comment on above: Order Comment: Ordering Faci lity: [facility] Address: [address] [place], [place] [id number] Performed By: #### 06683-7, 630-4 #### [facility] [place] [id number] [address] [place] [address] [place] Ciprofloxacin [Susc] <=0.25 Susceptible Susceptible <=1 , [facility] Intermediate >1 , [facility] Resistant >2 Comment on above: Order Comment: Ordering Faci lity: [facility] Address: [address] [place], [place] [phone] Performed By: #### 27666-0, 630-4 #### [facility] CLIA [id number] [address] [place] Gentamicin [Susc] <=1 Susceptible Susceptible <=4 , [facility] Intermediate >4 , Resistant Bearden >8 Comment on above: Order Comment: Ordering Faci lity: [facility] Address: [facility] [place] [address] Performed By: #### 95046-7, 630-4 #### [facility] CLIA [id number] [address] [place] [address] [place] Meropenem [Susc] 0.5 Susceptible Susceptible <=2 , [facility] Intermediate >2 , Resistant Bearden >4 Comment on above: Order Comment: Ordering Faci lity: [facility] Address: [address] [place], [place] [address] [address] Performed By: #### 47978-7, 630-4 #### [facility] CLIA [id number] [address] [place] [address] [place] Piperacillin+Sulbactam CHRISTINE 8 Susceptible Susceptible <= 16 , [facility] [Susc] Intermediate >16 , [facility] Resistant >64 Comment on above: Order Comment: Ordering Faci lity: [facility] Address: [facility] [place] [address] Performed By: #### 93029-9, 630-4 #### [facility] IA [id number] [address] [place] [address] [place] Tobramycin [Susc] <=1 Susceptible Susceptible <=4 , [facility] Intermediate >4 , Resistant Bearden >8 Comment on above: Order Comment: Ordering Faci lity: [facility] Address: [facility] [place] [address] Performed By: #### 90554-2, 630-4 #### [facility] CLIA [id number] [address] [place] [address] [place] CNOV on 05-03-2022 CNOV Office Visit (OBGYWM) Normal [facility] WANDA WINTERS ([id number]) 1950 [facility] Time Provider Department 05/03/22 8:30 AM SHWETHA ROGERS OBGYWM During your visit today, we recorded the following inf ormation about you: Blood pressure Weight 122/58 60.4 kg Shwetha oRgers MD 05/03/2022 10:41 AM Signed Wanda is a 72 year old who presents for problem visit. She reports bothersome pelvic cramping AND urinating e very hour. 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 Grade A esophagitis EGD EUS 11/05/07 [place]. dilated CBD ESOPHAGOGASTRODUODENOSCOPY TRANSORAL DIAGNOSTIC 013 EGD ESOPHAGOGASTRODUODENOSCOPY TRANSORAL DIAGNOSTIC N/A MAC LIG/TRNSXJ FLP TUBE ABDL/VAG APPR UNI/BI Tubal ligation OVARIAN CYSTECTOMY PAST SURGICAL HISTORY OF 04/[address] [facility] TOTAL ABDOMINAL HYSTERECT W/WO RMVL TUBE [...] breast [Z12.31] Urinary frequency [R35.0] Order(s):CLARI SCREENING [[id number]] Order #: [id number] F UTURE PELVIC US WHI [[id number]] Order #: [id number]: 1 URINE CULTURE [SQURCUL] Order #: [id number]. #:[id number] UA DIP, URINE (POC) [[id number]] Order #: [id number]. #:[id number] nitrofurantoin monohydrate and macrocrystal (MACROBID) 100 mg capsuleTake 1 capsule by mouth twice daily for 7 days. Disp: 14 capsuleRfl: 0 phenazopyridine (PYRIDIUM, GERIDIUM) 200 mg tabletTake 1 tablet by (more content not included)... UA DIP, URINE (POC) on 05-03-2022 BILIRUBIN UA (POCT) Negative Negative [facility] CLARITY UA (POCT) Clear [facility] COLOR UA (POCT) Yellow [facility] GLUCOSE UA (POCT) Negative Negative mg/dL [facility] HEMOGLOBIN/BLOOD UA (POCT) Negative Negative [facility] KETONE UA (POCT) Negative Negative mg/dL [facility] LEUKOCYTES UA (POCT) Small Abnormal Negative [facility] NITRITE UA (POCT) Positive Abnormal Negative [facility] PH UA (POCT) 7.0 4.5 - 8.0 [facility] Protein Ql (U) Negative Negative mg/dL [facility] linic SPECIFIC GRAVITY UA (POCT) 1.015 1.005 - 1.030 [facility] UROBILINOGEN UA (POCT) 0.2 E.U./dL Normal E.U./dL [facility] Vital Signs Date Time Vital Sign Value Performing Clinician Facilit y 05-03-2022 Body weight 60.42 kg Shwetha Rogers MD [facility] 08:44-0400 Work Phone: 05-03-2022 Diastolic blood 58 mm[Hg] Shwetha Rogers MD [facility] 08:44-0400 pressure Work Phone: 05-03-2022 Systolic blood 122 mm[Hg] Shwetha Rogers MD [facility] 08:44-0400 pressure Work Phone: Encounters Encounter Date Encounter Type Care Provider Facility Start: 05-25-2022 ambulatory BRYSON BOATENG Facility:[facility] End: 05-25-2022 [facility] Start: 05-09-2022 Telephone encounter Shwetha Rogers MD OB/Gynecol ogy Work Phone: Comment on above: Medication Problem Start: 05-09-2022 ambulatory PHIL STEVENSONBEATRIZ Facility:[facility] Start: 05-03-2022 ambulatory SHWETHA ROGERS Facility:[facility] End: 05-03-2022 Hospital Start: 05-03-2022 Patient encounter [...] Detail Author Start: Influenza vaccination INFLUENZA (#1) [facility] 04-28-2022 Start: ADVANCE DIRECTIVE ADVANCE DIRECTIVE [facility] 08-28-2021 DISCUSSION DISCUSSION Start: BONE DENSITY BONE DENSITY [facility] 2013 Start: SHINGRIX VACCINE (1 of SHINGRIX VACCINE (1 of [facility] 1998 2) 2) Start: COLOGUARD (FIT-DNA) COLOGUARD (FIT-DNA) [facility] 1993 Start: Colonoscopy COLONOSCOPY [facility] 1993 Start: COLORECTAL CANCER COLORECTAL CANCER [facility] 1993 SCREENING SCREENING Start: CT COLONOGRAPHY CT COLONOGRAPHY [facility] 1993 Start: FECAL OCCULT BLOOD FECAL OCCULT BLOOD [facility] 1993 Start: SIGMOIDOSCOPY SIGMOIDOSCOPY [facility] 1993 Start: Mammography MAMMOGRAM [facility] 1988 Start: Urine microalbumin DTAP,TDAP,TD (1 - Tdap) [facility] 1967 profile Start: ANNUAL PCP TEAM CHRONIC ANNUAL PCP TEAM CHRONIC [facility] 1966 DISEASE VISIT DISEASE VISIT Start: Hepatitis B surface LDL CHOLESTEROL [facility] 1966 antibody level Start: HEPATITIS C SCREENING HEPATITIS C SCREENING [facility] 1966 Start: 3 comp foot exam DIABETIC FOOT EXAM [facility] 1958 completed Start: Hepatitis B screening URINE ALBUMIN:CREATININE C [facility] 1958 RATIO Start: Hepatitis C antibody, DILATED RETINAL EXAM [facility] 1958 confirmatory test Start: PNEUMOCOCCAL: 65+ (1 - PNEUMOCOCCAL: 65+ (1 - Cl [facility] 1954 PCV) PCV) Start: Hemoglobin HBA1C [facility] 1953 A1c/Hemoglobin.total in Blood Start: COVID-19 VACCINE (#1) COVID-19 VACCINE (#1) [facility] 1948 Bacteria identified in URINE CULTURE [facility] Urine by Culture Microbiology Routine Work Phone : Pelvic cramping Ordered: 05/03/2022 Comment on above: Ordered: 05/03/2022 PELVIC US WHI PELVIC US WHI Anc Imaging Routin e Pelvic [facility] cramping Ordered: 05/03/2022 Wor k Phone: Comment on above: Ordered: 05/03/2022 Screening mammography CLARI SCREENING [facility] End: 06-02-2023 bi 2-view [facility] Radiology Routine Work Phon e: cad Encounter for screening mammogram for malignant neoplasm of breast 1 Occurrences starting 05/03/2022 until 06/02/2023 Comment on above: 1 Occurrences starting 05/03 until 06/02/2023 [facility] Payers Date Payer Category Payer Medicaid [facility] MEDICAID [facility] [id number] MEDICAID [id number] 2018-Present [phone] [address] [place] [address] Medicaid 2018 Medicaid [id number] Social History Date Type Detail Facility Start: 05-03-2022 Tobacco smoking status Never smoked tobacco [facility]IS Start: 05-03-2022 Tobacco use and Smokeless tobacco [facility] exposure non-user Start: 05-03-2022 Alcohol intake Ex-drinker (finding) [facility] Start: 1950 Sex Assigned At Not on file [facility] Start: 04-23-2022 Exposure to SARS-CoV-2 Not sure [facility] End: 05-09-2022 (event) Work Phone: Progress note 05-25-2022 Note Date & Type Note Facility 05-25-[address]: [id number] [facility] Martinez gallo Author: Gianni Martinez MD [...] & Type Note Facility 05-09-[address] [facility] Anaid at [facility] notified. Urin e culture results faxed. Marleni [...] original. Spoke to Anaid, a nurse at [facility]. States patient was still complaining [...] Type Note Facility 05-03-2022 Note HNO ID: [id number] [facility] Author: Shwetha Rogers MD [facility]: ? Author Type: Physician Type: Progress Notes Filed: 05/03/2022 10:41 AM Note Text: Wanda is a 72 year old who presen ts for problem visit. She reports bothersome pelvic cramping A ND urinating every hour. 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 Grade A esophagitis EGD EUS 11/05/07 [place]. dilated CBD ESOPHAGOGASTRODUODENOSCOPY TRANSORAL REJI GNOSTIC 01/11/2013 EGD ESOPHAGOGASTRODUODENOSCOPY TRANSORAL REJI GNOSTIC N/A 11/10/2016 MAC LIG/TRNSXJ FLP TUBE ABDL/VAG APPR UNI/BI Tubal ligation OVARIAN CYSTECTOMY PAST SURGICAL HISTORY OF 04/[address] [facility] TOTAL ABDOMINAL HYSTERECT W/WO RMVL TUBE [...] Shwetha Rogers MD - 9:[address] [facility] Please schedule pelvic US if pelvic cramping persists once antibiotic finished. documented in this encounter History of Present illness Narrative 05-03-2022 Shwetha Rogers MD - 05/03/2022 8:30 AM EDT Note Date & Type Note Facility 05-03-2022 History of Formatting of this note is different f rom the original. [facility] Present illness Narrative Wanda is a 72 year old 1 who presents for problem visit. She reports bothersome pelvic cramping & urinating every hour. 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 TOTAL ABDOMINAL HYSTERECT W/WO RMVL TUBE [...] screening mammogram [facility] Reason for referral (narrative) Diagnostic Procedure Only (Routine) - Authorized Note Date & Type Note Facility Reason for referral (narrative) Specialty Diagnoses / Procedures Referred By Contact Refer red To Contact [facility] Diagnoses Pelvic cramping Shwetha Rogers MD [facility] Procedures PELVIC US I US PELVIC NONOBSTETRIC REAL-TIME IMAGE COMPLETE [address] [place] [address] [place] [address] Referral ID Status Reason Start Expiration Visits Visits Date Date Requested Authorized [id number] Authorized Auto-Generat 05/03/2022 05/03/2023 1 1 ed Referral iagnostic Procedure Only (Routine) - Pending Review Specialty Diagnoses / Procedures Referred By Contact Refer red To Contact [facility] Diagnoses Encounter for screening mammogram for malignant neoplasm of breast Shwetha Rogers MD [facility] Procedures CLARI SCREENING SCREENING MAMMOGRAPHY BI 2-VIEW BREAST INC CAD [address] [place] [address] [place] [address] Referral ID Status Reason Start Expiration Visits Visits Date Date Requested Authorized [id number] Pending Auto-Generat 05/03/2022 06/02/2023 1 1 Review ed Referral [facility] Summary Purpose Family History No Family History [...] prosecute any alcohol or drug abuse patient. [facility] event this information is protected by t Federal Confidentiality of Alcohol and Drug Abuse Patient Records regulations: This information has been disclosed to you from records protected by Federal confid entiality rules ( The Federal rules restrict any use of th e information to criminally investigate or prosecute any alcohol or drug abuse jaqui ent. [facility] Reason for Visit (unrecognized section a nd content) Reason Onset Date Comments Yearly Exam 05/03/2022 Reason Comments Medication Problem Care Teams (unrecognized section and con tent) Ditch Rider Relationship Specialty Start Date End Date Bryson Boateng MD PCP - General Internal Medicine 03/03/17 [address] [place] [address] Ditch Rider Relationship Specialty Start Date End Date Bryson Boateng MD PCP - General Internal Medicine 03/03/17 [address] [place] [address] INFORMATION SOURCE (unrecognized section and content) DATE CREATED AUTHOR AUTHOR'S ORGANIZ ATION 05/30/[address] [facility] FOR RECORDS PERTAINING TO PATIENTS WHO ARE [...] BE BASED ON THE PRIMARY CLINICAL RECORDS. [facility] [employer] provides no warranty or guarantee of the accuracy or completeness of information in this document.
--- NOTE | 2022-11-12 18:09 | CT_ITS ---
EXAM: CT ABDOMEN AND PELVIS WITH INTRAVENOUS CONTRAST CLINICAL INDICATION: sepsis, abdominal pain TECHNIQUE: Helically acquired images were obtained of the abdomen and pelvis with intravenous contrast. This CT exam was performed using one or more of the following dose reduction techniques: automated exposure control, adjustment of the mA and/or kV according to patient size, and/or use of iterative reconstruction technique. This report was created using [employer] report generation technology. CONTRAST: IV 75mL Isovue-370 COMPARISON: 07/30/2020 FINDINGS: LOWER THORAX: Unremarkable. Lung bases are clear. No cardiomegaly. No significant pericardial effusion. ABDOMEN: LIVER: Unremarkable. Homogeneous. No focal mass. GALLBLADDER AND BILE DUCTS: Status post cholecystectomy. No intra- or extrahepatic biliary ductal dilation. PANCREAS: Unremarkable. No focal cystic or solid mass. SPLEEN: Unremarkable. Normal size without focal cystic or solid mass. ADRENALS: Unremarkable. No nodules. KIDNEYS AND URETERS: Unremarkable. Normal renal size and position. No hydronephrosis. STOMACH AND BOWEL: There is sigmoid diverticulosis with no evidence of diverticulitis. No stomach or bowel distention. PELVIS: APPENDIX: No evidence of acute appendicitis. BLADDER: Unremarkable. REPRODUCTIVE: Status post hysterectomy. ABDOMEN and PELVIS: INTRAPERITONEAL SPACE: Unremarkable. No ascites or other fluid collection. No free air. BONES/JOINTS: Unremarkable. No suspicious lytic or blastic abnormality. SOFT TISSUES: Unremarkable. No discrete abdominal or pelvic wall hernia. VASCULATURE: Unremarkable. Abdominal aorta is non-dilated. LYMPH NODES: Unremarkable. No enlarged lymph nodes. CT/Abdomen/Pelvis W IV Cont ONLY IMPRESSION: No acute findings in the abdomen or pelvis. Electronically Signed: Kale Temple MD at 19:50 EDT ,
--- NOTE | 2022-11-12 18:33 | HP.PCM_ITS ---
HPI - General General Date of Admission: 11/12/22 Date of Service: 11/12/22 Chief Complaint: Change in mental status HPI Narrative WANDA GIPSON, is a 72 F who presents from care home facility with a 1 day history of change in mental status. There was questionable facial droop and left-sided weakness however on arrival to the emergency department no neurological deficits were determined to be present. Leukocytosis of 18,000 noted on blood work. Patient not having any fever. Due to alteration in mental status unable to provide any history. When asked if she is experiencing any pain patient points to her lower abdomen. Unable to provide any more details. [facility] Medical History Compression fracture of L1 lumbar vertebra Compression fractures L4 lumbar vertebra Depression Fall History of schizophrenia Hypothyroidism Migraine Mitral valve prolapse Type 2 diabetes mellitus Home Medications levothyroxine 25 mcg tablet 25 mcg PO DAILY THYROID 06/26/13 [History Last Taken 11/12/22] omeprazole 20 mg capsule,delayed release 20 mg PO DAILY GERD 06/26/13 [History Last Taken 11/12/22] pravastatin 80 mg tablet 80 mg PO QHS CHOLESTEROL 03/13/17 [History Last Taken 11/12/22] polyethylene glycol 3350 17 gram oral powder packet (Gavilax) 17 g PO DAILY CONSTIPATION 05/11/18 [History Last Taken 11/12/22] buspirone 15 mg tablet 15 mg PO TID ANXIETY 07/27/20 [History Last Taken 11/12/22] cholecalciferol (vitamin D3) 50 mcg (2,000 unit) tablet 2,000 unit PO DAILY SUPPLEMENT 07/27/20 [History Last Taken 11/12/22] paliperidone 6 mg tablet,extended release 24 hr 6 mg PO DAILY MENTAL HEALTH 07/27/20 [History Last Taken 11/12/22] trazodone 150 mg tablet 150 mg PO QHS SLEEP 07/27/20 [History Last Taken 11/11/22] oxybutynin chloride 5 mg tablet 2.5 mg PO BID BLADDER 10/22/20 [History Last Taken 11/12/22] amlodipine 5 mg tablet 5 mg PO DAILY BLOOD PRESSURE 09/26/22 [History Last Taken 11/12/22] aspirin 81 mg chewable tablet 81 mg PO DAILY HEART HEALTH 09/26/22 [History Last Taken 11/12/22] benzonatate 200 mg capsule 200 mg PO BID COUGH 09/26/22 [History Last Taken 10/26 04/19] benztropine 0.5 mg tablet 0.5 mg PO BID MUSCLE SPASMS 09/26/22 [History Last Taken 11/12/22] dicyclomine 20 mg tablet 20 mg PO TID IRRITABLE BOWELS 09/26/22 [History Last Taken 11/12/22] hydralazine 50 mg tablet 50 mg PO TID BLOOD PRESSURE 09/26/22 [History Last Taken 11/12/22] lamotrigine 200 mg tablet 200 mg PO BID DEPRESSION 09/26/22 [History Last Taken 11/12/22] melatonin 5 mg tablet 5 mg PO QHS SLEEP 09/26/22 [History Last Taken 11/11/22] fluticasone propionate 50 mcg/actuation nasal spray,suspension 1 spray intranasal DAILY PRN ALLERGIES 10/19/22 [History Last Taken 09/28/22] acetaminophen 325 mg tablet (Tylenol) 650 mg PO Q6H PRN Pain 11/12/22 [History Last Taken Unknown] fluoxetine 20 mg capsule 20 mg PO DAILY ANXIETY 11/12/22 [History Last Taken 11/12/22] multivitamin 1 tab PO DAILY HEALTH MAINTENANCE 11/12/22 [History Last Taken 11/12/22] Allergy/AdvReac Type Severity Reaction Status Date / Time ciprofloxacin Allergy Unknown Verified 11/12/22 15:59 codeine Allergy Unknown Verified 11/12/22 15:59 hydroxyzine HCl Allergy Unknown Verified 11/12/22 15:59 [From Vistaril] hydroxyzine pamoate Allergy Unknown Verified 11/12/22 15:59 [From Vistaril] niacin Allergy Unknown Verified 11/12/22 15:59 ofloxacin [From Floxin] Allergy Unknown Verified 11/12/22 15:59 tetracycline [Tetracycline] Allergy Unknown Verified 11/12/22 15:59 Tetracyclines Allergy Unknown Verified 11/12/22 15:59 Surgical History Hx of cholecystectomy Hx of hysterectomy Status post kyphoplasty Social History housing: [facility] Smoking Status: Never smoker substance use type: does not use ROS ROS Narrative Unable to obtain due to altered mental status. Vital Signs Vital Signs Vital Signs: 11/12/22 15:55 11/12/22 15:59 11/12/22 17:15 Temperature 37.1 C 37.1 C Temperature Source Temporal Temporal Pulse Rate 98 97 96 Respiratory Rate 16 18 20 H Blood Pressure 118/66 118/66 131/68 H Blood Pressure Mean 83 83 89 Pulse Ox 95 95 95 Oxygen Delivery Method Room Air Room Air Room Air 11/12/22 17:16 11/12/22 17:49 Temperature 36.6 C 37.2 C Temperature Source Temporal Temporal Pulse Rate 96 100 Respiratory Rate 20 H 22 H Blood Pressure 131/68 H 131/68 H Blood Pressure Mean 89 89 Pulse Ox 94 94 Oxygen Delivery Method Room Air Room Air Weight Weight: 59.1 kg Body Mass Index (BMI) 25.4 Physical Exam Narrative General exam. Elderly woman, mildly ill-appearing, weak appearing, somewhat somnolent, does not appear to be in any obvious distress HEENT. Oral mucosa is very very dry, no pallor or jaundice. Neck. Neck is supple. No jugular venous distention Lungs. Lungs are clear to auscultation. Bounding radial pulse. Heart. First and second sounds heard no murmurs. Abdomen. Full soft with vague tenderness in the lower abdomen. No masses felt. Extremities. No pedal edema. [employer]. Disoriented, lethargic, able to answer a few simple questions and follows some directions/commands appropriately. All other aspects of the physical examination were normal and noncontributory. Results Medical Records Data Attestation: I reviewed the patient's medical records Lab / Micro Data Attestation: I reviewed the patient's lab results. Result Diagrams: 11/12/22 16:05 11/12/22 16:05 Labs: Laboratory Results - last 24 hr 11/12/22 16:05: WBC 18.4 H, RBC 4.27, Hgb 12.8, Hct 40.6, MCV 95.1, MCH 30.0, MCHC 31.5 L, RDW Std Deviation 45.5 H, RDW Coeff of Randall 13.2, Plt Count 350, MPV 9.6 11/12/22 16:05: Sodium 139, Potassium 4.0, Chloride 105, Carbon Dioxide 26.0, Anion Gap 8, BUN 8, Creatinine 1.12 H, Estim Creat Clear Calc 31.65, Est GFR (MDRD) Af Amer 61, Est GFR (MDRD) Non-Af 51 L, BUN/Creatinine Ratio 7.1 L, Glucose 158 H, Calcium 9.6, Total Bilirubin 0.40, AST 33, ALT 23, Alkaline Phosphatase 71, Total Protein 7.6, Albumin 3.9, Globulin 3.7, Albumin/Globulin Ratio 1.1 11/12/22 16:20: Lactic Acid 1.1 11/12/22 16:56: Urine Color Yellow, Urine Clarity Clear, Urine pH 7.0, Ur Specific [place] 1.010, Urine Protein Negative, Urine Glucose (UA) Normal, Urine Ketones Negative, Urine Occult Blood Negative, Urine Nitrite Negative, Urine Bilirubin Negative, Urine Urobilinogen Normal, Ur Leukocyte Esterase Negative, Urine RBC 0 SEEN, Urine WBC 0 SEEN, Ur Squamous Epith Cells 0 SEEN, Urine Bact eria 0 SEEN, Urine Mucus 0 SEEN Micro: Microbiology 11/12/22 16:14 Nasal Secretion SARS-CoV-2 & FLU Antigen (Rapid) - Final Rhythm Strip Rhythm Strip: Sinus Rhythm Radiology Impression Brain CT 11/12/22 16:08 IMPRESSION: 1. No acute intracranial abnormality. There has been no change from the reference exam. 2. Stable underlying senescent change with small vessel ischemia. Electronically Signed: Kale Temple MD at 17:02 EDT , Chest X-Ray 11/12/22 16:43 IMPRESSION: No radiographic evidence of acute cardiopulmonary disease. Electronically Signed: Kale Temple MD at 17:02 EDT , Assessment & Plan Assessment/Plan (1) Acute encephalopathy: (2) Sepsis: PLAN: Plan 1. Acute encephalopathy with hypoactive delirium. Appears to be secondary to infection/sepsis, multiple medications with anticholinergic side effects and dehydration. We will treat underlying infection, hold all potentially offending medications and rehydrate. Delirium precautions. 2. Early sepsis. Unclear source of infection. Suspect intra-abdominal given the subtle signs abdominal examination. Obtain blood cultures. Start on empiric IV antibiotics with Zosyn and vancomycin. Follow-up on blood cultures. Sepsis Attestation Sepsis Attestation: Agree w/Sepsis Date exam was performed: 11/12/22 Time exam was performed: 17:50 Possible Source of Sepsis: GI tract/intra-abdominal Supportive Findings: Mental status changes, tachycardia and leukocytosis
--- OUTSIDE RECORDS SUMMARY | 2022-11-12 18:38 | XMS RPT_ITS | CCD ---
:1950 Author Organization [employer] Care Team Providers Name Role Phone Bryson Boateng MD Primary Care Provider PHIL NORTON Referring Unavailable PHIL NORTON Attending Unavailable BRYSON BOATENG Primary Care Unavailable BRYSON BOATENG Primary Care Unavailable GIANNI MARTINEZ Attending Unavailable SHWETHA ROGERS Attending Unavailable BRYSON BOATENG Primary Care Unavailable Allergies Allergy Reported Allergy Type Date of Reaction(s) Facility Classification Allergen(s) Onset Codeine; Drug Allergy 01-02-2013 [facility] (3 sources) Translations: Work Phone : [CODEINE] hydrOXYzine; Drug Allergy 01-02-2013 Intolerance [facility] (3 sources) Translations: Work Phone : [HYDROXYZINE HCL] Niacin; Drug Allergy 01-02-2013 [facility] (3 sources) Translations: Work Phone : [NIACIN] Ofloxacin; Drug Allergy 01-02-2013 [facility] (3 sources) Translations: Work Phone : [OFLOXACIN] Tetracycline; Drug Allergy 01-02-[address] [facility] (3 sources) Translations: Work Phone [...] Take 1 tablet by mouth once daily. [place]-3 Fatty Acids-Vitamin E (FISH OIL) 1,000 mg cap take 1 capsule by mouth [place]-3 Fatty Acids-Vitamin E (2 sources) once daily [...] dysuria & pelvis cramping. polyethylene glycol 3350 66894 mg powder for oral solution Osmotic Laxative [...] Test Name Value Interpretation Reference Range Facility [facility]) [facility] WANDA Tamayo ([id number]) 1950 [facility] Time Provider Department 05/09/22 SHWETHA ROGERS OBVIRA During your visit today, we recorded the following inf ormation about you: Ailin Melgar RN 05/09/2022 2:23 PM Signed Spoke to Anaid, a nurse at [facility]. States papa schmidt was still complaining [...] Marleni Godwin RN 05/09/2022 2:55 PM Signed Aanid at [facility] notified. Urine culture resu lts faxed. [...] Patch as directed every 72 hours. - [place]-3 Fatty Acids-Vitamin E (FISH OIL) 1,000 mg [...] on 05-03-2022 Bacteria identified Cx Nom (U) [id number] Abnormal [facility] Comment on above: Order Comment: Specimen Type : URINE SPECIMEN Ordering Facility: [facility] Address: [address] [place] [address] Result Comment: >=100,000 CF U/ml Pseudomonas aeruginosa Performed By: #### 45263-1, 630-4 #### [facility] [place] [id number] [address] [place] [address] [place] Bacterial susceptibility panel (Isol) o n 05-03-2022 Cefepime [Susc] <=1 Susceptible Susceptible <=8 , [facility] Intermediate >8 , Resistant Bearden >16 Comment on above: Order Comment: Ordering Faci lity: [facility] Address: [address] [place], [place] [id number] Performed By: #### 35346-4, 630-4 #### [facility] [place] [id number] [address] [place] [address] [place] Ciprofloxacin [Susc] <=0.25 Susceptible Susceptible <=1 , [facility] Intermediate >1 , [facility] Resistant >2 Comment on above: Order Comment: Ordering Faci lity: [facility] Address: [address] [place], [place] [address] Performed By: #### 01401-3, 630-4 #### [facility] CLIA [id number] [address] [place] Gentamicin [Susc] <=1 Susceptible Susceptible <=4 , [facility] Intermediate >4 , Resistant Bearden >8 Comment on above: Order Comment: Ordering Faci lity: [facility] Address: [facility] [place] [address] Performed By: #### 62545-1, 630-4 #### [facility] CLIA [id number] [address] [place] [address] [place] Meropenem [Susc] 0.5 Susceptible Susceptible <=2 , [facility] Intermediate >2 , Resistant Bearden >4 Comment on above: Order Comment: Ordering Faci lity: [facility] Address: [address] [place], [place] [address] [address] Performed By: #### 27648-4, 630-4 #### [facility] CLIA [id number] [address] [place] [address] [place] Piperacillin+Sulbactam CHRISTINE 8 Susceptible Susceptible <= 16 , [facility] [Susc] Intermediate >16 , [facility] Resistant >64 Comment on above: Order Comment: Ordering Faci lity: [facility] Address: [facility] [place] [address] Performed By: #### 33879-5, 630-4 #### [facility] [place] [id number] [address] [place] [address] [place] Tobramycin [Susc] <=1 Susceptible Susceptible <=4 , [facility] Intermediate >4 , Resistant Bearden >8 Comment on above: Order Comment: Ordering Faci lity: [facility] Address: [facility] [place] [address] Performed By: #### 38831-2, 630-4 #### [facility] CLIA [id number] [address] [place] [address] [place] CNOV on 05-03-2022 CNOV Office Visit (OBGYWM) Normal [facility] WANDA WINTERS ([id number]) [address] 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 Grade A esophagitis EGD EUS 11/05/07 [place]. dilated CBD ESOPHAGOGASTRODUODENOSCOPY TRANSORAL DIAGNOSTIC 013 EGD ESOPHAGOGASTRODUODENOSCOPY TRANSORAL DIAGNOSTIC N/A MAC LIG/TRNSXJ FLP TUBE ABDL/VAG APPR UNI/BI Tubal ligation OVARIAN CYSTECTOMY PAST SURGICAL HISTORY OF 04/2018 compression fracture repair at [facility] TOTAL ABDOMINAL HYSTERECT W/WO RMVL TUBE OVARY [...] breast [Z12.31] Urinary frequency [R35.0] Order(s):CLARI SCREENING [[id number]] Order #: [id number] F UTURE PELVIC US WHI [[id number]] Order #: [id number]: 1 URINE CULTURE [SQURCUL] Order #: [id number]. #:[id number] UA DIP, URINE (POC) [[id number]] Order #: [id number]. #:[id number] nitrofurantoin monohydrate and macrocrystal (MACROBID) 100 mg capsuleTake 1 capsule by mouth twice daily for 7 days. Disp: 14 capsuleRfl: 0 phenazopyridine (PYRIDIUM, GERIDIUM) 200 mg tabletTake 1 tablet by (more content not included)... UA DIP, URINE (POC) on 05-03-2022 BILIRUBIN UA (POCT) Negative Negative [facility] CLARITY UA (POCT) Clear [facility] COLOR UA (POCT) Yellow [facility] GLUCOSE UA (POCT) Negative Negative mg/dL [facility] HEMOGLOBIN/BLOOD UA (POCT) Negative Negative [facility] KETONE UA (POCT) Negative Negative mg/dL [facility] LEUKOCYTES UA (POCT) Small Abnormal Negative [facility] NITRITE UA (POCT) Positive Abnormal Negative [facility] PH UA (POCT) 7.0 4.5 - 8.0 [facility] Protein Ql (U) Negative Negative mg/dL [facility] linic SPECIFIC GRAVITY UA (POCT) 1.015 1.005 - 1.030 [facility] UROBILINOGEN UA (POCT) 0.2 E.U./dL Normal E.U./dL [facility] Vital Signs Date Time Vital Sign Value Performing Clinician Facilit y 05-03-2022 Body weight 60.42 kg Shwetha Rogers MD [facility] 08:44-0400 Work Phone: 05-03-2022 Diastolic blood 58 mm[Hg] Shwetha Rogers MD [facility] 08:44-0400 pressure Work Phone: 05-03-2022 Systolic blood 122 mm[Hg] Shwetha Rogers MD [facility] 08:44-0400 pressure Work Phone: Encounters Encounter Date Encounter Type Care Provider Facility Start: 05-25-2022 ambulatory BRYSON BOATENG Facility:[facility] End: 05-25-2022 [facility] Start: 05-09-2022 Telephone encounter Shwetha Rogers MD OB/Gynecol ogy Work Phone: Comment on above: Medication Problem Start: 05-09-2022 ambulatory PHIL STEVENSONBEATRIZ Facility:[facility] Start: 05-03-2022 ambulatory SHWETHA ROGERS Facility:[facility] End: 05-03-2022 Hospital Start: 05-03-2022 Patient [...] Detail Author Start: Influenza vaccination INFLUENZA (#1) [facility] 04-28-2022 Start: ADVANCE DIRECTIVE ADVANCE DIRECTIVE [facility] 08-28-2021 DISCUSSION DISCUSSION Start: BONE DENSITY BONE DENSITY [facility] 2013 Start: SHINGRIX VACCINE (1 of SHINGRIX VACCINE (1 of [facility] 1998 2) 2) Start: COLOGUARD (FIT-DNA) COLOGUARD (FIT-DNA) [facility] 1993 Start: Colonoscopy COLONOSCOPY [facility] 1993 Start: COLORECTAL CANCER COLORECTAL CANCER [facility] 1993 SCREENING SCREENING Start: CT COLONOGRAPHY CT COLONOGRAPHY [facility] 1993 Start: FECAL OCCULT BLOOD FECAL OCCULT BLOOD [facility] 1993 Start: SIGMOIDOSCOPY SIGMOIDOSCOPY [facility] 1993 Start: Mammography MAMMOGRAM [facility] 1988 Start: Urine microalbumin DTAP,TDAP,TD (1 - Tdap) [facility] 1967 profile Start: ANNUAL PCP TEAM CHRONIC ANNUAL PCP TEAM CHRONIC [facility] 1966 DISEASE VISIT DISEASE VISIT Start: Hepatitis B surface LDL CHOLESTEROL [facility] 1966 antibody level Start: HEPATITIS C SCREENING HEPATITIS C SCREENING [facility] 1966 Start: 3 comp foot exam DIABETIC FOOT EXAM [facility] 1958 completed Start: Hepatitis B screening URINE ALBUMIN:CREATININE C [facility] 1958 RATIO Start: Hepatitis C antibody, DILATED RETINAL EXAM [facility] 1958 confirmatory test Start: PNEUMOCOCCAL: 65+ (1 - PNEUMOCOCCAL: 65+ (1 - Cl [facility] 1954 PCV) PCV) Start: Hemoglobin HBA1C [facility] 1953 A1c/Hemoglobin.total in Blood Start: COVID-19 VACCINE (#1) COVID-19 VACCINE (#1) [facility] 1948 Bacteria identified in URINE CULTURE [facility] Urine by Culture Microbiology Routine Work Phone : Pelvic cramping Ordered: 05/03/2022 Comment on above: Ordered: 05/03/2022 PELVIC US WHI PELVIC US WHI Anc Imaging Routin e Pelvic [facility] cramping Ordered: 05/03/2022 Wor k Phone: Comment on above: Ordered: 05/03/2022 Screening mammography CLARI SCREENING [facility] End: 06-02-2023 bi 2-view breast inc Radiology Routine Work Phon e: cad Encounter for screening mammogram for malignant neoplasm of breast 1 Occurrences starting 05/03/2022 until 06/02/2023 Comment on above: 1 Occurrences starting 05/03 until 06/02/2023 [facility] Payers Date Payer Category Payer Medicaid [facility] MEDICAID [facility] [id number] MEDICAID [id number] 2018-Present [phone] [address] [place] [address] Medicaid 2018 Medicaid [id number] Social History Date Type Detail Facility Start: 05-03-2022 Tobacco smoking status Never smoked tobacco Cl [facility] Start: 05-03-2022 Tobacco use and Smokeless tobacco [facility] exposure non-user Start: 05-03-2022 Alcohol intake Ex-drinker (finding) [facility] Start: 1950 [facility]igned [facility] Start: 04-23-2022 Exposure to SARS-CoV-2 Not sure [facility] End: 05-09-2022 (event) Work Phone: Progress note 05-25-2022 Note Date & Type Note Facility 05-25-2022 Note HNO ID: [id number] [facility] Martinez gallo Author: Gianni Martinez MD Service: [...] & Type Note Facility 05-09-2022 Miscellaneous Notes [facility] Anaid at [facility] notified. Urin e culture results faxed. [...] original. Spoke to Anaid, a nurse at [facility]. States patient was still complaining of dysuria [...] Type Note Facility 05-03-2022 Note HNO ID: [id number] [facility] Author: Shwetha Rogers MD [facility] Service: ? Author Type: Physician Type: Progress Notes Filed: 05/03/2022 10:41 AM Note Text: Wanda is a 72 year old who presen ts for problem visit. She reports bothersome pelvic cramping A ND urinating every hour. 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 Grade A esophagitis EGD EUS 11/05/07 [place]. dilated CBD ESOPHAGOGASTRODUODENOSCOPY TRANSORAL REJI GNOSTIC 01/11/2013 EGD ESOPHAGOGASTRODUODENOSCOPY TRANSORAL REJI GNOSTIC N/A 11/10/2016 MAC LIG/TRNSXJ FLP TUBE ABDL/VAG APPR UNI/BI Tubal ligation OVARIAN CYSTECTOMY PAST SURGICAL HISTORY OF 04/2018 compression fracture repair at [facility] TOTAL ABDOMINAL HYSTERECT W/WO RMVL TUBE OVARY [...] Shwetha Rogers MD - 9:30 AM EDT [facility] Please schedule pelvic US if pelvic cramping persists once antibiotic finished. documented in this encounter History of Present illness Narrative 05-03-2022 Shwetha Rogers MD - 05/03/2022 8:30 AM EDT Note Date & Type Note Facility 05-03-2022 History of Formatting of this note is different f rom the original. [facility] Present illness Narrative Wanda is a 72 year old 1 who presents for problem visit. She reports bothersome pelvic cramping & urinating every hour. 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: Sexual Activity: Never; No partner [...] HISTORY OF 04/2018 compression fracture repair at [facility] TOTAL ABDOMINAL HYSTERECT W/WO RMVL TUBE OVARY [...] screening mammogram Urinary [facility] Reason for referral (narrative) Diagnostic Procedure Only (Routine) - Authorized Note Date & Type Note Facility Reason for referral (narrative) Specialty Diagnoses / Procedures Referred By Contact Refer red To Contact [facility] Diagnoses Pelvic cramping Shwetha Rogers MD [facility] Procedures PELVIC US I US PELVIC NONOBSTETRIC REAL-TIME IMAGE COMPLETE [address] [place] [address] [place] [address] Referral ID Status Reason Start Expiration Visits Visits Date Date Requested Authorized [id number] Authorized Auto[employer] 05/03/2022 05/03/2023 1 1 ed Referral iagnostic Procedure Only (Routine) - Pending Review Specialty Diagnoses / Procedures Referred By Contact Refer red To Contact [facility] Diagnoses Encounter for screening mammogram for malignant neoplasm of breast Shwetha Rogers MD [facility] Procedures CLARI SCREENING SCREENING MAMMOGRAPHY BI 2-VIEW BREAST INC CAD [address] [place] [address] [place] [address] Referral ID Status Reason Start Expiration Visits Visits Date Date Requested Authorized [id number] Pending Auto-Generat 05/03/2022 06/02/2023 1 1 Review ed Referral [facility] Summary Purpose Family History No Family [...] prosecute any alcohol or drug abuse patient. [facility] the event this information is protected by t Federal Confidentiality of Alcohol and Drug Abuse Patient Records regulations: This information has been disclosed to you from records protected by Federal confid entiality rules ( The Federal rules restrict any use of th e information to criminally investigate or prosecute any alcohol or drug abuse jaqui ent. [facility] Reason for Visit (unrecognized section a nd content) Reason Onset Date Comments Yearly Exam 05/03/2022 Reason Comments Medication Problem Care Teams (unrecognized section and con tent) Tapper Bit Relationship Specialty Start Date End Date Bryson Boateng MD PCP - General Internal Medicine 03/03/17 [address] [place] [address] Tapper Bit Relationship Specialty Start Date End Date Bryson Boateng MD PCP - General Internal Medicine 03/03/17 [address] [place] [address] INFORMATION SOURCE (unrecognized section and content) DATE CREATED AUTHOR AUTHOR'S ORGANIZ ATION 05/30/2022 [facility] FOR RECORDS PERTAINING TO PATIENTS [...] BE BASED ON THE PRIMARY CLINICAL RECORDS. [facility] [employer] provides no warranty or guarantee of the accuracy or completeness of information in this document.
[2022-11-12] MEDS: KCL 20MEQ in 0.45%NS 20 MEQ/1,000 ML IV.SOLN. 100 MEQ IV (19:17)
--- NOTE | 2022-11-12 21:04 | PCM.RX.CS ---
Consult Pharmacy has been consulted to manage selected antiobiotic: Vancomycin Type of Consult: New start Suspected Infection: Sepsis Prior Doses of Antibiotics Received/Current Regimen: Medications Vancomycin HCl () 500 mg in 100 mls @ 100 mls/hr IV Q24H JOY Vancomycin HCl 750 mg/ Sodium (Chloride) 265 mls @ 250 mls/hr IV X1 ONE Stop: 11/12/22 21:33 Last Admin: 11/12/22 20:46 Dose: 250 mls/hr Labs: Sodium 139 mmol/L (136-145) 11/12/22 16:05 Potassium 4.0 mmol/L (3.5-5.1) 11/12/22 16:05 Chloride 105 mmol/L (98-107) 11/12/22 16:05 Carbon Dioxide 26.0 mmol/L (21.0-32.0) 11/12/22 16:05 Anion Gap 8 (5-15) 11/12/22 16:05 BUN 8 mg/dL (7-18) 11/12/22 16:05 Creatinine 1.12 mg/dL (0.55-1.02) H 11/12/22 16:05 Est GFR (MDRD) Af Amer 61 mL/min (>60) 11/12/22 16:05 Est GFR (MDRD) Non-Af 51 mL/min (>60) L 11/12/22 16:05 BUN/Creatinine Ratio 7.1 RATIO (10-20) L 11/12/22 16:05 Glucose 158 mg/dL (74-106) H 11/12/22 16:05 Microbiology: Microbiology 11/12/22 16:14 Nasal Secretion SARS-CoV-2 & FLU Antigen (Rapid) - Final Weight used for dosin kg Estimated Creatinine Clearance: 31.7 Goal Trough: 10-15 mcg/mL Pharmacy Plan for Drug Dosing: Pharmacy Service will continue to monitor and adjust dosing as required. Follow-Up Labs: Trough Vancomycin Labs to be done on [date and time ordered]: 11/14/22 @2030
[2022-11-12] MEDS: busPIRone 15 MG TABLET PO (22:24)
[2022-11-12] MEDS: Pravastatin 80 MG Tablet PO (22:24)
[2022-11-12] MEDS: lamoTRIgine 100 MG Tablet 200 MG PO (22:24)
[2022-11-12] MEDS: traZODone 100 MG Tablet 150 MG PO (22:25)
[2022-11-12] MEDS: hydrALAZINE 50 MG Tablet PO (22:25)
[2022-11-13] VITALS (8 sets, daily range): BP systolic 111–128; BP diastolic 49–61; PULSE 68–90; RESP 16–20; TEMP 36.8–38.5; O2SAT 92–97
[2022-11-13] MEDS: Acetaminophen 325 MG Tablet 650 MG PO ×3 (04:21→18:49)
[2022-11-13] MEDS: KCL 20MEQ in 0.45%NS 20 MEQ/1,000 ML IV.SOLN. 100 MEQ IV ×2 (05:45→18:54)
[2022-11-13] MEDS: hydrALAZINE 50 MG Tablet PO ×3 (05:47→20:50)
[2022-11-13] MEDS: Levothyroxine 25 MCG TABLET PO (05:48)
[2022-11-13] MEDS: busPIRone 15 MG TABLET PO ×3 (05:48→20:48)
[2022-11-13 06:14] LABS: Absolute Lymphocyte Count 1.31 X10^3/uL (0.83-4.51); Absolute Neutrophil Count 14.5 X10^3/uL (2.0-7.7); Basophil# 0.05 X10^3/uL; Basophil% 0.3 % (0-1); Hematocrit 34.6 % (37-47); Lymphocyte # 1.31 X10^3/ul (0.83-4.51); Lymphocyte % 7.8 % (19-41); Mean Corp Hgb Conc 31.8 g/dL (32-36); Mean Corpuscular Hgb 30.4 pg (27.0-32.0); Mean Corpuscular Volume 95.6 fL (81-99); Mean Platelet Vol. 9.7 fl (6.2-12.0); Monocyte# 0.76 X10^3/uL; Monocyte% 4.5 % (0-10); NRBC Flagged by Analyzer 0 % (0-5); Neutrophil % 86.8 % (47-70); Platelet Count 293 K/mm3 (150-450); RBC Distribution Width CV 13.6 % (11.6-14.6); RBC Distribution Width SD 48.1 fl (35.1-43.9); Red Blood Count 3.62 M/mm3 (4.2-5.4); White Blood Count 16.7 K/mm3 (4.4-11.0)
[2022-11-13 07:08] LABS: ALB/GLOB Ratio 0.9 RATIO (0.9-2.4); AST(SGOT) 55 U/L (15-37); Alanine Aminotransfer ALT/SGPT 25 U/L (13-56); Albumin, Serum 2.9 g/dL (3.2-5.0); Alkaline Phosphatase 57 U/L (45-117); Anion Gap 8 (5-15); BUN 7 mg/dL (7-18); BUN/Creat Ratio 8.3 RATIO (10-20); Calcium,Total 8.2 mg/dL (8.5-10.1); Chloride 108 mmol/L (98-107); Creatinine, Serum 0.84 mg/dL (0.55-1.02); EST Glomerular Filtration Rate 70 mL/min (>60); Est Glom Filt Rate - Afr Amer 85 mL/min (>60); Globulin 3.3 g/dL (2.2-4.2); Glucose 136 mg/dL (74-106); Phosphorus 2.5 mg/dL (2.5-4.9); Potassium 3.8 mmol/L (3.5-5.1); Protein, Total 6.2 g/dL (6.4-8.2); Sodium Level 138 mmol/L (136-145)
--- NOTE | 2022-11-13 07:33 | PCM.RX.CS ---
Consult Pharmacy has been consulted to manage selected antiobiotic: Vancomycin Type of Consult: Follow-up Labs: Sodium 138 mmol/L (136-145) 11/13/22 05:25 Potassium 3.8 mmol/L (3.5-5.1) 11/13/22 05:25 Chloride 108 mmol/L (98-107) H 11/13/22 05:25 Carbon Dioxide 22.0 mmol/L (21.0-32.0) 11/13/22 05:25 Anion Gap 8 (5-15) 11/13/22 05:25 BUN 7 mg/dL (7-18) 11/13/22 05:25 Creatinine 0.84 mg/dL (0.55-1.02) 11/13/22 05:25 Est GFR (MDRD) Af Amer 85 mL/min (>60) 11/13/22 05:25 Est GFR (MDRD) Non-Af 70 mL/min (>60) 11/13/22 05:25 BUN/Creatinine Ratio 8.3 RATIO (10-20) L 11/13/22 05:25 Glucose 136 mg/dL (74-106) H 11/13/22 05:25 Microbiology: Microbiology 11/12/22 16:58 Blood Culture (Wb) - Right Wrist Blood Culture - Preliminary 11/12/22 16:14 Nasal Secretion SARS-CoV-2 & FLU Antigen (Rapid) - Final Pharmacy Plan for Drug Dosing: DAILY ASSESSMENT Current Vancomycin Dose: 500MG IV Q24H Number of Doses Received: 1 (Initial dose of 750mg 11/12 @2045 Current Renal Function: 0.84 / CrCl 42 mL/min Renal Function Trend: Improvement from yesterday (SCr 1.12, CrCl 31mL/min) Lab/Micro: pending Any Change in Vanc Plan: Patient with improved renal function compared to yesterday. Given improved renal function, will increase dose to 750mg IV Q24hr scheduled to start 11/13/22 @2100, DC previous order for vancomycin 500mg IV Q24hr order Pending Level: 11/14/22 @2029, prior to 3rd total dose per protocol Pharmacy Service will continue to monitor and adjust dosing as required.
--- NOTE | 2022-11-13 07:42 | PN.HOSP_ITS ---
Reason for Visit Reason for Visit: Diagnoses Sepsis, unspecified organism (11/12/22) Encephalopathy, unspecified (11/12/22) Subjective Subjective Denies any complaints. Objective Data Objective Data Vital Signs: Vital Signs Temp Pulse Resp BP Pulse Ox O2 Del Method 38.5 C H 89 20 H 111/49 L 93 Room Air 11/13/22 04:40 11/13/22 05:47 11/13/22 04:40 11/13/22 05:47 11/13/22 04:40 11/13/22 04:40 Oxygen Delivery Method Room Air Weight: 57.153 kg Body Mass Index (BMI) 24.6 Intake & Output: Intake and Output for Last 24 Hours 11/11/22 11/12/22 11/13/22 23:59 23:59 23:59 Intake Total 1265.25 / 1315.25 1150 / 1150 Balance 1265.25 / 1315.25 1150 / 1150 Lab / Micro Data Result Diagrams: 11/13/22 05:25 11/13/22 05:25 Labs: Laboratory Results - last 24 hr 11/12/22 16:05: WBC 18.4 H, RBC 4.27, Hgb 12.8, Hct 40.6, MCV 95.1, MCH 30.0, MCHC 31.5 L, RDW Std Deviation 45.5 H, RDW Coeff of Randall 13.2, Plt Count 350, MPV 9.6 11/12/22 16:05: Sodium 139, Potassium 4.0, Chloride 105, Carbon Dioxide 26.0, Anion Gap 8, BUN 8, Creatinine 1.12 H, Estim Creat Clear Calc 31.65, Est GFR (MDRD) Af Amer 61, Est GFR (MDRD) Non-Af 51 L, BUN/Creatinine Ratio 7.1 L, Glucose 158 H, Calcium 9.6, Total Bilirubin 0.40, AST 33, ALT 23, Alkaline Phosphatase 71, Total Protein 7.6, Albumin 3.9, Globulin 3.7, Albumin/Globulin Ratio 1.1 11/12/22 16:20: Lactic Acid 1.1 11/12/22 16:56: Urine Color Yellow, Urine Clarity Clear, Urine pH 7.0, Ur Specific [place] 1.010, Urine Protein Negative, Urine Glucose (UA) Normal, Urine Ketones Negative, Urine Occult Blood Negative, Urine Nitrite Negative, Urine Bilirubin Negative, Urine Urobilinogen Normal, Ur Leukocyte Esterase Negative, Urine RBC 0 SEEN, Urine WBC 0 SEEN, Ur Squamous Epith Cells 0 SEEN, Urine Bacteria 0 SEEN, Urine Mucus 0 SEEN 11/13/22 05:25: WBC 16.7 H, RBC 3.62 L, Hgb 11.0 L, Hct 34.6 L, MCV 95.6, MCH 30.4, MCHC 31.8 L, RDW Std Deviation 48.1 H, RDW Coeff of Randall 13.6, Plt Count 293, MPV 9.7, Immature Gran % (Auto) 0.600, Neut % (Auto) 86.8 H, Lymph % (Auto) 7.8 L, [place] % (Auto) 4.5, Eos % (Auto) 0.0, Baso % (Auto) 0.3, Absolute Neuts (auto) 14.5 H, Absolute Lymphs (auto) 1.31, Nucleated RBC % 0 11/13/22 05:25: Sodium 138, Potassium 3.8, Chloride 108 H, Carbon Dioxide 22.0, Anion Gap 8, BUN 7, Creatinine 0.84, Estim Creat Clear Calc 42.20, Est GFR (MDRD) Af Amer 85, Est GFR (MDRD) Non-Af 70, BUN/Creatinine Ratio 8.3 L, Glucose 136 H, Calcium 8.2 L, Phosphorus 2.5, Total Bilirubin 0.60, AST 55 H, ALT 25, Alkaline Phosphatase 57, Total Protein 6.2 L, Albumin 2.9 L, Globulin 3.3, Albumin/Globulin Ratio 0.9 Micro: Microbiology 11/12/22 16:58 Blood Culture (Wb) - Right Wrist Blood Culture - Preliminary 11/12/22 16:14 Nasal Secretion SARS-CoV-2 & FLU Antigen (Rapid) - Final Radiography Diagnostic Testing: Radiology Impression Brain CT 11/12/22 16:08 IMPRESSION: 1. No acute intracranial abnormality. There has been no change from the reference exam. 2. Stable underlying senescent change with small vessel ischemia. Electronically Signed: Kale Temple MD at 17:02 EDT , Chest X-Ray 11/12/22 16:43 IMPRESSION: No radiographic evidence of acute cardiopulmonary disease. Electronically Signed: Kale Temple MD at 17:02 EDT , Abdomen/Pelvis CT 11/12/22 18:09 IMPRESSION: No acute findings in the abdomen or pelvis. Electronically Signed: Kale Temple MD at 19:50 EDT , Rhythm Strip Rhythm Strip: Sinus Rhythm Physical Exam Const Constitutional Narrative: confused. Resp normal respiratory effort, no retractions, no use of accessory muscles and clear to auscultation bilaterally Cardio regular rate, regular rhythm, S1 normal heart sound and S2 normal heart sound GI normal to inspection, nondistended, normoactive bowel sounds, soft to palpation, non-tender and non-distended Extremity normal to inspection Assessment & Plan Assessment/Plan (1) Acute encephalopathy: PLAN: Acute encephalopathy with hypoactive delirium. Appears to be secondary to infection/sepsis, multiple medications with anticholinergic side effects and dehydration. We will treat underlying infection, hold all potentially offending medications and rehydrate. Delirium precautions. Head CT negative Continue to hold benztropine, dicyclomine If persists consider removing additional medications: trazodone, buspirone, paliperidone (2) Sepsis: PLAN: suspected based on qSOFA of 2 on admission w change in MS and RR 22. UA, CXR, CT A/P, COVID 19, influenza negative BCx pending Continue empiric vanc and pip/tazo for now, but consider discontinuing antibiotics if BCx are negative PLAN: Plan Chronic conditions: * schizophrenia: benztropine held, continued on lamotrigine, paliperidone, buspirone * hypothyroid: continue levothyroxine * DM2: per history. No home meds. Last a1c 5.3 from 10/24/22 * MVP * chronic malnutrion: Ensure supplements VTE prophylaxis: enoxaparin Charges/Coding Visit Charges Inpatient E&M: 14012 Subs Hosp L2
[2022-11-13] MEDS: Aspirin 81 MG TAB.CHEW PO (09:25)
[2022-11-13] MEDS: Enoxaparin 40 MG/0.4 ML Syringe SC (09:26)
[2022-11-13] MEDS: lamoTRIgine 100 MG Tablet 200 MG PO ×2 (09:26→20:49)
[2022-11-13] MEDS: Ensure Plus High Protein 120 ML LIQUID PO ×3 (09:26→20:54)
[2022-11-13] MEDS: FLUoxetine 20 MG Capsule PO (09:27)
[2022-11-13] MEDS: Polyethylene Glycol 3350 17 GM PACKET PO (09:27)
[2022-11-13] MEDS: amLODIPine 5 MG Tablet PO (09:28)
[2022-11-13] MEDS: 0.9% Saline Lock 10 ML Syringe IV (12:26)
[2022-11-13] MEDS: traZODone 100 MG Tablet 150 MG PO (20:50)
[2022-11-13] MEDS: Pravastatin 80 MG Tablet PO (20:52)
--- NOTE | 2022-11-13 21:18 | NURSING ---
Pt daughter Dolores updated by phone, pt was able to talk with daughter by phone as well.
[2022-11-14] VITALS (11 sets, daily range): BP systolic 134–151; BP diastolic 64–72; PULSE 64–80; RESP 16–18; TEMP 36.8–37.4; O2SAT 95–97
[2022-11-14 05:03] LABS: Absolute Lymphocyte Count 1.03 X10^3/uL (0.83-4.51); Absolute Neutrophil Count 15.5 X10^3/uL (2.0-7.7); Basophil# 0.08 X10^3/uL; Basophil% 0.4 % (0-1); Eosinophil# 0.09 X10^3/uL; Eosinophils% 0.5 % (0-5); Hematocrit 34.1 % (37-47); Hemoglobin 10.8 g/dL (12.0-15.0); Lymphocyte # 1.03 X10^3/ul (0.83-4.51); Lymphocyte % 5.8 % (19-41); Mean Corp Hgb Conc 31.7 g/dL (32-36); Mean Corpuscular Hgb 30.1 pg (27.0-32.0); Mean Platelet Vol. 9.5 fl (6.2-12.0); Monocyte# 0.87 X10^3/uL; Monocyte% 4.9 % (0-10); NRBC Flagged by Analyzer 0 % (0-5); Neutrophil # 15.54 X10^3/uL (2.7-7.7); Neutrophil % 87.4 % (47-70); Platelet Count 269 K/mm3 (150-450); RBC Distribution Width CV 13.5 % (11.6-14.6); RBC Distribution Width SD 47.6 fl (35.1-43.9); Red Blood Count 3.59 M/mm3 (4.2-5.4); White Blood Count 17.8 K/mm3 (4.4-11.0)
[2022-11-14] MEDS: hydrALAZINE 50 MG Tablet PO ×3 (05:30→22:41)
[2022-11-14] MEDS: KCL 20MEQ in 0.45%NS 20 MEQ/1,000 ML IV.SOLN. 100 MEQ IV ×2 (05:30→20:05)
[2022-11-14] MEDS: busPIRone 15 MG TABLET PO ×3 (05:30→22:40)
[2022-11-14 05:31] LABS: Anion Gap 7 (5-15); BUN 6 mg/dL (7-18); BUN/Creat Ratio 8.7 RATIO (10-20); Calcium,Total 8.5 mg/dL (8.5-10.1); Chloride 109 mmol/L (98-107); Creatinine, Serum 0.69 mg/dL (0.55-1.02); EST Glomerular Filtration Rate 88 mL/min (>60); Est Glom Filt Rate - Afr Amer 106 mL/min (>60); Estimated Creatinine Clearance 35.45 ml/min; Glucose 126 mg/dL (74-106); Potassium 3.8 mmol/L (3.5-5.1); Sodium Level 140 mmol/L (136-145)
[2022-11-14] MEDS: Levothyroxine 25 MCG TABLET PO (05:34)
--- NOTE | 2022-11-14 08:25 | PN.HOSP_ITS ---
Reason for Visit Reason for Visit: Diagnoses Sepsis, unspecified organism (11/12/22) Encephalopathy, unspecified (11/12/22) Subjective Subjective Patient is a 72-year-old lady resident at [facility] brought in with confusion. An assessment of acute encephalopathy secondary to sepsis of undetermined etiology made admitted to regular nursing floor for further management Objective Data Objective Data Vital Signs: Vital Signs Temp Pulse Resp BP Pulse Ox O2 Del Method 99.0 F 79 18 151/67 H 96 Room Air 11/14/22 03:09 11/14/22 05:30 11/14/22 03:09 11/14/22 03:09 11/14/22 03:09 11/14/22 03:09 Oxygen Delivery Method Room Air Weight: 57.153 kg Body Mass Index (BMI) 24.6 Intake & Output: Intake and Output for Last 24 Hours 11/12/22 11/13/22 11/14/22 23:59 23:59 23:59 Intake Total 1265.25 / 1315.25 2865 / 2865 1350 / 1350 Output Total 500 / 500 Balance 1265.25 / 1315.25 2865 / 2865 850 / 850 Lab / Micro Data Result Diagrams: 11/14/22 04:22 11/14/22 04:22 Labs: Laboratory Results - last 24 hr 11/14/22 04:22: WBC 17.8 H, RBC 3.59 L, Hgb 10.8 L, Hct 34.1 L, MCV 95.0, MCH 30.1, MCHC 31.7 L, RDW Std Deviation 47.6 H, RDW Coeff of Randall 13.5, Plt Count 269, MPV 9.5, Immature Gran % (Auto) 1.000 H, Neut % (Auto) 87.4 H, Lymph % (Auto) 5.8 L, [place]cdonald % (Auto) 4.9, Eos % (Auto) 0.5, Baso % (Auto) 0.4, Absolute Neuts (auto) 15.5 H, Absolute Lymphs (auto) 1.03, Nucleated RBC % 0 11/14/22 04:22: Sodium 140, Potassium 3.8, Chloride 109 H, Carbon Dioxide 24.0, Anion Gap 7, BUN 6 L, Creatinine 0.69, Estim Creat Clear Calc 35.45, Est GFR (MDRD) Af Amer 106, Est GFR (MDRD) Non-Af 88, BUN/Creatinine Ratio 8.7 L, Glucose 126 H, Calcium 8.5 Micro: Microbiology 11/12/22 16:58 Blood Culture (Wb) - Right Wrist Blood Culture - Preliminary Streptococcus group A 11/12/22 16:14 Nasal Secretion SARS-CoV-2 & FLU Antigen (Rapid) - Final Rhythm Strip Rhythm Strip: Sinus Rhythm Physical Exam Narrative GENERAL: cooperative HEENT: Atraumatic; normocephalic EYES; Anicteric, Normal Conjunctiva NECK; supple, normal thyroid, RESPIRATORY: Diminished to auscultation CARDIOVASCULAR: Regular S1 S2, GI: soft, normoactive bowel sounds, : No Renal angle tenderness; EXTREMITIES: No edema, no clubbing, MUSCULOSKELETAL: no muscle wasting NEURO: Awake; no lateralizing signs. SKIN: No Rash PSYCH; Flat affect Assessment & Plan Assessment/Plan (1) Acute encephalopathy: (2) Sepsis: PLAN: Plan Patient is a 72-year-old lady resident at [facility] brought in with confusion. An assessment of acute encephalopathy secondary to sepsis of undetermined etiology made admitted to regular nursing floor for further management 1. Sepsis ? Of undetermined etiology ? Patient was started on broad-spectrum antibiotic therapy with vancomycin and Zosyn pending culture result 2. Acute encephalopathy ? Secondary to suspected sepsis management as discussed above 3. Hypertension - Blood pressure controlled, home medications continued with dose adjustment as needed 4. Hypothyroidism - Patient is on levothyroxine home dose continued 5. GERD ? Patient is on PPI continue 6. Diabetes mellitus type 2 ? Per history patient managed with diet 7. Schizophrenia ? Discontinue patient psychotropic medications 8. DVT prophylaxis - On enoxaparin Charges/Coding Visit Charges Inpatient E&M: 46306 Subs Hosp L2
[2022-11-14] MEDS: Polyethylene Glycol 3350 17 GM PACKET PO (09:09)
[2022-11-14] MEDS: Ensure Plus High Protein 120 ML LIQUID PO ×4 (09:09→22:42)
[2022-11-14] MEDS: amLODIPine 5 MG Tablet PO (09:10)
[2022-11-14] MEDS: Aspirin 81 MG TAB.CHEW PO (09:10)
[2022-11-14] MEDS: Enoxaparin 40 MG/0.4 ML Syringe SC (09:10)
[2022-11-14] MEDS: lamoTRIgine 100 MG Tablet 200 MG PO ×2 (09:10→22:41)
[2022-11-14] MEDS: FLUoxetine 20 MG Capsule PO (09:10)
--- NOTE | 2022-11-14 09:29 | NURSING ---
P.T and O.T here with pt and up walking around in the room, to the doorway and now sitting in chair. Chair has personal alarm on.
--- NOTE | 2022-11-14 11:01 | CASEMGMT ---
Addendum entered by Leigha Carrizales 11/15/22 08:45: Sharifa from [facility] messaged and reported that pt cannot be accepted at [facility]. At this time MARY is answering questions for [facility], who is still reviewing pt case. Addendum entered by Leigha Carrizales 11/14/22 15:05: Sharifa from [facility] called back. Amara stated has been busy today and has not had time to review the referral as of yet. Sharifa informed only has skilled beds available at this time. MARY explained that is fine as it is unknown if pt will need LTC yet. Sharifa to look at referral and report back to later this day. Addendum entered by Leigha Carrizales 11/14/22 14:59: [facility] responded and is unable to accept pt due to no open beds. Addendum entered by Leigha Carrizales 11/14/22 14:41: MARY called [facility] to follow up on referral. MARY was told Sharifa, the information director, is giving a tour and unable to talk. Planner Chief stated would have Sharifa call back when available. [facility] also reached out and informed that pt referral was being reviewed. Will await contact from SNFs for further discharge planning. Addendum entered by Leigha Carrizales 11/14/22 11:58: Daughter, Mary Jo, called back to inform that choices were made in [facility]. Preference in order is [facility], [facility] [place], and then [facility] [place]. MARY sent referral to all choices at this time. Original Note: Social Work? MARY spoke to pt daughter, Mary Jo, to discuss discharge plan. Mary Jo informed pt from [facility] but was sent to [facility] recently for skilled therapy. While at [facility] pt developed UTI and was sent back. Mary Jo reports wants pt to go SNF in [place]. An electronic list of SNF providers including quality and resource use data consistent with the patient?s preferred geographic region, medical needs, and insurance network was sent to Mary Jo from the [facility] Guide. Mary Jo to review and sent SW 3 choices today. PLAN: SNF, pending choices [facility]
--- NOTE | 2022-11-14 15:11 | CHAPLAIN ---
Type of Pastoral Visit _x__ Initial Visit ___ Follow-up Visit ___ On-call Visit ___ General Patient Visit ___ Spiritual Assessment ___ Family Conference ___ Bereavement ___ Rapid Response ___ Code Blue ___ Other (describe below) Pastoral Care Referral From _x__ Patient ___ Family ___ Nurse ___ Physician ___ Literacy Coordinator ___ Sulfonation Equipment Operator ___ Other (describe below) Sacrament/Intervention _x__ Active listening ___ Anointing ___ Buddhism ___ Bereavement ___ Communion ___ Shelli exploration ___ ___ Life review _x__ Prayer ___ Reconciliation ___ Sacrament of Sick _x__ Supportive presence ___ Wedding ___ Other (describe below) Pastoral Comments patient answers a few simple questions but is unable to answer other basic questions; pt smiles but sometimes does not respond; gave time slowly and calmly; pt welcomes a prayer; pt states no other needs when asked
[2022-11-14] MEDS: traZODone 100 MG Tablet 150 MG PO (22:41)
[2022-11-14] MEDS: Pravastatin 80 MG Tablet PO (22:42)
[2022-11-15] VITALS (10 sets, daily range): BP systolic 111–138; BP diastolic 49–75; PULSE 59–74; RESP 15–16; TEMP 36.7–37.1; O2SAT 94–99
[2022-11-15] MEDS: hydrALAZINE 50 MG Tablet PO ×3 (04:59→21:29)
[2022-11-15] MEDS: busPIRone 15 MG TABLET PO ×3 (05:00→21:29)
[2022-11-15] MEDS: Levothyroxine 25 MCG TABLET PO (05:00)
[2022-11-15] MEDS: KCL 20MEQ in 0.45%NS 20 MEQ/1,000 ML IV.SOLN. 100 MEQ IV ×2 (05:03→16:45)
[2022-11-15 06:55] LABS: Absolute Lymphocyte Count 1.56 X10^3/uL (0.83-4.51); Absolute Neutrophil Count 7.9 X10^3/uL (2.0-7.7); Basophil# 0.07 X10^3/uL; Basophil% 0.7 % (0-1); Eosinophil# 0.21 X10^3/uL; Hematocrit 39.3 % (37-47); Lymphocyte # 1.56 X10^3/ul (0.83-4.51); Lymphocyte % 14.8 % (19-41); Mean Corp Hgb Conc 30.5 g/dL (32-36); Mean Corpuscular Hgb 29.8 pg (27.0-32.0); Mean Corpuscular Volume 97.5 fL (81-99); Mean Platelet Vol. 9.4 fl (6.2-12.0); Monocyte# 0.71 X10^3/uL; Monocyte% 6.8 % (0-10); NRBC Flagged by Analyzer 0 % (0-5); Neutrophil # 7.91 X10^3/uL (2.7-7.7); Neutrophil % 75.2 % (47-70); Platelet Count 298 K/mm3 (150-450); RBC Distribution Width CV 13.1 % (11.6-14.6); RBC Distribution Width SD 47.1 fl (35.1-43.9); Red Blood Count 4.03 M/mm3 (4.2-5.4); White Blood Count 10.5 K/mm3 (4.4-11.0)
[2022-11-15 07:25] LABS: Anion Gap 6 (5-15); BUN 5 mg/dL (7-18); BUN/Creat Ratio 7.8 RATIO (10-20); Calcium,Total 8.8 mg/dL (8.5-10.1); Chloride 110 mmol/L (98-107); Creatinine, Serum 0.64 mg/dL (0.55-1.02); EST Glomerular Filtration Rate 96 mL/min (>60); Est Glom Filt Rate - Afr Amer 116 mL/min (>60); Estimated Creatinine Clearance 35.45 ml/min; Glucose 126 mg/dL (74-106); Magnesium 2.2 mg/dL (1.6-2.6); Phosphorus 2.1 mg/dL (2.5-4.9); Potassium 3.9 mmol/L (3.5-5.1); Sodium Level 141 mmol/L (136-145)
--- NOTE | 2022-11-15 07:30 | PN.HOSP_ITS ---
Reason for Visit Reason for Visit: Diagnoses Sepsis, unspecified organism (11/12/22) Encephalopathy, unspecified (11/12/22) Subjective Subjective Patient seen improved clinically. Plan is for patient to be transferred to a group home facility for her physical deconditioning Objective Data Objective Data Vital Signs: Vital Signs Temp Pulse Resp BP Pulse Ox O2 Del Method 98.0 F 71 16 138/75 H 97 Room Air 11/15/22 04:47 11/15/22 04:59 11/15/22 04:47 11/15/22 04:47 11/15/22 04:47 11/15/22 04:47 Oxygen Delivery Method Room Air Weight: 57.153 kg Body Mass Index (BMI) 24.6 Intake & Output: Intake and Output for Last 24 Hours 11/13/22 11/14/22 11/15/22 23:59 23:59 23:59 Intake Total 2865 / 2865 3059.75 / 3209.75 1046.67 / 1046.67 Output Total 1200 / 1200 450 / 450 Balance 2865 / 2865 1859.75 / 2009.75 596.67 / 596.67 Lab / Micro Data Result Diagrams: 11/15/22 06:38 11/15/22 06:38 Labs: Laboratory Results - last 24 hr 11/15/22 06:38: WBC 10.5, RBC 4.03 L, Hgb 12.0, Hct 39.3, MCV 97.5, MCH 29.8, M CHC 30.5 L, RDW Std Deviation 47.1 H, RDW Coeff of Randall 13.1, Plt Count 298, MPV 9.4, Immature Gran % (Auto) 0.500, Neut % (Auto) 75.2 H, Lymph % (Auto) 14.8 L, [place] % (Auto) 6.8, Eos % (Auto) 2.0, Baso % (Auto) 0.7, Absolute Neuts (auto) 7.9 H, Absolute Lymphs (auto) 1.56, Nucleated RBC % 0 11/15/22 06:38: Sodium 141, Potassium 3.9, Chloride 110 H, Carbon Dioxide 25.0, Anion Gap 6, BUN 5 L, Creatinine 0.64, Estim Creat Clear Calc 35.45, Est GFR (MDRD) Af Amer 116, Est GFR (MDRD) Non-Af 96, BUN/Creatinine Ratio 7.8 L, Glucose 126 H, Calcium 8.8, Phosphorus 2.1 L, Magnesium 2.2 Micro: Microbiology 11/12/22 16:20 Blood Culture (Wb) - Right Forearm Blood Culture - Preliminary No growth in 48 hours. 11/12/22 16:58 Blood Culture (Wb) - Right Wrist Blood Culture - Preliminary Streptococcus group A 11/12/22 16:14 Nasal Secretion SARS-CoV-2 & FLU Antigen (Rapid) - Final Rhythm Strip Rhythm Strip: Sinus Rhythm Physical Exam Narrative GENERAL: cooperative HEENT: Atraumatic; normocephalic EYES; Anicteric, Normal Conjunctiva NECK; supple, normal thyroid, RESPIRATORY: Diminished to auscultation CARDIOVASCULAR: Regular S1 S2, GI: soft, normoactive bowel sounds, : No Renal angle tenderness; EXTREMITIES: No edema, no clubbing, MUSCULOSKELETAL: no muscle wasting NEURO: Awake; no lateralizing signs. SKIN: No Rash PSYCH; Flat affect Const Constitutional Narrative: confused. Resp normal respiratory effort, no retractions, no use of accessory muscles and clear to auscultation bilaterally Cardio regular rate, regular rhythm, S1 normal heart sound and S2 normal heart sound GI normal to inspection, nondistended, normoactive bowel sounds, soft to palpation, non-tender and non-distended Extremity normal to inspection Assessment & Plan Assessment/Plan (1) Acute encephalopathy: (2) Sepsis: PLAN: Plan Patient is a 72-year-old lady resident at [facility] brought in with confusion. An assessment of acute encephalopathy secondary to sepsis of undetermined etiology made admitted to regular nursing floor for further management 1. Sepsis ? Of undetermined etiology ? Patient was started on broad-spectrum antibiotic therapy with vancomycin and Zosyn pending culture result 2. Acute infectious encephalopathy ? Secondary to suspected sepsis management as discussed above 3. Hypertension - Blood pressure controlled, home medications continued with dose adjustment as needed 4. Hypothyroidism - Patient is on levothyroxine home dose continued 5. GERD ? Patient is on PPI continue 6. Diabetes mellitus type 2 ? Per history patient managed with diet 7. Schizophrenia ? Discontinue patient psychotropic medications 8. DVT prophylaxis - On enoxaparin Time spent in the patient's overall evaluation,decision-making process, review of diagnostic data, adjustment of management, discussion with other providers, nursing nursing and ancillary staff involved in patient's care documentation, 35 Minutes Charges/Coding Visit Charges Inpatient E&M: 52354 Subs Hosp L2
--- NOTE | 2022-11-15 09:29 | CASEMGMT ---
Addendum entered by Leigha Carrizales 11/15/22 10:24: Pt daughter, Mary Jo, called back to discuss. Mary Jo reported not wanting to give other options as there are no other options listed in [place]. MARY explained the list provided to Mary Jo was all the in network SNFs within 25 miles of [place] and those are the only options. Mary Jo asked about [facility] [place]. SW explained if it was not listed it is likely not in network with pt insurance. Mary Jo voiced understanding. Mary Jo explained will contact [facility] on own to discuss placement there for pt. SW asked Mary Jo to report any news from [facility] if the decision to deny acceptance is changed. Mary Jo agreed. Original Note: Social Work SW called pt daughter, Mary Jo, to give update that [facility] are unable to accept pt at this time. Mary Jo did not answer, SW explained via VM that [facility], the third choice is still considering but also asked if Mary Jo would pick a few more selections in the event that [facility] is unable to accept as well. MARY left contact number and requested a call back. PLAN: [facility], pending acceptance and precert [facility]
[2022-11-15] MEDS: Enoxaparin 40 MG/0.4 ML Syringe SC (09:56)
[2022-11-15] MEDS: Aspirin 81 MG TAB.CHEW PO (09:57)
[2022-11-15] MEDS: Paliperidone 6 MG Tablet PO (09:57)
[2022-11-15] MEDS: Acetaminophen 325 MG Tablet 650 MG PO (09:57)
[2022-11-15] MEDS: Polyethylene Glycol 3350 17 GM PACKET PO (09:57)
[2022-11-15] MEDS: FLUoxetine 20 MG Capsule PO (09:58)
[2022-11-15] MEDS: lamoTRIgine 100 MG Tablet 200 MG PO ×2 (09:58→21:30)
[2022-11-15] MEDS: amLODIPine 5 MG Tablet PO (09:58)
[2022-11-15] MEDS: Ensure Plus High Protein 120 ML LIQUID PO ×2 (10:00→13:15)
--- NOTE | 2022-11-15 11:18 | CASEMGMT ---
Addendum entered by Leigha Carrizales 11/15/22 13:25: SW spoke to pt daughter, Mary Jo, who is at [facility] and requested to talk with SW. Mary Jo asking questions related to pt recovery and infections and how they are impacting pt mentation. Mary Oj continued to ask medical questions and SW encouraged Mary Jo to direct questions to pt nurse, Omi, who was in room with pt at this time. SW explained medical questions that Mary Jo was inquiring about are outside the scope of practice for this SW. Mary Jo voiced understanding and shared intent to speak to pt nurse. Original Note: Social Work SW received message from [facility] that pt has been accepted. SW asked for precert to be started today. SW called pt daughter, Mary Jo, and informed of acceptance. Mary Jo voiced understanding and is aware it may take a few days for precert. SW called [facility] to inform pt would not be returning to their facility and asked that they manage the PASRR between the two facilities. Abageal from [facility] informed this SW that the PASRR would be sent to [facility]. PLAN: [facility], pending precert [facility]
--- NOTE | 2022-11-15 14:59 | CASEMGMT ---
Social Work SW called [facility], to inquire about services that pt receives and inform of pt being at [facility]. Left message with call back number. [facility]
--- NOTE | 2022-11-15 15:22 | NURSING ---
1410-pt off unit via bed for scheduled surgery
[2022-11-15] MEDS: traZODone 100 MG Tablet 150 MG PO (21:29)
[2022-11-15] MEDS: Pravastatin 80 MG Tablet PO (21:30)
[2022-11-16] VITALS (9 sets, daily range): BP systolic 121–144; BP diastolic 47–61; PULSE 62–76; RESP 16–18; TEMP 36.5–38; O2SAT 92–96
[2022-11-16] MEDS: KCL 20MEQ in 0.45%NS 20 MEQ/1,000 ML IV.SOLN. 100 MEQ IV ×3 (02:26→22:26)
[2022-11-16] MEDS: Levothyroxine 25 MCG TABLET PO (05:48)
[2022-11-16] MEDS: hydrALAZINE 50 MG Tablet PO ×3 (05:48→21:51)
[2022-11-16] MEDS: busPIRone 15 MG TABLET PO ×3 (05:49→21:51)
[2022-11-16 07:14] LABS: Absolute Lymphocyte Count 2.13 X10^3/uL (0.83-4.51); Absolute Neutrophil Count 4.2 X10^3/uL (2.0-7.7); Basophil% 1.4 % (0-1); Eosinophils% 4.2 % (0-5); Hemoglobin 11.7 g/dL (12.0-15.0); Lymphocyte # 2.13 X10^3/ul (0.83-4.51); Lymphocyte % 29.6 % (19-41); Mean Corp Hgb Conc 30.8 g/dL (32-36); Mean Corpuscular Hgb 30.7 pg (27.0-32.0); Mean Corpuscular Volume 99.7 fL (81-99); Mean Platelet Vol. 9.6 fl (6.2-12.0); Monocyte# 0.37 X10^3/uL; Monocyte% 5.1 % (0-10); NRBC Flagged by Analyzer 0 % (0-5); Neutrophil # 4.23 X10^3/uL (2.7-7.7); Neutrophil % 58.7 % (47-70); POSITIVE COUNT YES; Platelet Count 357 K/mm3 (150-450); RBC Distribution Width CV 13.3 % (11.6-14.6); RBC Distribution Width SD 49.2 fl (35.1-43.9); Red Blood Count 3.81 M/mm3 (4.2-5.4); White Blood Count 7.2 K/mm3 (4.4-11.0)
[2022-11-16 07:23] LABS: Differential Indicated SCAN CRITERIA MET
[2022-11-16 07:29] LABS: Anion Gap 5 (5-15); BUN 6 mg/dL (7-18); BUN/Creat Ratio 8.6 RATIO (10-20); Calcium,Total 9.4 mg/dL (8.5-10.1); Chloride 114 mmol/L (98-107); EST Glomerular Filtration Rate 87 mL/min (>60); Est Glom Filt Rate - Afr Amer 105 mL/min (>60); Estimated Creatinine Clearance 35.45 ml/min; Glucose 114 mg/dL (74-106); Potassium 4.5 mmol/L (3.5-5.1); Sodium Level 142 mmol/L (136-145)
--- NOTE | 2022-11-16 07:35 | PCM.PN.HOSP ---
Reason for Visit Reason for Visit: Diagnoses Sepsis, unspecified organism (11/12/22) Encephalopathy, unspecified (11/12/22) Subjective Subjective Patient seen apparently had a relatively uneventful night. Objective Data Objective Data Vital Signs: Vital Signs Temp Pulse Resp BP Pulse Ox O2 Del Method 97.7 F L 68 18 144/59 H 92 Room Air 11/16/22 02:29 11/16/22 05:48 11/16/22 02:29 11/16/22 05:48 11/16/22 02:29 11/16/22 02:29 Oxygen Delivery Method Room Air Weight: 57.153 kg Body Mass Index (BMI) 24.6 Intake & Output: Intake and Output for Last 24 Hours 11/14/22 11/15/22 11/16/22 23:59 23:59 23:59 Intake Total 3059.75 / 3209.75 2096.67 / 2096.67 1368.33 / 1368.33 Output Total 1200 / 1200 450 / 450 500 / 500 Balance 1859.75 / 2009.75 1646.67 / 1646.67 868.33 / 868.33 Lab / Micro Data Result Diagrams: 11/16/22 06:22 11/16/22 06:22 Labs: Laboratory Results - last 24 hr 11/16/22 06:22: WBC 7.2, RBC 3.81 L, Hgb 11.7 L, Hct 38.0, MCV 99.7 H, MCH 30.7, MCHC 30.8 L, RDW Std Deviation 49.2 H, RDW Coeff of Randall 13.3, Plt Count 357, MPV 9.6, Immature Gran % (Auto) 1.000 H, Neut % (Auto) 58.7, Lymph % (Auto) 29.6, [place] % (Auto) 5.1, Eos % (Auto) 4.2, Baso % (Auto) 1.4 H, Absolute Neuts (auto) 4.2, Absolute Lymphs (auto) 2.13, Nucleated RBC % 0 11/16/22 06:22: Sodium 142, Potassium 4.5, Chloride 114 H, Carbon Dioxide 23.0, Anion Gap 5, BUN 6 L, Creatinine 0.70, Estim Creat Clear Calc 35.45, Est GFR (MDRD) Af Amer 105, Est GFR (MDRD) Non-Af 87, BUN/Creatinine Ratio 8.6 L, Glucose 114 H, Calcium 9.4 Micro: Microbiology 11/12/22 16:58 Blood Culture (Wb) - Right Wrist Blood Culture - Final Streptococcus group A 11/12/22 16:20 Blood Culture (Wb) - Right Forearm Blood Culture - Preliminary No growth in 48 hours. 11/12/22 16:14 Nasal Secretion SARS-CoV-2 & FLU Antigen (Rapid) - Final Rhythm Strip Rhythm Strip: Sinus Rhythm Physical Exam Narrative GENERAL: cooperative HEENT: Atraumatic; normocephalic EYES; Anicteric, Normal Conjunctiva NECK; supple, normal thyroid, RESPIRATORY: Diminished to auscultation CARDIOVASCULAR: Regular S1 S2, GI: soft, normoactive bowel sounds, : No Renal angle tenderness; EXTREMITIES: No edema, no clubbing, MUSCULOSKELETAL: no muscle wasting NEURO: Awake; no lateralizing signs. SKIN: No Rash PSYCH; Flat affect Assessment & Plan Assessment/Plan (1) Acute encephalopathy: (2) Sepsis: PLAN: Plan Patient is a 72-year-old lady resident at [facility] brought in with confusion. An assessment of acute encephalopathy secondary to sepsis of undetermined etiology made admitted to regular nursing floor for further management 1. Sepsis ? Of undetermined etiology ? Patient was started on broad-spectrum antibiotic therapy with vancomycin and Zosyn pending culture result 2. Acute infectious encephalopathy ? Secondary to suspected sepsis management as discussed above 3. Hypertension - Blood pressure controlled, home medications continued with dose adjustment as needed 4. Hypothyroidism - Patient is on levothyroxine home dose continued 5. GERD ? Patient is on PPI continue 6. Diabetes mellitus type 2 ? Per history patient managed with diet 7. Schizophrenia ? Discontinue patient psychotropic medications 8. DVT prophylaxis - On enoxaparin Time spent in the patient's overall evaluation,decision-making process, review of diagnostic data, adjustment of management, discussion with other providers, nursing nursing and ancillary staff involved in patient's care documentation, 35 Minutes Charges/Coding Visit Charges Inpatient E&M: 62834 Subs Hosp L2
--- NOTE | 2022-11-16 08:33 | CASEMGMT ---
Addendum entered by Leigha Carrizales 11/16/22 10:34: MARY called pt daughter to inform of response and that plan to move forward with [facility] is finalized. Mary Jo voiced understanding and agreeable. Addendum entered by Leigha Carrizales 11/16/22 10:30: Sharifa at [facility] responded to referral again. Sharifa informed no, cannot accept pt d/t no beds available till possibly next week . Original plan for placement at [facility] now the final plan. Addendum entered by Leigha Carrizales 11/16/22 09:14: MARY called Sharifa at [facility]. Sharifa informed was willing to review pt case again. MARY attempted to resend case via [employer], however Sharifa did not receive. MARY printed and faxed referral to Sharifa via regular fax. Amara informed would review and return call to SW within the next 45 minutes. Original Note: Social Work SW received pc from pt daughter, Mary Jo, requesting SW send referral back to [facility] as Mary Jo spoke to admissions there and was told [place] would reconsider pt. SW messaged [facility] via [facility] were the referral had been previously sent and requested if the referral was going to be reviewed again that a response be made as soon as possible since there was another facility involved and precert should be started soon. MARY also reviewed a response from [facility], the other facility, that stated precert would be started once the PASRR was received from [facility]. PLAN: [facility] vs. [facility], pending precert EMILIO Conroy
[2022-11-16] MEDS: Aspirin 81 MG TAB.CHEW PO (09:00)
[2022-11-16] MEDS: FLUoxetine 20 MG Capsule PO (09:15)
[2022-11-16] MEDS: lamoTRIgine 100 MG Tablet 200 MG PO ×2 (09:15→21:50)
[2022-11-16] MEDS: amLODIPine 5 MG Tablet PO (09:15)
[2022-11-16] MEDS: Paliperidone 6 MG Tablet PO (09:15)
[2022-11-16] MEDS: Enoxaparin 40 MG/0.4 ML Syringe SC (09:15)
[2022-11-16] MEDS: Polyethylene Glycol 3350 17 GM PACKET PO (09:16)
[2022-11-16] MEDS: 0.9% Saline Lock 10 ML Syringe IV (09:16)
[2022-11-16] MEDS: Ensure Plus High Protein 120 ML LIQUID PO ×4 (09:19→21:51)
--- NOTE | 2022-11-16 10:11 | CASEMGMT ---
Addendum entered by Leigha Carrizales 11/16/22 10:34: Bedside nurseTaylor has been informed of pt's daughter requested. Original Note: Social Work PT daughter, Mary Jo, called again to discuss pt code status. Mary Jo stated does not feel pt was mentally competent to make decision of DNRCC-A upon admission and would like this to be changed. MARY informed this request would be passed on to pt nurse, who could discuss with pt MD. SW informed Charge Nurse Mariposa of daughters request and will also informed bedside nurseTaylor, when Taylor is available. EMILIO Conroy
--- NOTE | 2022-11-16 21:15 | NURSING ---
This nurse assumed care of patient at 2114.
--- NOTE | 2022-11-16 21:15 | NURSING ---
This nurse assumed care of patient at 2114.
[2022-11-16] MEDS: Pravastatin 80 MG Tablet PO (21:50)
[2022-11-16] MEDS: traZODone 100 MG Tablet 150 MG PO (21:51)
[2022-11-17] VITALS (8 sets, daily range): BP systolic 116–151; BP diastolic 56–77; PULSE 62–85; RESP 16–19; TEMP 36.6–37.5; O2SAT 95–97
[2022-11-17] MEDS: hydrALAZINE 50 MG Tablet PO ×3 (06:47→20:31)
[2022-11-17] MEDS: Levothyroxine 25 MCG TABLET PO (06:47)
[2022-11-17] MEDS: busPIRone 15 MG TABLET PO ×3 (06:47→20:32)
[2022-11-17] MEDS: KCL 20MEQ in 0.45%NS 20 MEQ/1,000 ML IV.SOLN. 100 MEQ IV (06:48)
[2022-11-17 07:15] LABS: Absolute Lymphocyte Count 2.16 X10^3/uL (0.83-4.51); Absolute Neutrophil Count 3.8 X10^3/uL (2.0-7.7); Basophil# 0.09 X10^3/uL; Basophil% 1.3 % (0-1); Eosinophil# 0.27 X10^3/uL; Hematocrit 37.5 % (37-47); Hemoglobin 11.7 g/dL (12.0-15.0); Lymphocyte # 2.16 X10^3/ul (0.83-4.51); Lymphocyte % 31.9 % (19-41); Mean Corp Hgb Conc 31.2 g/dL (32-36); Mean Corpuscular Volume 96.2 fL (81-99); Mean Platelet Vol. 9.2 fl (6.2-12.0); Monocyte# 0.39 X10^3/uL; Monocyte% 5.8 % (0-10); NRBC Flagged by Analyzer 0 % (0-5); Platelet Count 407 K/mm3 (150-450); RBC Distribution Width CV 13.4 % (11.6-14.6); RBC Distribution Width SD 47.7 fl (35.1-43.9); White Blood Count 6.8 K/mm3 (4.4-11.0)
[2022-11-17 07:42] LABS: Anion Gap 8 (5-15); BUN 8 mg/dL (7-18); BUN/Creat Ratio 10.6 RATIO (10-20); Calcium,Total 9.7 mg/dL (8.5-10.1); Chloride 107 mmol/L (98-107); Creatinine, Serum 0.75 mg/dL (0.55-1.02); EST Glomerular Filtration Rate 80 mL/min (>60); Est Glom Filt Rate - Afr Amer 97 mL/min (>60); Estimated Creatinine Clearance 35.45 ml/min; Glucose 105 mg/dL (74-106); Potassium 4.4 mmol/L (3.5-5.1); Sodium Level 142 mmol/L (136-145)
--- NOTE | 2022-11-17 07:45 | PCM.PN.HOSP ---
Reason for Visit Reason for Visit: Diagnoses Sepsis, unspecified organism (11/12/22) Encephalopathy, unspecified (11/12/22) Subjective Subjective Patient seen resting comfortably. Does not have any specific complaints. Awaiting transfer to a half-way facility. Objective Data Objective Data Vital Signs: Vital Signs Temp Pulse Resp BP Pulse Ox O2 Del Method 99.5 F H 69 16 151/56 H 95 Room Air 11/17/22 03:30 11/17/22 06:47 11/17/22 03:30 11/17/22 06:47 11/17/22 07:25 11/17/22 07:25 Oxygen Delivery Method Room Air Weight: 57.153 kg Body Mass Index (BMI) 24.6 Intake & Output: Intake and Output for Last 24 Hours 11/15/22 11/16/22 11/17/22 23:59 23:59 23:59 Intake Total 2096.67 / 2096.67 4258.33 / 4258.33 836.67 / 836.67 Output Total 450 / 450 500 / 500 Balance 1646.67 / 1646.67 3758.33 / 3758.33 836.67 / 836.67 Lab / Micro Data Result Diagrams: 11/17/22 06:20 11/17/22 06:20 Labs: Laboratory Results - last 24 hr 11/17/22 06:20: WBC 6.8, RBC 3.90 L, Hgb 11.7 L, Hct 37.5, MCV 96.2, MCH 30.0, MCHC 31.2 L, RDW Std Deviation 47.7 H, RDW Coeff of Randall 13.4, Plt Count 407, MPV 9.2, Immature Gran % (Auto) 1.000 H, Neut % (Auto) 56.0, Lymph % (Auto) 31.9, [place] % (Auto) 5.8, Eos % (Auto) 4.0, Baso % (Auto) 1.3 H, Absolute Neuts (auto) 3.8, Absolute Lymphs (auto) 2.16, Nucleated RBC % 0 11/17/22 06:20: Sodium 142, Potassium 4.4, Chloride 107, Carbon Dioxide 27.0, Anion Gap 8, BUN 8, Creatinine 0.75, Estim Creat Clear Calc 35.45, Est GFR (MDRD) Af Amer 97, Est GFR (MDRD) Non-Af 80, BUN/Creatinine Ratio 10.6, Glucose 105, Calcium 9.7 Micro: Microbiology 11/12/22 16:58 Blood Culture (Wb) - Right Wrist Blood Culture - Final Streptococcus group A 11/12/22 16:20 Blood Culture (Wb) - Right Forearm Blood Culture - Preliminary No growth in 48 hours. 11/12/22 16:14 Nasal Secretion SARS-CoV-2 & FLU Antigen (Rapid) - Final Rhythm Strip Rhythm Strip: Sinus Rhythm Physical Exam Narrative GENERAL: cooperative HEENT: Atraumatic; normocephalic EYES; Anicteric, Normal Conjunctiva NECK; supple, normal thyroid, RESPIRATORY: Diminished to auscultation CARDIOVASCULAR: Regular S1 S2, GI: soft, normoactive bowel sounds, : No Renal angle tenderness; EXTREMITIES: No edema, no clubbing, MUSCULOSKELETAL: no muscle wasting NEURO: Awake; no lateralizing signs. SKIN: No Rash PSYCH; Flat affect Assessment & Plan Assessment/Plan (1) Acute encephalopathy: (2) Sepsis: PLAN: Plan Patient is a 72-year-old lady resident at [email or web address] brought in with confusion. An assessment of acute encephalopathy secondary to sepsis of undetermined etiology made admitted to regular nursing floor for further management 1. Sepsis ? Of undetermined etiology ? Patient was started on broad-spectrum antibiotic therapy with vancomycin and Zosyn pending culture result 2. Acute infectious encephalopathy ? Secondary to suspected sepsis management as discussed above 3. Hypertension - Blood pressure controlled, home medications continued with dose adjustment as needed 4. Hypothyroidism - Patient is on levothyroxine home dose continued 5. GERD ? Patient is on PPI continue 6. Diabetes mellitus type 2 ? Per history patient managed with diet 7. Schizophrenia ? Discontinue patient psychotropic medications 8. DVT prophylaxis - On enoxaparin Time spent in the patient's overall evaluation,decision-making process, review of diagnostic data, adjustment of management, discussion with other providers, nursing nursing and ancillary staff involved in patient's care documentation, 25 Minutes Charges/Coding Visit Charges Inpatient E&M: 74848 [facility] L1
[2022-11-17] MEDS: Ensure Plus High Protein 120 ML LIQUID PO ×4 (10:42→20:33)
[2022-11-17] MEDS: lamoTRIgine 100 MG Tablet 200 MG PO ×2 (10:44→20:30)
[2022-11-17] MEDS: FLUoxetine 20 MG Capsule PO (10:45)
[2022-11-17] MEDS: amLODIPine 5 MG Tablet PO (10:45)
[2022-11-17] MEDS: Paliperidone 6 MG Tablet PO (10:46)
[2022-11-17] MEDS: Enoxaparin 40 MG/0.4 ML Syringe SC (10:46)
[2022-11-17] MEDS: Aspirin 81 MG TAB.CHEW PO (10:46)
--- NOTE | 2022-11-17 13:42 | CASEMGMT ---
Social Work Updated clinicals sent to [facility] for insurance precert. Plan: [facility], pending precert EMILIO Muñiz
--- NOTE | 2022-11-17 13:42 | PCM.TXEXTCAR ---
Diet Diet Order/Speech Therapy: 11/12/22 18:06 Diet: Regular - General Food consistency:: Regular Liquid Consistency:: Regular/Thin Diet Comments: Patient doesnt like meat so dont send any meat with trays Routine Orders/Code Status Code Status: DNRCC-A Therapies Physical Therapy: Eval and Treat Occupational Therapy: Eval and Treat Problem/Diagnosis (1) Acute encephalopathy: Status: Acute Code(s): G93.40 - Encephalopathy, unspecified (2) Sepsis: Status: Acute Code(s): A41.9 - Sepsis, unspecified organism Allergies/Procedures Done in Hospital Allergies ciprofloxacin Allergy (Verified 11/12/22 15:59) Unknown codeine Allergy (Verified 11/12/22 15:59) Unknown hydroxyzine HCl [From Vistaril] Allergy (Verified 11/12/22 15:59) Unknown hydroxyzine pamoate [From Vistaril] Allergy (Verified 11/12/22 15:59) Unknown niacin Allergy (Verified 11/12/22 15:59) Unknown ofloxacin [From Floxin] Allergy (Verified 11/12/22 15:59) Unknown tetracycline [Tetracycline] Allergy (Verified 11/12/22 15:59) Unknown Tetracyclines Allergy (Verified 11/12/22 15:59) Unknown Type of Care/Length of Stay Estimated LOS: Convalescent Care Less Than 30 days Type of Care Needed: Skilled Rehab Potential: Good Prognosis: Good Additional Orders/Day of Discharge Day of Discharge: 11/18/22 Dietary and Speech Recommendations Dietitian Recommendations/Changes: Continue Regular diet to optimize oral intakes. If blood glucose needs managed better recommend CCD diet. Continue 120mL Ensure Plus High Protein 4x to provide supplemental energy. Discharge Plan Admission Admit Date/Time: 11/12/22 18:17 Attending Provider: Maacrio Jiang Primary Care Provider: Shelley Martell GOLD FRAME ASSEMBLER Consulting Providers: Santos Shipman ; Rufino Noguera Discharge Orders/Prescriptions Prescriptions: New melatonin 3 mg Tablet 3 mg PO QHS PRN PRN (Reason: Insomnia) Qty: 0 0RF Ensure Plus High Protein 0.08 gram-1.5 kcal/mL Liquid 120 ml PO 4X/DAY Qty: 0 0RF Continued levothyroxine 25 MCG tablet 25 mcg PO DAILY omeprazole 20 MG capsule 20 mg PO DAILY pravastatin 80 MG tablet 80 mg PO QHS polyethylene glycol 3350 [Gavilax] 17 GM powder in packet 17 g PO DAILY trazodone 150 MG tablet 150 mg PO QHS buspirone 15 MG tablet 15 mg PO TID paliperidone 6 MG tablet 6 mg PO DAILY cholecalciferol (vitamin D3) 50 MCG tablet 2,000 unit PO DAILY oxybutynin chloride 5 MG tablet 2.5 mg PO BID benztropine 0.5 mg tablet 0.5 mg PO BID lamotrigine 200 mg tablet 200 mg PO BID benzonatate 200 mg capsule 200 mg PO BID dicyclomine 20 mg tablet 20 mg PO TID melatonin 5 mg Tablet 5 mg PO QHS amlodipine 5 MG tablet 5 mg PO DAILY aspirin 81 MG tablet,chewable 81 mg PO DAILY hydralazine 50 MG tablet 50 mg PO TID fluticasone propionate 50 mcg/actuation spray,suspension 1 spray intranasal DAILY PRN (Reason: ALLERGIES) multivitamin Tablet 1 tab PO DAILY fluoxetine 20 mg capsule 20 mg PO DAILY acetaminophen [Tylenol] 325 mg tablet 650 mg PO Q6H PRN (Reason: Pain) Referrals / Follow Up: Shelley Martell GOLD FRAME ASSEMBLER, GOLD FRAME ASSEMBLER-C [Primary Care Provider] - Disposition Disposition (needs filled in before D/C Order can be placed[facility]
[2022-11-17] MEDS: Acetaminophen 325 MG Tablet 650 MG PO (18:41)
[2022-11-17] MEDS: Pravastatin 80 MG Tablet PO (20:31)
[2022-11-17] MEDS: Cefdinir 300 MG Capsule PO (20:31)
[2022-11-17] MEDS: traZODone 100 MG Tablet 150 MG PO (20:32)
[2022-11-17] MEDS: 0.9% Saline Lock 10 ML Syringe IV ×2 (20:41→20:42)
[2022-11-18] VITALS (7 sets, daily range): BP systolic 97–130; BP diastolic 55–80; PULSE 64–85; RESP 16–20; TEMP 36.6–37.5; O2SAT 96–98
[2022-11-18] MEDS: busPIRone 15 MG TABLET PO ×3 (06:48→22:36)
[2022-11-18] MEDS: Levothyroxine 25 MCG TABLET PO (06:48)
[2022-11-18] MEDS: hydrALAZINE 50 MG Tablet PO ×2 (06:48→22:36)
--- NOTE | 2022-11-18 07:39 | PN.HOSP_ITS ---
Reason for Visit Reason for Visit: Diagnoses Sepsis, unspecified organism (11/12/22) Encephalopathy, unspecified (11/12/22) Subjective Subjective Patient seen resting comfortably. Per nursing staff had a relatively uneventful night. [facility] still pending Objective Data Objective Data Vital Signs: Vital Signs Temp Pulse Resp BP Pulse Ox O2 Del Method 99.0 F 64 20 H 119/55 L 98 Room Air 11/18/22 04:16 11/18/22 06:48 11/18/22 04:16 11/18/22 06:48 11/18/22 04:16 11/18/22 04:16 Oxygen Delivery Method Room Air Weight: 57.153 kg Body Mass Index (BMI) 24.6 Intake & Output: Intake and Output for Last 24 Hours 11/16/22 11/17/22 11/18/22 23:59 23:59 23:59 Intake Total 4258.33 / 4258.33 2268.34 / 2518.34 250 / 250 Output Total 500 / 500 1050 / 1050 Balance 3758.33 / 3758.33 2268.34 / 1468.34 -800 / -800 Lab / Micro Data Result Diagrams: 11/17/22 06:20 11/17/22 06:20 Labs: Laboratory Results - last 24 hr 11/17/22 06:20: Sodium 142, Potassium 4.4, Chloride 107, Carbon Dioxide 27.0, Anion Gap 8, BUN 8, Creatinine 0.75, Estim Creat Clear Calc 35.45, Est GFR (MDRD) Af Amer 97, Est GFR (MDRD) Non-Af 80, BUN/Creatinine Ratio 10.6, Glucose 105, Calcium 9.7 Micro: Microbiology 11/12/22 16:20 Blood Culture (Wb) - Right Forearm Blood Culture - Final No growth in 5 days. 11/12/22 16:58 Blood Culture (Wb) - Right Wrist Blood Culture - Final Streptococcus group A 11/12/22 16:14 Nasal Secretion SARS-CoV-2 & FLU Antigen (Rapid) - Final Rhythm Strip Rhythm Strip: Sinus Rhythm Physical Exam Narrative GENERAL: cooperative HEENT: Atraumatic; normocephalic EYES; Anicteric, Normal Conjunctiva NECK; supple, normal thyroid, RESPIRATORY: Diminished to auscultation CARDIOVASCULAR:? Regular S1 S2, GI:? soft, normoactive bowel sounds, : No Renal angle tenderness; EXTREMITIES:? No edema, no clubbing, MUSCULOSKELETAL:? no muscle wasting NEURO:? Awake;? no lateralizing signs. SKIN:? No Rash PSYCH; Flat? affect Assessment & Plan Assessment/Plan (1) Acute encephalopathy: (2) Sepsis: PLAN: Plan Patient is a 72-year-old lady resident at [facility] brought in with confusion.? An assessment of acute encephalopathy secondary to sepsis of und etermined etiology made admitted to regular nursing floor for further management 1.? Sepsis ? Of undetermined etiology ? Patient was started on broad-spectrum antibiotic therapy with vancomycin and Z osyn pending culture result 2.? Acute infectious encephalopathy ? Secondary to suspected sepsis management as discussed above 3.? Hypertension - Blood pressure controlled, home medications continued with dose adjustment as needed 4.? Hypothyroidism - Patient is on levothyroxine home dose continued 5.? GERD ? Patient is on PPI continue 6.? Diabetes mellitus type 2 ? Per history patient managed with diet 7.? Schizophrenia ? Discontinue patient psychotropic medications 8.? DVT prophylaxis - On enoxaparin Time spent in the patient's overall evaluation,decision-making process, review of diagnostic data, adjustment of management, discussion with other providers, nursing nursing and ancillary staff involved in patient's care documentation,? 25 Minutes Charges/Coding Visit Charges Inpatient E&M: [id number] [facility] L1
[2022-11-18] MEDS: Ensure Plus High Protein 120 ML LIQUID PO ×4 (10:26→22:37)
[2022-11-18] MEDS: Enoxaparin 40 MG/0.4 ML Syringe SC (10:27)
[2022-11-18] MEDS: Cefdinir 300 MG Capsule PO ×2 (10:27→22:35)
[2022-11-18] MEDS: Polyethylene Glycol 3350 17 GM PACKET PO (10:27)
[2022-11-18] MEDS: amLODIPine 5 MG Tablet PO (10:27)
[2022-11-18] MEDS: FLUoxetine 20 MG Capsule PO (10:27)
[2022-11-18] MEDS: Aspirin 81 MG TAB.CHEW PO (10:27)
[2022-11-18] MEDS: lamoTRIgine 100 MG Tablet 200 MG PO ×2 (10:27→22:36)
[2022-11-18] MEDS: Paliperidone 6 MG Tablet PO (10:28)
--- NOTE | 2022-11-18 10:34 | DS.PCM_ITS ---
Providers Date of Admission: 11/12/22 Date of Discharge: 11/18/22 Primary Care Physician: Shelley Martell, TRAINING REPRESENTATIVEHumbleC Reason For Visit: SEPSIS Diagnosis Discharge Diagnosis (1) Acute encephalopathy: Status: Acute Code(s): G93.40 - Encephalopathy, unspecified (2) Sepsis: Status: Acute Code(s): A41.9 - Sepsis, unspecified organism Plan Patient is a 72-year-old lady resident at [facility] brought in with confusion.? An assessment of acute encephalopathy secondary to sepsis of undetermined etiology made admitted to regular nursing floor for further management 1.? Sepsis ? Of undetermined etiology ? Patient was started on broad-spectrum antibiotic therapy with vancomycin and Zosyn pending culture result 2.? Acute infectious encephalopathy ? Secondary to suspected sepsis management as discussed above 3.? Hypertension - Blood pressure controlled, home medications continued with dose adjustment as needed 4.? Hypothyroidism - Patient is on levothyroxine home dose continued 5.? GERD ? Patient is on PPI continue 6.? Diabetes mellitus type 2 ? Per history patient managed with diet 7.? Schizophrenia ? Discontinue patient psychotropic medications 8.? DVT prophylaxis - On enoxaparin Medications at Discharge Home Medications levothyroxine 25 mcg tablet 25 mcg PO DAILY THYROID 06/26/13 omeprazole 20 mg capsule,delayed release 20 mg PO DAILY GERD 06/26/13 pravastatin 80 mg tablet 80 mg PO QHS CHOLESTEROL 03/13/17 polyethylene glycol 3350 17 gram oral powder packet (Gavilax) 17 g PO DAILY CONSTIPATION 05/11/18 buspirone 15 mg tablet 15 mg PO TID ANXIETY 07/27/20 cholecalciferol (vitamin D3) 50 mcg (2,000 unit) tablet 2,000 unit PO DAILY SUPPLEMENT 07/27/20 paliperidone 6 mg tablet,extended release 24 hr 6 mg PO DAILY MENTAL HEALTH 07/27/20 trazodone 150 mg tablet 150 mg PO QHS SLEEP 07/27/20 oxybutynin chloride 5 mg tablet 2.5 mg PO BID BLADDER 10/22/20 amlodipine 5 mg tablet 5 mg PO DAILY BLOOD PRESSURE 09/26/22 aspirin 81 mg chewable tablet 81 mg PO DAILY HEART HEALTH 09/26/22 benzonatate 200 mg capsule 200 mg PO BID COUGH 09/26/22 benztropine 0.5 mg tablet 0.5 mg PO BID MUSCLE SPASMS 09/26/22 dicyclomine 20 mg tablet 20 mg PO TID IRRITABLE BOWELS 09/26/22 hydralazine 50 mg tablet 50 mg PO TID BLOOD PRESSURE 09/26/22 lamotrigine 200 mg tablet 200 mg PO BID DEPRESSION 09/26/22 melatonin 5 mg tablet 5 mg PO QHS SLEEP 09/26/22 fluticasone propionate 50 mcg/actuation nasal spray,suspension 1 spray intranasal DAILY PRN ALLERGIES 10/19/22 acetaminophen 325 mg tablet (Tylenol) 650 mg PO Q6H PRN Pain 11/12/22 fluoxetine 20 mg capsule 20 mg PO DAILY ANXIETY 11/12/22 multivitamin 1 tab PO DAILY HEALTH MAINTENANCE 11/12/22 food supplemt, lactose-reduced 0.08 gram-1.5 kcal/mL oral liquid (Ensure Plus High Protein) 120 ml PO 4X/DAY #0 mL 11/17/22 melatonin 3 mg tablet 3 mg PO QHS PRN PRN Insomnia #0 tabs 11/17/22 Hospital Course Summary of Care Provided Minutes Spent on Discharge: 35 Physical Exam Narrative GENERAL: cooperative HEENT: Atraumatic; normocephalic EYES; Anicteric, Normal Conjunctiva NECK; supple, normal thyroid, RESPIRATORY: Diminished to auscultation CARDIOVASCULAR:? Regular S1 S2, GI:? soft, normoactive bowel sounds, : No Renal angle tenderness; EXTREMITIES:? No edema, no clubbing, MUSCULOSKELETAL:? no muscle wasting NEURO:? Awake;? no lateralizing signs. SKIN:? No Rash PSYCH; Flat? affect Weight / BMI Weight Weight: 57.153 kg Body Mass Index (BMI) 24.6 ABG / Lab / Microbiology Data Result Diagrams: 11/17/22 06:20 11/17/22 06:20 Microbiology: Microbiology 11/12/22 16:20 Blood Culture (Wb) - Right Forearm Blood Culture - Final No growth in 5 days. 11/12/22 16:58 Blood Culture (Wb) - Right Wrist Blood Culture - Final Streptococcus group A 11/12/22 16:14 Nasal Secretion SARS-CoV-2 & FLU Antigen (Rapid) - Final D/C Instructions Discharge Diet: No restrictions Discharge Activity: Return to Normal Activity Call your doctor if you observe: Fever of 101 or Higher, Shortness of breath, Fainting spells and Chest pain Meaningful Use Info Meaningful Use Diagnoses (Choose all that apply): None applicable Discharge Plan Admission Admit Date/Time: 11/12/22 18:17 Attending Provider: Macario Jiang Primary Care Provider: Shelley Martell TRAINING REPRESENTATIVE Consulting Providers: Santos Shipman ; Rufino Noguera Discharge Orders/Prescriptions Prescriptions: New melatonin 3 mg Tablet 3 mg PO QHS PRN PRN (Reason: Insomnia) Qty: 0 0RF Ensure Plus High Protein 0.08 gram-1.5 kcal/mL Liquid 120 ml PO 4X/DAY Qty: 0 0RF Continued levothyroxine 25 MCG tablet 25 mcg PO DAILY omeprazole 20 MG capsule 20 mg PO DAILY pravastatin 80 MG tablet 80 mg PO QHS polyethylene glycol 3350 [Gavilax] 17 GM powder in packet 17 g PO DAILY trazodone 150 MG tablet 150 mg PO QHS buspirone 15 MG tablet 15 mg PO TID paliperidone 6 MG tablet 6 mg PO DAILY cholecalciferol (vitamin D3) 50 MCG tablet 2,000 unit PO DAILY oxybutynin chloride 5 MG tablet 2.5 mg PO BID benztropine 0.5 mg tablet 0.5 mg PO BID lamotrigine 200 mg tablet 200 mg PO BID benzonatate 200 mg capsule 200 mg PO BID dicyclomine 20 mg tablet 20 mg PO TID melatonin 5 mg Tablet 5 mg PO QHS amlodipine 5 MG tablet 5 mg PO DAILY aspirin 81 MG tablet,chewable 81 mg PO DAILY hydralazine 50 MG tablet 50 mg PO TID fluticasone propionate 50 mcg/actuation spray,suspension 1 spray intranasal DAILY PRN (Reason: ALLERGIES) multivitamin Tablet 1 tab PO DAILY fluoxetine 20 mg capsule 20 mg PO DAILY acetaminophen [Tylenol] 325 mg tablet 650 mg PO Q6H PRN (Reason: Pain) Referrals / Follow Up: Shelley Martell TRAINING REPRESENTATIVE, TRAINING REPRESENTATIVE-C [Primary Care Provider] - Disposition Disposition (needs filled in before D/C Order can be placed): [facility] Charges/Coding Visit Charges Inpatient E&M: 73900 Disch Hosp >30min
[2022-11-18] MEDS: 0.9% Saline Lock 10 ML Syringe IV ×2 (15:28→22:51)
--- NOTE | 2022-11-18 18:14 | CASEMGMT ---
Social Work SW spoke with Zelda Butler and Josselyn at [facility] and precert is still pending. Phone call to pt dgt Mary Jo and updated. Plan: Zelda Butler, pending precert. EMILIO Muñiz
[2022-11-18] MEDS: traZODone 100 MG Tablet 150 MG PO (22:36)
[2022-11-18] MEDS: Pravastatin 80 MG Tablet PO (22:36)
[2022-11-19] VITALS (7 sets, daily range): BP systolic 113–136; BP diastolic 54–67; PULSE 62–87; RESP 18; TEMP 36.4–37; O2SAT 94–97
[2022-11-19] MEDS: hydrALAZINE 50 MG Tablet PO ×3 (06:29→22:49)
[2022-11-19] MEDS: busPIRone 15 MG TABLET PO ×3 (06:29→22:49)
[2022-11-19] MEDS: Levothyroxine 25 MCG TABLET PO (06:29)
[2022-11-19] MEDS: Cefdinir 300 MG Capsule PO ×2 (09:58→22:49)
[2022-11-19] MEDS: FLUoxetine 20 MG Capsule PO (09:58)
[2022-11-19] MEDS: Ensure Plus High Protein 120 ML LIQUID PO ×4 (09:59→22:56)
[2022-11-19] MEDS: amLODIPine 5 MG Tablet PO (09:59)
[2022-11-19] MEDS: Enoxaparin 40 MG/0.4 ML Syringe SC (09:59)
[2022-11-19] MEDS: lamoTRIgine 100 MG Tablet 200 MG PO ×2 (09:59→22:49)
[2022-11-19] MEDS: Paliperidone 6 MG Tablet PO (09:59)
[2022-11-19] MEDS: Polyethylene Glycol 3350 17 GM PACKET PO (09:59)
[2022-11-19] MEDS: Aspirin 81 MG TAB.CHEW PO (09:59)
--- NOTE | 2022-11-19 13:56 | PN.HOSP_ITS ---
Reason for Visit Reason for Visit: Diagnoses Sepsis, unspecified organism (11/12/22) Encephalopathy, unspecified (11/12/22) Subjective Subjective Patient was seen and examined today, she is alert and does not appear to be in any distress. She exhibits some mild confusion and is a poor informant. Patient's blood culture resulted positive for group A strep. Objective Data Objective Data Vital Signs: Vital Signs Temp Pulse Resp BP Pulse Ox O2 Del Method 98 F 87 18 113/58 L 95 Room Air 11/19/22 09:53 11/19/22 13:48 11/19/22 09:53 11/19/22 09:53 11/19/22 09:53 11/19/22 09:53 Oxygen Delivery Method Room Air Weight: 57.153 kg Body Mass Index (BMI) 24.6 Intake & Output: Intake and Output for Last 24 Hours 11/17/22 11/18/22 11/19/22 23:59 23:59 23:59 Intake Total 2268.34 / 2518.34 610 / 610 Output Total 1050 / 1050 150 / 150 Balance 2268.34 / 1468.34 -440 / -440 -150 / -150 Medical Nutrition Assessment Dietitian: Malnutrition Criteria Met Start: 11/18/22 14:22 Freq: Status: Active Protocol: Document 11/18/22 14:22 TRUE (Rec: 11/18/22 14:22 TRUE [id number]) Nutrition Malnutrition Evidence of Malnutrition Exists Yes Malnutrition (severe): Acute Illness/Injury Evidenced By Suboptimal Energy Intake ( Severe),Weight Loss (Severe) Clinical Problem Acute Disease or Injury Related Malnutrition Etiology related to confusion and inadequate energy intake Signs/Symptoms as evidenced by po intake meeting <50% and 7.6lbs (5.6%) unintended weight loss in 1 month and 17.5lbs (12.1%) in ~ 1.5 months Status Active Problem Unintended Weight Loss Status Inactive Problem Recommendation Dietitian Recommendations/Changes Continue Regular diet to optimize oral intakes. If blood glucose needs managed better recommend CHO Controlled diet. Continue 120mL Ensure Plus High Protein 4x to provide supplemental energy. Consider appetite stimulant to help encourage po intake Lab / Micro Data Result Diagrams: 11/17/22 06:20 11/17/22 06:20 Micro: Microbiology 11/12/22 16:20 Blood Culture (Wb) - Right Forearm Blood Culture - Final No growth in 5 days. 11/12/22 16:58 Blood Culture (Wb) - Right Wrist Blood Culture - Final Streptococcus group A 11/12/22 16:14 Nasal Secretion SARS-CoV-2 & FLU Antigen (Rapid) - Final Rhythm Strip Rhythm Strip: Sinus Rhythm Physical Exam Const alert and no apparent distress Constitutional Narrative: Patient appears older than her stated age, she exhibits mild confusion HEENT head/scalp atraumatic and moist oral mucous membranes Eyes PERRL, EOMs intact bilaterally and conjunctivae normal Neck supple and no JVD Resp normal respiratory effort, no retractions, no use of accessory muscles and clear to auscultation bilaterally Cardio regular rate, regular rhythm, S1 normal heart sound and S2 normal heart sound GI normal to inspection, nondistended, normoactive bowel sounds, soft to palpation and non-tender Neuro Neuro Narrative: Patient is alert and exhibits mild confusion, she answers simple questions appropriately Sensorium / Orientation: oriented to person and oriented to place Psych Psych Narrative: Patient exhibits mild confusion Assessment & Plan Assessment/Plan (1) Sepsis: PLAN: Plan 1. Sepsis secondary to group A strep bacteremia-etiology unclear at this time, possibly due to urinary tract infection-patient is currently on Omnicef, I will continue his medications at this time #2 acute encephalopathy secondary to #1-complicates care, medical course, dashawn very, and prognosis, patient currently resides at [facility] [place] but family requests that she go to a facility closer to where her family lives, we are awaiting pre-CERT for [place], [place]. #3 hypothyroidism-patient is on Synthroid #4 chronic depression/anxiety-patient is on Prozac and BuSpar currently #5 essential hypertension-patient is on amlodipine #6 schizophrenia-patient is on paliperidone #7 hyperlipidemia-patient is on pravastatin #8 GERD-patient is on a PPI Total clinical time spent by myself addressing the patient's medical issues, reviewing all of her data, and collaborating with patient's care team: 35 minutes Charges/Coding Visit Charges Inpatient E&M: 43827 Subs Hosp L2
[2022-11-19] MEDS: 0.9% Saline Lock 10 ML Syringe IV (22:48)
[2022-11-19] MEDS: Pravastatin 80 MG Tablet PO (22:49)
[2022-11-19] MEDS: traZODone 100 MG Tablet 150 MG PO (22:49)
[2022-11-20] VITALS (7 sets, daily range): BP systolic 100–158; BP diastolic 62–64; PULSE 66–77; RESP 18; TEMP 36.7–37.1; O2SAT 94–97
[2022-11-20] MEDS: hydrALAZINE 50 MG Tablet PO ×3 (05:15→21:17)
[2022-11-20] MEDS: busPIRone 15 MG TABLET PO ×3 (05:15→21:17)
[2022-11-20] MEDS: Levothyroxine 25 MCG TABLET PO (05:15)
[2022-11-20] MEDS: FLUoxetine 20 MG Capsule PO (08:06)
[2022-11-20] MEDS: Paliperidone 6 MG Tablet PO (08:06)
[2022-11-20] MEDS: Polyethylene Glycol 3350 17 GM PACKET PO (08:06)
[2022-11-20] MEDS: amLODIPine 5 MG Tablet PO (08:06)
[2022-11-20] MEDS: lamoTRIgine 100 MG Tablet 200 MG PO ×2 (08:06→21:17)
[2022-11-20] MEDS: Enoxaparin 40 MG/0.4 ML Syringe SC (08:06)
[2022-11-20] MEDS: Cefdinir 300 MG Capsule PO ×2 (08:06→21:17)
[2022-11-20] MEDS: Aspirin 81 MG TAB.CHEW PO (08:07)
[2022-11-20] MEDS: Ensure Plus High Protein 120 ML LIQUID PO ×4 (08:08→21:22)
--- NOTE | 2022-11-20 11:08 | PN.HOSP_ITS ---
Reason for Visit Reason for Visit: Diagnoses Sepsis, unspecified organism (11/12/22) Encephalopathy, unspecified (11/12/22) Subjective Subjective Patient was seen and examined today, she is alert and follows some commands, mucous membranes appear dry. Patient is afebrile and on room air at this time. I talked with physical therapy, physical therapy continues to recommend short- term jail placement for inpatient rehab services due to unsteadiness on walking and generalized weakness. Objective Data Objective Data Vital Signs: Vital Signs Temp Pulse Resp BP Pulse Ox O2 Del Method 98.4 F 66 18 136/63 H 96 Room Air 11/20/22 10:19 11/20/22 10:19 11/20/22 10:19 11/20/22 10:19 11/20/22 10:19 11/20/22 10:19 Oxygen Delivery Method Room Air Weight: 57.153 kg Body Mass Index (BMI) 24.6 Intake & Output: Intake and Output for Last 24 Hours 11/18/22 11/19/22 11/20/22 23:59 23:59 23:59 Intake Total 610 / 610 250 / 250 200 / 200 Output Total 1050 / 1050 150 / 150 Balance -440 / -440 100 / 100 200 / 200 Medical Nutrition Assessment Dietitian: Malnutrition Criteria Met Start: 11/18/22 14:22 Freq: Status: Active Protocol: Document 11/18/22 14:22 TRUE (Rec: 11/18/22 14:22 TRUE [id number]) Nutrition Malnutrition Evidence of Malnutrition Exists Yes Malnutrition (severe): Acute Illness/Injury Evidenced By Suboptimal Energy Intake ( Severe),Weight Loss (Severe) Clinical Problem Acute Disease or Injury Related Malnutrition Etiology related to confusion and inadequate energy intake Signs/Symptoms as evidenced by po intake meeting <50% and 7.6lbs (5.6%) unintended weight loss in 1 month and 17.5lbs (12.1%) in ~ 1.5 months Status Active Problem Unintended Weight Loss Status Inactive Problem Recommendation Dietitian Recommendations/Changes Continue Regular diet to optimize oral intakes. If blood glucose needs managed better recommend CHO Controlled diet. Continue 120mL Ensure Plus High Protein 4x to provide supplemental energy. Consider appetite stimulant to help encourage po intake Lab / Micro Data Result Diagrams: 11/17/22 06:20 11/17/22 06:20 Micro: Microbiology 11/12/22 16:20 Blood Culture (Wb) - Right Forearm Blood Culture - Final No growth in 5 days. 11/12/22 16:58 Blood Culture (Wb) - Right Wrist Blood Culture - Final Streptococcus group A 11/12/22 16:14 Nasal Secretion SARS-CoV-2 & FLU Antigen (Rapid) - Final Rhythm Strip Rhythm Strip: Sinus Rhythm Physical Exam Narrative alert and no apparent distress Constitutional Narrative: Patient appears older than her stated age, she exhibits mild confusion HEENT head/scalp atraumatic and moist oral mucous membranes Eyes PERRL, EOMs intact bilaterally and conjunctivae normal Neck supple and no JVD Resp normal respiratory effort, no retractions, no use of accessory muscles and clear to auscultation bilaterally Cardio regular rate, regular rhythm, S1 normal heart sound and S2 normal heart sound GI normal to inspection, nondistended, normoactive bowel sounds, soft to palpation and non-tender Neuro Neuro Narrative: Patient is alert and exhibits mild confusion, she answers simple questions appropriately Sensorium / Orientation: oriented to person and oriented to place Psych Psych Narrative: Patient exhibits mild confusion, she does follow simple commands Assessment & Plan Assessment/Plan (1) Acute encephalopathy: (2) Sepsis: PLAN: Plan 1. Sepsis secondary to group A strep bacteremia-etiology unclear at this time, possibly due to urinary tract infection-patient is currently on Omnicef, I will continue this medication at this time #2 acute encephalopathy secondary to #1-complicates care, medical course, recovery, and prognosis, patient currently resides at [facility] but family requests that she go to a facility closer to where her family lives, we a re awaiting pre-CERT for [place], [place]. #3 hypothyroidism-patient is on Synthroid #4 chronic depression/anxiety-patient is on Prozac and BuSpar currently #5 essential hypertension-patient is on amlodipine #6 schizophrenia-patient is on paliperidone #7 hyperlipidemia-patient is on pravastatin #8 GERD-patient is on a PPI Total clinical time spent by myself addressing the patient's medical issues, reviewing all of her data, and collaborating with patient's care team: 38 minutes Charges/Coding Visit Charges Inpatient E&M: 38893 Subs Hosp L2
[2022-11-20] MEDS: traZODone 100 MG Tablet 150 MG PO (21:17)
[2022-11-20] MEDS: Pravastatin 80 MG Tablet PO (21:17)
[2022-11-20] MEDS: 0.9% Saline Lock 10 ML Syringe IV (21:22)
[2022-11-21] VITALS (9 sets, daily range): BP systolic 94–140; BP diastolic 39–65; PULSE 64–77; RESP 16–18; TEMP 36.6–37.2; O2SAT 94–95
[2022-11-21] MEDS: busPIRone 15 MG TABLET PO ×3 (05:48→22:44)
[2022-11-21] MEDS: hydrALAZINE 50 MG Tablet PO ×2 (05:48→13:49)
[2022-11-21] MEDS: Levothyroxine 25 MCG TABLET PO (06:27)
[2022-11-21] MEDS: Aspirin 81 MG TAB.CHEW PO (08:29)
[2022-11-21] MEDS: Paliperidone 6 MG Tablet PO (10:43)
[2022-11-21] MEDS: Ensure Plus High Protein 120 ML LIQUID PO ×3 (10:43→17:17)
[2022-11-21] MEDS: lamoTRIgine 100 MG Tablet 200 MG PO ×2 (10:43→22:44)
[2022-11-21] MEDS: Cefdinir 300 MG Capsule PO ×2 (10:44→22:44)
[2022-11-21] MEDS: Polyethylene Glycol 3350 17 GM PACKET PO (10:44)
[2022-11-21] MEDS: FLUoxetine 20 MG Capsule PO (10:44)
[2022-11-21] MEDS: Enoxaparin 40 MG/0.4 ML Syringe SC (10:44)
[2022-11-21] MEDS: amLODIPine 5 MG Tablet PO (10:44)
--- NOTE | 2022-11-21 14:09 | CASEMGMT ---
Addendum entered by Leigha Carrizales 11/21/22 14:44: Mary Jo, pt daughter, called back to ask this SW to speak to family friend, Sharifa Wright, and explain the information about pt being denied. Mary Jo shared phone number for Sharifa with this SW. ([phone]) MARY called Sharifa and explained process of how pt can go to SNF from the hospital. MARY explained that pt had been denied and Sharifa voiced frustration and home hostility at this SW for the determination. SW continued to explain that the pt's insurance has declined to pay for skilled level of care at a nursing facility. Sharifa mentioned several times that pt has trouble eating and that pt needs evaluated by speech and this should also be covered for SNF stay. MARY explained this will be mentioned to pt doctor however as far as this SW can tell pt has not indicated a need for swallow test while being at [facility] thus far and that pt would not be covered for SNF for skilled stay for speech unless a PEG Tube or other form of feeding tube was part of pt health care plan. Sharifa then asked SW about pt mentation and orientation. MARY explained insurance will also not pay for the pt to go to SNF based on these things. MARY suggested family reach out to [facility] insurance to appeal the decision if they feel it should be overturned. Sharifa took the phone number for [facility] member services and MARY also suggested to reach out to [facility], who may have more information on how to begin an appeal for the case since they were the ones in communication with the insurance company during this process. By the end of the phone call Sharifa apologized for hostile communication and thanked MARY for assistance in following up with [facility]. MARY also spoke to MD Putnam regarding family's concern for speech issues. MD Putnam approved a speech eval. Speech therapist Regla was standing by during this discussion and confirmed will evaluation pt tomorrow. PLAN: Speech therapy evaluation tomorrow, wait for pt family to appeal precert denial. EMILIO Conroy Addendum entered by Leigha Carrizales 11/21/22 14:16: MARY called pt daughter and Mary Jo OCHOA. to give update of pt being declined for skilled therapy at [facility]. SW explained the options moving forward as private paying for SNF rehab or pt going home with home health. SW reviewed Pt notes from today and the recommendation was that pt could go home with help. Mary Jo asked if it would be okay to call back to discuss later. SW will await call back from Mary Jo. Original Note: Social Work SW was updated via [facility] that pt has been declined precert for SNF. MARY reached out to [facility] to inquire of the facility would be interested in accepting pt for intermediate level of care and attempting to obtain LTC coverage for [facility]. Will await response. EMILIO Conroy
--- NOTE | 2022-11-21 15:44 | PN.HOSP_ITS ---
Reason for Visit Reason for Visit: Diagnoses Sepsis, unspecified organism (11/12/22) Encephalopathy, unspecified (11/12/22) Subjective Subjective Patient was seen and examined today, she is alert and is in no distress. We received a denial from her insurance company for intermediate coverage, family was notified and said that they would personally request a reevaluation, her family also requested that speech therapy see the patient due to some swallowing difficulties she has had intermittently, I have written for speech to see and evaluate the patient. Objective Data Objective Data Vital Signs: Vital Signs Temp Pulse Resp BP Pulse Ox O2 Del Method 98.9 F 77 16 130/61 H 95 Room Air 11/21/22 13:42 11/21/22 13:49 11/21/22 13:42 11/21/22 13:42 11/21/22 13:42 11/21/22 13:42 Oxygen Delivery Method Room Air Weight: 57.153 kg Body Mass Index (BMI) 24.6 Intake & Output: Intake and Output for Last 24 Hours 11/19/22 11/20/22 11/21/22 23:59 23:59 23:59 Intake Total 250 / 250 500 / 500 Output Total 150 / 150 Balance 100 / 100 500 / 500 Medical Nutrition Assessment Dietitian: Malnutrition Criteria Met Start: 11/18/22 14:22 Freq: Status: Active Protocol: Document 11/18/22 14:22 TRUE (Rec: 11/18/22 14:22 TRUE [id number]) Nutrition Malnutrition Evidence of Malnutrition Exists Yes Malnutrition (severe): Acute Illness/Injury Evidenced By Suboptimal Energy Intake ( Severe),Weight Loss (Severe) Clinical Problem Acute Disease or Injury Related Malnutrition Etiology related to confusion and inadequate energy intake Signs/Symptoms as evidenced by po intake meeting <50% and 7.6lbs (5.6%) unintended weight loss in 1 month and 17.5lbs (12.1%) in ~ 1.5 months Status Active Problem Unintended Weight Loss Status Inactive Problem Recommendation Dietitian Recommendations/Changes Continue Regular diet to optimize oral intakes. If blood glucose needs managed better recommend CHO Controlled diet. Continue 120mL Ensure Plus High Protein 4x to provide supplemental energy. Consider appetite stimulant to help encourage po intake Lab / Micro Data Result Diagrams: 11/17/22 06:20 11/17/22 06:20 Micro: Microbiology 11/12/22 16:20 Blood Culture (Wb) - Right Forearm Blood Culture - Final No growth in 5 days. 11/12/22 16:58 Blood Culture (Wb) - Right Wrist Blood Culture - Final Streptococcus group A 11/12/22 16:14 Nasal Secretion SARS-CoV-2 & FLU Antigen (Rapid) - Final Rhythm Strip Rhythm Strip: Sinus Rhythm Physical Exam Narrative alert and no apparent distress Constitutional Narrative: Patient appears older than her stated age, she exhibits mild confusion HEENT head/scalp atraumatic and moist oral mucous membranes Eyes PERRL, EOMs intact bilaterally and conjunctivae normal Neck supple and no JVD Resp normal respiratory effort, no retractions, no use of accessory muscles and clear to auscultation bilaterally Cardio regular rate, regular rhythm, S1 normal heart sound and S2 normal heart sound GI normal to inspection, nondistended, normoactive bowel sounds, soft to palpation and non-tender Neuro Neuro Narrative: Patient is alert and exhibits mild confusion, she answers simple questions appropriately Sensorium / Orientation: oriented to person and oriented to place Psych Psych Narrative: Patient exhibits mild confusion, she does follow simple commands Assessment & Plan Assessment/Plan (1) Debility: (2) Acute encephalopathy: (3) Sepsis: PLAN: Plan 1. Sepsis secondary to group A strep bacteremia-etiology unclear at this time, possibly due to urinary tract infection-patient is currently on Omnicef, I will continue this medication at this time #2 acute encephalopathy secondary to #1-complicates care, medical course, recovery, and prognosis, patient currently resides at [facility] but family requests that she go to a facility closer to where her family lives, patient's insurance coverage declined to cover her intermediate transfer, her family is going to appeal this. #3 hypothyroidism-patient is on Synthroid #4 chronic depression/anxiety-patient is on Prozac and BuSpar currently #5 essential hypertension-patient is on amlodipine #6 schizophrenia-patient is on paliperidone #7 hyperlipidemia-patient is on pravastatin #8 GERD-patient is on a PPI Total clinical time spent by myself addressing the patient's medical issues, reviewing all of her data, and collaborating with patient's care team: 35 minutes Charges/Coding Visit Charges Inpatient E&M: 19341 Subs Hosp L2
[2022-11-21] MEDS: traZODone 100 MG Tablet 150 MG PO (22:44)
[2022-11-21] MEDS: Pravastatin 80 MG Tablet PO (22:44)
[2022-11-22] VITALS (7 sets, daily range): BP systolic 119–138; BP diastolic 54–62; PULSE 60–77; RESP 16–18; TEMP 36.5–36.9; O2SAT 93–95
[2022-11-22] MEDS: hydrALAZINE 50 MG Tablet PO ×3 (05:44→21:55)
[2022-11-22] MEDS: Levothyroxine 25 MCG TABLET PO (05:44)
[2022-11-22] MEDS: busPIRone 15 MG TABLET PO ×3 (05:44→21:54)
[2022-11-22] MEDS: Aspirin 81 MG TAB.CHEW PO (08:09)
--- NOTE | 2022-11-22 09:57 | CASEMGMT ---
Addendum entered by Leigha Carrizales 11/22/22 15:58: Staff Mine Warfare Officer, Daiana was updated on plan for Mary Jo to call with reference number this evening. Instructed Daiana to enter information provided by Mary Jo in the computer in a note to be appropriately documented. Addendum entered by Leigha Carrizales 11/22/22 15:54: Mary Jo called back to report [facility] informed her that the turn around time for an appeal is 72 hours. Mary Jo reported does not have appeal number yet and is still on hold with [facility]. MARY gave Mary Jo MS3 floor number and informed to call this telephone number with the [facility] appeal reference number when it obtained tonight so that it can be provided to the MD on pt case. Mary Jo voiced understanding. Addendum entered by Leigha Carrizales 11/22/22 15:48: DaughterMary Jo, called back at 3 pm today and reported was on the phone with [facility] for appeal. Mary Jo reported having been on the phone, on hold, or back and forth with different [facility] representatives since early this AM trying to begin the process to appeal. Mary Jo stated does not have a reference number or turn around time for appeal at this time but will call with this information as soon as possible. Addendum entered by Leigha Carrizales 11/22/22 13:57: MARY called pt daughter to discuss appeal and attempt to gather confirmation that the appeal was started today. DaughterMary Jo, did not answer. SW left message and explained that [facility] needs a reference number along with a turn around time for the appeal from [facility]. MARY asked that Mary Jo call back with this information by 3-3:30pm today as requested by and Lead Tank Processor. Addendum entered by Leigha Carrizales 11/22/22 11:01: MARY received pc back from Kimberley at . Kimberley informed that the care plan goes through pt's Ball Assembler at [facility]. Kimberley has direct contact with this Ball Assembler, Phyllis, and shared intent with to call Phyllis today and relay this information. Kibmerley stated would call this SW back with any information as it is shared with . Addendum entered by Leigha Carrizales 11/22/22 10:45: MD Putnam reports daughterMary Jo, has concerns that pt will not receive medication management and will for get to come down for meals at [facility]. [facility] Kalani. MARY discussed family concerns with Kalani and Kalani reports pt has always received assistance with medication management and that the facility can add meal reminders for pt. MARY called daughter back to report this information. DaughterMary Jo, stated this is something that needs to be written in pt care plan for the facility. MARY asked who completes the care plan for pt. Mary Jo informed she believes [facility] Kimberley does this. Mary Jo also stated the plan is still to appeal the [facility] denial for skilled rehab at SNF. MARY informed MD Putnam of Mary Jo's plan. MARY called [facility], Kimberley Brown, to discuss the care plan and if it can be updated with the families requests. Left message for Kimberley explaining family request and left a callback number. EMILIO Conroy Original Note: Social Work SW called pt daughterMary Jo, to discuss the discharge plan. Mary Jo informed that family is planning to appeal the denial for SNF coverage by [facility]. Mary Jo requested SW give contact information for [facility]. MARY provided [facility] member services phone number and explained all communication regarding pt case went between [facility] and [facility] so has no other phone number that family can call to appeal. Mary Jo expressed frustration that [facility] MD declined to complete peer to peer call for insurance. MARY validated Mary Jo's frustration and explained that the MD felt there was nothing more that can be explained via phone that was not already in the therapy notes. Mary Jo also requested to speak to pt MD. MARY informed daughter that MD Putnam would be informed of her requested to speak regarding the case. SW updated MD Putnam and provided Mary Jo's contact information. PLAN: Family plans to appeal insurance denial for skilled SNF placement EMILIO Conroy
[2022-11-22] MEDS: Ensure Plus High Protein 120 ML LIQUID PO ×4 (10:07→21:55)
[2022-11-22] MEDS: Paliperidone 6 MG Tablet PO (10:08)
[2022-11-22] MEDS: lamoTRIgine 100 MG Tablet 200 MG PO ×2 (10:09→21:56)
[2022-11-22] MEDS: Enoxaparin 40 MG/0.4 ML Syringe SC (10:10)
[2022-11-22] MEDS: Polyethylene Glycol 3350 17 GM PACKET PO (10:10)
[2022-11-22] MEDS: Cefdinir 300 MG Capsule PO ×2 (10:11→21:56)
[2022-11-22] MEDS: amLODIPine 5 MG Tablet PO (10:11)
[2022-11-22] MEDS: FLUoxetine 20 MG Capsule PO (10:12)
--- NOTE | 2022-11-22 17:45 | PN.HOSP_ITS ---
Reason for Visit Reason for Visit: Diagnoses Sepsis, unspecified organism (11/12/22) Encephalopathy, unspecified (11/12/22) Other malaise (11/12/22) Subjective Subjective Patient was seen and examined today, her daughter wants to appeal the insurance company's refusal to let the patient go to a senior care, I talked to the daughter by phone today and I had social welfare administrator confirm with her assisted living facility that they would help the patient if she went back there as far as her meals and taking her medications. However, daughter would still like to appeal the insurance company's refusal to pay for a senior care. I asked social welfare administrator to confirm with the daughter what the details of this appeal would be so that the patient does not have a lengthy stay in the hospital waiting for results of the appeal. Objective Data Objective Data Vital Signs: Vital Signs Temp Pulse Resp BP Pulse Ox O2 Del Method 98.5 F 77 16 136/55 H 93 Room Air 11/22/22 14:14 11/22/22 14:14 11/22/22 14:14 11/22/22 14:14 11/22/22 14:14 11/22/22 14:14 Oxygen Delivery Method Room Air Weight: 57.153 kg Body Mass Index (BMI) 24.6 Intake & Output: Intake and Output for Last 24 Hours 11/20/22 11/21/22 11/22/22 23:59 23:59 23:59 Intake Total 500 / 500 300 / 300 Balance 500 / 500 300 / 300 Medical Nutrition Assessment Dietitian: Malnutrition Criteria Met Start: 11/18/22 14:22 Freq: Status: Active Protocol: Document 11/18/22 14:22 TRUE (Rec: 11/18/22 14:22 TRUE [id number]) Nutrition Malnutrition Evidence of Malnutrition Exists Yes Malnutrition (severe): Acute Illness/Injury Evidenced By Suboptimal Energy Intake ( Severe),Weight Loss (Severe) Clinical Problem Acute Disease or Injury Related Malnutrition Etiology related to confusion and inadequate energy intake Signs/Symptoms as evidenced by po intake meeting <50% and 7.6lbs (5.6%) unintended weight loss in 1 month and 17.5lbs (12.1%) in ~ 1.5 months Status Active Problem Unintended Weight Loss Status Inactive Problem Recommendation Dietitian Recommendations/Changes Continue Regular diet to optimize oral intakes. If blood glucose needs managed better recommend CHO Controlled diet. Continue 120mL Ensure Plus High Protein 4x to provide supplemental energy. Consider appetite stimulant to help encourage po intake Lab / Micro Data Result Diagrams: 11/17/22 06:20 11/17/22 06:20 Micro: Microbiology 11/12/22 16:20 Blood Culture (Wb) - Right Forearm Blood Culture - Final No growth in 5 days. 11/12/22 16:58 Blood Culture (Wb) - Right Wrist Blood Culture - Final Streptococcus group A 11/12/22 16:14 Nasal Secretion SARS-CoV-2 & FLU Antigen (Rapid) - Final Rhythm Strip Rhythm Strip: Sinus Rhythm Physical Exam Narrative alert and no apparent distress Constitutional Narrative: Patient appears older than her stated age, she exhibits mild confusion HEENT head/scalp atraumatic and moist oral mucous membranes Eyes PERRL, EOMs intact bilaterally and conjunctivae normal Neck supple and no JVD Resp normal respiratory effort, no retractions, no use of accessory muscles and clear to auscultation bilaterally Cardio regular rate, regular rhythm, S1 normal heart sound and S2 normal heart sound GI normal to inspection, nondistended, normoactive bowel sounds, soft to palpation and non-tender Neuro Neuro Narrative: Patient is alert and exhibits mild confusion, she answers simple questions appropriately Sensorium / Orientation: oriented to person and oriented to place Psych Psych Narrative: Patient exhibits mild confusion, she does follow simple commands Assessment & Plan Assessment/Plan (1) Sepsis: (2) Debility: (3) Acute encephalopathy: PLAN: Plan 1. Sepsis secondary to group A strep bacteremia-etiology unclear at this time, possibly due to urinary tract infection-patient is currently on Omnicef, I will continue this medication at this time, discharge planning is not confirmed at this time, I suspect the patient will need to go back to assisted living, daughter states she is not able to pay for senior care care for the patient. #2 acute encephalopathy secondary to #1-complicates care, medical course, recovery, and prognosis, patient currently resides at [facility] but family requests that she go to a facility closer to where her family lives, patient's insurance coverage declined to cover her senior care transfer, her family is going to appeal this. #3 hypothyroidism-patient is on Synthroid #4 chronic depression/anxiety-patient is on Prozac and BuSpar currently #5 essential hypertension-patient is on amlodipine #6 schizophrenia-patient is on paliperidone #7 hyperlipidemia-patient is on pravastatin #8 GERD-patient is on a PPI Total clinical time spent by myself addressing the patient's medical issues, reviewing all of her data, and collaborating with patient's care team: 35 minutes Charges/Coding Visit Charges Inpatient E&M: 45542 Subs Hosp L2
[2022-11-22] MEDS: traZODone 100 MG Tablet 150 MG PO (21:55)
[2022-11-22] MEDS: Pravastatin 80 MG Tablet PO (21:56)
[2022-11-23 03:48] VITALS: BP 118/52; PULSE 66; RESP 16; TEMP 36.6; O2SAT 94
[2022-11-23] MEDS: busPIRone 15 MG TABLET PO ×3 (05:04→21:51)
[2022-11-23] MEDS: Levothyroxine 25 MCG TABLET PO (05:04)
[2022-11-23 05:05] VITALS: BP 135/66; PULSE 65
[2022-11-23] MEDS: hydrALAZINE 50 MG Tablet PO ×3 (05:05→21:51)
--- NOTE | 2022-11-23 08:51 | CASEMGMT ---
Social Work SW checked with Industrial Engineering Professor, Daiana, on news of pt daughter calling last evening with an appeal reference number. Daiana reports pt daughter, Mary Jo, did call. Mary Jo informed that after being on the phone with [facility] most of the day yesterday Mary Jo was told that the pt needs to give consent for Mary Jo to appeal the case. Mary Jo informed that she was the POA for pt and told them the papers could be faxed. [facility] stated this is not allowed and the pt still has to give the consent. Mary Jo informed [facility] that Mary Jo feels pt is confused and cannot make decisions for herself. [facility] still did not allow Mary Jo to begin an appeal. SW will follow up with Mary Jo after AM rounds with MD Putnam and work on continued discharge plans. EMILIO Conroy
[2022-11-23] MEDS: Aspirin 81 MG TAB.CHEW PO (08:57)
[2022-11-23] MEDS: lamoTRIgine 100 MG Tablet 200 MG PO ×2 (08:58→21:51)
[2022-11-23] MEDS: Enoxaparin 40 MG/0.4 ML Syringe SC (08:58)
[2022-11-23] MEDS: Paliperidone 6 MG Tablet PO (08:58)
[2022-11-23] MEDS: Ensure Plus High Protein 120 ML LIQUID PO ×4 (08:58→21:52)
[2022-11-23] MEDS: amLODIPine 5 MG Tablet PO (08:59)
[2022-11-23] MEDS: FLUoxetine 20 MG Capsule PO (08:59)
[2022-11-23] MEDS: Cefdinir 300 MG Capsule PO ×2 (08:59→21:52)
[2022-11-23] MEDS: Polyethylene Glycol 3350 17 GM PACKET PO (08:59)
--- NOTE | 2022-11-23 09:04 | CASEMGMT ---
Addendum entered by Leigha Carrizales 11/23/22 09:39: SW updated MD Putnam of pt mentation and that based on responses to discussion with SW this morning it appears pt is mentally competent to make her own choices regarding her discharge plan now. Pt confusion has cleared and pt informed that [facility] is the plan for discharge. MD Putnam voiced understanding and asked SW to inform pt's daughter, Mary Jo, that pt will be returning back to [facility] today. SW called Mary Jo, left a message that pt presented mentally competent this morning and has shared her decision is to discharge back to [facility]. Original Note: Social Work SW in to pt room to assess pt mentation. Pt presented as a&o x3. Patient was able to identify self by name, where pt was located and what time of the day as well as what time of the year it was. Pt identified current President correctly and recognized and named many different objects around the room and their uses correct as well. Pt was not confused this morning. SW discussed discharge plan with pt and asked where pt would like to go upon discharge from the hospital. Pt stated I want to go back to my apartment at [facility]. I like it there and I know a lot of people there. SW asked pt if pt feels safe at [facility] and pt confirmed yes I do . SW asked about the daily routine at [facility] and pt reported in the morning I get my medications then I watch tv and play with my carlene. SW asked pt about meals and pt shared the food there is alright, it could be better tasting but they give us a lot for every meal. SW asked pt once again where pt would like to go when she discharges from the hospital. Pt stated I want to go home, I just told you that. SW explained just wanted to confirm one more time with pt. SW shared intent to discuss with MD Putnam and follow up on discharge plan from there. Pt voiced understanding and asked if she could return home today. SW explained to pt that Haydee Putnam would make this decision and pt would be updated when the MD has decided. Pt understanding. EMILIO Conroy
--- NOTE | 2022-11-23 10:05 | CASEMGMT ---
Addendum entered by Leigha Carrizales 11/23/22 15:30: SW notified Zelda Butler via [employer] that family is appealing [facility] denial for SNF. Zelda Butler confirmed they received message and wants updates as information comes in. Original Note: Social Work MD Putnam came to speak with SW and give update. met with pt and friend of the family in pt room. Family friend was assisting pt with contacting [facility] to begin appeal process for retirement. MD Putnam shared that although pt has confirmed with SW this AM that pt preference would be to go home back to [facility] the pt is diagnosed with Schizophrenia and so with family is adamant that the appeal be placed. MD will allow pt to remain at [facility] until a determination is made on the appeal. MARY then received pc from pt daughter, Mary Jo. Mary Jo shared the appeal has been started and the reference number is [id number]. Mary Jo also informed that the turn around time for the appeal is 72 hours. PLAN: Wait for determination of appeal for skilled rehab SNF placement EMILIO Conroy
--- NOTE | 2022-11-23 11:14 | PCM.PN.HOSP ---
Reason for Visit Reason for Visit: Diagnoses Sepsis, unspecified organism (11/12/22) Encephalopathy, unspecified (11/12/22) Other malaise (11/12/22) Subjective Subjective Patient was seen and examined today, she is able to carry on a conversation, she states she wants to go back to assisted living-patient's daughter still wants her to go into a senior care facility if possible, she is appealing her insurance decision to refuse to pay for senior care care. I told the patient's friend who was in the room who is helping her out to appeal the patient cannot stay through the weekend in the hospital waiting for this appeal to be considered, patient is medically stable at this time and I feel at this time it would be safe for the patient to go back to assisted living with additional help that assisted living states is possible there. Objective Data Objective Data Vital Signs: Vital Signs Temp Pulse Resp BP Pulse Ox O2 Del Method 97.9 F 65 16 135/66 H 94 Room Air 11/23/22 03:48 11/23/22 05:05 11/23/22 03:48 11/23/22 05:05 11/23/22 03:48 11/23/22 03:48 Oxygen Delivery Method Room Air Weight: 57.153 kg Body Mass Index (BMI) 24.6 Intake & Output: Intake and Output for Last 24 Hours 11/21/22 11/22/22 11/23/22 23:59 23:59 23:59 Intake Total 300 / 300 Balance 300 / 300 Medical Nutrition Assessment Dietitian: Malnutrition Criteria Met Start: 11/18/22 14:22 Freq: Status: Active Protocol: Document 11/18/22 14:22 TRUE (Rec: 11/18/22 14:22 TRUE [id number]) Nutrition Malnutrition Evidence of Malnutrition Exists Yes Malnutrition (severe): Acute Illness/Injury Evidenced By Suboptimal Energy Intake ( Severe),Weight Loss (Severe) Clinical Problem Acute Disease or Injury Related Malnutrition Etiology related to confusion and inadequate energy intake Signs/Symptoms as evidenced by po intake meeting <50% and 7.6lbs (5.6%) unintended weight loss in 1 month and 17.5lbs (12.1%) in ~ 1.5 months Status Active Problem Unintended Weight Loss Status Inactive Problem Recommendation Dietitian Recommendations/Changes Continue Regular diet to optimize oral intakes. If blood glucose needs managed better recommend CHO Controlled diet. Continue 120mL Ensure Plus High Protein 4x to provide supplemental energy. Consider appetite stimulant to help encourage po intake Lab / Micro Data Result Diagrams: 11/17/22 06:20 11/17/22 06:20 Micro: Microbiology 11/12/22 16:20 Blood Culture (Wb) - Right Forearm Blood Culture - Final No growth in 5 days. 11/12/22 16:58 Blood Culture (Wb) - Right Wrist Blood Culture - Final Streptococcus group A 11/12/22 16:14 Nasal Secretion SARS-CoV-2 & FLU Antigen (Rapid) - Final Rhythm Strip Rhythm Strip: Sinus Rhythm Physical Exam Narrative alert and no apparent distress Constitutional Narrative: Patient appears older than her stated age, she exhibits mild confusion HEENT head/scalp atraumatic and moist oral mucous membranes Eyes PERRL, EOMs intact bilaterally and conjunctivae normal Neck supple and no JVD Resp normal respiratory effort, no retractions, no use of accessory muscles and clear to auscultation bilaterally Cardio regular rate, regular rhythm, S1 normal heart sound and S2 normal heart sound GI normal to inspection, nondistended, normoactive bowel sounds, soft to palpation and non-tender Neuro Neuro Narrative: Patient is alert and exhibits mild confusion, she answers simple questions appropriately Sensorium / Orientation: oriented to person and oriented to place Psych Psych Narrative: Patient exhibits mild confusion, she does follow commands, she is able to carry on a conversation Assessment & Plan Assessment/Plan (1) Sepsis: (2) Debility: (3) Acute encephalopathy: PLAN: Plan 1. Sepsis secondary to group A strep bacteremia-etiology unclear at this time, possibly due to urinary tract infection-patient is currently on Omnicef, I will continue this medication at this time, discharge planning is not confirmed at this time, I suspect the patient will need to go back to assisted living, daughter states she is not able to pay for halfway care for the patient. Daughter again is appealing the insurance companies decision not to send her to a senior care facility. #2 acute encephalopathy secondary to #1-complicates care, medical course, recovery, and prognosis, patient currently resides at [facility] but family requests that she go to a facility closer to where her family lives, patient's insurance coverage declined to cover her halfway transfer, her family is going to appeal this. #3 hypothyroidism-patient is on Synthroid #4 chronic depression/anxiety-patient is on Prozac and BuSpar currently #5 essential hypertension-patient is on amlodipine #6 schizophrenia-patient is on paliperidone #7 hyperlipidemia-patient is on pravastatin #8 GERD-patient is on a PPI Total clinical time spent by myself addressing the patient's medical issues, reviewing all of her data, and collaborating with patient's care team: 35 minutes Charges/Coding Visit Charges Inpatient E&M: 40671 Subs Hosp L2
[2022-11-23 11:21] VITALS: BP 120/60; PULSE 66; RESP 18; TEMP 36.6; O2SAT 94
--- NOTE | 2022-11-23 14:56 | CASEMGMT ---
Social Work SW received call from Kimberley Brown [facility]. Kimberley requesting update on plan for pt discharge. MARY explained daughter is appealing the case although pt herself has stated she wants to go home to her [place]. Kimberley explained that if pt stays at [facility] and the plan is for LTC there that the pt will lose her [employer] insurance coverage- which is how her AL is paid for. Kimberley shared this was discussed with pt daughter, Mary Jo, but Mary Jo did not appear receptive to this information. Kimberley asked what room pt is in here at [facility] and shared intent to come visit with pt as Kimberley is in the area and wants to speak to pt face to face. MARY shared info with Kimberley. EMILIO Conroy
[2022-11-23 15:24] VITALS: PULSE 78
[2022-11-23 21:51] VITALS: BP 128/94; BP 128/96; PULSE 74; RESP 16; TEMP 36.6; O2SAT 94
[2022-11-23] MEDS: Pravastatin 80 MG Tablet PO (21:51)
[2022-11-23] MEDS: traZODone 100 MG Tablet 150 MG PO (21:52)
[2022-11-24] VITALS (9 sets, daily range): BP systolic 121–133; BP diastolic 54–74; PULSE 71–82; RESP 16–18; TEMP 36.6–37.1; O2SAT 94–96
[2022-11-24] MEDS: Levothyroxine 25 MCG TABLET PO (05:47)
[2022-11-24] MEDS: hydrALAZINE 50 MG Tablet PO ×3 (05:48→20:15)
[2022-11-24] MEDS: busPIRone 15 MG TABLET PO ×3 (05:48→20:14)
[2022-11-24] MEDS: Enoxaparin 40 MG/0.4 ML Syringe SC (07:52)
[2022-11-24] MEDS: Polyethylene Glycol 3350 17 GM PACKET PO (07:53)
[2022-11-24] MEDS: FLUoxetine 20 MG Capsule PO (07:53)
[2022-11-24] MEDS: Paliperidone 6 MG Tablet PO (07:53)
[2022-11-24] MEDS: Cefdinir 300 MG Capsule PO ×2 (07:54→20:14)
[2022-11-24] MEDS: lamoTRIgine 100 MG Tablet 200 MG PO ×2 (07:54→20:15)
[2022-11-24] MEDS: Aspirin 81 MG TAB.CHEW PO (07:54)
[2022-11-24] MEDS: Ensure Plus High Protein 120 ML LIQUID PO ×3 (07:54→20:14)
[2022-11-24] MEDS: amLODIPine 5 MG Tablet PO (07:54)
--- NOTE | 2022-11-24 12:05 | CASEMGMT ---
Addendum entered by Aretha Astudillo 11/24/22 15:17: Social Work SW received call from pt dgt stating appeal has been won. MARY placed call to Delisa at [facility] who confirms appeal has been won and denial overturned. Auth # will have to be obtained by [facility] from [employer]. VM left with Johny at [facility] informing of above and requesting return call to confirm acceptance. Plan: [facility], skilled level of care EMILIO Muñiz Original Note: Social Work SW received message from Delisa at [facility] requesting updated clinical information for appeal determination. Information faxed. [facility], phone [phone] MARY spoke with pt dgt on phone and discussed discharge plan. MARY updated that [facility] requested updated and have been sent. Pt dgt Mary Jo confirms that if appeal is denied, pt will return to Assisted Living at [facility]. Plan: [facility] skilled level of care, pending determination on appeal vs [facility] Assisted Living EMILIO Muñiz
--- NOTE | 2022-11-24 16:56 | PN.HOSP_ITS ---
Reason for Visit Reason for Visit: Diagnoses Sepsis, unspecified organism (11/12/22) Encephalopathy, unspecified (11/12/22) Other malaise (11/12/22) Subjective Subjective Patient was seen and examined today, she is alert and responds appropriately to simple questions, we are awaiting the results of the appeal to her insurance company for coverage in a nursing home facility, if they will not cover it, she will go back to assisted living Objective Data Objective Data Vital Signs: Vital Signs Temp Pulse Resp BP Pulse Ox O2 Del Method 97.9 F 82 18 133/60 H 94 Room Air 11/24/22 14:04 11/24/22 14:45 11/24/22 14:04 11/24/22 14:04 11/24/22 14:04 11/24/22 14:04 Oxygen Delivery Method Room Air Weight: 57.153 kg Body Mass Index (BMI) 24.6 Intake & Output: Intake and Output for Last 24 Hours 11/22/22 11/23/22 11/24/22 23:59 23:59 23:59 Intake Total 300 / 300 350 / 350 Balance 300 / 300 350 / 350 Medical Nutrition Assessment Dietitian: Malnutrition Criteria Met Start: 11/18/22 14:22 Freq: Status: Active Protocol: Document 11/18/22 14:22 TRUE (Rec: 11/18/22 14:22 TRUE [id number]) Nutrition Malnutrition Evidence of Malnutrition Exists Yes Malnutrition (severe): Acute Illness/Injury Evidenced By Suboptimal Energy Intake ( Severe),Weight Loss (Severe) Clinical Problem Acute Disease or Injury Related Malnutrition Etiology related to confusion and inadequate energy intake Signs/Symptoms as evidenced by po intake meeting <50% and 7.6lbs (5.6%) unintended weight loss in 1 month and 17.5lbs (12.1%) in ~ 1.5 months Status Active Problem Unintended Weight Loss Status Inactive Problem Recommendation Dietitian Recommendations/Changes Continue Regular diet to optimize oral intakes. If blood glucose needs managed better recommend CHO Controlled diet. Continue 120mL Ensure Plus High Protein 4x to provide supplemental energy. Consider appetite stimulant to help encourage po intake Lab / Micro Data Result Diagrams: 11/17/22 06:20 11/17/22 06:20 Micro: Microbiology 11/12/22 16:20 Blood Culture (Wb) - Right Forearm Blood Culture - Final No growth in 5 days. 11/12/22 16:58 Blood Culture (Wb) - Right Wrist Blood Culture - Final Streptococcus group A 11/12/22 16:14 Nasal Secretion SARS-CoV-2 & FLU Antigen (Rapid) - Final Rhythm Strip Rhythm Strip: Sinus Rhythm Physical Exam Narrative alert and no apparent distress Constitutional Narrative: Patient appears older than her stated age, she exhibits mild confusion HEENT head/scalp atraumatic and moist oral mucous membranes Eyes PERRL, EOMs intact bilaterally and conjunctivae normal Neck supple and no JVD Resp normal respiratory effort, no retractions, no use of accessory muscles and clear to auscultation bilaterally Cardio regular rate, regular rhythm, S1 normal heart sound and S2 normal heart sound GI normal to inspection, nondistended, normoactive bowel sounds, soft to palpation and non-tender Neuro Neuro Narrative: Patient is alert and exhibits mild confusion, she answers simple questions appropriately Sensorium / Orientation: oriented to person and oriented to place Psych Psych Narrative: Patient exhibits mild confusion, she does follow commands, she is able to carry on a conversation Assessment & Plan Assessment/Plan (1) Acute encephalopathy: (2) Sepsis: (3) Debility: PLAN: Plan 1. Sepsis secondary to group A strep bacteremia-etiology unclear at this time, possibly due to urinary tract infection-patient is currently on Omnicef, I will continue this medication at this time, discharge planning is not confirmed at this time, I suspect the patient will need to go back to assisted living, daughter states she is not able to pay for intermediate care for the patient. Daughter again is appealing the insurance companies decision not to send her to a nursing home facility. #2 acute encephalopathy secondary to #1-complicates care, medical course, recovery, and prognosis, patient currently resides at [facility] but family requests that she go to a facility closer to where her family lives, patient's insurance coverage declined to cover her intermediate transfer, her family is going to appeal this. #3 hypothyroidism-patient is on Synthroid #4 chronic depression/anxiety-patient is on Prozac and BuSpar currently #5 essential hypertension-patient is on amlodipine #6 schizophrenia-patient is on paliperidone #7 hyperlipidemia-patient is on pravastatin #8 GERD-patient is on a PPI Total clinical time spent by myself addressing the patient's medical issues, reviewing all of her data, and collaborating with patient's care team: 35 minutes Charges/Coding Visit Charges Inpatient E&M: 40511 Subs Hosp L2
[2022-11-24] MEDS: Pravastatin 80 MG Tablet PO (20:14)
[2022-11-24] MEDS: traZODone 100 MG Tablet 150 MG PO (20:14)
[2022-11-25 05:50] VITALS: BP 134/56; PULSE 75
[2022-11-25] MEDS: Levothyroxine 25 MCG TABLET PO (05:50)
[2022-11-25] MEDS: busPIRone 15 MG TABLET PO ×2 (05:50→14:10)
[2022-11-25] MEDS: hydrALAZINE 50 MG Tablet PO ×2 (05:50→14:10)
[2022-11-25 06:02] VITALS: RESP 16; TEMP 36.6; O2SAT 94
[2022-11-25] MEDS: FLUoxetine 20 MG Capsule PO (09:32)
[2022-11-25] MEDS: Polyethylene Glycol 3350 17 GM PACKET PO (09:32)
[2022-11-25] MEDS: Cefdinir 300 MG Capsule PO (09:32)
[2022-11-25] MEDS: amLODIPine 5 MG Tablet PO (09:32)
[2022-11-25] MEDS: lamoTRIgine 100 MG Tablet 200 MG PO (09:33)
[2022-11-25] MEDS: Aspirin 81 MG TAB.CHEW PO (09:33)
[2022-11-25] MEDS: Ensure Plus High Protein 120 ML LIQUID PO ×2 (09:33→14:10)
[2022-11-25] MEDS: Enoxaparin 40 MG/0.4 ML Syringe SC (09:33)
--- NOTE | 2022-11-25 10:14 | NURSING ---
Called pharmacy and asked to send pt's dose of paliperidone. Per pharmacy, they do not have the medication. They are trying to get dose of medication and will call if able to do so.
[2022-11-25 14:10] VITALS: PULSE 73
--- NOTE | 2022-11-25 14:11 | TREXTCAR_ITS ---
Diet Diet Order/Speech Therapy: 11/12/22 18:06 Diet: Regular - General Food consistency:: Regular Liquid Consistency:: Regular/Thin Type of Dietary Supplement:: EP or MC w/ L&D Diet Comments: Pt doesnt like meat dont send any meat with trays, extra tomato on sandwi Routine Orders/Code Status Code Status: DNRCC-A (with intubation) Therapies Weight Bearing: Full weight bearing Physical Therapy: Eval and Treat Occupational Therapy: Eval and Treat Problem/Diagnosis (1) Acute encephalopathy: Status: Acute Code(s): G93.40 - Encephalopathy, unspecified (2) Sepsis: Status: Acute Code(s): A41.9 - Sepsis, unspecified organism (3) Debility: Status: Acute Code(s): R53.81 - Other malaise Plan 1. Sepsis secondary to group A strep bacteremia-etiology unclear at this time, possibly due to urinary tract infection-patient is currently on Omnicef, I will continue this medication at this time, discharge planning is not confirmed at this time, I suspect the patient will need to go back to assisted living, daughter states she is not able to pay for [facility] care for the patient. Daughter again is appealing the insurance companies decision not to send her to a correction facility. #2 acute encephalopathy secondary to #1-complicates care, medical course, recovery, and prognosis, patient currently resides at [facility] but family requests that she go to a facility closer to where her family lives, patient's insurance coverage declined to cover her [facility] transfer, her family is going to appeal this. #3 hypothyroidism-patient is on Synthroid #4 chronic depression/anxiety-patient is on Prozac and BuSpar currently #5 essential hypertension-patient is on amlodipine #6 schizophrenia-patient is on paliperidone #7 hyperlipidemia-patient is on pravastatin #8 GERD-patient is on a PPI Total clinical time spent by myself addressing the patient's medical issues, reviewing all of her data, and collaborating with patient's care team: 35 minutes Allergies/Procedures Done in Hospital Allergies ciprofloxacin Allergy (Verified 11/12/22 15:59) Unknown codeine Allergy (Verified 11/12/22 15:59) Unknown hydroxyzine HCl [From Vistaril] Allergy (Verified 11/12/22 15:59) Unknown hydroxyzine pamoate [From Vistaril] Allergy (Verified 11/12/22 15:59) Unknown niacin Allergy (Verified 11/12/22 15:59) Unknown ofloxacin [From Floxin] Allergy (Verified 11/12/22 15:59) Unknown tetracycline [Tetracycline] Allergy (Verified 11/12/22 15:59) Unknown Tetracyclines Allergy (Verified 11/12/22 15:59) Unknown Procedures: None Type of Care/Length of Stay Estimated LOS: Convalescent Care Less Than 30 days Type of Care Needed: Skilled Rehab Potential: Good Prognosis: Good Additional Orders/Day of Discharge H&P will serve as current which was dated: 11/12/22 Day of Discharge: 11/25/22 Dietary and Speech Recommendations Dietitian Recommendations/Changes: Continue Regular diet to optimize oral intakes. If blood glucose needs managed better recommend CHO Controlled diet. Continue 120mL Ensure Plus High Protein 4x to provide supplemental energy. Provide ensure/fortified pudding or magic cup w/ lunch and dinner for increased nutrition if consumed. Consider appetite stimulant to help encourage po intake Discharge Plan Admission Admit Date/Time: 11/12/22 18:17 Primary Reason for Your Visit: sepsis Attending Provider: Demond Putnam Primary Care Provider: Shelley Martell [employer] [employer] Consulting Providers: Santos Shipman ; Rufino Noguera ; Macario Jiang Discharge Orders/Prescriptions Prescriptions: New Ensure Plus High Protein 0.08 gram-1.5 kcal/mL Liquid 120 ml PO 4X/DAY Qty: 0 0RF Continued levothyroxine 25 MCG tablet 25 mcg PO DAILY omeprazole 20 MG capsule 20 mg PO DAILY pravastatin 80 MG tablet 80 mg PO QHS polyethylene glycol 3350 [Gavilax] 17 GM powder in packet 17 g PO DAILY trazodone 150 MG tablet 150 mg PO QHS buspirone 15 MG tablet 15 mg PO TID paliperidone 6 MG tablet 6 mg PO DAILY cholecalciferol (vitamin D3) 50 MCG tablet 2,000 unit PO DAILY oxybutynin chloride 5 MG tablet 2.5 mg PO BID benztropine 0.5 mg tablet 0.5 mg PO BID lamotrigine 200 mg tablet 200 mg PO BID benzonatate 200 mg capsule 200 mg PO BID dicyclomine 20 mg tablet 20 mg PO TID melatonin 5 mg Tablet 5 mg PO QHS amlodipine 5 MG tablet 5 mg PO DAILY aspirin 81 MG tablet,chewable 81 mg PO DAILY hydralazine 50 MG tablet 50 mg PO TID fluticasone propionate 50 mcg/actuation spray,suspension 1 spray intranasal DAILY PRN (Reason: ALLERGIES) multivitamin Tablet 1 tab PO DAILY fluoxetine 20 mg capsule 20 mg PO DAILY acetaminophen [Tylenol] 325 mg tablet 650 mg PO Q6H PRN (Reason: Pain) Referrals / Follow Up: Shelley Martell [facility], [facility] [Primary Care Provider] - Disposition Disposition (needs filled in before D/C Order can be placed): Long-Term Facility
--- NOTE | 2022-11-25 14:21 | DS.PCM_ITS ---
Providers Date of Admission: 11/12/22 Date of Discharge: 11/25/22 Primary Care Physician: Shelley Martell, HEAD OF LOSS PREVENTION-C Reason For Visit: SEPSIS Diagnosis Discharge Diagnosis (1) Acute encephalopathy: Status: Acute Code(s): G93.40 - Encephalopathy, unspecified (2) Sepsis: Status: Acute Code(s): A41.9 - Sepsis, unspecified organism (3) Debility: Status: Acute Code(s): R53.81 - Other malaise Plan 1. Sepsis secondary to group A strep bacteremia-etiology unclear at this time, possibly due to urinary tract infection-patient is currently on Omnicef, I will continue this medication at this time, discharge planning is not confirmed at t his time, I suspect the patient will need to go back to assisted living, daughter states she is not able to pay for jail care for the patient. Daughter again is appealing the insurance companies decision not to send her to a prison facility. #2 acute encephalopathy secondary to #1-complicates care, medical course, recovery, and prognosis, patient currently resides at [facility], [place] but family requests that she go to a facility closer to where her family lives, patient's insurance coverage declined to cover her jail transfer, her family is going to appeal this. #3 hypothyroidism-patient is on Synthroid #4 chronic depression/anxiety-patient is on Prozac and BuSpar currently #5 essential hypertension-patient is on amlodipine #6 schizophrenia-patient is on paliperidone #7 hyperlipidemia-patient is on pravastatin #8 GERD-patient is on a PPI Total clinical time spent by myself addressing the patient's medical issues, reviewing all of her data, and collaborating with patient's care team: 35 minutes Medications at Discharge Home Medications levothyroxine 25 mcg tablet 25 mcg PO DAILY THYROID 06/26/13 omeprazole 20 mg capsule,delayed release 20 mg PO DAILY GERD 06/26/13 pravastatin 80 mg tablet 80 mg PO QHS CHOLESTEROL 03/13/17 polyethylene glycol 3350 17 gram oral powder packet (Gavilax) 17 g PO DAILY CONSTIPATION 05/11/18 buspirone 15 mg tablet 15 mg PO TID ANXIETY 07/27/20 cholecalciferol (vitamin D3) 50 mcg (2,000 unit) tablet 2,000 unit PO DAILY SUPPLEMENT 07/27/20 paliperidone 6 mg tablet,extended release 24 hr 6 mg PO DAILY MENTAL HEALTH 07/27/20 trazodone 150 mg tablet 150 mg PO QHS SLEEP 07/27/20 oxybutynin chloride 5 mg tablet 2.5 mg PO BID BLADDER 10/22/20 amlodipine 5 mg tablet 5 mg PO DAILY BLOOD PRESSURE 09/26/22 aspirin 81 mg chewable tablet 81 mg PO DAILY HEART HEALTH 09/26/22 benzonatate 200 mg capsule 200 mg PO BID COUGH 09/26/22 benztropine 0.5 mg tablet 0.5 mg PO BID MUSCLE SPASMS 09/26/22 dicyclomine 20 mg tablet 20 mg PO TID IRRITABLE BOWELS 09/26/22 hydralazine 50 mg tablet 50 mg PO TID BLOOD PRESSURE 09/26/22 lamotrigine 200 mg tablet 200 mg PO BID DEPRESSION 09/26/22 melatonin 5 mg tablet 5 mg PO QHS SLEEP 09/26/22 fluticasone propionate 50 mcg/actuation nasal spray,suspension 1 spray intranasal DAILY PRN ALLERGIES 10/19/22 acetaminophen 325 mg tablet (Tylenol) 650 mg PO Q6H PRN Pain 11/12/22 fluoxetine 20 mg capsule 20 mg PO DAILY ANXIETY 11/12/22 multivitamin 1 tab PO DAILY HEALTH MAINTENANCE 11/12/22 food supplemt, lactose-reduced 0.08 gram-1.5 kcal/mL oral liquid (Ensure Plus High Protein) 120 ml PO 4X/DAY #0 mL 11/17/22 Hospital Course Operations None Procedures None Summary of Care Provided Minutes Spent on Discharge: 39 Hospital Course: 72-year-old white female was seen in the emergency room after being transported in from an assisted living facility with mental status change. There was questionable facial droop and left-sided weakness, upon arrival in the emergency room however no neurological deficits were determined to be present. Patient had leukocytosis of 18,000 on her blood work, history was not able to be obtained from the patient due to lethargy and somnolence. Work-up in the emergency room was completed and it was felt that the patient had acute encephalopathy secondary to sepsis and possible medications. Patient was admitted to [facility], given IV Zosyn and vancomycin and was seen by PT and OT. Patient's blood culture grew out Streptococcus group A, she responded to treatment slowly but her mental status remained confused at times. Patient did have a history of schizophrenia and was living in assisted living, her insurance carrier did not approve the patient to go to a prison facility and the daughter requested an appeal from the insurance company which after several days was approved for the patient to go to a prison facility. At the time of discharge from the hospital on 11/25/2022, patient was alert and answer simple questions appropriately.: On examination she appeared to exhibit mild confusion, she does not appear to be in any distress. Vital signs as documented. Skin warm and dry and without overt rashes. Neck without JVD, thyroid appears normal, trachea is midline, neck is supple. Lungs clear, normal air movement was noted. Heart exam notable for regular rhythm, normal sounds and absence of murmurs, rubs or gallops. Abdomen unremarkable and without evidence of organomegaly, masses, or abdominal aortic enlargement, bowel sounds are present in all 4 quadrants, no abdominal tenderness was noted. Extremities nonedematous, no cyanosis was noted, no clubbing was noted. Neuro: Cranial nerves II through XII are grossly intact, no focal motor deficits were noted, sensation to light touch and pinprick is intact, motor exam 5/5 throughout. Psych: Patient is alert and oriented as to self, she exhibited confusion. On 11/25/2022, patient was seen and examined and felt to be in stable condition for discharge to a prison facility for further care. Medical Records Data Medical Nutrition Assessment Dietitian: Malnutrition Criteria Met Start: 11/18/22 14:22 Freq: Status: Active Protocol: Document 11/18/22 14:22 TRUE (Rec: 11/18/22 14:22 TRUE [id number]) Nutrition Malnutrition Evidence of Malnutrition Exists Yes Malnutrition (severe): Acute Illness/Injury Evidenced By Suboptimal Energy Intake ( Severe),Weight Loss (Severe) Clinical Problem Acute Disease or Injury Related Malnutrition Etiology related to confusion and inadequate energy intake Signs/Symptoms as evidenced by po intake meeting <50% and 7.6lbs (5.6%) unintended weight loss in 1 month and 17.5lbs (12.1%) in ~ 1.5 months Status Active Problem Unintended Weight Loss Status Inactive Problem Recommendation Dietitian Recommendations/Changes Continue Regular diet to optimize oral intakes. If blood glucose needs managed better recommend CHO Controlled diet. Continue 120mL Ensure Plus High Protein 4x to provide supplemental energy. Consider appetite stimulant to help encourage po intake Weight / BMI Weight Weight: 57.153 kg Body Mass Index (BMI) 24.6 ABG / Lab / Microbiology Data Result Diagrams: 11/17/22 06:20 11/17/22 06:20 Microbiology: Microbiology 11/25/22 12:35 Nasal Secretion SARS-CoV-2 Antigen (Rapid) - Final 11/12/22 16:20 Blood Culture (Wb) - Right Forearm Blood Culture - Final No growth in 5 days. 11/12/22 16:58 Blood Culture (Wb) - Right Wrist Blood Culture - Final Streptococcus group A 11/12/22 16:14 Nasal Secretion SARS-CoV-2 & FLU Antigen (Rapid) - Final D/C Instructions Discharge Diet: No restrictions Call your doctor if you observe: Fever of 101 or Higher, Shortness of breath, Fainting spells and Chest pain Meaningful Use Info Meaningful Use Diagnoses (Choose all that apply): None applicable Discharge Plan Admission Admit Date/Time: 11/12/22 18:17 Primary Reason for Your Visit: sepsis Attending Provider: Demond Putnam Primary Care Provider: Shelley Martell HEAD OF LOSS PREVENTION Consulting Providers: Santos Shipman ; Rufino Noguera ; Macario Jiang Discharge Orders/Prescriptions Prescriptions: New Ensure Plus High Protein 0.08 gram-1.5 kcal/mL Liquid 120 ml PO 4X/DAY Qty: 0 0RF Continued levothyroxine 25 MCG tablet 25 mcg PO DAILY omeprazole 20 MG capsule 20 mg PO DAILY pravastatin 80 MG tablet 80 mg PO QHS polyethylene glycol 3350 [Gavilax] 17 GM powder in packet 17 g PO DAILY trazodone 150 MG tablet 150 mg PO QHS buspirone 15 MG tablet 15 mg PO TID paliperidone 6 MG tablet 6 mg PO DAILY cholecalciferol (vitamin D3) 50 MCG tablet 2,000 unit PO DAILY oxybutynin chloride 5 MG tablet 2.5 mg PO BID benztropine 0.5 mg tablet 0.5 mg PO BID lamotrigine 200 mg tablet 200 mg PO BID benzonatate 200 mg capsule 200 mg PO BID dicyclomine 20 mg tablet 20 mg PO TID melatonin 5 mg Tablet 5 mg PO QHS amlodipine 5 MG tablet 5 mg PO DAILY aspirin 81 MG tablet,chewable 81 mg PO DAILY hydralazine 50 MG tablet 50 mg PO TID fluticasone propionate 50 mcg/actuation spray,suspension 1 spray intranasal DAILY PRN (Reason: ALLERGIES) multivitamin Tablet 1 tab PO DAILY fluoxetine 20 mg capsule 20 mg PO DAILY acetaminophen [Tylenol] 325 mg tablet 650 mg PO Q6H PRN (Reason: Pain) Referrals / Follow Up: Shelley Martell HEAD OF LOSS PREVENTION, HEAD OF LOSS PREVENTION-C [Primary Care Provider] - Disposition Disposition (needs filled in before D/C Order can be placed): Group Home Facility Charges/Coding Visit Charges Inpatient E&M: 99087 Disch Hosp >30min
--- NOTE | 2022-11-25 15:38 | CASEMGMT ---
Social Work SW spoke with Johny at [facility] and pt can admit today. Physician updated and pt is ready for discharge. Discharge orders and covid results sent to [facility] via [employer]. Transportation arranged with [facility] with confirmation # [id number]. SW requested [facility] provide a wheelchair and use Physician's ambulance. Phone call to Physicians and updated that transportation arranged with [facility]. Physicians picked up case and will transport at 5pm via wheelchair van. SW updated pt and pt dgt Mary Jo and both agreeable to discharge plan. Nursing and [facility] updated on time of discharge. Plan: [facility], skilled level of care EMILIO Barbosa
--- NOTE | 2022-11-25 15:38 | CASEMGMT ---
SW faxed discharge info to [facility] ([facility]). Sharifa Acosta CORRESPONDENCE SPECIALIST, PREVENTIVE MEDICINE SPECIALIST
== END 2022-11-25 17:15 | disposition skilled nursing facility (03) | DRG 689 ==
LOC: ED 17:36 → MS3 18:35
PROVIDERS: Internal Medicine; Admitting Provider Internal Medicine; Emergency Provider Emergency Medicine; PCP Nurse Practitioner Adult Health; Visit Provider Internal Medicine
DX: N39.0 Urinary tract infection, site not specified (principal); E43 Unspecified severe protein-calorie malnutrition; G93.49 Other encephalopathy; F20.9 Schizophrenia, unspecified; I34.1 Nonrheumatic mitral (valve) prolapse; E03.9 Hypothyroidism, unspecified; I10 Essential (primary) hypertension; F32.A Depression, unspecified; K21.9 Gastro-esophageal reflux disease without esophagitis; E78.5 Hyperlipidemia, unspecified; F41.9 Anxiety disorder, unspecified; Z66 Do not resuscitate; Z68.24 Body mass index [BMI] 24.0-24.9, adult; Z79.82 Long term (current) use of aspirin; Z79.899 Other long term (current) drug therapy
CPT/HCPCS: 36415; 70450; 71045; 74177; 80048; 80053; 81001; 83605; 83735; 84100; 85025; 85027; 87040; 87086; 87088; 87186; 87426; 87428; 92610; 93005; 97110; 97116; 97162; 97166; 97530; 97535; 97803; 99285; J7030; J7050; P9612; Q9967; A4216

== ENCOUNTER 2024-03-07 22:52 | Emergency (ER) | payer MEDICARE, MEDICAID, SELFPAY ==
[2024-03-07 22:54] VITALS: BP 161/99; PULSE 76; RESP 18; TEMP 36; O2SAT 95
--- NOTE | 2024-03-07 23:06 | RAD_ITS ---
INDICATION: chest pain EXAMINATION/TECHNIQUE: X-RAY - XR Chest 1 View COMPARISON: 11/12/2022. FINDINGS: The lungs are clear. Left basilar atelectasis. Tortuous and calcified thoracic aorta. The heart is not enlarged. No pleural effusion or pneumothorax. Degenerative changes of the thoracic spine. Status post vertebral augmentation of L1. RAD/Chest 1 View (Portable) IMPRESSION: No acute radiographic abnormalities. Electronically Signed: Popeye Almendarez MD at 1:42 EDT ,
--- NOTE | 2024-03-07 23:06 | EKG12_ITS ---
Test Reason : CP Blood Pressure : / mmHG Vent. Rate : 073 BPM Atrial Rate : 073 BPM P-R Int : 180 ms QRS Dur : 080 ms QT Int : 444 ms P-R-T Axes : 053 026 058 degrees QTc Int : 489 ms Normal sinus rhythm Normal ECG Confirmed by SHAUNNA DON, CARMEN ([id number]), script editor LINDA WATT ([id number]) on 03/13/2024 10:45:26 A M Referred By: KIRSTEN Confirmed By:BARRERA MAZA MD
--- NOTE | 2024-03-07 23:33 | EDS_ITS ---
HPI History of Present Illness Chief Complaint: Chest Pain Narrative Narrative: Patient with presenting with chest pain which is left-sided. She describes it as something sitting on my chest. She states it started this morning when she got out of bed. She states laying down makes it better and getting up and moving makes it worse. She denies cough, fever, chills. She denies nausea, vomiting. She denies lightheadedness. Patient denies cardiac history. [facility] Medical History Fall Compression fractures L4 lumbar vertebra Depression Mitral valve prolapse Migraine Compression fracture of L1 lumbar vertebra Hypothyroidism History of schizophrenia Type 2 diabetes mellitus Home Medications ?Medication ?Instructions ?Recorded ?Last Taken ?Type levothyroxine 25 mcg tablet 25 mcg PO DAILY THYROID 06/26/13 11/12/22 History pravastatin 80 mg tablet 40 mg PO QHS CHOLESTEROL 03/13/17 11/12/22 History buspirone 15 mg tablet 15 mg PO TID ANXIETY 07/27/20 11/12/22 History paliperidone 6 mg tablet,extended 9 mg PO DAILY MENTAL HEALTH 07/27/20 11/12/22 History release 24 hr trazodone 150 mg tablet 100 mg PO QHS SLEEP 07/27/20 11/11/22 History oxybutynin chloride 5 mg tablet 7.5 mg PO BID BLADDER 10/22/20 11/12/22 History amlodipine 5 mg tablet 5 mg PO DAILY BLOOD PRESSURE 09/26/22 11/12/22 History aspirin 81 mg chewable tablet 81 mg PO DAILY HEART HEALTH 09/26/22 11/12/22 History benztropine 0.5 mg tablet 0.5 mg PO BID MUSCLE SPASMS 09/26/22 11/12/22 History hydralazine 50 mg tablet 25 mg PO TID BLOOD PRESSURE 09/26/22 11/12/22 History lamotrigine 200 mg tablet 200 mg PO BID DEPRESSION 09/26/22 11/12/22 History melatonin 5 mg tablet 5 mg PO QHS SLEEP 09/26/22 11/11/22 History fluticasone propionate 50 1 spray intranasal DAILY PRN 10/19/22 09/28/22 History mcg/actuation nasal ALLERGIES spray,suspension acetaminophen 325 mg tablet 650 mg PO Q6H PRN Pain 11/12/22 Unknown History (Tylenol) fluoxetine 20 mg capsule 20 mg PO DAILY ANXIETY 11/12/22 11/12/22 History calcium carbonate 500 mg-vitamin 1 tab PO BID 03/08/24 Unknown History D3 5 mcg (200 unit) tablet (Oyster Shell Calcium-Vitamin D3) cyanocobalamin (vitamin B-12) 1,000 mcg PO DAILY 03/08/24 Unknown History 1,000 mcg capsule docusate sodium 100 mg capsule 100 mg PO QHS 03/08/24 Unknown History docusate sodium 100 mg capsule 200 mg PO DAILY 03/08/24 Unknown History donepezil 5 mg tablet 10 mg PO QHS 03/08/24 Unknown History ferrous sulfate 325 mg (65 mg 325 mg PO BID 03/08/24 Unknown History iron) tablet (FeroSul) fluorometholone 0.1 % eye 1 drp ophthalmic (eye) BID 03/08/24 Unknown History drops,suspension pantoprazole 40 mg tablet,delayed 40 mg PO DAILY 03/08/24 Unknown History release Allergy/AdvReac Type Severity Reaction Status Date / Time ciprofloxacin Allergy Unknown Verified 03/07/24 22:53 codeine Allergy Unknown Verified 03/07/24 22:53 hydroxyzine HCl (From Allergy Unknown Verified 03/07/24 22:53 Vistaril) hydroxyzine pamoate (From Allergy Unknown Verified 03/07/24 22:53 Vistaril) niacin Allergy Unknown Verified 03/07/24 22:53 ofloxacin (From Floxin) Allergy Unknown Verified 03/07/24 22:53 tetracycline (Tetracycline) Allergy Unknown Verified 03/07/24 22:53 Tetracyclines Allergy Unknown Verified 03/07/24 22:53 Surgical History Hx of hysterectomy Hx of cholecystectomy Status post kyphoplasty Social History housing: halfway Smoking Status: Never smoker substance use type: does not use ROS ROS ED Constitutional Constitutional ED: Denies chills, fever(s) or sweats Eyes Eyes: Denies blurry vision or change in vision ENT ENT ED: Denies ear pain or sore throat Cardiovascular Cardiovascular: Reports chest pain; Denies palpitations or racing heartbeat Respiratory/Chest Respiratory/Chest: Denies cough, dyspnea or sputum Gastrointestinal Gastrointestinal: Denies abdominal pain, constipation, diarrhea, nausea or vomiting Genitourinary Genitourinary ED: Denies dysuria, hematuria or urinary frequency Musculoskeletal Musculoskeletal: Denies arthralgias, myalgias or neck pain Integumentary Denies abscess, Abrasions or rash Neurologic Neurologic: Denies headache(s), paresthesias or weakness Psychiatric Psychiatric: Denies anxiety, depression, suicidal ideation or suicidal thoughts Endocrine Endocrinology: Denies polydipsia or polyuria EXAM Physical Exam Const Vital Signs: 03/07/24 22:54 03/07/24 23:33 03/07/24 23:36 Temperature 96.8 F L Temperature Source Temporal Pulse Rate 76 Respiratory Rate 18 Respiratory Effort Normal Non-Labored Blood Pressure 161/99 H Blood Pressure Mean 119 Pulse Ox 95 Oxygen Delivery Method Room Air Room Air 03/07/24 23:53 03/08/24 00:00 03/08/24 01:00 Temperature Temperature Source Pulse Rate 59 L 57 L 66 Respiratory Rate 18 10 L 16 Respiratory Effort Blood Pressure 129/55 H 127/49 H 140/55 H Blood Pressure Mean 79 75 83 Pulse Ox 95 96 97 Oxygen Delivery Method Room Air Room Air Room Air 03/08/24 02:00 03/08/24 02:59 Temperature 97.7 F L Temperature Source Pulse Rate 56 L 55 L Respiratory Rate 16 16 Respiratory Effort Blood Pressure 128/48 H 141/48 H Blood Pressure Mean 74 79 Pulse Ox 95 97 Oxygen Delivery Method Room Air Positive well nourished General Appearance ED: NAD; Negative for pallor HEENT Reports TM's clear and moist mucous membranes normocephalic Tympanic Membrane ED: Yes TM's clear Eyes General Eye ED: Yes pale conjunctiva Chest Wall inspection of chest normal Resp normal respiratory effort and clear to auscultation bilaterally Auscultation: Negative for rales, rhonchi or wheezes Cardio regular rate and regular rhythm Neuro oriented x3 and CN's II-XII intact bilaterally Sensorium / Orientation: awake and alert Skin General Skin Exam: Negative for jaundice or pallor MDM MDM MDM Narrative Medical decision making narrative: Patient presenting with chest pain differential includes but is not limited to ACS, PE, aortic dissection, pneumonia, pneumothorax, muscle strain, costochondritis. CBC will be obtained to assess white blood cell count, hemoglobin, platelets. BMP to assess renal function, electrolytes, glucose. High-sensitivity troponin and EKG to assess for ischemia/dysrhythmia. Chest x- ray to rule out pneumonia. PERC negative. Patient is given nitroglycerin to see if this helps her chest pain. CBC shows normal white blood cell count 6.1. Hemoglobin 1.5. Platelets are normal at 273. Renal function electrolytes withi n normal limits. High-sensitivity troponin 6 and delta troponin also 6. EKG interpreted by myself shows a sinus rhythm at 73 bpm. Given patient's workup is ultimately negative I feel she stable for discharge home. She is amenable to this. She discharged stable condition. Impression: 1. Chest pain Lab Data Attestation: I reviewed the patient's lab results. Labs: Laboratory Results - last 24 hr 03/07/24 03/08/24 23:40 01:40 WBC 6.1 RBC 3.71 L Hgb 11.5 L Hct 34.9 L MCV 94.1 MCH 31.0 MCHC 33.0 RDW Std Deviation 45.1 H RDW Coeff of Randall 13.2 Plt Count 273 MPV 9.0 Immature Gran % (Auto) 0.200 Neut % (Auto) 54.8 Lymph % (Auto) 34.5 Wise % (Auto) 6.9 Eos % (Auto) 2.8 Baso % (Auto) 0.8 Absolute Neuts (auto) 3.4 Absolute Lymphs (auto) 2.11 Nucleated RBC % 0 Sodium 140 Potassium 3.8 Chloride 108 H Carbon Dioxide 26.0 Anion Gap 6 BUN 11 Creatinine 0.93 Est GFR (MDRD) Af Amer 75 Est GFR (MDRD) Non-Af 62 BUN/Creatinine Ratio 11.8 Glucose 126 H Calcium 9.1 Troponin I High Sens 6 6 Radiography Diagnostic Testing: Clinical Impression(s) from Imaging Studies Chest X-Ray 03/07/24 23:06 IMPRESSION: No acute radiographic abnormalities. Electronically Signed: Popeye Almendarez MD at 1:42 EDT , Discharge Plan Triage Chief Complaint: Chest Pain ED Provider: Gaurang Fajardo Dx/Rx/DC Orders Instructions: ED Chest Pain, Uncertain Cause Prescriptions: No Action levothyroxine 25 MCG tablet 25 mcg PO DAILY pravastatin 80 MG tablet 40 mg PO QHS trazodone 150 MG tablet 100 mg PO QHS buspirone 15 MG tablet 15 mg PO TID paliperidone 6 MG tablet 9 mg PO DAILY oxybutynin chloride 5 MG tablet 7.5 mg PO BID benztropine 0.5 mg tablet 0.5 mg PO BID lamotrigine 200 mg tablet 200 mg PO BID melatonin 5 mg Tablet 5 mg PO QHS amlodipine 5 MG tablet 5 mg PO DAILY aspirin 81 MG tablet,chewable 81 mg PO DAILY hydralazine 50 MG tablet 25 mg PO TID fluticasone propionate 50 mcg/actuation spray,suspension 1 spray intranasal DAILY PRN (Reason: ALLERGIES) fluoxetine 20 mg capsule 20 mg PO DAILY acetaminophen [Tylenol] 325 mg tablet 650 mg PO Q6H PRN (Reason: Pain) pantoprazole 40 mg tablet,delayed release (DR/EC) 40 mg PO DAILY fluorometholone 0.1 % drops,suspension 1 drp ophthalmic (eye) BID ferrous sulfate [FeroSul] 325 mg (65 mg iron) tablet 325 mg PO BID donepezil 5 mg tablet 10 mg PO QHS docusate sodium 100 mg capsule 100 mg PO QHS docusate sodium 100 mg capsule 200 mg PO DAILY cyanocobalamin (vitamin B-12) 1,000 mcg capsule 1,000 mcg PO DAILY calcium carbonate-vitamin D3 [Oyster Shell Calcium-Vit D3] 500 mg-5 mcg (200 unit) tablet 1 tab PO BID Primary Care Provider: Mateusz Almendarez Referrals: Shelley Martell ADJUNCT PSYCHOLOGY INSTRUCTOR, ADJUNCT PSYCHOLOGY INSTRUCTOR-C [Non-Staff] - Print Language: Algerian Disposition Disposition: Home, Self Care
[2024-03-07 23:45] LABS: Absolute Lymphocyte Count 2.11 X10^3/uL (0.83-4.51); Absolute Neutrophil Count 3.4 X10^3/uL (2.0-7.7); Basophil# 0.05 X10^3/uL; Basophil% 0.8 % (0-1); Eosinophil# 0.17 X10^3/uL; Eosinophils% 2.8 % (0-5); Hematocrit 34.9 % (37-47); Hemoglobin 11.5 g/dL (12.0-15.0); Lymphocyte # 2.11 X10^3/ul (0.83-4.51); Lymphocyte % 34.5 % (19-41); Mean Corpuscular Volume 94.1 fL (81-99); Monocyte# 0.42 X10^3/uL; Monocyte% 6.9 % (0-10); NRBC Flagged by Analyzer 0 % (0-5); Neutrophil # 3.36 X10^3/uL (2.7-7.7); Neutrophil % 54.8 % (47-70); Platelet Count 273 K/mm3 (150-450); RBC Distribution Width CV 13.2 % (11.6-14.6); RBC Distribution Width SD 45.1 fl (35.1-43.9); Red Blood Count 3.71 M/mm3 (4.2-5.4); White Blood Count 6.1 K/mm3 (4.4-11.0)
[2024-03-07 23:53] VITALS: BP 129/55; PULSE 59; RESP 18; O2SAT 95
[2024-03-08] VITALS: BP 127/49; PULSE 57; RESP 10; O2SAT 96
[2024-03-08 00:07] LABS: Anion Gap 6 (5-15); BUN 11 mg/dL (7-18); BUN/Creat Ratio 11.8 RATIO (10-20); Calcium,Total 9.1 mg/dL (8.5-10.1); Chloride 108 mmol/L (98-107); Creatinine, Serum 0.93 mg/dL (0.55-1.02); EST Glomerular Filtration Rate 62 mL/min (>60); Est Glom Filt Rate - Afr Amer 75 mL/min (>60); Glucose 126 mg/dL (74-106); Potassium 3.8 mmol/L (3.5-5.1); Sodium Level 140 mmol/L (136-145); Troponin-I HS (w/2H Reflex) 6 pg/mL (3.0-54.0)
[2024-03-08 01:00] VITALS: BP 140/55; PULSE 66; RESP 16; O2SAT 97
[2024-03-08 01:43] LABS: Reflex Troponin-HS? (from REC) Y
[2024-03-08 02:00] VITALS: BP 128/48; PULSE 56; RESP 16; O2SAT 95
[2024-03-08 02:20] LABS: Troponin-I HS 6 pg/mL (3.0-54.0)
[2024-03-08 02:59] VITALS: BP 141/48; PULSE 55; RESP 16; TEMP 36.5; O2SAT 97; BMI 24.8
[2024-03-08 03:00] VITALS: BP 137/99; PULSE 54; RESP 19; TEMP 36.6; O2SAT 97
== END 2024-03-08 04:09 | disposition home or self-care (01) ==
PROVIDERS: Emergency Provider Student in an Organized Health Care Education/Training Program; PCP Family Medicine; Visit Provider Student in an Organized Health Care Education/Training Program
DX: R07.9 Chest pain, unspecified (principal); E11.9 Type 2 diabetes mellitus without complications; E03.9 Hypothyroidism, unspecified; F32.A Depression, unspecified; Z79.899 Other long term (current) drug therapy; Z79.82 Long term (current) use of aspirin
CPT/HCPCS: 71045; 80048; 84484; 85025; 93005; 99283; A4216

== ENCOUNTER → 2024-04-23 | Outpatient (CLI) | payer MEDICARE, MEDICAID, SELFPAY ==
[2024-04-23 18:02] LABS: Hematocrit 38.1 % (37-47); Hemoglobin 12.2 g/dL (12.0-15.0); Mean Corpuscular Hgb 30.9 pg (27.0-32.0); Mean Corpuscular Volume 96.5 fL (81-99); Mean Platelet Vol. 9.4 fl (6.2-12.0); Platelet Count 302 K/mm3 (150-450); RBC Distribution Width CV 12.6 % (11.6-14.6); RBC Distribution Width SD 45.3 fl (35.1-43.9); Red Blood Count 3.95 M/mm3 (4.2-5.4); White Blood Count 5.9 K/mm3 (4.4-11.0)
[2024-04-23 18:17] LABS: Anion Gap 8 (5-15); BUN 14 mg/dL (7-18); BUN/Creat Ratio 15.7 RATIO (10-20); Calcium,Total 9.9 mg/dL (8.5-10.1); Chloride 105 mmol/L (98-107); Creatinine, Serum 0.89 mg/dL (0.55-1.02); EST Glomerular Filtration Rate 66 mL/min (>60); Est Glom Filt Rate - Afr Amer 79 mL/min (>60); Glucose 128 mg/dL (74-106); Potassium 3.7 mmol/L (3.5-5.1); Sodium Level 139 mmol/L (136-145)
== END | disposition home or self-care (01) ==
PROVIDERS: PCP Family Medicine; Referring Provider Urology; Visit Provider Urology
DX: N13.30 Unspecified hydronephrosis (principal)
CPT/HCPCS: 36415; 80048; 85027

== ENCOUNTER → 2024-05-10 | Outpatient (CLI) | payer MEDICARE, MEDICAID, SELFPAY ==
--- NOTE | 2024-05-10 07:46 | CT_ITS ---
STUDY: CT ABDOMEN AND PELVIS WITH AND WITHOUT CONTRAST REASON FOR EXAM: Female, 74 years old. Unspecified hydronephrosis RADIATION DOSAGE (If Supplied By Facility): CTDIvol = ( 10.28 ) mGy, DLP = ( 1059.05 ) mGycm TECHNIQUE: Transaxial images were obtained from the dome of the diaphragm to the symphysis pubis without oral contrast. Oral and amp; IV Readi-CAT and amp; 70 ISOVUE 300 was administered. Sagittal and coronal images were reconstructed. Individualized dose optimization techniques were used for this CT. COMPARISON: Comparison is made with prior study dated November 12, 2022. FINDINGS: Stable minimal increased linear markings at the lung bases suggestive of a scarring. No significant coronary artery calcification is seen. Minimal degree of central intrahepatic biliary ductal dilatation. The patient is status post cholecystectomy. The common bile duct measures 1.4 cm in transverse dimension as it enters the second portion of the duodenum. Normal spleen. Normal pancreas. Normal bilateral adrenal glands. Normal right kidney. Normal left kidney. Normal visualized stomach. Normal small intestine. There are multiple colonic diverticula consistent with diverticulosis. The appendix is visualized and appears normal. There is scattered atherosclerotic calcification of the abdominal aorta and its major visceral branches, without a demonstrated aneurysm. Normal inferior vena cava. Normal retroperitoneum. Normal urinary bladder. There is absence of the uterus consistent with a prior hysterectomy. Normal abdominal wall. Loss of height and prior vertebroplasty of the L1 vertebrae. Loss of height of the superior endplate of the L4 vertebrae. CT/CT Abd/Pelvis W/WO Contrast IMPRESSION: No evidence of hydronephrosis. Status post cholecystectomy with central intrahepatic and common bile duct dilatation. Sigmoid diverticulosis. Electronically Signed: Johnnie Ortega MD at 10:26 EDT ,
== END | disposition home or self-care (01) ==
LOC: CT 07:46
PROVIDERS: PCP Family Medicine; Referring Provider Urology; Visit Provider Urology
DX: N13.30 Unspecified hydronephrosis (principal)
CPT/HCPCS: 74178; Q9967